=== PATIENT | male | born 1955 | race Caucasian/White ===

== ENCOUNTER 2017-05-13 16:48 | Inpatient (IN) | payer MEDICARE, OTHER ==
[~2017-05-13] VITALS: Ht 167.6 cm; Wt 120.0 kg
[2017-05-13] MEDS ORDERED: SPIR25TA PO (17:23)
[2017-05-13] MEDS ORDERED: OXYC1CAP PO (17:23)
[2017-05-13] MEDS ORDERED: FURO40TA PO (17:23)
[2017-05-13] MEDS ORDERED: VENL50TA PO (17:23)
[2017-05-13] MEDS ORDERED: CLON.5 PO (17:23)
[2017-05-13 18:22] LABS: AUTOMATED NEUTROPHIL # 3.9 TH/MM3 (1.8-7.7); BASOPHIL % 0.4 % (0.0-2.0); HEMATOCRIT 43.7 % (39.0-51.0); HEMOGLOBIN 15.3 GM/DL (13.0-17.0); LYMPH % 10.7 % (9.0-44.0); LYMPHOCYTE # 0.5 TH/MM3 (1.0-4.8); MEAN CELL VOLUME 102.2 FL (80.0-100.0); MEAN CORPUSCULAR HEMOGLOBIN 35.9 PG (27.0-34.0); MEAN CORPUSCULAR HGB CONC 35.1 % (32.0-36.0); MONO % 11.3 % (0.0-8.0); MONOCYTE # 0.6 TH/MM3 (0-0.9); NEUT % 77.6 % (16.0-70.0); PLATELET COUNT 131 TH/MM3 (150-450); RED BLOOD COUNT 4.27 MIL/MM3 (4.50-5.90); RED CELL DISTRIBUTION WIDTH 12.8 % (11.6-17.2)
[2017-05-13 18:24] LABS: BILIRUBIN, URINE NEG (NEG); BLOOD, URINE SMALL (NEG); GLUCOSE,URINE NEG (NEG); HYALINE CAST, URINE 4 /lpf (RARE); KETONE, URINE NEG (NEG); MUCUS URINE FEW /lpf (OCC); NITRITE,URINE NEG (NEG); PH, URINE 7.5 (5.0-8.5); SQUAMOUS EPITHELIAL CELL URINE <1 /hpf (0-5); URINE COLOR LIGHT-YELLOW (YELLW/STRAW); URINE LEUKOCYTE ESTERASE NEG (NEG)
[2017-05-13 18:51] VITALS: BP 120/76; PULSE 72; RESP 16; TEMP 98.4; O2SAT 94
[2017-05-13 18:57] LABS: ALT (GPT) 27 U/L (12-78)
--- NOTE | 2017-05-13 18:57 | PD ---
HPI Chief Complaint: Psychiatric Symptoms Time Seen by Provider: 17:55 Travel History International Travel<30 days: No Contact w/Intl Traveler<30days: No Traveled to known affect area: No History of Present Illness HPI 61-year-old male sent from [facility] under VR1 act. According to VR1 act report "contact was made with Sumit Up in regards to his calling about his behavior today being abnormal. Mrs. Up advised Mr. Up for some apparent dementia as evidenced by suggestions from recent doctor visit [address] [facility] in [place]. Mrs. Up advised that Mr. Up is neglecting to take care of himself as evidenced by him defecating himself, attempting to swallow household ornament items, and is also becoming a danger to others, by means of lashing out and becoming aggressive with Mrs. Up while attempting to walk around the outside of his house in the nude. Mr. Up was unable to answer simple questions about what day it was, who the current present was, etc. and is believed that without proper care of treatment , Mr. Up will cause bodily harm to others/failed to care for his own well- being." The patient is alert, and only oriented to self on physical exam. He is answering questions with all no answers and will not elaborate otherwise. The patient is restless and is continuing to climb in and out of bed and walk around the room. When asked if he is having pain, hallucinations, alcohol use, illegal drug use, suicidal ideation or homicidal ideation he answers "no." Onset unknown. Duration unknown. No known relieving or aggravating factors. Symptoms are moderate to severe in severity. According to a note from his the patient has had altered mental status 3 weeks. He went to the hospital with elevated ammonia levels, was treated and released. Per the the patient is taking Klonopin, oxycodone, spironolactone, furosemide, venlafaxine. She reports questional dementia, incontinence, inability to perform ADLs. Unknown primary care provider. Patient answers "no" when asked if he is allergic to anything, but cannot rely on this. Unknown past medical history. [facility] Past Medical History Medical History: Unable to Obtain Diminished Hearing: No (UNABLE TO OBTAIN) ?: Not Past Surgical History Surgical History: Unable to Obtain Social History Alcohol Use: No (UNABLE TO OBTAIN) Tobacco Use: No (UNABLE TO OBTAIN) Substance Use: No (UNABLE TO OBTAIN) Allergies-Medications (Allergen,Severity, Reaction): Coded Allergies: No Allergy Information Available (Unverified , 05/13/17) PT HAS ALTERED MENTAL STATUS Reported Meds & Prescriptions Reported Meds & Active Scripts Active Reported Effexor (Venlafaxine HCl) 50 Mg Tab 50 Mg PO Q8H Furosemide 40 Mg Tab 40 Mg PO BID Spironolactone 25 Mg Tab 12.5 Mg PO DAILY Oxycodone (Oxycodone HCl) 5 Mg Cap 5 Mg PO Q6H PRN Klonopin (Clonazepam) 0.5 Mg Tab 0.5 Mg PO BID Review of Systems ROS Limitations: Altered Mental Status Physical Exam Narrative GENERAL: Well-nourished, well-developed male patient, in no acute distress SKIN: Warm and dry. HEAD: Atraumatic. Normocephalic. EYES: Pupils equal and round. No scleral icterus. No injection or drainage. ENT: Mucosa pink and moist. Airway patent. NECK: Trachea midline. CARDIOVASCULAR: Regular rate and rhythm. No murmur appreciated.. RESPIRATORY: No accessory muscle use. Breath sounds clear and equal bilaterally. GASTROINTESTINAL: Abdomen soft, non-tender, nondistended. Positive bowel sounds. No hepato-splenomegaly, or palpable masses. No guarding. MUSCULOSKELETAL: No obvious deformities. No clubbing. No cyanosis. No edema. NEUROLOGICAL: Awake and alert. Oriented 1. No obvious cranial nerve deficits. Motor grossly within normal limits. Normal speech. PSYCHIATRIC: Flat affect. Insight and judgment not normal. Mood and affect flat and not normal. Data Data Last Documented VS Vital Signs Date Time Temp Pulse Resp B/P (MAP) Pulse Ox O2 Delivery O2 Flow Rate FiO2 05/13/17 19:21 98.2 76 18 114/79 (91) 96 Room Air Orders Orders Complete Blood Count With Diff (05/13/17 17:57) Comprehensive Metabolic Panel (05/13/17 17:57) Urinalysis - C+S If Indicated (05/13/17 17:57) Psych Screen (05/13/17 17:57) Drug Screen, Random Urine (05/13/17 17:57) Alcohol (Ethanol) (05/13/17 17:57) Salicylates (Aspirin) (05/13/17 17:57) Tylenol (Acetaminophen) (05/13/17 17:57) Ammonia (05/13/17 18:16) Ct Brain W/O Iv Contrast(Rout) (05/13/17 ) Lactulose Liq (Lactulose Liq) (05/13/17 20:30) Admit Order (Ed Use Only) (05/13/17 20:35) Labs Laboratory Tests Test 05/13/17 18:08 05/13/17 18:09 05/13/17 19:13 Urine Color LIGHT-YELLOW Urine Turbidity CLEAR Urine pH 7.5 Urine Specific [place] 1.006 Urine Protein NEG mg/dL Urine Glucose (UA) NEG mg/dL Urine Ketones NEG mg/dL Urine Occult Blood SMALL Urine Nitrite NEG Urine Bilirubin NEG Urine Urobilinogen LESS THAN 2.0 MG/DL Urine Leukocyte Esterase NEG Urine RBC 3 /hpf Urine WBC 1 /hpf Urine Squamous Epithelial Cells <1 /hpf Urine Hyaline Casts 4 /lpf Urine Mucus FEW /lpf Microscopic Urinalysis Comment CULT NOT INDICATED Urine Opiates Screen NEG Urine Barbiturates Screen NEG Urine Amphetamines Screen NEG Urine Benzodiazepines Screen NEG Urine Cocaine Screen NEG Urine Cannabinoids Screen NEG White Blood Count 5.0 TH/MM3 Red Blood Count 4.27 MIL/MM3 Hemoglobin 15.3 GM/DL Hematocrit 43.7 % Mean Corpuscular Volume 102.2 FL Mean Corpuscular Hemoglobin 35.9 PG Mean Corpuscular Hemoglobin Concent 35.1 % Red Cell Distribution Width 12.8 % Platelet Count 131 TH/MM3 Mean Platelet Volume 10.0 FL Neutrophils (%) (Auto) 77.6 % Lymphocytes (%) (Auto) 10.7 % Monocytes (%) (Auto) 11.3 % Eosinophils (%) (Auto) 0.0 % Basophils (%) (Auto) 0.4 % Neutrophils # (Auto) 3.9 TH/MM3 Lymphocytes # (Auto) 0.5 TH/MM3 Monocytes # (Auto) 0.6 TH/MM3 Eosinophils # (Auto) 0.0 TH/MM3 Basophils # (Auto) 0.0 TH/MM3 CBC Comment DIFF FINAL Differential Comment Blood Urea Nitrogen 14 MG/DL Creatinine 1.22 MG/DL Random Glucose 155 MG/DL Total Protein 8.5 GM/DL Albumin 3.7 GM/DL Calcium Level 10.1 MG/DL Alkaline Phosphatase 122 U/L Aspartate Amino Transf (AST/SGOT) 55 U/L Alanine Aminotransferase (ALT/SGPT) 27 U/L Total Bilirubin 1.1 MG/DL Sodium Level 133 MEQ/L Potassium Level 4.3 MEQ/L Chloride Level 96 MEQ/L Carbon Dioxide Level 28.5 MEQ/L Anion Gap 9 MEQ/L Estimat Glomerular Filtration Rate 61 ML/MIN Salicylates Level LESS THAN 1.7 MG/DL Acetaminophen Level LESS THAN 2.0 MCG/ML Ethyl Alcohol Level LESS THAN 3 MG/DL Ammonia 79 MCMOL/L MDM Medical Decision Making Medical Screen Exam Complete: Yes Emergency Medical Condition: Yes Medical Record Reviewed: Yes Differential Diagnosis Dementia, increased ammonia level, altered mental status, psychosis Narrative Course This is a 61-year-old male sent from [facility]. Apparently his brought him there because she could not care for him secondary to altered mental status 3 weeks. Apparently he has had increased ammonia levels and has been seen at another hospital, treated, and discharged in regards to this. Ammonia level ordered. CT head ordered. Patient presents under a Cottrell act. Physical examination and vital signs are essentially unremarkable. Patient has no medical complaints to report. Psych screen has been ordered. If the laboratory results are unremarkable, the patient will be medically cleared for psychiatric evaluation and disposition. 1899: Report given to Sanna Royal at change shift. Labs pending. See her note for final patient disposition. Kimberlyn Cardoza May 13, 2017 18:57
[2017-05-13 19:00] LABS: ALBUMIN 3.7 GM/DL (3.4-5.0); ALKALINE PHOSPHATASE 122 U/L (45-117); AST (GOT) 55 U/L (15-37); BICARBONATE 28.5 MEQ/L (21.0-32.0); BLOOD UREA NITROGEN 14 MG/DL (7-18); CALCIUM 10.1 MG/DL (8.5-10.1); CHLORIDE 96 MEQ/L (98-107); CREATININE 1.22 MG/DL (0.60-1.30); GLOMERULAR FILTRATION RATE 61 ML/MIN (>89); GLUCOSE,RANDOM 155 MG/DL (74-106); SODIUM (NA) 133 MEQ/L (136-145); TOTAL BILIRUBIN ADULT 1.1 MG/DL (0.2-1.0); TOTAL PROTEIN 8.5 GM/DL (6.4-8.2)
[2017-05-13 19:01] LABS: ACETAMINOPHEN LESS THAN 2.0 MCG/ML (10.0-30.0)
[2017-05-13 19:21] VITALS: BP 114/79; PULSE 76; RESP 18; TEMP 98.2; O2SAT 96
--- NOTE | 2017-05-13 19:54 | RADRPT ---
EXAM DATE/TIME: 05/13/2017 19:49 [place] COMPARISON: No previous studies available for comparison. INDICATIONS : Altered mental status.. RADIATION DOSE: 42.46 CTDIvol (mGy) MEDICAL HISTORY : None SURGICAL HISTORY : None. ENCOUNTER: Initial ACUITY: 1 day PAIN SCALE: 0/10 LOCATION: cranial TECHNIQUE: Multiple contiguous axial images were obtained of the head. Using automated exposure control and adj ustment of the mA and/or kV according to patient size, radiation dose was kept as low as reasonably a chievable to obtain optimal diagnostic quality images. DICOM format image data is available electro nically for review and comparison. FINDINGS: CEREBRUM: The ventricles are normal for age. No evidence of midline shift, mass lesion, hemorrhage or acute in farction. No extra-axial fluid collections are seen. POSTERIOR FOSSA: The cerebellum and brainstem are intact. The 4th ventricle is midline. The cerebellopontine angle i s unremarkable. EXTRACRANIAL: The visualized portion of the orbits is intact. SKULL: The calvaria is intact. No evidence of skull fracture. CONCLUSION: Normal examination for a patient of this age. Abel Enamorado MD on May 13, 2017 at 19:52 Board Certified Radiologist. This report was verified electronically.
[2017-05-13] MEDS ORDERED: LACTULOSE SYRUP 20 GM/30 ML CUP PO ONE (20:30)
--- NOTE | 2017-05-13 20:40 | PD ---
Physical Exam Date Seen by Provider: May 13, 2017 Time Seen by Provider: 20:25 Narrative For full history and physical examination please see previous providers note. I assumed care of this patient change of shift. Data Data Last Documented VS Vital Signs Date Time Temp Pulse Resp B/P (MAP) Pulse Ox O2 Delivery O2 Flow Rate FiO2 05/13/17 19:21 98.2 76 18 114/79 (91) 96 Room Air Orders Orders Complete Blood Count With Diff (05/13/17 17:57) Comprehensive Metabolic Panel (05/13/17 17:57) Urinalysis - C+S If Indicated (05/13/17 17:57) Psych Screen (05/13/17 17:57) Drug Screen, Random Urine (05/13/17 17:57) Alcohol (Ethanol) (05/13/17 17:57) Salicylates (Aspirin) (05/13/17 17:57) Tylenol (Acetaminophen) (05/13/17 17:57) Ammonia (05/13/17 18:16) Ct Brain W/O Iv Contrast(Rout) (05/13/17 ) Lactulose Liq (Lactulose Liq) (05/13/17 20:30) Labs Laboratory Tests Test 05/13/17 18:08 05/13/17 18:09 05/13/17 19:13 Urine Color LIGHT-YELLOW Urine Turbidity CLEAR Urine pH 7.5 Urine Specific [place] 1.006 Urine Protein NEG mg/dL Urine Glucose (UA) NEG mg/dL Urine Ketones NEG mg/dL Urine Occult Blood SMALL Urine Nitrite NEG Urine Bilirubin NEG Urine Urobilinogen LESS THAN 2.0 MG/DL Urine Leukocyte Esterase NEG Urine RBC 3 /hpf Urine WBC 1 /hpf Urine Squamous Epithelial Cells <1 /hpf Urine Hyaline Casts 4 /lpf Urine Mucus FEW /lpf Microscopic Urinalysis Comment CULT NOT INDICATED Urine Opiates Screen NEG Urine Barbiturates Screen NEG Urine Amphetamines Screen NEG Urine Benzodiazepines Screen NEG Urine Cocaine Screen NEG Urine Cannabinoids Screen NEG White Blood Count 5.0 TH/MM3 Red Blood Count 4.27 MIL/MM3 Hemoglobin 15.3 GM/DL Hematocrit 43.7 % Mean Corpuscular Volume 102.2 FL Mean Corpuscular Hemoglobin 35.9 PG Mean Corpuscular Hemoglobin Concent 35.1 % Red Cell Distribution Width 12.8 % Platelet Count 131 TH/MM3 Mean Platelet Volume 10.0 FL Neutrophils (%) (Auto) 77.6 % Lymphocytes (%) (Auto) 10.7 % Monocytes (%) (Auto) 11.3 % Eosinophils (%) (Auto) 0.0 % Basophils (%) (Auto) 0.4 % Neutrophils # (Auto) 3.9 TH/MM3 Lymphocytes # (Auto) 0.5 TH/MM3 Monocytes # (Auto) 0.6 TH/MM3 Eosinophils # (Auto) 0.0 TH/MM3 Basophils # (Auto) 0.0 TH/MM3 CBC Comment DIFF FINAL Differential Comment Blood Urea Nitrogen 14 MG/DL Creatinine 1.22 MG/DL Random Glucose 155 MG/DL Total Protein 8.5 GM/DL Albumin 3.7 GM/DL Calcium Level 10.1 MG/DL Alkaline Phosphatase 122 U/L Aspartate Amino Transf (AST/SGOT) 55 U/L Alanine Aminotransferase (ALT/SGPT) 27 U/L Total Bilirubin 1.1 MG/DL Sodium Level 133 MEQ/L Potassium Level 4.3 MEQ/L Chloride Level 96 MEQ/L Carbon Dioxide Level 28.5 MEQ/L Anion Gap 9 MEQ/L Estimat Glomerular Filtration Rate 61 ML/MIN Salicylates Level LESS THAN 1.7 MG/DL Acetaminophen Level LESS THAN 2.0 MCG/ML Ethyl Alcohol Level LESS THAN 3 MG/DL Ammonia 79 MCMOL/L [facility] Medical Record Reviewed: Yes Supervised Visit with ISABEL: No Interpretation(s) Laboratory Tests Test 05/13/17 18:08 05/13/17 18:09 05/13/17 19:13 Urine Color LIGHT-YELLOW Urine Turbidity CLEAR Urine pH 7.5 Urine Specific [place] 1.006 Urine Protein NEG mg/dL Urine Glucose (UA) NEG mg/dL Urine Ketones NEG mg/dL Urine Occult Blood SMALL Urine Nitrite NEG Urine Bilirubin NEG Urine Urobilinogen LESS THAN 2.0 MG/DL Urine Leukocyte Esterase NEG Urine RBC 3 /hpf Urine WBC 1 /hpf Urine Squamous Epithelial Cells <1 /hpf Urine Hyaline Casts 4 /lpf Urine Mucus FEW /lpf Microscopic Urinalysis Comment CULT NOT INDICATED Urine Opiates Screen NEG Urine Barbiturates Screen NEG Urine Amphetamines Screen NEG Urine Benzodiazepines Screen NEG Urine Cocaine Screen NEG Urine Cannabinoids Screen NEG White Blood Count 5.0 TH/MM3 Red Blood Count 4.27 MIL/MM3 Hemoglobin 15.3 GM/DL Hematocrit 43.7 % Mean Corpuscular Volume 102.2 FL Mean Corpuscular Hemoglobin 35.9 PG Mean Corpuscular Hemoglobin Concent 35.1 % Red Cell Distribution Width 12.8 % Platelet Count 131 TH/MM3 Mean Platelet Volume 10.0 FL Neutrophils (%) (Auto) 77.6 % Lymphocytes (%) (Auto) 10.7 % Monocytes (%) (Auto) 11.3 % Eosinophils (%) (Auto) 0.0 % Basophils (%) (Auto) 0.4 % Neutrophils # (Auto) 3.9 TH/MM3 Lymphocytes # (Auto) 0.5 TH/MM3 Monocytes # (Auto) 0.6 TH/MM3 Eosinophils # (Auto) 0.0 TH/MM3 Basophils # (Auto) 0.0 TH/MM3 CBC Comment DIFF FINAL Differential Comment Blood Urea Nitrogen 14 MG/DL Creatinine 1.22 MG/DL Random Glucose 155 MG/DL Total Protein 8.5 GM/DL Albumin 3.7 GM/DL Calcium Level 10.1 MG/DL Alkaline Phosphatase 122 U/L Aspartate Amino Transf (AST/SGOT) 55 U/L Alanine Aminotransferase (ALT/SGPT) 27 U/L Total Bilirubin 1.1 MG/DL Sodium Level 133 MEQ/L Potassium Level 4.3 MEQ/L Chloride Level 96 MEQ/L Carbon Dioxide Level 28.5 MEQ/L Anion Gap 9 MEQ/L Estimat Glomerular Filtration Rate 61 ML/MIN Salicylates Level LESS THAN 1.7 MG/DL Acetaminophen Level LESS THAN 2.0 MCG/ML Ethyl Alcohol Level LESS THAN 3 MG/DL Ammonia 79 MCMOL/L Vital Signs Date Time Temp Pulse Resp B/P (MAP) Pulse Ox O2 Delivery O2 Flow Rate FiO2 05/13/17 19:21 98.2 76 18 114/79 (91) 96 Room Air 05/13/17 18:51 98.4 72 16 120/76 (91) 94 Room Air Narrative Course Patient is a 61-year-old male who was brought into the emergency department under Cottrell act. Please see previous providers note for full H&P. Care of this patient we were awaiting on a CT of the brain as well as an ammonia level. CT of the brain shows no acute abnormality. CBC with no acute abnormalities, urinalysis is not consistent with a urinary tract infection. If negative, acetaminophen, salicylate and alcohol levels are normal. Ammonia level resulted at 79. Lactulose 60 mL's was ordered. Discussed with my attending physician, patient will be admitted for altered mental status and hyperammonemia. Accepted admission. Admit orders placed. Diagnosis Primary Impression: Altered mental status Qualified Codes: R41.82 - Altered mental status, unspecified Additional Impression: Hyperammonemia Admitting Information Admitting Physician Requests: Admit Condition: Stable Sanna Garcia May 13, 2017 20:40
[2017-05-13] MEDS ORDERED: SODIUM CHLORIDE 0.9% FLUSH 10 ML FLUSH IV FLUSH PRN (22:00)
[2017-05-13] MEDS ORDERED: ONDANSETRON HCL 4 MG/2 ML VIAL IVP PRN (22:00)
[2017-05-13] MEDS: HEPARIN SODIUM - SQ 10,000 UNITS/ML VIAL SQ SCH (22:27)
--- NOTE | 2017-05-13 22:51 | HHI.HP ---
HPI Service [facility] Primary Care Physician Unknown Admission Diagnosis ams, hyperammonemia Diagnoses: Travel History International Travel<30 Days: No Contact w/Intl Traveler <30 Da: No Traveled to Known Affected Are: No History of Present Illness 61-year-old male presents to the emergency department under [employer] act. According to the Cottrell act report, contact was made with the patient in regards to his calling about his behavior being abnormal." According to the patient's per documentation, the patient has been defecating on himself, attempting to swallow household ornament items and has become aggressive. Prior to the start of our interview, I witnessed the patient drinking his own urine from his urinal. I asked the patient if he knew where he was and he answered "hospital." I asked the patient has name and he did not answer. He did not participate in any other elements of the physical exam including answering any additional questions. Review of Systems ROS Limitations: Clinical Condition Unable to obtain secondary to patient's clinical condition Past Family Social History Past Medical History Unable to obtain Past Surgical History Unable to obtain Reported Medications Reported Meds & Active Scripts Active Reported Effexor (Venlafaxine HCl) 50 Mg Tab 50 Mg PO Q8H Furosemide 40 Mg Tab 40 Mg PO BID Spironolactone 25 Mg Tab 12.5 Mg PO DAILY Oxycodone (Oxycodone HCl) 5 Mg Cap 5 Mg PO Q6H PRN Klonopin (Clonazepam) 0.5 Mg Tab 0.5 Mg PO BID Allergies: Coded Allergies: No Allergy Information Available (Unverified , 05/13/17) PT HAS ALTERED MENTAL STATUS Family History Unable to obtain Social History Unable to obtain Physical Exam Vital Signs Vital Signs Date Time Temp Pulse Resp B/P (MAP) Pulse Ox O2 Delivery O2 Flow Rate FiO2 05/13/17 19:21 98.2 76 18 114/79 (91) 96 Room Air 05/13/17 18:51 98.4 72 16 120/76 (91) 94 Room Air Physical Exam GENERAL: male pacing around his room SKIN: Focused skin assessment warm and dry HEAD: Atraumatic. Normocephalic. EYES: Extraocular motions intact. No scleral icterus. No injection or drainage. ENT: Nose without bleeding, purulent drainage or septal hematoma. Airway patent. NECK: Trachea midline. CARDIOVASCULAR: Regular rate and rhythm without murmurs, gallops, or rubs. RESPIRATORY: Clear to auscultation. Breath sounds equal bilaterally. No wheezes , rales, or rhonchi. GASTROINTESTINAL: Abdomen soft, non-tender, nondistended. No hepato-splenomegaly , or palpable masses. No guarding. MUSCULOSKELETAL: Extremities without clubbing, cyanosis, or edema. No joint tenderness, effusion, or edema noted. No calf tenderness. NEUROLOGICAL: Disoriented and confused. Cranial nerves II through XII intact. Motor and sensory grossly within normal limits. Laboratory Laboratory Tests Test 05/13/17 18:08 05/13/17 18:09 05/13/17 19:13 Urine Color LIGHT-YELLOW Urine Turbidity CLEAR Urine pH 7.5 Urine Specific [place] 1.006 Urine Protein NEG Urine Glucose (UA) NEG Urine Ketones NEG Urine Occult Blood SMALL Urine Nitrite NEG Urine Bilirubin NEG Urine Urobilinogen LESS THAN 2.0 Urine Leukocyte Esterase NEG Urine RBC 3 Urine WBC 1 Urine Squamous Epithelial Cells <1 Urine Hyaline Casts 4 Urine Mucus FEW Microscopic Urinalysis Comment CULT NOT INDICATED Urine Opiates Screen NEG Urine Barbiturates Screen NEG Urine Amphetamines Screen NEG Urine Benzodiazepines Screen NEG Urine Cocaine Screen NEG Urine Cannabinoids Screen NEG White Blood Count 5.0 Red Blood Count 4.27 Hemoglobin 15.3 Hematocrit 43.7 Mean Corpuscular Volume 102.2 Mean Corpuscular Hemoglobin 35.9 Mean Corpuscular Hemoglobin Concent 35.1 Red Cell Distribution Width 12.8 Platelet Count 131 Mean Platelet Volume 10.0 Neutrophils (%) (Auto) 77.6 Lymphocytes (%) (Auto) 10.7 Monocytes (%) (Auto) 11.3 Eosinophils (%) (Auto) 0.0 Basophils (%) (Auto) 0.4 Neutrophils # (Auto) 3.9 Lymphocytes # (Auto) 0.5 Monocytes # (Auto) 0.6 Eosinophils # (Auto) 0.0 Basophils # (Auto) 0.0 CBC Comment DIFF FINAL Differential Comment Blood Urea Nitrogen 14 Creatinine 1.22 Random Glucose 155 Total Protein 8.5 Albumin 3.7 Calcium Level 10.1 Alkaline Phosphatase 122 Aspartate Amino Transf (AST/SGOT) 55 Alanine Aminotransferase (ALT/SGPT) 27 Total Bilirubin 1.1 Sodium Level 133 Potassium Level 4.3 Chloride Level 96 Carbon Dioxide Level 28.5 Anion Gap 9 Estimat Glomerular Filtration Rate 61 Salicylates Level LESS THAN 1.7 Acetaminophen Level LESS THAN 2.0 Ethyl Alcohol Level LESS THAN 3 Ammonia 79 Result Diagram: 05/13/17180805/13/171808 Caprini VTE Risk Assessment Caprini VTE Risk Assessment: Mod/High Risk (score >= 2) Caprini Risk Assessment Model Point Value = 1 Point Value = 2 Point Value = 3 Point Value = 5 Age 41-60 Minor surgery BMI > 25 kg/m2 Swollen legs Varicose veins or History of unexplained or recurrent spontaneous Oral contraceptives or hormone replacement Sepsis (< 1 month) Serious lung disease, including pneumonia (< 1 month) Abnormal pulmonary function Acute myocardial infarction Congestive heart failure (< 1 month) History of inflammatory bowel disease Medical patient at bed rest Age 61-74 Arthroscopic surgery Major open surgery (> 45 min) Laparoscopic surgery (> 45 min) Malignancy Confined to bed (> 72 hours) Immobilizing plaster cast Central venous access Age >= 75 History of VTE Family history of VTE Factor V Leiden Prothrombin [id number] Lupus anticoagulant Anticardiolipin antibodies Elevated serum homocysteine Heparin-induced thrombocytopenia Other congenital or acquired thrombophilia Stroke (< 1 month) Elective arthroplasty Hip, pelvis, or leg fracture Acute spinal cord injury (< 1 month) Prophylaxis Regimen Total Risk Factor Score Risk Level Prophylaxis Regimen 0-1 Low Early ambulation 2 Moderate Order ONE of the following: *Sequential Compression Device (SCD) *Heparin 5000 units SQ BID 3-4 Higher Order ONE of the following medications: *Heparin 5000 units SQ TID *Enoxaparin/Lovenox 40 mg SQ daily (WT < 150 kg, CrCl > 30 mL/min) *Enoxaparin/Lovenox 30 mg SQ daily (WT < 150 kg, CrCl > 10-29 mL/min) *Enoxaparin/Lovenox 30 mg SQ BID (WT < 150 kg, CrCl > 30 mL/min) AND/OR *Sequential Compression Device (SCD) 5 or more Highest Order ONE of the following medications: *Heparin 5000 units SQ TID (Preferred with Epidurals) *Enoxaparin/Lovenox 40 mg SQ daily (WT < 150 kg, CrCl > 30 mL/min) *Enoxaparin/Lovenox 30 mg SQ daily (WT < 150 kg, CrCl > 10-29 mL/min) *Enoxaparin/Lovenox 30 mg SQ BID (WT < 150 kg, CrCl > 30 mL/min) AND *Sequential Compression Device (SCD) Assessment and Plan Assessment and Plan Assessment/plan: 1. Hyperammonemia/altered mental status Ammonia 79 Likely contributing to altered mental status May be component of substance abuse as well Urine drug screen, alcohol level negative Lactulose Repeat ammonia level in the a.m., consider adding rifaximin 2. Cottrell act Patient with behavioral disturbances, unable to care for himself Psychiatry consulted, appreciate recommendations FEN Regular diet Electrolytes: monitor and replete prn Ambulation Physician Certification 2 Midnight Certification Type: Admission for Inpatient Services Order for Inpatient Services The services are ordered in accordance with Medicare regulations or non- Medicare payer requirements, as applicable. In the case of services not specified as inpatient-only, they are appropriately provided as inpatient services in accordance with the 2-midnight benchmark. Estimated LOS (days): 2 2 days is the estimated time the patient will need to remain in the hospital, assuming treatment plan goals are met and no additional complications. Post-Hospital Plan: Not yet determined Elsa Eller MD May 13, 2017 22:51
[2017-05-14] VITALS (15 sets, daily range): BP systolic 86–163; BP diastolic 51–86; PULSE 57–118; RESP 18–28; TEMP 97.8–101; O2SAT 91–99
[2017-05-14] MEDS ORDERED: LORazepam 1 MG TAB PO PRN (00:45)
[2017-05-14] MEDS ORDERED: LORazepam 2 MG/ML VIAL IV PUSH PRN ×3 (00:45)
[2017-05-14] MEDS ORDERED: LORazepam 2 MG TAB PO PRN (00:45)
[2017-05-14] MEDS ORDERED: FLUMAZENIL 0.5 MG/5 ML VIAL IV PUSH PRN (00:45)
[2017-05-14] MEDS: LORazepam 2 MG/ML VIAL IV PUSH PRN ×7 (01:25→08:48)
[2017-05-14] MEDS: SODIUM CHLOR 0.9% 1000 ML INJ 1,000 ML IV SCH ×3 (01:57→17:53)
--- NOTE | 2017-05-14 05:08 | PD.CONS ---
HPI Service Critical Care Medicine Consult Requested By Primary Care Physician Unknown History of Present Illness 61-year-old male admitted under Cottrell act. According to the Cottrell act report, contact was made with the patient in regards to his calling about his behavior being abnormal." According to the patient's per documentation, the patient has been defecating on himself, attempting to swallow household ornament items and has become aggressive. During my assessment the patient is extremely agitated, not following commands. Review of Systems ROS Unobtainable due to patient's altered mental status Past Family Social History Allergies: Coded Allergies: No Allergy Information Available (Unverified , 05/13/17) PT HAS ALTERED MENTAL STATUS Past Medical History Unobtainable Past Surgical History Unobtainable Reported Medications Reported Meds & Active Scripts Active Reported Effexor (Venlafaxine HCl) 50 Mg Tab 50 Mg PO Q8H Furosemide 40 Mg Tab 40 Mg PO BID Spironolactone 25 Mg Tab 12.5 Mg PO DAILY Oxycodone (Oxycodone HCl) 5 Mg Cap 5 Mg PO Q6H PRN Klonopin (Clonazepam) 0.5 Mg Tab 0.5 Mg PO BID Active Ordered Medications Current Medications Medications (Trade) Dose Ordered Sig/Dawood Route PRN Reason Start Time Stop Time Status Last Admin Dose Admin Sodium Chloride (NS Flush) 2 ml UNSCH PRN IV FLUSH FLUSH AFTER USING IV ACCESS 05/13/17 22:00 Sodium Chloride (NS Flush) 2 ml BID IV FLUSH 05/14/17 09:00 Acetaminophen (Tylenol) 650 mg Q4H PRN PO TEMP > 100.4 05/13/17 22:00 Ondansetron HCl (Zofran Inj) 4 mg Q6H PRN IVP NAUSEA OR VOMITING 05/13/17 22:00 Heparin Sodium (Porcine) (Heparin Inj) 5,000 units Q8H SQ 05/13/17 22:00 05/13/17 22:27 Lactulose (Lactulose Liq) 30 ml QID PO 05/14/17 09:00 Sodium Chloride 1,000 ml @ 100 mls/hr Q10H IV 05/13/17 22:00 05/14/17 01:57 Folic Acid (Folate) 1 mg DAILY PO 05/14/17 09:00 05/19/17 08:59 Thiamine HCl (Vitamin B1) 100 mg DAILY PO 05/14/17 09:00 Multivitamins/ Minerals Therapeutic (Theragran M Tab) 1 tab DAILY PO 05/14/17 09:00 05/19/17 08:59 Flumazenil (Romazicon Inj) 0.2 mg Q1M PRN IV PUSH SEE LABEL COMMENTS 05/14/17 00:45 Lorazepam (Ativan) 1 mg Q4H PRN PO CIWA 8 - 10 05/14/17 00:45 Lorazepam (Ativan Inj) 1 mg Q4H PRN IV PUSH CIWA 8 - 10 05/14/17 00:45 Lorazepam (Ativan) 2 mg Q2H PRN PO CIWA 11-14 05/14/17 00:45 Lorazepam (Ativan Inj) 2 mg Q2H PRN IV PUSH CIWA 11-14 05/14/17 00:45 Lorazepam (Ativan Inj) 2 mg Q1H PRN IV PUSH CIWA 15-20 05/14/17 00:45 Lorazepam (Ativan Inj) 2 mg Q15M PRN IV PUSH CIWA > 20 05/14/17 00:45 05/14/17 04:47 Dexmedetomidine HCl 200 mcg/ Sodium Chloride 52 ml @ 4.68 mls/hr TITRATE PRN IV SEDATION 05/14/17 05:30 Family History Unobtainable Social History Unobtainable Physical Exam Vital Signs Vital Signs Date Time Temp Pulse Resp B/P (MAP) Pulse Ox O2 Delivery O2 Flow Rate FiO2 05/14/17 04:11 98.7 97 20 116/71 (86) 95 05/14/17 02:10 99.0 102 20 133/86 (102) 93 05/14/17 00:45 98.4 99 20 126/78 (94) 95 05/14/17 00:03 97.9 112 20 138/84 (102) 91 05/13/17 19:21 98.2 76 18 114/79 (91) 96 Room Air 05/13/17 18:51 98.4 72 16 120/76 (91) 94 Room Air Physical Exam GENERAL: male, diaphoretic, agitated, in moderate distress SKIN: Focused skin assessment warm and dry HEAD: Atraumatic. Normocephalic. EYES: Extraocular motions intact. No scleral icterus. No injection or drainage. ENT: Nose without bleeding, purulent drainage or septal hematoma. Airway patent. NECK: Trachea midline. CARDIOVASCULAR: Regular rate and rhythm without murmurs, gallops, or rubs. RESPIRATORY: Clear to auscultation. Breath sounds equal bilaterally. No wheezes , rales, or rhonchi. GASTROINTESTINAL: Abdomen soft, non-tender, nondistended. No hepato-splenomegaly , or palpable masses. No guarding. MUSCULOSKELETAL: Extremities without clubbing, cyanosis, or edema. No joint tenderness, effusion, or edema noted. No calf tenderness. NEUROLOGICAL: Disoriented and confused. Cranial nerves II through XII intact. Motor and sensory grossly within normal limits. Laboratory Laboratory Tests Test 05/13/17 18:08 05/13/17 18:09 05/13/17 19:13 Urine Color LIGHT-YELLOW Urine Turbidity CLEAR Urine pH 7.5 Urine Specific [employer] 1.006 Urine Protein NEG Urine Glucose (UA) NEG Urine Ketones NEG Urine Occult Blood SMALL Urine Nitrite NEG Urine Bilirubin NEG Urine Urobilinogen LESS THAN 2.0 Urine Leukocyte Esterase NEG Urine RBC 3 Urine WBC 1 Urine Squamous Epithelial Cells <1 Urine Hyaline Casts 4 Urine Mucus FEW Microscopic Urinalysis Comment CULT NOT INDICATED Urine Opiates Screen NEG Urine Barbiturates Screen NEG Urine Amphetamines Screen NEG Urine Benzodiazepines Screen NEG Urine Cocaine Screen NEG Urine Cannabinoids Screen NEG White Blood Count 5.0 Red Blood Count 4.27 Hemoglobin 15.3 Hematocrit 43.7 Mean Corpuscular Volume 102.2 Mean Corpuscular Hemoglobin 35.9 Mean Corpuscular Hemoglobin Concent 35.1 Red Cell Distribution Width 12.8 Platelet Count 131 Mean Platelet Volume 10.0 Neutrophils (%) (Auto) 77.6 Lymphocytes (%) (Auto) 10.7 Monocytes (%) (Auto) 11.3 Eosinophils (%) (Auto) 0.0 Basophils (%) (Auto) 0.4 Neutrophils # (Auto) 3.9 Lymphocytes # (Auto) 0.5 Monocytes # (Auto) 0.6 Eosinophils # (Auto) 0.0 Basophils # (Auto) 0.0 CBC Comment DIFF FINAL Differential Comment Blood Urea Nitrogen 14 Creatinine 1.22 Random Glucose 155 Total Protein 8.5 Albumin 3.7 Calcium Level 10.1 Alkaline Phosphatase 122 Aspartate Amino Transf (AST/SGOT) 55 Alanine Aminotransferase (ALT/SGPT) 27 Total Bilirubin 1.1 Sodium Level 133 Potassium Level 4.3 Chloride Level 96 Carbon Dioxide Level 28.5 Anion Gap 9 Estimat Glomerular Filtration Rate 61 Salicylates Level LESS THAN 1.7 Acetaminophen Level LESS THAN 2.0 Ethyl Alcohol Level LESS THAN 3 Ammonia 79 Result Diagram: 05/13/17180805/13/171808 Assessment and Plan Assessment and Plan Altered mental status - CT head negative - Drug screen toxicology negative - alcohol withdrawal - Hyperammonemia - CIWA protocol - Thiamine folate multivitamin - Precedex drip - Patient may need to be intubated for an airway protection Elevated ammonia level - Lactulose by mouth - Monitor trend Hyperglycemia - Insulin sliding scale DVT GI prophylaxis - Teds SCDs - Subcutaneous heparin - Shimon Macias MD May 14, 2017 05:08
[2017-05-14] MEDS ORDERED: DEXMEDETOMIDINE INJ 200 MCG in SODIUM CHLORIDE 0.9% INJ 50 ML IV PRN (05:30)
[2017-05-14] MEDS: HEPARIN SODIUM - SQ 10,000 UNITS/ML VIAL SQ SCH ×2 (06:11→12:45)
[2017-05-14] MEDS ORDERED: DEXTROSE 50% IN WATER 50 ML VIAL(D50) IV PUSH PRN (07:00)
[2017-05-14] MEDS ORDERED: GLUCAGON 1 MG/ML VIAL OTHER PRN (07:00)
[2017-05-14] MEDS: DEXMEDETOMIDINE INJ 1,000 MCG in SODIUM CHLOR 0.9% 250 ML INJ 240 ML IV PRN ×2 (07:55→08:58)
[2017-05-14] MEDS: INSULIN ASPART SUPPLEMENTAL SCALE SQ SCH ×4 (08:00→21:00)
[2017-05-14] MEDS: FOLIC ACID 1 MG TAB PO SCH (08:47)
[2017-05-14] MEDS: MULTIVITAMINS/MINERALS THERAPEUTIC TAB PO SCH (08:47)
[2017-05-14] MEDS: THIAMINE HCL 100 MG TAB PO SCH (08:47)
[2017-05-14] MEDS: SODIUM CHLORIDE 0.9% FLUSH 10 ML FLUSH IV FLUSH SCH ×2 (08:47→21:22)
[2017-05-14] MEDS: FAMOTIDINE 20 MG/2 ML VIAL IV PUSH SCH ×2 (08:47→21:22)
[2017-05-14] MEDS: LACTULOSE SYRUP 20 GM/30 ML CUP PO SCH ×4 (08:47→21:21)
--- NOTE | 2017-05-14 10:17 | PD.PSY.CON ---
Provisional Diagnosis Admission Date May 13, 2017 at 20:37 History of Present Illness Service Psychiatry Consult Requested By Critical team Reason for Consult Under Cottrell act Primary Care Physician Unknown Past Family Social History Coded Allergies: No Allergy Information Available (Unverified , 05/13/17) PT HAS ALTERED MENTAL STATUS Reported Medications Venlafaxine (Effexor) 50 Mg Tab, 50 MG PO Q8H, #90 TAB 0 Refills 05/13/17 Furosemide (Furosemide) 40 Mg Tab, 40 MG PO BID, #60 TAB 0 Refills 05/13/17 Spironolactone (Spironolactone) 25 Mg Tab, 12.5 MG PO DAILY, #15 TAB 0 Refills 05/13/17 Oxycodone (Oxycodone) 5 Mg Cap, 5 MG PO Q6H Y for PAIN, CAP 0 Refills 05/13/17 Clonazepam (Klonopin) 0.5 Mg Tab, 0.5 MG PO BID, #60 TAB 0 Refills 05/13/17 Current Medications Medications (Trade) Dose Ordered Sig/Dawood Route Start Time Stop Time Status Last Admin (NS Flush) 2 ml UNSCH PRN IV FLUSH 05/13/17 22:00 (NS Flush) 2 ml BID IV FLUSH 05/14/17 09:00 05/14/17 08:47 (Tylenol) 650 mg Q4H PRN PO 05/13/17 22:00 (Zofran Inj) 4 mg Q6H PRN IVP 05/13/17 22:00 (Heparin Inj) 5,000 units Q8H SQ 05/13/17 22:00 05/14/17 06:11 (Lactulose Liq) 30 ml QID PO 05/14/17 09:00 05/14/17 08:47 Sodium Chloride 1,000 ml @ 100 mls/hr Q10H IV 05/13/17 22:00 05/14/17 08:48 (Folate) 1 mg DAILY PO 05/14/17 09:00 05/19/17 08:59 05/14/17 08:47 (Vitamin B1) 100 mg DAILY PO 05/14/17 09:00 05/14/17 08:47 (Theragran M Tab) 1 tab DAILY PO 05/14/17 09:00 05/19/17 08:59 05/14/17 08:47 (Romazicon Inj) 0.2 mg Q1M PRN IV PUSH 05/14/17 00:45 (Ativan) 1 mg Q4H PRN PO 05/14/17 00:45 (Ativan Inj) 1 mg Q4H PRN IV PUSH 05/14/17 00:45 05/14/17 06:11 (Ativan) 2 mg Q2H PRN PO 05/14/17 00:45 (Ativan Inj) 2 mg Q2H PRN IV PUSH 05/14/17 00:45 (Ativan Inj) 2 mg Q1H PRN IV PUSH 05/14/17 00:45 (Ativan Inj) 2 mg Q15M PRN IV PUSH 05/14/17 00:45 05/14/17 08:48 (D50w (Vial) Inj) 50 ml UNSCH PRN IV PUSH 05/14/17 07:00 (Glucagon Inj) 1 mg UNSCH PRN OTHER 05/14/17 07:00 (NovoLOG SUPPLEMENTAL SCALE) 1 ACHS SLIDING SCALE SQ 05/14/17 08:00 (Pepcid Inj) 20 mg Q12HR IV PUSH 05/14/17 09:00 05/14/17 08:47 Dexmedetomidine HCl 1000 mcg/ Sodium Chloride 250 ml @ 4.5 mls/hr TITRATE PRN IV 05/14/17 07:45 05/14/17 08:58 Physical Exam Vital Signs Vital Signs Date Time Temp Pulse Resp B/P (MAP) Pulse Ox O2 Delivery O2 Flow Rate FiO2 05/14/17 06:00 118 05/14/17 04:11 98.7 20 116/71 (86) 95 05/13/17 19:21 Room Air Lab Results Test 05/13/17 18:08 05/13/17 18:09 05/13/17 19:13 Urine Color LIGHT-YELLOW Urine Turbidity CLEAR Urine pH 7.5 Urine Specific [place] 1.006 Urine Protein NEG mg/dL Urine Glucose (UA) NEG mg/dL Urine Ketones NEG mg/dL Urine Occult Blood SMALL Urine Nitrite NEG Urine Bilirubin NEG Urine Urobilinogen LESS THAN 2.0 MG/DL Urine Leukocyte Esterase NEG Urine RBC 3 /hpf Urine WBC 1 /hpf Urine Squamous Epithelial Cells <1 /hpf Urine Hyaline Casts 4 /lpf Urine Mucus FEW /lpf Microscopic Urinalysis Comment CULT NOT INDICATED Urine Opiates Screen NEG Urine Barbiturates Screen NEG Urine Amphetamines Screen NEG Urine Benzodiazepines Screen NEG Urine Cocaine Screen NEG Urine Cannabinoids Screen NEG White Blood Count 5.0 TH/MM3 Red Blood Count 4.27 MIL/MM3 Hemoglobin 15.3 GM/DL Hematocrit 43.7 % Mean Corpuscular Volume 102.2 FL Mean Corpuscular Hemoglobin 35.9 PG Mean Corpuscular Hemoglobin Concent 35.1 % Red Cell Distribution Width 12.8 % Platelet Count 131 TH/MM3 Mean Platelet Volume 10.0 FL Neutrophils (%) (Auto) 77.6 % Lymphocytes (%) (Auto) 10.7 % Monocytes (%) (Auto) 11.3 % Eosinophils (%) (Auto) 0.0 % Basophils (%) (Auto) 0.4 % Neutrophils # (Auto) 3.9 TH/MM3 Lymphocytes # (Auto) 0.5 TH/MM3 Monocytes # (Auto) 0.6 TH/MM3 Eosinophils # (Auto) 0.0 TH/MM3 Basophils # (Auto) 0.0 TH/MM3 CBC Comment DIFF FINAL Differential Comment Blood Urea Nitrogen 14 MG/DL Creatinine 1.22 MG/DL Random Glucose 155 MG/DL Total Protein 8.5 GM/DL Albumin 3.7 GM/DL Calcium Level 10.1 MG/DL Alkaline Phosphatase 122 U/L Aspartate Amino Transf (AST/SGOT) 55 U/L Alanine Aminotransferase (ALT/SGPT) 27 U/L Total Bilirubin 1.1 MG/DL Sodium Level 133 MEQ/L Potassium Level 4.3 MEQ/L Chloride Level 96 MEQ/L Carbon Dioxide Level 28.5 MEQ/L Anion Gap 9 MEQ/L Estimat Glomerular Filtration Rate 61 ML/MIN Salicylates Level LESS THAN 1.7 MG/DL Acetaminophen Level LESS THAN 2.0 MCG/ML Ethyl Alcohol Level LESS THAN 3 MG/DL Ammonia 79 MCMOL/L Assessment & Plan Problem List: (1) Altered mental status ICD Codes: R41.82 - Altered mental status, unspecified Status: Acute Assessment & Plan: Patient was visited for psychiatric evaluation, but he was too sedated to participate in the psychiatric interview at this moment. I will come in a later time to complete the psychiatric evaluation. Assessment & Plan Estimated LOS: days Problem Qualifiers (1) Altered mental status: Qualified Codes: R41.82 - Altered mental status, unspecified Raphael Nicole MD May 14, 2017 10:17
[2017-05-14 11:46] LABS: AUTOMATED NEUTROPHIL # 3.5 TH/MM3 (1.8-7.7); BASOPHIL % 0.2 % (0.0-2.0); EOSINOPHIL % 0.1 % (0.0-4.0); HEMATOCRIT 40.3 % (39.0-51.0); HEMOGLOBIN 14.2 GM/DL (13.0-17.0); LYMPHOCYTE # 0.4 TH/MM3 (1.0-4.8); MEAN CELL VOLUME 100.8 FL (80.0-100.0); MEAN CORPUSCULAR HEMOGLOBIN 35.5 PG (27.0-34.0); MEAN CORPUSCULAR HGB CONC 35.2 % (32.0-36.0); MEAN PLATELET VOLUME 8.9 FL (7.0-11.0); MONO % 9.9 % (0.0-8.0); MONOCYTE # 0.4 TH/MM3 (0-0.9); NEUT % 79.8 % (16.0-70.0); PLATELET COUNT 72 TH/MM3 (150-450); RED CELL DISTRIBUTION WIDTH 12.9 % (11.6-17.2); WHITE BLOOD COUNT 4.4 TH/MM3 (4.0-11.0)
[2017-05-14 11:47] LABS: INTERNATIONAL NORMALIZED RATIO 1.2 RATIO
[2017-05-14 12:12] LABS: ALBUMIN 3.5 GM/DL (3.4-5.0); ALT (GPT) 18 U/L (12-78); AST (GOT) 28 U/L (15-37); BICARBONATE 31.1 MEQ/L (21.0-32.0); BLOOD UREA NITROGEN 14 MG/DL (7-18); CALCIUM 9.5 MG/DL (8.5-10.1); CHLORIDE 101 MEQ/L (98-107); CREATININE 1.19 MG/DL (0.60-1.30); GLOMERULAR FILTRATION RATE 62 ML/MIN (>89); GLUCOSE,RANDOM 210 MG/DL (74-106); SODIUM (NA) 138 MEQ/L (136-145)
[2017-05-14 12:15] LABS: ALKALINE PHOSPHATASE 98 U/L (45-117); TOTAL BILIRUBIN ADULT 1.7 MG/DL (0.2-1.0); TOTAL PROTEIN 7.4 GM/DL (6.4-8.2)
[2017-05-14] MEDS ORDERED: GADODIAMIDE PF 287 MG/ML 5 ML VIAL (for RAD MRI) IVCONTRAST ONE (13:31)
--- NOTE | 2017-05-14 16:00 | RADRPT ---
EXAM DATE/TIME: 05/14/2017 13:12 [facility] COMPARISON: No previous studies available for comparison. INDICATIONS : Altered mental status. CONTRAST: 23 cc Omniscan (gadodiamide) IV MEDICAL HISTORY : None. SURGICAL HISTORY : Hernia repair. ENCOUNTER: Initial ACUITY: 1 day PAIN SCORE: 0/10 LOCATION: Head. TECHNIQUE: Multiplanar, multisequence MRI of the brain was performed both prior to and following the administrat ion of paramagnetic contrast. FINDINGS: There is filling defect within the dural sinuses, most conspicuously seen in the posterior aspect of the superior sagittal sinus and in the right transverse sinus. The appearance be consistent with sinu s thrombosis. This appears to be incompletely occlusive. There is no evidence of associated parenchym al brain edema. No restricted diffusion to indicate subacute stroke. There is no evidence of intracra nial mass or hemorrhage. The ventricles are symmetric and normal. No abnormal extra-axial fluid accum ulation is identified. There is no abnormal parenchymal brain enhancement. CONCLUSION: Incompletely occlusive dural sinus thrombosis. Sumit Young MD on May 14, 2017 at 15:39 Board Certified Radiologist. This report was verified electronically.
[2017-05-14 18:06] LABS: HEMATOCRIT 38.4 % (39.0-51.0); HEMOGLOBIN 13.4 GM/DL (13.0-17.0); MEAN CELL VOLUME 101.8 FL (80.0-100.0); MEAN CORPUSCULAR HEMOGLOBIN 35.6 PG (27.0-34.0); MEAN CORPUSCULAR HGB CONC 34.9 % (32.0-36.0); MEAN PLATELET VOLUME 9.8 FL (7.0-11.0); PLATELET COUNT 66 TH/MM3 (150-450); RED BLOOD COUNT 3.78 MIL/MM3 (4.50-5.90); WHITE BLOOD COUNT 4.1 TH/MM3 (4.0-11.0)
[2017-05-14 18:09] LABS: INTERNATIONAL NORMALIZED RATIO 1.2 RATIO
[2017-05-14] MEDS: HEPARIN-D5W 25,000 U/250 ML 250 ML IV PRN (18:20)
[2017-05-14] MEDS: chlordiazePOXIDE 25 MG CAP PO SCH (21:22)
[2017-05-14] MEDS ORDERED: CHLORHEXIDINE GLUCONATE 2 % 1 PACK (2 CLOTHS)(extra cloths) TOPICAL PRN (21:45)
[2017-05-15] VITALS (12 sets, daily range): BP systolic 84–149; BP diastolic 50–79; PULSE 60–105; RESP 18–26; TEMP 97.4–101.5; O2SAT 95–100
[2017-05-15] MEDS: SODIUM CHLOR 0.9% 1000 ML INJ 1,000 ML IV SCH ×4 (03:33→23:36)
[2017-05-15] MEDS: chlordiazePOXIDE 25 MG CAP PO SCH ×4 (03:34→19:53)
[2017-05-15] MEDS: CHLORHEXIDINE GLUCONATE 2 % 1 PACK (2 CLOTHS)(taper/protocol) TOPICAL SCH (03:35)
[2017-05-15 05:16] LABS: BASOPHIL % 0.2 % (0.0-2.0); HEMATOCRIT 37.8 % (39.0-51.0); HEMOGLOBIN 13.5 GM/DL (13.0-17.0); LYMPH % 10.7 % (9.0-44.0); LYMPHOCYTE # 0.5 TH/MM3 (1.0-4.8); MEAN CELL VOLUME 101.4 FL (80.0-100.0); MEAN CORPUSCULAR HEMOGLOBIN 36.1 PG (27.0-34.0); MEAN CORPUSCULAR HGB CONC 35.6 % (32.0-36.0); MEAN PLATELET VOLUME 9.5 FL (7.0-11.0); MONOCYTE # 0.6 TH/MM3 (0-0.9); NEUT % 78.1 % (16.0-70.0); PLATELET COUNT 58 TH/MM3 (150-450); RED BLOOD COUNT 3.73 MIL/MM3 (4.50-5.90); RED CELL DISTRIBUTION WIDTH 12.6 % (11.6-17.2); WHITE BLOOD COUNT 5.1 TH/MM3 (4.0-11.0)
[2017-05-15 06:10] LABS: ALBUMIN 3.3 GM/DL (3.4-5.0); ALKALINE PHOSPHATASE 89 U/L (45-117); ALT (GPT) 18 U/L (12-78); AST (GOT) 28 U/L (15-37); BICARBONATE 25.3 MEQ/L (21.0-32.0); BLOOD UREA NITROGEN 12 MG/DL (7-18); CALCIUM 8.5 MG/DL (8.5-10.1); CHLORIDE 105 MEQ/L (98-107); GLOMERULAR FILTRATION RATE 76 ML/MIN (>89); GLUCOSE,RANDOM 148 MG/DL (74-106); PHOSPHORUS 2.4 MG/DL (2.5-4.9); SODIUM (NA) 141 MEQ/L (136-145); TOTAL BILIRUBIN ADULT 1.8 MG/DL (0.2-1.0)
[2017-05-15] MEDS: INSULIN ASPART SUPPLEMENTAL SCALE SQ SCH ×4 (07:20→19:57)
[2017-05-15] MEDS: FAMOTIDINE 20 MG/2 ML VIAL IV PUSH SCH ×2 (07:55→19:52)
[2017-05-15] MEDS: FOLIC ACID 1 MG TAB PO SCH (07:55)
[2017-05-15] MEDS: THIAMINE HCL 100 MG TAB PO SCH (07:55)
[2017-05-15] MEDS: MULTIVITAMINS/MINERALS THERAPEUTIC TAB PO SCH (07:56)
[2017-05-15] MEDS: LACTULOSE SYRUP 20 GM/30 ML CUP PO SCH ×4 (07:56→19:53)
[2017-05-15] MEDS: SODIUM CHLORIDE 0.9% FLUSH 10 ML FLUSH IV FLUSH SCH ×2 (07:56→19:53)
[2017-05-15] MEDS: HEPARIN-D5W 25,000 U/250 ML 250 ML IV PRN (07:58)
[2017-05-15] MEDS ORDERED: LORazepam 2 MG/ML VIAL IV PUSH PRN ×3 (08:15)
[2017-05-15] MEDS ORDERED: ARGATROBAN INJ 250 MG in SODIUM CHLOR 0.9% 250 ML INJ 250 ML IV PRN (08:15)
[2017-05-15] MEDS ORDERED: FLUMAZENIL 0.5 MG/5 ML VIAL IV PUSH PRN (08:15)
[2017-05-15] MEDS ORDERED: LORazepam 1 MG TAB PO PRN (08:15)
[2017-05-15] MEDS ORDERED: LORazepam 2 MG TAB PO PRN (08:15)
[2017-05-15] MEDS ORDERED: MISCELLANEOUS PHARMACY INFORMATION OTHER ONE (08:15)
--- NOTE | 2017-05-15 08:36 | MB ---
cc: DARSHAN RESENDEZ M.D. DATE OF CONSULTATION 05/14/2017 REASON FOR CONSULTATION Venous sinus thrombosis. HISTORY OF PRESENT ILLNESS Mr. Up is a 61-year-old man who presents with alteration in mental status with confusion and agitation thought to be possibly alcohol withdrawal. He had no focal deficits. As part of his evaluation, an MRI of the brain was obtained and this revealed dural sinus thrombosis incompletely occlusive. PAST MEDICAL HISTORY Unknown at this time. MEDICATIONS His current medications are: 1. Lactulose. 2. Folic acid. 3. Thiamine. 4. Famotidine. NEUROLOGIC EXAMINATION VITAL SIGNS: Blood pressure is 93/56, pulse 57, respiratory rate is 16, temperature 98.9 degrees. HIGHER CORTICAL FUNCTION: He is lethargic and difficult to arouse, does not follow commands. CRANIAL NERVES: Pupils are equal and reactive. On motor exam, he has no focal deficits. He moves both upper lower extremities minimally. MRI of the brain. There is evidence of thrombosis in the posterior aspect of the superior sagittal sinus and right transverse sinus consistent with sinus thrombosis and completely occlusive. There is no brain edema. No restricted diffusion. No hemorrhage. LABORATORY DATA The white count 4400, hemoglobin 14.2, hematocrit 40.3%, PT 12 INR 1.2. Sodium is 138, potassium is 4, [id number], CO2 31, BUN is 14, creatinine 1.19, GFR 62, glucose 210, AST 20 ALT 18. Tox screen negative. 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 RECOMMENDATIONS Would recommend starting IV heparin with no bolus, continue to monitor the platelet count, also we will obtain an MR venogram for further confirmation. MD JOANIE Newton/ZORAIDA /5:19 PM /8:14 AM
--- NOTE | 2017-05-15 09:49 | RADRPT ---
EXAM DATE/TIME: 05/15/2017 08:32 [facility] COMPARISON: No previous studies available for comparison. INDICATIONS : Enlarged liver. MEDICAL HISTORY : Unable to obtain. SURGICAL HISTORY : Unable to obtain. ENCOUNTER: Initial ACUITY: 1 day PAIN SCORE: Nonresponsive. LOCATION: Abdomen. MEASUREMENTS: LIVER: 17.2 cm length COMMON DUCT: 7 mm RIGHT KIDNEY: 10.6 x 4.7 x 4.6 cm SPLEEN: 15.1 cm length FINDINGS: LIVER: Normal echotexture without focal lesion or ductal dilatation. Small amount of free fluid identified adjacent to the liver. COMMON DUCT: No intraluminal mass or stone visualized. GALLBLADDER: Mural, nonmobile echogenic foci along the inferior wall may represent a small polyp PANCREAS: The visualized portions are within normal limits. RIGHT KIDNEY: No hydronephrosis, stone or mass. SPLEEN: No focal lesion. CONCLUSION: 1. Liver and spleen are both enlarged. No focal lesions. 2. Very small amount of ascites along the hepatic border. 3. Possible small gallbladder polyp. Alan Alex MD on May 15, 2017 at 9:44 Board Certified Radiologist. This report was verified electronically.
--- NOTE | 2017-05-15 10:24 | MB ---
cc: KESHA OLIVA MD DATE OF CONSULTATION 05/15/2017 DATE OF 1955 TIME OF CONSULTATION 07:55 a.m. REASON FOR CONSULTATION Patient with an incompletely occlusive dural sinus thrombosis. CURRENT TREATMENT The patient is on heparin. CHIEF COMPLAINT Mr. Up is largely nonverbal, he answers "alright and okay" to all questions. HISTORY OF PRESENT ILLNESS Mr. Up a 61-year-old man who was transferred to [facility] from [facility] for psychosis. Apparently this patient was found to be acutely psychotic, his behavior included defecating on himself, attempting to eat household items such as kitchen utensils, becoming aggressive. He was also witnessed to have drank his own urine from a urinal in the [place] emergency department. He is not alert to place or time or situation. Imaging studies of the brain performed on 05/14/2017 at [facility] indicated a filling deficit within the dural sinus most conspicuously in the posterior aspect of the superior sagittal sinus and the right transverse sinus. These findings were reported to the critical care physicians and the patient was initiated on anticoagulation with a heparin infusion. A prothrombotic workup has been ordered, this includes antiphospholipid antibodies, circulating lupus anticoagulant, factor five Leiden mutation, factor VIII activity, protein S activity, protein C activity and homocystine levels. A prothrombin gene mutation has also been ordered. PAST MEDICAL HISTORY Difficult to obtain. The electronic medical records has no charted history. PAST SURGICAL HISTORY No surgical history reported. SOCIAL HISTORY He does have a , I will be in contact with her. ALLERGIES Electronic medical record indicates no known allergies. CURRENT INPATIENT MEDICATIONS 1. Heparin infusion 2. Precedex 3. Normal saline 100 cc/hour 4. Tylenol 650 mg p.o. q.4 h as needed for pain or fever. 5. Librium 50 mg p.o. q.6 h 6. Chlorhexidine for oral care 7. Famotidine 20 mg IV q.12 h 8. Romazicon 0.2 mg IV as needed 9. Folic acid 1 mg p.o. daily 10. Lactulose 30 mL p.o. q.i.d. 11. Lorazepam 1 mg p.o. q.4 h as needed per the CIWA scale at up titrating doses. 12. NovoLog insulin per sliding scale protocol. 13. Multivitamin 14. Zofran 4 mg IV q.6 h as needed next 15. Thiamine 1 mg p.o. daily REVIEW OF SYSTEMS Could not obtain. PHYSICAL EXAMINATION VITAL SIGNS: Temperature 98.7 degrees Fahrenheit, heart rate 93 beats per minute, blood pressure is 89/55, O2 sat is 97% on two liters nasal cannula, respiratory rate 23 breaths per minute. GENERAL PHYSICAL APPEARANCE: Mr. Up is a middle-aged male, he is lying in bed, he appears to be disheveled, he does not open his eyes, but is moving his upper and lower extremities spontaneously, the movements do not seem to be purposeful. HEENT: Head is atraumatic, normocephalic, conjunctivae appear to be somewhat pale. Sclerae are nonicteric. Pupils are reactive to light. Oral exam, dry mucous membranes. Poor dental hygiene. NECK: No cervical lymphadenopathy. RESPIRATORY: Good breath sounds bilaterally, no crepitus, no wheezing or rhonchi. CARDIOVASCULAR: Regular rate and rhythm, S1-S2. No obvious murmurs, rubs or gallops. ABDOMEN: Protuberant, obese, no free fluid noted, no definite evidence of hepatosplenomegaly. EXTREMITIES: Lower extremities have no pretibial edema or calf tenderness. [employer] L[employer]: He seems to be moving all four limbs spontaneously. MUSCULOSKELETAL: Good muscle mass, tone and strength. LABORATORY FINDINGS Lab work dated 05/15/2017: WBC count 5.1, hemoglobin 13.5 gm/dl, hemoglobin 38%, MCV 101, platelet count is 58,000. Mean platelet volume is 9.5, absolute neutrophil count is 4. Chemistries: Sodium 141, potassium 3.6, chloride 105, bicarb 25.3, BUN 12, creatinine 1, EGFR 76, random glucose 148, calcium 8.5, phosphorus 2.4, magnesium 2, total bilirubin 1.8, AST 28, ALT 18, alkaline phosphatase 89, ammonia level is 47, albumin is 2.3, total protein is 7. Homocystine level is pending. PT at admission was 12, INR is 1.2, PTT was 26.6 at admission, with heparinization PTT is elevated at 80.2 seconds. Prothrombotic workup is pending at this time. IMAGING STUDIES MRI of the brain with contrast and without contrast dated 05/14/2017 indicates a filling defect within the dural sinus, most conspicuously seen in the posterior aspect of the superior sagittal sinus and in the right transverse sinus. The appearance can be consistent with sinus thrombosis. This appears to be incompletely occlusive. There is no evidence of associated parenchymal brain edema, no restricted diffusion to indicate subacute stroke. There is no evidence of intracranial mass or hemorrhage. The ventricles are symmetric and normal, no abnormal extra-axial fluid accumulation is identified. Overall, there is no abnormal parenchymal brain effacement for lesions noted. ASSESSMENT Mr. Up is a 61-year-old male who presents to the hospital with psychosis, he was reported to have erratic behavior which include trying to eat household appliances, defecating over himself and being aggressive towards others. In the emergency department, he was witnessed drinking his own urine out of a urinal at bedside. He was admitted to the hospital and underwent imaging studies including an MRI of the brain which revealed an completely occlusive thrombosis involving the dural sinus as well as the right transverse sinus. He has been initiated on heparin. Over the course of the past 48 hours, his platelet count has dropped down from 131 down to 58,000. I do not have previous trends to identify if this is a chronic or an acute issue as far as the thrombocytopenia is concerned. The hematology service has been asked to see him for further workup and management for an underlying prothrombotic state. An extensive and very thorough prothrombotic workup has been ordered the results of which will not be available for at least a week. RECOMMENDATIONS 1. Dural sinus thrombosis: At this point I would recommend discontinuing heparin due to thrombocytopenia. I will transition him to argatroban until HIP is not rule out. I will order an HIP, Ashwini antibody. Additionally, I will obtain a hepatitis panel to rule out hepatitis C. Ultrasound of the liver and spleen will also be ordered to assess for Hepatosplenomegaly. 2. Await prothrombotic work up results. It is not yet certain if his dural sinus thrombosis may be contributing to his psychosis. 3. It may be helpful to obtain neurologic evaluation. MD JUAN MANUEL Brasher/ZORAIDA /8:03 AM /9:57 AM
[2017-05-15] MEDS ORDERED: GADODIAMIDE PF 287 MG/ML 20 ML VIAL (for RAD MRI) IVCONTRAST ONE (10:46)
--- NOTE | 2017-05-15 11:39 | RADRPT ---
EXAM DATE/TIME: 05/15/2017 09:41 COMPARISON: MRI BRAIN W & W/O CONTRAST, May 14, 2017, 13:12. INDICATIONS : Sinus thrombosis. CONTRAST: 20 cc Omniscan (gadodiamide) IV MEDICAL HISTORY : None. SURGICAL HISTORY : Umbilical hernia repair. ENCOUNTER: Initial ACUITY: 1 day PAIN SCORE: 0/10 LOCATION: cranial FINDINGS: The dural sinuses are patent throughout. Specifically, no evidence of superior sagittal sinus or velez sverse sinus thrombosis. There is mild developmental asymmetry of the transverse and sigmoid sinuses which appears benign. The deep cerebral venous structures appear patent. Cortical surface veins are s ymmetric and unremarkable. CONCLUSION: Normal study. Sumit Young MD on May 15, 2017 at 11:32 Board Certified Radiologist. This report was verified electronically.
[2017-05-15] MEDS ORDERED: LORazepam 2 MG/ML VIAL IV PUSH ONE (12:45)
[2017-05-15] MEDS: LORazepam 2 MG/ML VIAL IV PUSH PRN ×2 (13:58→23:36)
--- NOTE | 2017-05-15 14:36 | HHI.CCPN ---
Subjective Remarks/Hospital Course 61-year-old male admitted under Cottrell act. According to the Cottrell act report, contact was made with the patient in regards to his calling about his behavior being abnormal." According to the patient's per documentation, the patient has been defecating on himself, attempting to swallow household ornament items and has become aggressive. During my assessment the patient is extremely agitated, not following commands. 05/15/17: Intermittently severely agitated. Remains on Precedex. With 2 mg of IV Ativan he became oversedated, hypoxemic. Now improving. Spiking a fever 101.5. Pancultured. On argatroban for possible dural venous thrombosis, but MRV negative for any thrombus or occlusion. Patient will possibly need a lumbar puncture but currently on argatroban. Will discuss with Dr. Rai and DC argatroban, transfuse platelet Objective Vital Signs Date Time Temp Pulse Resp B/P (MAP) Pulse Ox O2 Delivery O2 Flow Rate FiO2 05/15/17 12:00 104 05/15/17 12:00 101.5 26 149/72 (97) 95 05/15/17 11:17 Nasal Cannula 2.00 05/15/17 07:00 95 Intake and Output 05/15/17 05/15/17 05/16/17 08:00 16:00 00:00 Intake Total 1993.4 ml 53.3 ml Output Total 500 ml Balance 1493.4 ml 53.3 ml Result Diagram: 05/15/17 0445 05/15/17 0445 Other Results Laboratory Tests Test 05/15/17 10:58 Blood Gas Puncture Site RT RADIAL Blood Gas Patient Temperature 98.6 Blood Gas HCO3 24 mmol/L (22-26) Blood Gas Base Excess -0.3 mmol/L (-2-2) Blood Gas Oxygen Saturation 96 % (90-100) Arterial Blood pH 7.42 (7.380-7.420) Arterial Blood Partial Pressure CO2 38 mmHg (38-42) Arterial Blood Partial Pressure O2 123 mmHg (61-120) Arterial Blood Oxygen Content 17.0 Vol % (12.0-20.0) Arterial Blood Carboxyhemoglobin 1.4 % (0-4) Arterial Blood Methemoglobin 1.2 % (0-2) Blood Gas Hemoglobin 12.4 G/DL (12.0-16.0) Oxygen Delivery Device NRM Blood Gas Liter Flow 12 L/M Blood Gas Inspired Oxygen 100 % Objective Remarks GENERAL: male, diaphoretic, agitated, in moderate distress, on Precedex and CIWA protocol SKIN: Focused skin assessment warm and dry HEAD: Atraumatic. Normocephalic. EYES: Extraocular motions intact. No scleral icterus. No injection or drainage. ENT: Nose without bleeding, purulent drainage or septal hematoma. Airway patent. NECK: Trachea midline. CARDIOVASCULAR: Regular rate and rhythm without murmurs, gallops, or rubs. RESPIRATORY: Clear to auscultation. Breath sounds equal bilaterally. No wheezes , rales, or rhonchi. GASTROINTESTINAL: Abdomen soft, non-tender, nondistended. No hepato-splenomegaly , or palpable masses. No guarding. MUSCULOSKELETAL: Extremities without clubbing, cyanosis, or edema. NEUROLOGICAL: Disoriented and confused. Currently heavily sedated, but protecting airway. Motor grossly within normal limits. A/P Assessment and Plan Altered mental status/delirium Intermittent high fever Rule out meningoencephalitis Probable alcohol withdrawal - CT head negative - Drug screen toxicology negative - Possibly secondary to alcohol withdrawal - MRV negative for any dural sinus thrombosis - Hematology following and started on argatroban which I have DCd now - I am unable to do LP at this time due to patient being Argatroban and thrombocytopenia - Recheck coags after 4 hours of stopping argatroban, transfuse 1 pack units of platelets - Broad-spectrum meningitic coverage with vancomycin, ampicillin and Rocephin and also add acyclovir - LP late evening if coags platelet acceptable - Hyperammonemia, on lactulose - CIWA protocol - Thiamine folate multivitamin - Precedex drip - Patient may need to be intubated for an airway protection, and to facilitate LP Elevated ammonia level - Lactulose by mouth - Monitor trend Hyperglycemia - Insulin sliding scale DVT GI prophylaxis - Teds SCDs - Argatroban discontinued - Pepcid CCT 40 MIN Marcos Arana MD May 15, 2017 14:36
[2017-05-15] MEDS ORDERED: Vancomycin Consult Pharmacy 1 EA OTHER SCH ×2 (14:45→15:00)
--- NOTE | 2017-05-15 14:56 | RADRPT ---
EXAM DATE/TIME: 05/15/2017 14:14 [facility] COMPARISON: No previous studies available for comparison. INDICATIONS : Respiratory disease. MEDICAL HISTORY : None. SURGICAL HISTORY : Umbilical hernia repair ENCOUNTER: Subsequent ACUITY: 1 day PAIN SCORE: Non-responsive. LOCATION: Bilateral chest FINDINGS: Nasogastric tube across the GE junction it tortuous esophagus. Left lung clear. Consolidative perez es right base small right pleural effusion., Compensated cardiomegaly CONCLUSION: Consolidative changes right base as above. Maxwell Marion MD FACR on May 15, 2017 at 14:53 Board Certified Radiologist. This report was verified electronically.
[2017-05-15] MEDS: AMPICILLIN INJ 1,000 MG in SODIUM CHLORIDE 0.9% INJ 100 ML IV SCH ×3 (15:15→23:36)
[2017-05-15] MEDS: DEXMEDETOMIDINE INJ 1,000 MCG in SODIUM CHLOR 0.9% 250 ML INJ 240 ML IV PRN (15:17)
[2017-05-15 15:19] LABS: HEPATITIS A AB IGM NEGATIVE (NEGATIVE); HEPATITIS B CORE AB IGM NEGATIVE (NEGATIVE); HEPATITIS B SURFACE ANTIGEN NEGATIVE (NEGATIVE); HEPATITIS C AB IgG REACTIVE (NEGATIVE)
[2017-05-15] MEDS: cefTRIAXone INJ 2,000 MG in SODIUM CHLORIDE 0.9% INJ 100 ML IV SCH (15:40)
[2017-05-15] MEDS ORDERED: VANCOMYCIN INJ 1,250 MG in SODIUM CHLOR 0.9% 250 ML INJ 250 ML IV ONE (16:00)
[2017-05-15] MEDS: ACYCLOVIR INJ 700 MG in SODIUM CHLORIDE 0.9% INJ 100 ML IV SCH (16:21)
--- NOTE | 2017-05-15 17:41 | HHI.PR ---
Review/Management Diagnosis encephalopathy r/o infectious etiology No evidence for venous sinus thrombosis on MRV Plan agree with d/c anticoagulation I agree with plan to proceed with LP after tx platelet. check CSF also for HSV PCR. Agree with current antibiotic and acyclovir coverage. Diagnosis/Plan: Subjective Subjective Comments No acute events reported Active Medications Current Medications Medications (Trade) Dose Ordered Sig/Dawood Route Start Time Stop Time Status Last Admin (NS Flush) 2 ml UNSCH PRN IV FLUSH 05/13/17 22:00 (NS Flush) 2 ml BID IV FLUSH 05/14/17 09:00 05/15/17 07:56 (Tylenol) 650 mg Q4H PRN PO 05/13/17 22:00 (Zofran Inj) 4 mg Q6H PRN IVP 05/13/17 22:00 (Lactulose Liq) 30 ml QID PO 05/14/17 09:00 05/15/17 12:24 Sodium Chloride 1,000 ml @ 100 mls/hr Q10H IV 05/13/17 22:00 05/15/17 07:02 (Folate) 1 mg DAILY PO 05/14/17 09:00 05/19/17 08:59 05/15/17 07:55 (Vitamin B1) 100 mg DAILY PO 05/14/17 09:00 05/15/17 07:55 (Theragran M Tab) 1 tab DAILY PO 05/14/17 09:00 05/19/17 08:59 05/15/17 07:56 (D50w (Vial) Inj) 50 ml UNSCH PRN IV PUSH 05/14/17 07:00 (Glucagon Inj) 1 mg UNSCH PRN OTHER 05/14/17 07:00 (NovoLOG SUPPLEMENTAL SCALE) 1 ACHS SLIDING SCALE SQ 05/14/17 08:00 (Pepcid Inj) 20 mg Q12HR IV PUSH 05/14/17 09:00 05/15/17 07:55 Dexmedetomidine HCl 1000 mcg/ Sodium Chloride 250 ml @ 4.5 mls/hr TITRATE PRN IV 05/14/17 07:45 05/15/17 15:17 (Librium) 50 mg Taper Q6H PO 05/14/17 21:00 05/22/17 20:59 05/15/17 13:58 Miscellaneous Information Patient in critical care unit? Ass... [id number] .XX 05/14/17 21:45 05/14/17 21:45 (Chlorhexidine 2% Cloth) 3 pack DAILY@04 TOPICAL 05/15/17 04:00 05/19/17 04:01 05/15/17 03:35 (Chlorhexidine 2% Cloth) 3 pack UNSCH PRN TOPICAL 05/14/17 21:45 05/19/17 21:32 (Ativan) 1 mg Q4H PRN PO 05/15/17 08:15 (Ativan Inj) 1 mg Q4H PRN IV PUSH 05/15/17 08:15 05/15/17 13:58 (Ativan) 2 mg Q2H PRN PO 05/15/17 08:15 (Ativan Inj) 2 mg Q2H PRN IV PUSH 05/15/17 08:15 (Ativan Inj) 2 mg Q1H PRN IV PUSH 05/15/17 08:15 05/15/17 08:52 (Ativan Inj) 2 mg Q15M PRN IV PUSH 05/15/17 08:15 (Romazicon Inj) 0.2 mg Q1M PRN IV PUSH 05/15/17 08:15 Ceftriaxone Sodium 2000 mg/ Sodium Chloride 100 ml @ 200 mls/hr Q12H IV 05/15/17 16:00 05/15/17 15:40 Acyclovir Sodium 700 mg/Sodium Chloride 100 ml @ 100 mls/hr Q8H IV 05/15/17 17:00 05/15/17 16:21 Ampicillin Sodium 1000 mg/Sodium Chloride 100 ml @ 400 mls/hr Q4H IV 05/15/17 15:00 05/15/17 15:15 Pharmacy Profile Note ml @ 0 mls/hr UNSCH OTHER 05/15/17 15:00 Vancomycin HCl 1750 mg/Sodium Chloride 517.5 ml @ 250 mls/hr NOW ONCE IV 05/15/17 18:00 05/15/17 20:04 Allergies Allergies Coded Allergies No Allergy Information Available (Unverified05/13/17) Exam I&O / VS 05/15/17 05/15/17 05/16/17 15:00 23:00 07:00 Intake Total 73.8 ml Balance 73.8 ml IV Total 73.8 ml Vital Signs Date Time Temp Pulse Resp B/P (MAP) Pulse Ox O2 Delivery O2 Flow Rate FiO2 05/15/17 12:00 104 05/15/17 12:00 101.5 105 26 149/72 (97) 95 05/15/17 11:17 95 Nasal Cannula 2.00 05/15/17 10:00 79 05/15/17 08:00 97 05/15/17 08:00 98.9 97 25 136/79 (98) 05/15/17 07:00 Nasal Cannula 2.00 95 05/15/17 06:00 93 05/15/17 04:00 98.7 70 23 89/55 (66) 97 05/15/17 04:00 73 05/15/17 02:00 60 05/15/17 00:00 60 05/15/17 00:00 98.9 61 23 84/54 (64) 96 05/14/17 22:00 58 05/14/17 21:30 Nasal Cannula 2.00 96 05/14/17 20:00 Nasal Cannula 4.00 98 05/14/17 20:00 99.0 60 18 86/51 (63) 95 05/14/17 20:00 61 05/14/17 19:35 97 Nasal Cannula 4.00 05/14/17 18:00 60 Exam Comments nonreponsive pupils 2 mm symmetric EOM intact to occulocephalics MOTOR--no spontaneous limb movement, no posturing Objective Radiology Results MR-venogram brain is normal with no sign of venous sinus thrombosis Micro and Labs Laboratory Tests Test 05/14/17 23:55 05/15/17 04:45 05/15/17 09:11 05/15/17 10:58 Activated Partial Thromboplast Time 80.2 58.1 White Blood Count 5.1 Red Blood Count 3.73 Hemoglobin 13.5 Hematocrit 37.8 Mean Corpuscular Volume 101.4 Mean Corpuscular Hemoglobin 36.1 Mean Corpuscular Hemoglobin Concent 35.6 Red Cell Distribution Width 12.6 Platelet Count 58 Mean Platelet Volume 9.5 Neutrophils (%) (Auto) 78.1 Lymphocytes (%) (Auto) 10.7 Monocytes (%) (Auto) 11.0 Eosinophils (%) (Auto) 0.0 Basophils (%) (Auto) 0.2 Neutrophils # (Auto) 4.0 Lymphocytes # (Auto) 0.5 Monocytes # (Auto) 0.6 Eosinophils # (Auto) 0.0 Basophils # (Auto) 0.0 CBC Comment AUTO DIFF Differential Comment AUTO DIFF CONFIRMED Platelet Estimate LOW Platelet Morphology Comment NORMAL Blood Urea Nitrogen 12 Creatinine 1.00 Random Glucose 148 Total Protein 7.0 Albumin 3.3 Calcium Level 8.5 Phosphorus Level 2.4 Magnesium Level 2.0 Alkaline Phosphatase 89 Aspartate Amino Transf (AST/SGOT) 28 Alanine Aminotransferase (ALT/SGPT) 18 Total Bilirubin 1.8 Sodium Level 141 Potassium Level 3.6 Chloride Level 105 Carbon Dioxide Level 25.3 Anion Gap 11 Estimat Glomerular Filtration Rate 76 Ammonia 47 Hepatitis A IgM Antibody NEGATIVE Hepatitis B Surface Antigen NEGATIVE Hepatitis B Core IgM Antibody NEGATIVE Hepatitis C Antibody REACTIVE Blood Gas Puncture Site RT RADIAL Blood Gas Patient Temperature 98.6 Blood Gas HCO3 24 Blood Gas Base Excess -0.3 Blood Gas Oxygen Saturation 96 Arterial Blood pH 7.42 Arterial Blood Partial Pressure CO2 38 Arterial Blood Partial Pressure O2 123 Arterial Blood Oxygen Content 17.0 Arterial Blood Carboxyhemoglobin 1.4 Arterial Blood Methemoglobin 1.2 Blood Gas Hemoglobin 12.4 Oxygen Delivery Device NRM Blood Gas Liter Flow 12 Blood Gas Inspired Oxygen 100 Test 05/15/17 12:13 05/15/17 16:36 Activated Partial Thromboplast Time 40.3 Date/Time Source Procedure Growth Status 05/15/17 16:44 Blood Peripheral Aerobic Blood Culture Pending Received 05/15/17 16:44 Blood Peripheral Anaerobic Blood Culture Pending Received 05/15/17 14:28 Stool Stool Stool Occult Blood (JAMIE) Pending Received 05/15/17 16:30 Urine Catheterized Urine Urine Culture Pending Received Kennedy Phillips MD PhD May 15, 2017 17:41
[2017-05-15] MEDS ORDERED: VANCOMYCIN INJ 1,750 MG in SODIUM CHLORID 0.9% 500 ML INJ 500 ML IV ONE (18:00)
[2017-05-15 19:06] LABS: AUTOMATED NEUTROPHIL # 3.9 TH/MM3 (1.8-7.7); BASOPHIL % 0.3 % (0.0-2.0); HEMATOCRIT 37.7 % (39.0-51.0); HEMOGLOBIN 13.2 GM/DL (13.0-17.0); LYMPH % 10.4 % (9.0-44.0); LYMPHOCYTE # 0.5 TH/MM3 (1.0-4.8); MEAN CELL VOLUME 102.1 FL (80.0-100.0); MEAN CORPUSCULAR HEMOGLOBIN 35.8 PG (27.0-34.0); MONO % 8.1 % (0.0-8.0); MONOCYTE # 0.4 TH/MM3 (0-0.9); NEUT % 81.2 % (16.0-70.0); PLATELET COUNT 56 TH/MM3 (150-450); RED BLOOD COUNT 3.69 MIL/MM3 (4.50-5.90); RED CELL DISTRIBUTION WIDTH 12.6 % (11.6-17.2); WHITE BLOOD COUNT 4.8 TH/MM3 (4.0-11.0)
[2017-05-15 19:15] LABS: INTERNATIONAL NORMALIZED RATIO 1.2 RATIO; PROTHROMBIN TIME - PATIENT 12.6 SEC (9.8-11.6)
--- NOTE | 2017-05-15 21:30 | MG ---
cc: SUREKHA SR M.D. Lab No: [id number] Date: Age: 61 Sex: M Race: REFERRING: Alan. ROOM: 515. With photic stimulation. Precedex on board. Awake study. CT incompletely occlusive dural sinus thrombosis. Ronit Acted per his for behavior that is abnormal with defecating on himself, attempting to swallow a household ornament, aggressive. This is a 61-year-old male with a history of no neurologic issues on Librium currently, folic acid, thiamine, heparin. DESCRIPTION OF THE RECORD: Noted by the appliance repair technician that he is trying to get out of bed but there is overall slowing of 2-3 Hz. A lot of artifact. EKG looks like sinus tachycardia. Precedex is then given towards epoch 41. This seems to calm him down a bit. The background slows to 1-2 Hz. Photic stimulation with minimal driving response. IMPRESSION: Abnormal EEG due to a mild to moderate slowing. Some of the slowing may be due to the Precedex but overall there is an encephalopathic process ongoing. There is no evidence any epileptic activity. Clinical correlation. MD VINICIO Arshad/MARGARITO /7:50 PM /9:15 PM
[2017-05-16] VITALS (18 sets, daily range): BP systolic 86–177; BP diastolic 53–98; PULSE 70–108; RESP 17–22; TEMP 97.7–99.7; O2SAT 80–99
[2017-05-16] MEDS: cefTRIAXone INJ 2,000 MG in SODIUM CHLORIDE 0.9% INJ 100 ML IV SCH (02:49)
[2017-05-16] MEDS: chlordiazePOXIDE 25 MG CAP PO SCH ×2 (02:50→08:37)
[2017-05-16] MEDS: AMPICILLIN INJ 1,000 MG in SODIUM CHLORIDE 0.9% INJ 100 ML IV SCH ×3 (02:50→13:56)
[2017-05-16] MEDS: ACYCLOVIR INJ 700 MG in SODIUM CHLORIDE 0.9% INJ 100 ML IV SCH ×3 (02:50→17:31)
[2017-05-16] MEDS ORDERED: MIDAZOLAM HCL 2 MG/2 ML VIAL IV PUSH ONE ×2 (03:30→03:45)
[2017-05-16] MEDS: CHLORHEXIDINE GLUCONATE 2 % 1 PACK (2 CLOTHS)(taper/protocol) TOPICAL SCH (04:00)
[2017-05-16] MEDS ORDERED: HALOPERIDOL LACTATE 5 MG/ML AMP IV ONE (04:00)
--- NOTE | 2017-05-16 04:28 | PD.PROCEDR ---
Procedure Note Procedure Lumbar puncture A time-out was completed verifying correct patient, procedure, site, positioning , and special equipment if applicable. The patient was placed in the left lateral decubitus position in a semi- position with help from the nursing staff. The area was cleansed and draped in usual sterile fashion. 1% lidocaine was used anesthetize the surrounding skin area. A 20-gauge 3.5-inch spinal needle was placed in the L3-L4 interspace. Dixon/red cloudy cerebral spinal fluid was obtained and the opening pressure was noted to be 16. Four tubes were filled with 4 mL of CSF. These were sent for the usual tests, including 1 tube to be held for further analysis if needed. The closing pressure was noted to be 16. Estimated Blood Loss: 1 mL The patient tolerated the procedure well and there were no complications. Shimon Zee MD May 16, 2017 4:28 am
[2017-05-16 05:16] LABS: TOTAL PROTEIN,CSF 124.6 MG/DL (15.0-45.0)
[2017-05-16 05:58] LABS: AUTOMATED NEUTROPHIL # 4.3 TH/MM3 (1.8-7.7); BASOPHIL % 0.1 % (0.0-2.0); EOSINOPHIL % 0.2 % (0.0-4.0); HEMATOCRIT 33.6 % (39.0-51.0); LYMPH % 6.6 % (9.0-44.0); LYMPHOCYTE # 0.3 TH/MM3 (1.0-4.8); MEAN CELL VOLUME 100.9 FL (80.0-100.0); MEAN CORPUSCULAR HGB CONC 35.6 % (32.0-36.0); MEAN PLATELET VOLUME 9.5 FL (7.0-11.0); MONOCYTE # 0.4 TH/MM3 (0-0.9); NEUT % 85.1 % (16.0-70.0); PLATELET COUNT 62 TH/MM3 (150-450); RED BLOOD COUNT 3.33 MIL/MM3 (4.50-5.90); RED CELL DISTRIBUTION WIDTH 12.8 % (11.6-17.2); WHITE BLOOD COUNT 5.1 TH/MM3 (4.0-11.0)
[2017-05-16] MEDS ORDERED: VANCOMYCIN 1,500 MG/NS 500 ML IV SCH ×2 (06:00)
[2017-05-16 06:24] LABS: CSF EOSINOPHILS 1 %; CSF LYMPHOCYTES 1 %; CSF NEUTROPHILS 98 %
[2017-05-16 06:39] LABS: SUPERNATE COLOR TUBE #1 CLEAR (CLEAR); VOLUME TUBE # 1 1.8 ML
[2017-05-16 06:40] LABS: RBC TUBE #4 45703 /MM3; WBC TUBE #4 48 /MM3 (0-10)
[2017-05-16] MEDS: DEXMEDETOMIDINE INJ 1,000 MCG in SODIUM CHLOR 0.9% 250 ML INJ 240 ML IV PRN (06:59)
[2017-05-16] MEDS: SODIUM CHLORIDE 0.9% FLUSH 10 ML FLUSH IV FLUSH SCH ×2 (08:37→22:57)
[2017-05-16] MEDS: FOLIC ACID 1 MG TAB PO SCH (08:37)
[2017-05-16] MEDS: LACTULOSE SYRUP 20 GM/30 ML CUP PO SCH ×4 (08:37→22:56)
[2017-05-16] MEDS: MULTIVITAMINS/MINERALS THERAPEUTIC TAB PO SCH (08:37)
[2017-05-16] MEDS: THIAMINE HCL 100 MG TAB PO SCH (08:37)
[2017-05-16] MEDS: FAMOTIDINE 20 MG/2 ML VIAL IV PUSH SCH ×2 (09:00→22:56)
--- NOTE | 2017-05-16 10:37 | RADRPT ---
EXAM DATE/TIME: 05/16/2017 09:43 [facility] COMPARISON: MRI BRAIN W & W/O CONTRAST, May 14, 2017, 13:12. MRV BRAIN W/WO CONTRAST, May 15, 2017, 9 :41. CT BRAIN W/O CONTRAST, May 13, 2017, 19:49. INDICATIONS : Altered mental status. RADIATION DOSE: 56.35 CTDIvol (mGy) MEDICAL HISTORY : Non-responsive. SURGICAL HISTORY : Non-responsive. ENCOUNTER: Initial ACUITY: 1 day PAIN SCALE: Non-responsive LOCATION: Bilateral head TECHNIQUE: Multiple contiguous axial images were obtained of the head. Using automated exposure control and adj ustment of the mA and/or kV according to patient size, radiation dose was kept as low as reasonably a chievable to obtain optimal diagnostic quality images. DICOM format image data is available electro nically for review and comparison. FINDINGS: CEREBRUM: The ventricles are normal for age. No evidence of midline shift, mass lesion, hemorrhage or acute in farction. No extra-axial fluid collections are seen. POSTERIOR FOSSA: The cerebellum and brainstem are intact. The 4th ventricle is midline. The cerebellopontine angle i s unremarkable. EXTRACRANIAL: The visualized portion of the orbits is intact. There is a layering air fluid level identified within the left maxillary sinus, ethmoid air cells and left sphenoid sinus. There is a left-sided nasogastr ic tube present. SKULL: The calvaria is intact. No evidence of skull fracture. CONCLUSION: No evidence of intracranial abnormality. Left-sided nasogastric tube associated with air-fluid levels identified in the left maxillary sinus, sphenoid sinus and left and right air cells. Naomi Hong MD on May 16, 2017 at 10:32 Board Certified Radiologist. This report was verified electronically.
[2017-05-16] MEDS ORDERED: RESP: ALBUTEROL 2.5 MG/IPRATROPIUM 0.5 MG NEB (PRN) NEB (11:30)
--- NOTE | 2017-05-16 11:39 | HHI.CCPN ---
Subjective Remarks/Hospital Course 61-year-old male admitted under Cottrell act. According to the Cottrell act report, contact was made with the patient in regards to his calling about his behavior being abnormal." According to the patient's per documentation, the patient has been defecating on himself, attempting to swallow household ornament items and has become aggressive. During my assessment the patient is extremely agitated, not following commands. 05/15/17: Intermittently severely agitated. Remains on Precedex. With 2 mg of IV Ativan he became oversedated, hypoxemic. Now improving. Spiking a fever 101.5. Pancultured. On argatroban for possible dural venous thrombosis, but MRV negative for any thrombus or occlusion. Patient will possibly need a lumbar puncture but currently on argatroban. Will discuss with Dr. Rai and DC argatroban, transfuse platelet 05/16/17: Remains on Precedex sedated. Receiving Librium scheduled and as needed Ativan. Intermittently agitated. Started on vancomycin, ceftriaxone, ampicillin and acyclovir yesterday. Overnight lumbar puncture was done which was bloody tap (could be related to thrombocytopenia and previous argatroban use ). Fever and sepsis most likely related to right lower lobe infiltrate/ pneumonia. Possible patient might have aspirated the risks evidence of volume loss on chest x-ray repeat chest x-ray today pending Objective Vital Signs Date Time Temp Pulse Resp B/P (MAP) Pulse Ox O2 Delivery O2 Flow Rate FiO2 05/16/17 07:16 98 Non-Rebreather 15.00 05/16/17 06:00 98 05/16/17 04:00 97.8 20 139/60 (86) 05/15/17 19:00 100 Intake and Output 05/16/17 05/16/17 05/16/17 07:59 15:59 23:59 Intake Total 1600 ml Output Total 2000 ml Balance -400 ml Result Diagram: 05/16/17 0502 05/15/17 0445 Other Results Microbiology Date/Time Source Procedure Growth Status 05/15/17 14:28 Stool Stool Stool Occult Blood (JAMIE) - Final HEMOCCULT NEGATIVE Complete Objective Remarks GENERAL: male, moderately sedated, on Precedex and CIWA protocol SKIN: Focused skin assessment warm and dry HEAD: Atraumatic. Normocephalic. EYES: No scleral icterus. No injection or drainage. Pupils equal reactive ENT: Nose without bleeding, purulent drainage or septal hematoma. Airway patent. NECK: Trachea midline. No neck stiffness/meningismus CARDIOVASCULAR: Regular rate and rhythm without murmurs, gallops, or rubs. RESPIRATORY: Clear to auscultation. Breath sounds equal bilaterally, except diminished at the right base. No wheezes, rales, or rhonchi. GASTROINTESTINAL: Abdomen soft, non-tender, nondistended. No hepato-splenomegaly , or palpable masses. No guarding. MUSCULOSKELETAL: Extremities without clubbing, cyanosis, or edema. NEUROLOGICAL: Currently heavily sedated, but protecting airway. Motor grossly within normal limits. Moves all extremities spontaneously do not follow commands Urinary Catheter: Yes Assessment to: Continue A/P Assessment and Plan Neuro: Altered mental status/delirium Intermittent high fever, Rule out meningoencephalitis Probable alcohol withdrawal - CT head negative x2 -Lumbar puncture had bloody tab most likely from thrombocytopenia and recent argatroban use (DCD 05/15) - Drug screen toxicology negative - Possibly secondary to alcohol withdrawal - MRV negative for any dural sinus thrombosis - Hematology following - Broad-spectrum meningitic coverage with vancomycin, ampicillin, Rocephin and acyclovir - Consult ID - Hyperammonemia, on lactulose - [facility] protocol - Thiamine folate multivitamin - Precedex drip - Resp: Hypoxemia/respiratory insufficiency Right lower lobe consolidation with volume loss/probable aspiration/pneumonia - Aggressive pulmonary toilet - DuoNeb every 6 hours as needed and scheduled - Broad-spectrum antibiotics for meningitis should cover for pneumonia also. Flagyl added for anaerobes CVS: - Monitor vitals closely - Maintenance IV fluid normal saline at 125 mL/h GI Elevated ammonia level - Lactulose by mouth - Monitor trend - Start tube feeds ID: - See neuro section for ID and ABX Heme: - Thrombocytopenia most likely secondary to alcohol dependence, bone marrow suppression, and splenomegaly Endo: Hyperglycemia - Insulin sliding scale - Hematology following DVT GI prophylaxis - Teds SCDs - No chemical DVT prophylaxis due to thrombocytopenia - Pepcid CCT 40 MIN D/W Dr. De La O, D/W Marcos Kong MD May 16, 2017 11:39
--- NOTE | 2017-05-16 11:44 | PD.ID.CON ---
History of Present Illness Service ID Consult Requested By Reason for Consult Evaluation and management of fever possible meningoencephalitis. Primary Care Physician Unknown Diagnoses: History of Present Illness Most of the history was obtained from review of medical records as patient is still confused and no family could be reached. Mr. Up is a 61-year-old male with past medical history significant for alcoholism and no reported prior history of psychiatric disorders. With this background patient was transferred to [facility] from [facility] for acute psychosis. Apparently the patient was found to be acutely psychotic his behavior included difficulty eating on himself, attempting to eat kitchen utensils, becoming aggressive. He was also witnessed to drink is on urine from a urinal in the [place] emergency department. He was not allergic to place time or person at the time of initial admission to the hospital. Imaging studies of the brain performed on May 24 at [facility] indicated a filling defect within the dural sinus most conspicuous in the posterior aspect superior sagittal sinus and right transverse sinus. Critical care was involved and patient was initiated on anticoagulation as well as heparin infusion. Hematology was consulted due to concern for thrombotic disorder process for which an extensive workup has been ordered at the present time. Patient also had an MRV an MRI of the brain. MRV does not show an acute thrombus at the present time. Patient underwent a lumbar puncture and the studies are indicative of a bloody tap rather than acute infectious process. She was started on empiric regimen for meningoencephalitis including ampicillin, ceftriaxone, vancomycin, acyclovir IV. Infectious disease consulted for evaluation and management of possible meningoencephalitis. Review of Systems ROS Limitations: Altered Mental Status Past Family Social History Allergies: Coded Allergies: No Allergy Information Available (Unverified , 05/13/17) PT HAS ALTERED MENTAL STATUS Past Medical History Alcoholism Past Surgical History Unable to obtain Reported Medications Reported Meds & Active Scripts Active Reported Effexor (Venlafaxine HCl) 50 Mg Tab 50 Mg PO Q8H Furosemide 40 Mg Tab 40 Mg PO BID Spironolactone 25 Mg Tab 12.5 Mg PO DAILY Oxycodone (Oxycodone HCl) 5 Mg Cap 5 Mg PO Q6H PRN Klonopin (Clonazepam) 0.5 Mg Tab 0.5 Mg PO BID Active Ordered Medications Current Medications Medications (Trade) Dose Ordered Sig/Dawood Route Start Time Stop Time Status Last Admin (NS Flush) 2 ml UNSCH PRN IV FLUSH 05/13/17 22:00 05/15/17 23:36 (NS Flush) 2 ml BID IV FLUSH 05/14/17 09:00 05/16/17 08:37 (Tylenol) 650 mg Q4H PRN PO 05/13/17 22:00 (Zofran Inj) 4 mg Q6H PRN IVP 05/13/17 22:00 (Lactulose Liq) 30 ml QID PO 05/14/17 09:00 05/16/17 13:56 Sodium Chloride 1,000 ml @ 100 mls/hr Q10H IV 05/13/17 22:00 05/16/17 13:57 (Folate) 1 mg DAILY PO 05/14/17 09:00 05/19/17 08:59 05/16/17 08:37 (Vitamin B1) 100 mg DAILY PO 05/14/17 09:00 05/16/17 08:37 (Theragran M Tab) 1 tab DAILY PO 05/14/17 09:00 05/19/17 08:59 05/16/17 08:37 (D50w (Vial) Inj) 50 ml UNSCH PRN IV PUSH 05/14/17 07:00 (Glucagon Inj) 1 mg UNSCH PRN OTHER 05/14/17 07:00 (NovoLOG SUPPLEMENTAL SCALE) 1 ACHS SLIDING SCALE SQ 05/14/17 08:00 (Pepcid Inj) 20 mg Q12HR IV PUSH 05/14/17 09:00 05/15/17 19:52 Dexmedetomidine HCl 1000 mcg/ Sodium Chloride 250 ml @ 4.5 mls/hr TITRATE PRN IV 05/14/17 07:45 05/16/17 06:59 Miscellaneous Information Patient in critical care unit? Ass... Q361D .XX 05/14/17 21:45 05/14/17 21:45 (Chlorhexidine 2% Cloth) 3 pack DAILY@04 TOPICAL 05/15/17 04:00 05/19/17 04:01 05/16/17 04:00 (Chlorhexidine 2% Cloth) 3 pack UNSCH PRN TOPICAL 05/14/17 21:45 05/19/17 21:32 (Ativan) 1 mg Q4H PRN PO 05/15/17 08:15 (Ativan Inj) 1 mg Q4H PRN IV PUSH 05/15/17 08:15 05/15/17 23:36 (Ativan) 2 mg Q2H PRN PO 05/15/17 08:15 (Ativan Inj) 2 mg Q2H PRN IV PUSH 05/15/17 08:15 (Ativan Inj) 2 mg Q1H PRN IV PUSH 05/15/17 08:15 05/15/17 08:52 (Ativan Inj) 2 mg Q15M PRN IV PUSH 05/15/17 08:15 05/16/17 02:50 (Romazicon Inj) 0.2 mg Q1M PRN IV PUSH 05/15/17 08:15 Ceftriaxone Sodium 2000 mg/ Sodium Chloride 100 ml @ 200 mls/hr Q12H IV 05/15/17 16:00 05/16/17 02:49 Acyclovir Sodium 700 mg/Sodium Chloride 100 ml @ 100 mls/hr Q8H IV 05/15/17 17:00 05/16/17 08:36 Ampicillin Sodium 1000 mg/Sodium Chloride 100 ml @ 400 mls/hr Q4H IV 05/15/17 15:00 05/16/17 13:56 Pharmacy Profile Note ml @ 0 mls/hr UNSCH OTHER 05/15/17 15:00 Miscellaneous Information SPECIFIC LAB TO BE ARABELLA... ONCE ONCE .XX 05/16/17 17:45 05/16/17 17:46 Vancomycin HCl 1500 mg/Sodium Chloride 515 ml @ 257.5 mls/ hr Q12H IV 05/16/17 06:00 05/16/17 05:57 Metronidazole 100 ml @ 100 mls/hr Q8H IV 05/16/17 12:00 05/16/17 13:56 (Duoneb Neb) 1 ampule Q6HR NEB NEB 05/16/17 12:00 05/16/17 14:41 (Duoneb Neb) 1 ampule Q2HR NEB PRN NEB 05/16/17 11:30 (Librium) 10 mg Taper Q6H PO 05/16/17 15:00 05/22/17 14:59 (Peridex 0.12% Liq) 15 ml BID@08,20 MT 05/16/17 20:00 Fentanyl Citrate 250 ml @ 5 mls/hr TITRATE PRN IV 05/16/17 13:15 05/16/17 13:56 (Peridex 0.12% Liq) 15 ml BID@08,20 MT 05/16/17 20:00 Propofol 100 ml @ 3.54 mls/hr TITRATE PRN IV 05/16/17 14:30 Midazolam HCl 100 ml @ 2 mls/hr TITRATE PRN IV 05/16/17 14:30 Fentanyl Citrate 250 ml @ 5 mls/hr TITRATE PRN IV 05/16/17 14:30 Family History Could not be obtained Social History Not be obtained other than history of alcoholism. Physical Exam Vital Signs Vital Signs Date Time Temp Pulse Resp B/P (MAP) Pulse Ox O2 Delivery O2 Flow Rate FiO2 05/16/17 07:16 98 Non-Rebreather 15.00 05/16/17 06:00 98 05/16/17 04:00 97.8 95 20 139/60 (86) 93 05/16/17 04:00 91 05/16/17 02:00 105 05/16/17 00:00 97.7 97 20 160/80 (106) 95 05/16/17 00:00 100 05/15/17 22:00 99 05/15/17 20:00 86 05/15/17 20:00 97.9 63 20 93/51 05/15/17 20:00 97.4 64 18 93/51 (65) 100 05/15/17 19:00 100 Non-Rebreather 15.00 100 05/15/17 18:00 67 05/15/17 16:00 99.8 67 85/50 (62) 97 05/15/17 12:00 104 05/15/17 12:00 101.5 105 26 149/72 (97) 95 Physical Exam GENERAL: This is a well-nourished, well-developed patient, in no apparent distress. SKIN: No rashes, ecchymoses or lesions. Cool and dry. HEAD: Atraumatic. Normocephalic. No temporal or scalp tenderness. EYES: Pupils equal round and reactive. Extraocular motions intact. No scleral icterus. No injection or drainage. ENT: Nose without bleeding, purulent drainage or septal hematoma. Throat without erythema, tonsillar hypertrophy or exudate. Uvula midline. Airway patent. NECK: Trachea midline. Supple, nontender, no meningeal signs. CARDIOVASCULAR: Heart sounds audible. RESPIRATORY: Clear to auscultation. Breath sounds equal bilaterally. No wheezes , rales, or rhonchi. GASTROINTESTINAL: Abdomen soft, non-tender, nondistended. MUSCULOSKELETAL: Extremities without clubbing, cyanosis, or edema. No joint tenderness, effusion, or edema noted. No calf tenderness. Negative Homans sign bilaterally. NEUROLOGICAL: Arouses on deep painful stimuli. Opens eyes. Does not follow any commands for me. Not oriented. Psych could not be assessed IV line sites with no evidence of infection. Laboratory Laboratory Tests Test 05/15/17 12:13 05/15/17 18:43 05/16/17 04:30 05/16/17 05:02 Activated Partial Thromboplast Time 40.3 28.2 White Blood Count 4.8 5.1 Red Blood Count 3.69 3.33 Hemoglobin 13.2 12.0 Hematocrit 37.7 33.6 Mean Corpuscular Volume 102.1 100.9 Mean Corpuscular Hemoglobin 35.8 36.0 Mean Corpuscular Hemoglobin Concent 35.0 35.6 Red Cell Distribution Width 12.6 12.8 Platelet Count 56 62 Mean Platelet Volume 9.0 9.5 Neutrophils (%) (Auto) 81.2 85.1 Lymphocytes (%) (Auto) 10.4 6.6 Monocytes (%) (Auto) 8.1 8.0 Eosinophils (%) (Auto) 0.0 0.2 Basophils (%) (Auto) 0.3 0.1 Neutrophils # (Auto) 3.9 4.3 Lymphocytes # (Auto) 0.5 0.3 Monocytes # (Auto) 0.4 0.4 Eosinophils # (Auto) 0.0 0.0 Basophils # (Auto) 0.0 0.0 CBC Comment AUTO DIFF AUTO DIFF Differential Comment AUTO DIFF CONFIRMED AUTO DIFF CONFIRMED Platelet Estimate LOW LOW Platelet Morphology Comment NORMAL NORMAL Prothrombin Time 12.6 Prothromb Time International Ratio 1.2 CSF Volume (Tube 1) 1.8 CSF Supernatant Color (tube 1) CLEAR CSF Gross Blood (Tube 1) 2+ CSF Volume (Tube 2) 1.0 CSF Supernatant Color (tube 2) CLEAR CSF Gross Blood (Tube 2) 2+ CSF Volume (Tube 3) 1.0 CSF Supernatant Color (tube 3) CLEAR CSF Gross Blood (Tube 3) 2+ CSF Volume (Tube 4) 0.5 CSF Supernatant Color (tube 4) CLEAR CSF Gross Blood (Tube 4) 2+ CSF WBC (Tube 4) 48 CSF RBC (Tube 4) 45667 CSF Neutrophils 98 CSF Lymphocytes 1 CSF Eosinophils 1 CSF Glucose 90 CSF Lactate Dehydrogenase 29 CSF Lactic Acid 2.7 CSF Total Protein 124.6 Date/Time Source Procedure Growth Status 05/15/17 16:44 Blood Peripheral Aerobic Blood Culture - Preliminary NO GROWTH IN 1 DAY Resulted 05/15/17 16:44 Blood Peripheral Anaerobic Blood Culture - Preliminary NO GROWTH IN 1 DAY Resulted 05/16/17 04:30 Cerebral Spinal Fluid Lumbar Puncture Gram Stain - Final Resulted 05/16/17 04:30 Cerebral Spinal Fluid Lumbar Puncture CSF Culture Pending Resulted 05/15/17 14:28 Stool Stool Stool Occult Blood (JAMIE) - Final HEMOCCULT NEGATIVE Complete 05/15/17 16:30 Urine Catheterized Urine Urine Culture Pending Received Result Diagram: 05/16/17 0502 05/15/17 0445 Imaging Last Impressions Head CT 05/16/17 0730 Signed Impressions: Service Date/Time: Tuesday, May 16, 2017 09:43 - CONCLUSION: No evidence of intracranial abnormality. Left-sided nasogastric tube associated with air-fluid levels identified in the left maxillary sinus, sphenoid sinus and left and right air cells. Naomi Hong MD Chest X-Ray 05/16/17 0000 Signed Impressions: Service Date/Time: Tuesday, May 16, 2017 13:23 - CONCLUSION: Interval intubation. Stable lung exam. Naomi Hong MD Liver Ultrasound 05/15/17 0000 Signed Impressions: Service Date/Time: Monday, May 15, 2017 08:32 - CONCLUSION: 1. Liver and spleen are both enlarged. No focal lesions. 2. Very small amount of ascites along the hepatic border. 3. Possible small gallbladder polyp. Alan Alex MD Head/Brain Mag Res Venography 05/15/17 0000 Signed Impressions: Service Date/Time: Monday, May 15, 2017 09:41 - CONCLUSION: Normal study. Sumit Young MD Brain MRI 05/14/17 0000 Signed Impressions: Service Date/Time: May 13:12 - CONCLUSION: Incompletely occlusive dural sinus thrombosis. 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 Could be acute or chronic in nature. Rule out neurosyphilis, ZACHARY virus associated encephalopathy. Acute encephalopathy: Could also be from alcohol-related withdrawal or dementia Fever and likely aspiration pneumonia related Pneumonia likely aspiration Alcoholism Hepatitis C antibody positive. Recs: Continue Ceftriaxone IV change dose to q24hrs. Continue Flagyl ok to change to oral if tolerated and passes swallow. Continue Acyclovir for now follow HSV 1/2 PCR if negative ok to DC acyclovir. DC Ampicillin IV DC Vanco IV CSF fungal and AFB cultures in view of dural sinus issues. CSF VDRL: r.o neurosyphylis CSF ZACHARY virus. Check HIV antibody screen. d/w RN D.w No family in room. Malu Reveles MD May 16, 2017 11:44
--- NOTE | 2017-05-16 12:11 | RADRPT ---
EXAM DATE/TIME: 05/16/2017 11:36 [facility] COMPARISON: CHEST SINGLE AP, May 15, 2017, 14:14. INDICATIONS : Possible aspiration. MEDICAL HISTORY : None. SURGICAL HISTORY : Umbilical hernia repair ENCOUNTER: Subsequent ACUITY: 1 day PAIN SCORE: Non-responsive. LOCATION: Bilateral chest FINDINGS: There is worsening airspace consolidation involving the right hemithorax with a layering small to mod erate size pleural effusion. The left hemithorax is clear. Heart size is enlarged and there is tortuo sity of the thoracic aorta. CONCLUSION: Worsening right-sided airspace disease with small moderate size pleural effusion. Naomi Hong MD on May 16, 2017 at 12:02 Board Certified Radiologist. This report was verified electronically.
--- NOTE | 2017-05-16 12:27 | HHI.PR ---
Subjective Remarks cross coverage Dr Phillips pt still very confused lethargic Objective Vital Signs Date Time Temp Pulse Resp B/P (MAP) Pulse Ox O2 Delivery O2 Flow Rate FiO2 05/16/17 08:00 95 Partial Non-Rebreather 05/16/17 07:16 98 Non-Rebreather 15.00 05/16/17 06:00 98 05/16/17 04:00 97.8 95 20 139/60 (86) 93 05/16/17 04:00 91 05/16/17 02:00 105 05/16/17 00:00 97.7 97 20 160/80 (106) 95 05/16/17 00:00 100 05/15/17 22:00 99 05/15/17 20:00 86 05/15/17 20:00 97.9 63 20 93/51 05/15/17 20:00 97.4 64 18 93/51 (65) 100 05/15/17 19:00 100 Non-Rebreather 15.00 100 05/15/17 18:00 67 05/15/17 16:00 99.8 67 85/50 (62) 97 I/O 05/15/17 05/15/17 05/15/17 05/16/17 05/16/17 05/16/17 07:00 15:00 23:00 07:00 15:00 23:00 Intake Total 1993.4 ml 73.8 ml 292 ml 2700 ml Output Total 500 ml 1400 ml 2000 ml Balance 1493.4 ml 73.8 ml -1108 ml 700 ml Intake Oral 0 ml IV Total 1993.4 ml 73.8 ml 2400 ml Platelets 242 ml Blood Product IV Normal Saline Flush 50 ml Other 300 ml Output Urine Total 500 ml 1400 ml 2000 ml # Bowel Movements 0 6 1 Result Diagram: 05/16/17 0502 05/15/17 0445 Other Results csf reviewed looks like a hemorrhagic tap but other results are pendig mrv -neg sinus thrombosis eeg slow no sz. Objective Remarks lethargic arousable keeps eyes closed perrla does not follow commands w/d to pain dtrs 1-2+ gait unable to assess at this time Assessment and Plan Assessment and Plan encephalopathy ?viral encephalo-meningitis mrv neg for sinus thrombosis -cont current meds -defer to ID rx . no aed rx at this time consider repeat eeg in 24 hrs in no change. Fulop,Katherine MD May 16, 2017 12:27
[2017-05-16] MEDS: RESP: ALBUTEROL 2.5 MG/IPRATROPIUM 0.5 MG NEB (SCH) NEB ×3 (12:28→19:27)
[2017-05-16] MEDS ORDERED: PROPOFOL 500 MG/50 ML INJ 50 ML ONE (13:02)
[2017-05-16] MEDS ORDERED: PROPOFOL 1000 MG/100 ML INJ 100 ML IV PRN (13:15)
[2017-05-16] MEDS ORDERED: PROPOFOL 1000 MG/100 ML IV PRN (13:30)
[2017-05-16] MEDS: metroNIDAZOLE 500 MG INJ 100 ML IV SCH ×2 (13:56→20:37)
[2017-05-16] MEDS: fentaNYL DRIP 250 ML IV PRN (13:56)
[2017-05-16] MEDS: SODIUM CHLOR 0.9% 1000 ML INJ 1,000 ML IV SCH ×2 (13:57→20:38)
--- NOTE | 2017-05-16 14:00 | RADRPT ---
EXAM DATE/TIME: 05/16/2017 13:23 [facility] COMPARISON: CHEST SINGLE AP, May 16, 2017, 11:36. INDICATIONS : Post intubation MEDICAL HISTORY : None. SURGICAL HISTORY : None. ENCOUNTER: Initial ACUITY: 1 day PAIN SCORE: Non-responsive. LOCATION: Bilateral chest FINDINGS: Patient is status post intubation with the endotracheal tube tip at the level of the clavicles. [place] stric tubing extending beyond the imaged portion of the film. Stable appearance of right-sided airspa ce consolidation and pleural fluid. Left hemithorax remains clear.. CONCLUSION: Interval intubation. Stable lung exam. Naomi Hong MD on May 16, 2017 at 13:57 Board Certified Radiologist. This report was verified electronically.
--- NOTE | 2017-05-16 14:06 | PD.ONC.PN ---
Subjective Subjective Remarks Afebrile Pt seen in 4 pt restraints He is calling for "mom" but calm Objective Data Date Time Temp Pulse Resp B/P (MAP) Pulse Ox O2 Delivery O2 Flow Rate FiO2 05/16/17 13:09 99 100 05/16/17 13:00 100 05/16/17 08:00 95 Partial Non-Rebreather 05/16/17 07:16 98 Non-Rebreather 15.00 05/16/17 06:00 98 05/16/17 04:00 97.8 95 20 139/60 (86) 93 05/16/17 04:00 91 05/16/17 02:00 105 05/16/17 00:00 97.7 97 20 160/80 (106) 95 05/16/17 00:00 100 05/15/17 22:00 99 05/15/17 20:00 86 05/15/17 20:00 97.9 63 20 93/51 05/15/17 20:00 97.4 64 18 93/51 (65) 100 05/15/17 19:00 100 Non-Rebreather 15.00 100 05/15/17 18:00 67 05/15/17 16:00 99.8 67 85/50 (62) 97 05/16/17 05/16/17 05/16/17 07:00 15:00 23:00 Intake Total 2700 ml Output Total 2000 ml Balance 700 ml Result Diagram: 05/16/17 0502 05/15/17 0445 Laboratory Results Laboratory Tests Test 05/15/17 18:43 05/16/17 04:30 05/16/17 05:02 05/16/17 13:20 White Blood Count 4.8 TH/MM3 5.1 TH/MM3 Red Blood Count 3.69 MIL/MM3 3.33 MIL/MM3 Hemoglobin 13.2 GM/DL 12.0 GM/DL Hematocrit 37.7 % 33.6 % Mean Corpuscular Volume 102.1 FL 100.9 FL Mean Corpuscular Hemoglobin 35.8 PG 36.0 PG Mean Corpuscular Hemoglobin Concent 35.0 % 35.6 % Red Cell Distribution Width 12.6 % 12.8 % Platelet Count 56 TH/MM3 62 TH/MM3 Mean Platelet Volume 9.0 FL 9.5 FL Neutrophils (%) (Auto) 81.2 % 85.1 % Lymphocytes (%) (Auto) 10.4 % 6.6 % Monocytes (%) (Auto) 8.1 % 8.0 % Eosinophils (%) (Auto) 0.0 % 0.2 % Basophils (%) (Auto) 0.3 % 0.1 % Neutrophils # (Auto) 3.9 TH/MM3 4.3 TH/MM3 Lymphocytes # (Auto) 0.5 TH/MM3 0.3 TH/MM3 Monocytes # (Auto) 0.4 TH/MM3 0.4 TH/MM3 Eosinophils # (Auto) 0.0 TH/MM3 0.0 TH/MM3 Basophils # (Auto) 0.0 TH/MM3 0.0 TH/MM3 CBC Comment AUTO DIFF AUTO DIFF Differential Comment AUTO DIFF CONFIRMED AUTO DIFF CONFIRMED Platelet Estimate LOW LOW Platelet Morphology Comment NORMAL NORMAL Prothrombin Time 12.6 SEC Prothromb Time International Ratio 1.2 RATIO Activated Partial Thromboplast Time 28.2 SEC CSF Volume (Tube 1) 1.8 ML CSF Supernatant Color (tube 1) CLEAR CSF Gross Blood (Tube 1) 2+ CSF Volume (Tube 2) 1.0 ML CSF Supernatant Color (tube 2) CLEAR CSF Gross Blood (Tube 2) 2+ CSF Volume (Tube 3) 1.0 ML CSF Supernatant Color (tube 3) CLEAR CSF Gross Blood (Tube 3) 2+ CSF Volume (Tube 4) 0.5 ML CSF Supernatant Color (tube 4) CLEAR CSF Gross Blood (Tube 4) 2+ CSF WBC (Tube 4) 48 /MM3 CSF RBC (Tube 4) 51160 /MM3 CSF Neutrophils 98 % CSF Lymphocytes 1 % CSF Eosinophils 1 % CSF Glucose 90 MG/DL CSF Lactate Dehydrogenase 29 U/L CSF Lactic Acid 2.7 MMOL/L CSF Total Protein 124.6 MG/DL Test 05/16/17 13:30 Blood Gas Puncture Site LT BRACHIAL Blood Gas Patient Temperature 98.6 Blood Gas HCO3 21 mmol/L Blood Gas Base Excess -3.3 mmol/L Blood Gas Oxygen Saturation 98 % Arterial Blood pH 7.41 Arterial Blood Partial Pressure CO2 33 mmHg Arterial Blood Partial Pressure O2 360 mmHg Arterial Blood Oxygen Content 20.5 Vol % Arterial Blood Carboxyhemoglobin 1.1 % Arterial Blood Methemoglobin 1.2 % Blood Gas Hemoglobin 14.3 G/DL Oxygen Delivery Device VENTILATOR Blood Gas Liter Flow 60 L/M Blood Gas Ventilator Setting [id number]/VT550/R16/P8 Blood Gas Inspired Oxygen 100 % Culture Results Microbiology Date/Time Source Procedure Growth Status 05/15/17 16:44 Blood Peripheral Aerobic Blood Culture - Preliminary NO GROWTH IN 1 DAY Resulted 05/15/17 16:44 Blood Peripheral Anaerobic Blood Culture - Preliminary NO GROWTH IN 1 DAY Resulted 05/15/17 16:36 Blood Peripheral Aerobic Blood Culture - Preliminary NO GROWTH IN 1 DAY Resulted 05/15/17 16:36 Blood Peripheral Anaerobic Blood Culture - Preliminary NO GROWTH IN 1 DAY Resulted 05/16/17 04:30 Cerebral Spinal Fluid Lumbar Puncture Gram Stain - Final Resulted 05/16/17 04:30 Cerebral Spinal Fluid Lumbar Puncture CSF Culture Pending Resulted 05/15/17 14:28 Stool Stool Stool Occult Blood (JAMIE) - Final HEMOCCULT NEGATIVE Complete 05/15/17 16:30 Urine Catheterized Urine Urine Culture - Preliminary NO GROWTH IN 24 HOURS. Resulted Imaging Studies Last [address] 05/16/17 0730 Signed Impressions: Service Date/Time: Tuesday, May 16, 2017 09:43 - CONCLUSION: No evidence of intracranial abnormality. Left-sided nasogastric tube associated with air-fluid levels identified in the left maxillary sinus, sphenoid sinus and left and right air cells. Naomi Hong MD Chest X-Ray 05/16/17 0000 Signed Impressions: Service Date/Time: Tuesday, May 16, 2017 11:36 - CONCLUSION: Worsening right-sided airspace disease with small moderate size pleural effusion. Naomi Hong MD Administered Medications Medications (Trade) Dose Ordered Sig/Dawood Route PRN Reason Start Time Stop Time Status Last Admin Dose Admin Sodium Chloride (NS Flush) 2 ml UNSCH PRN IV FLUSH FLUSH AFTER USING IV ACCESS 05/13/17 22:00 05/15/17 23:36 Sodium Chloride (NS Flush) 2 ml BID IV FLUSH 05/14/17 09:00 05/16/17 08:37 Lactulose (Lactulose Liq) 30 ml QID PO 05/14/17 09:00 05/16/17 13:56 Sodium Chloride 1,000 ml @ 100 mls/hr Q10H IV 05/13/17 22:00 05/16/17 13:57 Folic Acid (Folate) 1 mg DAILY PO 05/14/17 09:00 05/19/17 08:59 05/16/17 08:37 Thiamine HCl (Vitamin B1) 100 mg DAILY PO 05/14/17 09:00 05/16/17 08:37 Multivitamins/ Minerals Therapeutic (Theragran M Tab) 1 tab DAILY PO 05/14/17 09:00 05/19/17 08:59 05/16/17 08:37 Famotidine (Pepcid Inj) 20 mg Q12HR IV PUSH 05/14/17 09:00 05/15/17 19:52 Dexmedetomidine HCl 1000 mcg/ Sodium Chloride 250 ml @ 4.5 mls/hr TITRATE PRN IV SEDATION 05/14/17 07:45 05/16/17 06:59 Miscellaneous Information Patient in critical care unit? Ass... Q361D .XX 05/14/17 21:45 05/14/17 21:45 Chlorhexidine Gluconate (Chlorhexidine 2% Cloth) 3 pack DAILY@04 TOPICAL 05/15/17 04:00 05/19/17 04:01 05/16/17 04:00 Lorazepam (Ativan Inj) 1 mg Q4H PRN IV PUSH CIWA 8-10 05/15/17 08:15 05/15/17 23:36 Lorazepam (Ativan Inj) 2 mg Q1H PRN IV PUSH CIWA 15-20 05/15/17 08:15 05/15/17 08:52 Lorazepam (Ativan Inj) 2 mg Q15M PRN IV PUSH CIWA > 20 05/15/17 08:15 05/16/17 02:50 Ceftriaxone Sodium 2000 mg/ Sodium Chloride 100 ml @ 200 mls/hr Q12H IV 05/15/17 16:00 05/16/17 02:49 Acyclovir Sodium 700 mg/Sodium Chloride 100 ml @ 100 mls/hr Q8H IV 05/15/17 17:00 05/16/17 08:36 Ampicillin Sodium 1000 mg/Sodium Chloride 100 ml @ 400 mls/hr Q4H IV 05/15/17 15:00 05/16/17 13:56 Vancomycin HCl 1500 mg/Sodium Chloride 515 ml @ 257.5 mls/ hr Q12H IV 05/16/17 06:00 05/16/17 05:57 Metronidazole 100 ml @ 100 mls/hr Q8H IV 05/16/17 12:00 05/16/17 13:56 Albuterol/ Ipratropium (Duoneb Neb) 1 ampule Q6HR NEB NEB 05/16/17 12:00 05/16/17 12:28 Fentanyl Citrate 250 ml @ 5 mls/hr TITRATE PRN IV SEDATION 05/16/17 13:15 05/16/17 13:56 Propofol 100 ml @ 3.54 mls/hr TITRATE PRN IV SEDATION 05/16/17 13:30 05/16/17 13:55 Objective Remarks GENERAL: Older male, resting in bed in no obvious distress. SKIN: Warm and dry. No oozing from lines HEAD: Normocephalic. EYES: No injection or drainage. NECK: Supple, trachea midline. CARDIOVASCULAR: Regular rate and rhythm RESPIRATORY: Scattered rhonchi anteriorly. GASTROINTESTINAL: Abdomen soft, non-tender, nondistended. EXTREMITIES: No cyanosis, or edema. NEUROLOGICAL: Awake. Not following commands. Calling out for "mom" Assessment/Plan Problem List: (1) Thrombocytopenia ICD Codes: D69.6 - Thrombocytopenia, unspecified Plan: -- Likely due to underlying liver disease -- Monitor CBC (2) Dural sinus thrombosis ICD Codes: G08 - Intracranial and intraspinal phlebitis and thrombophlebitis Plan: MRI of the brain showed dural sinus thrombosis however MRV of the brain showed no thrombosis Assessment 61-year-old male with history of liver disease admitted with altered mental status originally thought to have a dural sinus thrombosis; platelets dropped after heparin infusion Plan 1. Monitor CBC 2. Transfuse for any bleeding 3. Await HIT antibody results Attending Statement The exam, history, and the medical decision-making described in the above note were completed with the assistance of the mid-level provider. I reviewed and agree with the findings presented. I attest that I had a [id number] encounter with the patient on the same day, and personally performed and documented my assessment and findings in the medical record. Pt is intubated. Argatroban was d/c yesterday after MRV showing no obvious thrombosis and pt needs LP. Platelet is stable. HIT test pending. Continue to monitor CBC. Nelly Conteh May 16, 2017 14:06 Neftali Rodriguez MD May 16, 2017 14:13
--- NOTE | 2017-05-16 14:19 | PD.PROCEDR ---
Procedure Note Procedure INTUBATION: The patient was put in optimal position for the procedure. Rapid sequence intubation was initiated by me using 20 milligrams of etomidate IV and 5 mg milligrams of Versed IV and 50 mg IV Rocuronium. DL with Mac 4 blade Grade 1 view, single attempt. The patient was intubated with a 8.0 cuffed endotracheal tube. Tube placement was confirmed by visualization of the tube and balloon passing through the cords, capnometry and subsequent chest x-ray. Breath sounds were equal and well aerated bilaterally postintubation. No breath sounds over stomach. Patient tolerated procedure well. Marcos Arana MD May 16, 2017 14:19
[2017-05-16] MEDS ORDERED: MIDAZOLAM 100 MG/100 ML INJ 100 ML IV PRN (14:30)
[2017-05-16] MEDS ORDERED: fentaNYL DRIP 250 ML IV PRN (14:30)
[2017-05-16 14:40] LABS: HEPARIN INDUCED PLATELET AB NEGATIVE (NEGATIVE)
[2017-05-16] MEDS ORDERED: ROCURONIUM INJ 50 MG/5 ML VIAL ONE (15:15)
[2017-05-16] MEDS ORDERED: ROCURONIUM INJ 50 MG/5 ML VIAL IV ONE (15:30)
[2017-05-16] MEDS: INSULIN ASPART SUPPLEMENTAL SCALE SQ SCH ×2 (16:44→21:00)
[2017-05-16] MEDS ORDERED: PHARMACY ORDERED LAB ONE (17:45)
--- NOTE | 2017-05-16 18:01 | PD.PROCEDR ---
Procedure Note Procedure Fiberoptic bronchoscopy with washings and lavage. PREOPERATIVE DIAGNOSIS: Right lower lobe, atelectasis pneumonia POSTOPERATIVE DIAGNOSES: Right lower lobe, atelectasis pneumonia ANESTHESIA: Continuous propofol infusion. IV Rocuronium 50 mg x1 PROCEDURAL PHYSICIAN: Marcos Arana MD DESCRIPTION OF THE PROCEDURE IN DETAIL AND FINDINGS: The patient was already intubated with a size 8 endotracheal tube and the Olympus was used to visualize bronchi. The scope was advanced via the endotracheal tube into the trachea. The trachea and reyna appeared normal. Bronchoscope was then advanced to the right lung. The right upper lobe subsegmental bronchi demonstrated no significant secretions. Right middle lobe segmental bronchi were devoid of any major secretions. Right lower lobe bronchus was obstructed with a mucous plug which was suctioned out. Right lower lobe segmental bronchi had evidence of inflammation and erythema. BAL specimen collected from right lower lobe. The he scope was then advanced towards the left main bronchus. Left main bronchus Left upper lobe segmental bronchi and Left lower lobe segmental bronchi did not have significant secretions. Patient tolerated procedure well. No Significant blood loss Marcos Arana MD May 16, 2017 18:01
[2017-05-16] MEDS: CHLORHEXIDINE 0.12% (ORAL KIT) 15 ML CUP MT SCH ×2 (20:00→20:39)
[2017-05-16] MEDS: PROPOFOL 1000 MG/100 ML INJ 100 ML IV PRN (22:56)
[2017-05-17] VITALS (21 sets, daily range): BP systolic 80–103; BP diastolic 49–55; PULSE 69–89; TEMP 98.6–99.5; O2SAT 96–100
[2017-05-17] MEDS: ACYCLOVIR INJ 700 MG in SODIUM CHLORIDE 0.9% INJ 100 ML IV SCH ×3 (02:25→17:26)
[2017-05-17] MEDS: fentaNYL DRIP 250 ML IV PRN ×2 (04:00→15:20)
[2017-05-17] MEDS: PROPOFOL 1000 MG/100 ML INJ 100 ML IV PRN ×4 (04:00→20:31)
[2017-05-17] MEDS: cefTRIAXone INJ 2,000 MG in SODIUM CHLORIDE 0.9% INJ 100 ML IV SCH (04:00)
[2017-05-17] MEDS: CHLORHEXIDINE GLUCONATE 2 % 1 PACK (2 CLOTHS)(taper/protocol) TOPICAL SCH (04:00)
[2017-05-17] MEDS: RESP: ALBUTEROL 2.5 MG/IPRATROPIUM 0.5 MG NEB (SCH) NEB ×4 (04:09→19:37)
--- NOTE | 2017-05-17 05:31 | RADRPT ---
EXAM DATE/TIME: 05/17/2017 03:40 [facility] COMPARISON: CHEST SINGLE AP, May 16, 2017, 13:23. INDICATIONS : Evaluate for pneumonia- Respiratory failure MEDICAL HISTORY : None. SURGICAL HISTORY : None. ENCOUNTER: Subsequent ACUITY: 2 days PAIN SCORE: Non-responsive. LOCATION: Bilateral chest FINDINGS: A single view of the chest demonstrates endotracheal tube in good position. NG enters stomach. Bilate ral airspace disease, right greater than left with pleural effusions, right greater than left. No pne umothorax. CONCLUSION: 1. Endotracheal tube and nasogastric tube unchanged. Basilar airspace disease and pleural effusion, r ight greater than left not significantly changed. Conor Fuller MD on May 17, 2017 at 5:28 Board Certified Radiologist. This report was verified electronically.
[2017-05-17] MEDS: metroNIDAZOLE 500 MG INJ 100 ML IV SCH ×3 (05:32→20:31)
[2017-05-17] MEDS: SODIUM CHLOR 0.9% 1000 ML INJ 1,000 ML IV SCH ×2 (05:33→13:23)
[2017-05-17 05:38] LABS: AUTOMATED NEUTROPHIL # 3.2 TH/MM3 (1.8-7.7); BASOPHIL % 0.3 % (0.0-2.0); HEMATOCRIT 35.5 % (39.0-51.0); HEMOGLOBIN 12.3 GM/DL (13.0-17.0); LYMPH % 19.5 % (9.0-44.0); LYMPHOCYTE # 0.9 TH/MM3 (1.0-4.8); MEAN CELL VOLUME 102.3 FL (80.0-100.0); MEAN CORPUSCULAR HEMOGLOBIN 35.6 PG (27.0-34.0); MEAN CORPUSCULAR HGB CONC 34.8 % (32.0-36.0); MEAN PLATELET VOLUME 8.8 FL (7.0-11.0); MONO % 12.4 % (0.0-8.0); MONOCYTE # 0.6 TH/MM3 (0-0.9); NEUT % 67.8 % (16.0-70.0); PLATELET COUNT 67 TH/MM3 (150-450); RED BLOOD COUNT 3.47 MIL/MM3 (4.50-5.90); RED CELL DISTRIBUTION WIDTH 12.9 % (11.6-17.2); WHITE BLOOD COUNT 4.8 TH/MM3 (4.0-11.0)
[2017-05-17 06:01] LABS: ALBUMIN 2.7 GM/DL (3.4-5.0); AST (GOT) 21 U/L (15-37); BICARBONATE 25.2 MEQ/L (21.0-32.0); BLOOD UREA NITROGEN 8 MG/DL (7-18); CALCIUM 8.6 MG/DL (8.5-10.1); CHLORIDE 111 MEQ/L (98-107); CREATININE 0.97 MG/DL (0.60-1.30); GLOMERULAR FILTRATION RATE 79 ML/MIN (>89); GLUCOSE,RANDOM 121 MG/DL (74-106); SODIUM (NA) 144 MEQ/L (136-145)
[2017-05-17 06:02] LABS: ALT (GPT) 14 U/L (12-78)
[2017-05-17 06:04] LABS: ALKALINE PHOSPHATASE 75 U/L (45-117); TOTAL BILIRUBIN ADULT 1.1 MG/DL (0.2-1.0); TOTAL PROTEIN 6.2 GM/DL (6.4-8.2)
[2017-05-17 07:27] LABS: OVALOCYTES 1+ (NORMAL)
[2017-05-17] MEDS: CHLORHEXIDINE 0.12% (ORAL KIT) 15 ML CUP MT SCH ×4 (07:48→20:31)
[2017-05-17] MEDS: SODIUM CHLORIDE 0.9% FLUSH 10 ML FLUSH IV FLUSH SCH ×2 (07:49→20:32)
[2017-05-17] MEDS: INSULIN ASPART SUPPLEMENTAL SCALE SQ SCH ×4 (07:49→21:00)
[2017-05-17] MEDS: LACTULOSE SYRUP 20 GM/30 ML CUP PO SCH ×4 (07:55→22:28)
[2017-05-17] MEDS: MULTIVITAMINS/MINERALS THERAPEUTIC TAB PO SCH (07:56)
[2017-05-17] MEDS: THIAMINE HCL 100 MG TAB PO SCH (07:56)
[2017-05-17] MEDS: FAMOTIDINE 20 MG/2 ML VIAL IV PUSH SCH ×2 (07:56→22:29)
[2017-05-17] MEDS: FOLIC ACID 1 MG TAB PO SCH (07:56)
--- NOTE | 2017-05-17 08:25 | RADRPT ---
EXAM DATE/TIME: 05/17/2017 08:11 [facility] COMPARISON: CHEST SINGLE AP, May 17, 2017, 3:40. INDICATIONS : Abnormal chest x-ray, pleural effusion. RADIATION DOSE: 9.59 CTDIvol (mGy) MEDICAL HISTORY : Non-responsive. SURGICAL HISTORY : Non-responsive. ENCOUNTER: Subsequent ACUITY: 1 day PAIN SCALE: Non-responsive LOCATION: Bilateral chest TECHNIQUE: Volumetric scanning of the chest was performed. Using automated exposure control and adjustment of t he mA and/or kV according to patient size, radiation dose was kept as low as reasonably achievable to obtain optimal diagnostic quality images. DICOM format image data is available electronically for r eview and comparison. Follow-up recommendations for detected pulmonary nodules are based at a minimum on nodule size and pa tient risk factors according to Fleischner Society Guidelines. FINDINGS: LUNGS: There is airspace consolidation involving the right lower lobe and right upper lobe with mild volume loss identified within the right hemithorax and shift of the mediastinum to the right. There is depen dent airspace consolidation identified within the left lower lobe and mild airspace consolidation inv olving the lingula. PLEURAE: There is a small right-sided pleural effusion present. This demonstrates a thin rim of enhancement an d is concerning for possible developing empyema. No significant left-sided pleural fluid. MEDIASTINUM: There is an endotracheal tube identified within the midline trachea. The heart size normal. There are lymph nodes identified within the AP window and prevascular space. Prominent pericardial fat pad pre sent. Gastric tubing identified within the fluid-filled esophagus and terminating within the stomach. AXILLAE: Within normal limits. No lymphadenopathy. MUSCULOSKELETAL: Within normal limits for patient age. MISCELLANEOUS: The visualized upper abdominal organs demonstrate no acute abnormality. CONCLUSION: #1. Multifocal airspace consolidation with areas of atelectasis within the right lower lobe resulting in volume loss identified within the right hemithorax and shift of the mediastinum towards the right . There is a small right-sided pleural effusion present which demonstrates a thin rim of enhancement concerning for developing empyema. There is left lower lobe airspace consolidation and consolidation seen within the lingula. No left-sided pleural effusion. The lymph nodes identified within the AP win anjum and prevascular space are likely reactive. 2. There is fluid identified within the esophagus. . Naomi Hong MD on May 17, 2017 at 8:16 Board Certified Radiologist. This report was verified electronically.
--- NOTE | 2017-05-17 11:27 | HHI.IDPN ---
Subjective Subjective Remarks Mr. Up is a 61-year-old male with past medical history significant for alcoholism and no reported prior history of psychiatric disorders. With this background patient was transferred to [facility] from [facility] for acute psychosis. Apparently the patient was found to be acutely psychotic his behavior included difficulty eating on himself, attempting to eat kitchen utensils, becoming aggressive. He was also witnessed to drink is on urine from a urinal in the [place] emergency department. He was not allergic to place time or person at the time of initial admission to the hospital. Imaging studies of the brain performed on May 24 at [facility] indicated a filling defect within the dural sinus most conspicuous in the posterior aspect superior sagittal sinus and right transverse sinus. Critical care was involved and patient was initiated on anticoagulation as well as heparin infusion. Hematology was consulted due to concern for thrombotic disorder process for which an extensive workup has been ordered at the present time. Patient also had an MRV an MRI of the brain. MRV does not show an acute thrombus at the present time. Patient underwent a lumbar puncture and the studies are indicative of a bloody tap rather than acute infectious process. She was started on empiric regimen for meningoencephalitis including ampicillin, ceftriaxone, vancomycin, acyclovir IV. Infectious disease consulted for evaluation and management of possible meningoencephalitis. Overnight events reviewed Reintubated s.p bronch: mucus plugs suctioned. Cultures pending. Not on pressors. UO ok. No rash No diarrhea Antibiotics Ceftriaxone IV Flagyl IV Acyclovir IV Lines Line sites with no e.o infection. Past Medical History Alcoholism Allergies: Coded Allergies: No Allergy Information Available (Unverified , 05/13/17) PT HAS ALTERED MENTAL STATUS Objective . Vital Signs Date Time Temp Pulse Resp B/P (MAP) Pulse Ox O2 Delivery O2 Flow Rate FiO2 05/17/17 10:07 99 35 05/17/17 08:05 99 50 05/17/17 07:23 100 50 05/17/17 07:00 98 Mechanical Ventilator 05/17/17 06:00 72 103/55 (71) 100 05/17/17 06:00 72 05/17/17 04:12 98 50 05/17/17 04:00 98.6 74 88/50 (63) 96 05/17/17 04:00 50 05/17/17 04:00 74 05/17/17 02:00 71 84/51 (62) 99 05/17/17 02:00 71 05/17/17 01:06 98 50 05/17/17 00:00 99.0 79 80/51 (61) 98 05/17/17 00:00 50 05/17/17 00:00 79 05/16/17 22:09 98 50 05/16/17 22:00 89 05/16/17 20:00 99.7 103 120/72 (88) 95 05/16/17 20:00 103 05/16/17 20:00 50 05/16/17 19:27 99 50 05/16/17 19:00 98 Mechanical Ventilator 05/16/17 18:00 108 05/16/17 17:45 99 100 05/16/17 16:58 99 100 05/16/17 16:00 40 05/16/17 16:00 99.2 80 17 86/53 (64) 80 05/16/17 16:00 80 05/16/17 14:00 92 05/16/17 13:09 99 100 05/16/17 13:00 99 Mechanical Ventilator 05/16/17 13:00 100 05/16/17 12:00 98 05/16/17 12:00 99.4 98 19 157/79 (105) 98 . Laboratory Tests Test 05/15/17 18:43 05/16/17 05:02 05/17/17 05:15 White Blood Count 4.8 TH/MM3 5.1 TH/MM3 4.8 TH/MM3 Red Blood Count 3.69 MIL/MM3 3.33 MIL/MM3 3.47 MIL/MM3 Hemoglobin 13.2 GM/DL 12.0 GM/DL 12.3 GM/DL Hematocrit 37.7 % 33.6 % 35.5 % Mean Corpuscular Volume 102.1 FL 100.9 FL 102.3 FL Mean Corpuscular Hemoglobin 35.8 PG 36.0 PG 35.6 PG Mean Corpuscular Hemoglobin Concent 35.0 % 35.6 % 34.8 % Red Cell Distribution Width 12.6 % 12.8 % 12.9 % Platelet Count 56 TH/MM3 62 TH/MM3 67 TH/MM3 Mean Platelet Volume 9.0 FL 9.5 FL 8.8 FL Neutrophils (%) (Auto) 81.2 % 85.1 % 67.8 % Lymphocytes (%) (Auto) 10.4 % 6.6 % 19.5 % Monocytes (%) (Auto) 8.1 % 8.0 % 12.4 % Eosinophils (%) (Auto) 0.0 % 0.2 % 0.0 % Basophils (%) (Auto) 0.3 % 0.1 % 0.3 % Neutrophils # (Auto) 3.9 TH/MM3 4.3 TH/MM3 3.2 TH/MM3 Lymphocytes # (Auto) 0.5 TH/MM3 0.3 TH/MM3 0.9 TH/MM3 Monocytes # (Auto) 0.4 TH/MM3 0.4 TH/MM3 0.6 TH/MM3 Eosinophils # (Auto) 0.0 TH/MM3 0.0 TH/MM3 0.0 TH/MM3 Basophils # (Auto) 0.0 TH/MM3 0.0 TH/MM3 0.0 TH/MM3 CBC Comment AUTO DIFF AUTO DIFF AUTO DIFF Differential Comment AUTO DIFF CONFIRMED AUTO DIFF CONFIRMED AUTO DIFF CONFIRMED Platelet Estimate LOW LOW LOW Platelet Morphology Comment NORMAL NORMAL NORMAL Ovalocytes 1+ Laboratory Tests Test 05/17/17 05:15 Blood Urea Nitrogen 8 MG/DL Creatinine 0.97 MG/DL Random Glucose 121 MG/DL Total Protein 6.2 GM/DL Albumin 2.7 GM/DL Calcium Level 8.6 MG/DL Alkaline Phosphatase 75 U/L Aspartate Amino Transf (AST/SGOT) 21 U/L Alanine Aminotransferase (ALT/SGPT) 14 U/L Total Bilirubin 1.1 MG/DL Sodium Level 144 MEQ/L Potassium Level 3.4 MEQ/L Chloride Level 111 MEQ/L Carbon Dioxide Level 25.2 MEQ/L Anion Gap 8 MEQ/L Estimat Glomerular Filtration Rate 79 ML/MIN Microbiology Date/Time Source Procedure Growth Status 05/15/17 16:44 Blood Peripheral Aerobic Blood Culture - Preliminary NO GROWTH IN 2 DAYS Resulted 05/15/17 16:44 Blood Peripheral Anaerobic Blood Culture - Preliminary NO GROWTH IN 2 DAYS Resulted 05/15/17 16:36 Blood Peripheral Aerobic Blood Culture - Preliminary NO GROWTH IN 2 DAYS Resulted 05/15/17 16:36 Blood Peripheral Anaerobic Blood Culture - Preliminary NO GROWTH IN 2 DAYS Resulted 05/16/17 04:30 Cerebral Spinal Fluid Lumbar Puncture Fungal Smear Pending Received 05/16/17 04:30 Cerebral Spinal Fluid Lumbar Puncture Fungal Culture Pending Received 05/16/17 04:30 Cerebral Spinal Fluid Lumbar Puncture Acid Fast Stain Pending Received 05/16/17 04:30 Cerebral Spinal Fluid Lumbar Puncture Mycobacterial Culture Pending Received 05/16/17 04:30 Cerebral Spinal Fluid Lumbar Puncture Gram Stain - Final Resulted 05/16/17 04:30 Cerebral Spinal Fluid Lumbar Puncture CSF Culture - Preliminary NO GROWTH IN 24 HOURS. Resulted 05/15/17 14:28 Stool Stool Stool Occult Blood (JAMIE) - Final HEMOCCULT NEGATIVE Complete 05/16/17 17:45 Bronchial Washings Right Lower Lobe Fungal Smear - Final NO FUNGAL ELEMENTS SEEN. Resulted 05/16/17 17:45 Bronchial Washings Right Lower Lobe Fungal Culture Pending Resulted 05/16/17 17:45 Bronchial Washings Right Lower Lobe Acid Fast Stain Pending Received 05/16/17 17:45 Bronchial Washings Right Lower Lobe Mycobacterial Culture Pending Received 05/16/17 17:45 Bronchial Washings Right Lower Lobe Gram Stain - Final Resulted 05/16/17 17:45 Bronchial Washings Right Lower Lobe Bronchial Culture Pending Resulted 05/16/17 13:15 Sputum Endotracheal Gram Stain - Final Resulted 05/16/17 13:15 Sputum Endotracheal Sputum Culture Pending Resulted 05/15/17 16:30 Urine Catheterized Urine Urine Culture - Final NO GROWTH IN 48 HOURS. Complete Imaging Last Impressions Chest X-Ray 05/17/17 0600 Signed Impressions: Service Date/Time: Wednesday, May 17, 2017 03:40 - CONCLUSION: 1. Endotracheal tube and nasogastric tube unchanged. Basilar airspace disease and pleural effusion, right greater than left not significantly changed. Conor Fuller MD Chest CT 05/17/17 0000 Signed Impressions: Service Date/Time: Wednesday, May 17, 2017 08:11 - CONCLUSION: #1. Multifocal airspace consolidation with areas of atelectasis within the right lower lobe resulting in volume loss identified within the right hemithorax and shift of the mediastinum towards the right. There is a small right-sided pleural effusion present which demonstrates a thin rim of enhancement concerning for developing empyema. There is left lower lobe airspace consolidation and consolidation seen within the lingula. No left-sided pleural effusion. The lymph nodes identified within the AP window and prevascular space are likely reactive. 2. There is fluid identified within the esophagus. . Naomi Hong MD Head CT 05/16/17 0730 Signed Impressions: Service Date/Time: Tuesday, May 16, 2017 09:43 - CONCLUSION: No evidence of intracranial abnormality. Left-sided nasogastric tube associated with air-fluid levels identified in the left maxillary sinus, sphenoid sinus and left and right air cells. Naomi Hong MD Liver Ultrasound 05/15/17 0000 Signed Impressions: Service Date/Time: Monday, May 15, 2017 08:32 - CONCLUSION: 1. Liver and spleen are both enlarged. No focal lesions. 2. Very small amount of ascites along the hepatic border. 3. Possible small gallbladder polyp. Alan Alex MD Head/Brain Mag Res Venography 05/15/17 0000 Signed Impressions: Service Date/Time: Monday, May 15, 2017 09:41 - CONCLUSION: Normal study. Sumit Young MD Brain MRI 05/14/17 0000 Signed Impressions: Service Date/Time: May 13:12 - CONCLUSION: Incompletely occlusive dural sinus thrombosis. Sumit Young MD Physical Exam GENERAL: This is a well-nourished, well-developed patient, in no apparent distress. SKIN: No rashes, ecchymoses or lesions. Cool and dry. HEAD: Atraumatic. Normocephalic. No temporal or scalp tenderness. EYES: Pupils equal round and reactive. Extraocular motions intact. No scleral icterus. No injection or drainage. ENT: Intubated. NECK: Trachea midline. Supple, nontender, no meningeal signs. CARDIOVASCULAR: Heart sounds audible. RESPIRATORY: Clear to auscultation. Breath sounds equal bilaterally. No wheezes , rales, or rhonchi. GASTROINTESTINAL: Abdomen soft, non-tender, nondistended. MUSCULOSKELETAL: Extremities without clubbing, cyanosis, or edema. No joint tenderness, effusion, or edema noted. No calf tenderness. Negative Homans sign bilaterally. NEUROLOGICAL: Arouses on deep painful stimuli. Opens eyes. Does not follow any commands for me. Not oriented. Psych could not be assessed IV line sites with no evidence of infection. 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 Could be acute or chronic in nature. Rule out neurosyphilis, ZACHARY virus associated encephalopathy. Acute encephalopathy: Could also be from alcohol-related withdrawal or dementia Fever and likely aspiration pneumonia related Pneumonia likely aspiration Alcoholism Hepatitis C antibody positive. Recs: Continue Ceftriaxone IV change dose to q24hrs. Continue Flagyl ok to change to oral if tolerated and passes swallow. Continue Acyclovir for now follow HSV 1/2 PCR if negative ok to DC acyclovir. Follow sputum and bronch cultures. CSF fungal and AFB cultures in view of dural sinus issues. CSF VDRL: r.o neurosyphylis CSF ZACHARY virus. Check HIV antibody screen. d/w RN D.w No family in room. Malu Reveles MD May 17, 2017 11:27
[2017-05-17 13:09] LABS: HEPARIN INDUCED PLATELET AB NEGATIVE (NEGATIVE)
--- NOTE | 2017-05-17 13:40 | HHI.CCPN ---
Subjective Remarks/Hospital Course 61-year-old male admitted under Cottrell act. According to the Cottrell act report, contact was made with the patient in regards to his calling about his behavior being abnormal." According to the patient's per documentation, the patient has been defecating on himself, attempting to swallow household ornament items and has become aggressive. During my assessment the patient is extremely agitated, not following commands. 05/15/17: Intermittently severely agitated. Remains on Precedex. With 2 mg of IV Ativan he became oversedated, hypoxemic. Now improving. Spiking a fever 101.5. Pancultured. On argatroban for possible dural venous thrombosis, but MRV negative for any thrombus or occlusion. Patient will possibly need a lumbar puncture but currently on argatroban. Will discuss with Dr. Rai and KIM argatroban, transfuse platelet 05/16/17: Remains on Precedex sedated. Receiving Librium scheduled and as needed Ativan. Intermittently agitated. Started on vancomycin, ceftriaxone, ampicillin and acyclovir yesterday. Overnight lumbar puncture was done which was bloody tap (could be related to thrombocytopenia and previous argatroban use ). Fever and sepsis most likely related to right lower lobe infiltrate/ pneumonia. Possible patient might have aspirated the risks evidence of volume loss on chest x-ray repeat chest x-ray today pending 05/17/17: Remains intubated sedated with propofol. Chest CT shows extensive right lower lung consolidation with some atelectasis and volume loss. Bronchoscopy performed yesterday BAL negative to date. Continuing antibiotics per ID, HSV still pending Objective Vital Signs Date Time Temp Pulse Resp B/P (MAP) Pulse Ox O2 Delivery O2 Flow Rate FiO2 05/17/17 12:50 96 35 05/17/17 07:00 Mechanical Ventilator 05/17/17 06:00 72 103/55 (71) 05/17/17 04:00 98.6 05/16/17 16:00 17 05/16/17 07:16 15.00 Intake and Output 05/17/17 05/17/17 05/18/17 08:00 16:00 00:00 Intake Total 50 ml Output Total 700 ml Balance -650 ml Result Diagram: 05/17/17 0515 05/17/17 0515 Other Results Microbiology Date/Time Source Procedure Growth Status 05/15/17 14:28 Stool Stool Stool Occult Blood (JAMIE) - Final HEMOCCULT NEGATIVE Complete 05/15/17 16:30 Urine Catheterized Urine Urine Culture - Final NO GROWTH IN 48 HOURS. Complete Objective Remarks GENERAL: male, moderately sedated, on hold for sedation SKIN: Focused skin assessment warm and dry HEAD: Atraumatic. Normocephalic. EYES: No scleral icterus. No injection or drainage. Pupils equal reactive ENT: Nose without bleeding, orotracheally intubated NECK: Trachea midline. No neck stiffness/meningismus CARDIOVASCULAR: Regular rate and rhythm without murmurs, gallops, or rubs. RESPIRATORY: Clear to auscultation. Breath sounds equal bilaterally, except diminished at the right base. No wheezes GASTROINTESTINAL: Abdomen soft, non-tender, nondistended. No hepato-splenomegaly , or palpable masses. No guarding. MUSCULOSKELETAL: Extremities without clubbing, cyanosis, or edema. NEUROLOGICAL: Currently heavily sedated, intubated. Moves all extremities spontaneously do not follow commands A/P Assessment and Plan Neuro: Altered mental status/delirium Intermittent high fever, Rule out meningoencephalitis Probable alcohol withdrawal -Propofol for sedation and vent synchrony - CT head negative x2 - Lumbar puncture had bloody tab most likely from thrombocytopenia and recent argatroban use (DCD 05/15) - Drug screen toxicology negative -Agitation possibly secondary to alcohol withdrawal - MRV negative for any dural sinus thrombosis - Hematology following - Broad-spectrum meningitic coverage with Rocephin, Flagyl and acyclovir - Consult ID - Hyperammonemia, on lactulose - [facility] protocol - Thiamine folate multivitamin - Discontinue scheduled Librium Resp: Acute hypoxemic respiratory failure Right lower lobe consolidation with volume loss/probable aspiration/pneumonia - ACV, ventilator bundle - DuoNeb every 6 hours as needed and scheduled - S/p bronc, BAL cultures negative to date - Continue broad-spectrum antibiotics CVS: - Monitor vitals closely - Maintenance IV fluid normal saline at 125 mL/h GI Elevated ammonia level - Lactulose by mouth - Monitor trend - Tube feeds with Jevity ID: - See neuro section for ID and ABX - Broad-spectrum meningitic coverage with Rocephin, Flagyl and acyclovir Heme: - Thrombocytopenia most likely secondary to alcohol dependence, bone marrow suppression, and splenomegaly Endo: Hyperglycemia - Insulin sliding scale - Hematology following DVT GI prophylaxis - Teds SCDs - No chemical DVT prophylaxis due to thrombocytopenia - Pepcid CCT 35 MIN D/W Dr. De La O, D/W Marcos Kong MD May 17, 2017 13:40
[2017-05-17] MEDS: BENEPROTEIN POWDER 1 PACK G-TUBE SCH (17:27)
[2017-05-17] MEDS ORDERED: ICU - CALL ORDERING PHYSICIAN PRN (19:00)
[2017-05-17] MEDS ORDERED: ICU - MAGNESIUM OXIDE 400 MG TAB PO PRN (19:00)
[2017-05-17] MEDS ORDERED: ICU - SODIUM PHOSPHATE 30 MMOL/NS 250 ML IV PRN ×2 (19:00)
[2017-05-17] MEDS ORDERED: ICU - MAGNESIUM SULFATE 2 GM/NS 100 ML IV PRN ×2 (19:00)
[2017-05-17] MEDS ORDERED: POTASSIUM CHLORIDE 25 MEQ EFFERVESCENT TAB PO PRN (19:00)
[2017-05-17] MEDS ORDERED: ICU - POTASSIUM PHOSPHATE 30 MMOL/NS 250 ML IV PRN ×2 (19:00)
[2017-05-17] MEDS ORDERED: ICU - MAGNESIUM SULFATE 4 GM/NS 100 ML IV PRN ×2 (19:00)
[2017-05-17] MEDS ORDERED: ICU - POTASSIUM PHOSPHATE MONOBASIC 500 MG TAB PO PRN (19:00)
[2017-05-17] MEDS ORDERED: ICU - D/C ICU ELECTROLYTE ORDERS PRN (19:00)
[2017-05-17] MEDS ORDERED: ICU - POTASSIUM CHLORIDE/AQUEOUS SOLN 40 MEQ/100 ML IVPB IV PRN (19:00)
[2017-05-17 21:37] LABS: ALBUMIN 2.7 GM/DL (3.4-5.0); AST (GOT) 21 U/L (15-37); BICARBONATE 24.8 MEQ/L (21.0-32.0); BLOOD UREA NITROGEN 8 MG/DL (7-18); CALCIUM 8.5 MG/DL (8.5-10.1); CHLORIDE 111 MEQ/L (98-107); CREATININE 0.94 MG/DL (0.60-1.30); GLOMERULAR FILTRATION RATE 82 ML/MIN (>89); GLUCOSE,RANDOM 117 MG/DL (74-106); SODIUM (NA) 143 MEQ/L (136-145)
[2017-05-17 21:39] LABS: ALT (GPT) 16 U/L (12-78); PHOSPHORUS 2.3 MG/DL (2.5-4.9)
[2017-05-17 21:40] LABS: ALKALINE PHOSPHATASE 78 U/L (45-117); TOTAL BILIRUBIN ADULT 1.2 MG/DL (0.2-1.0); TOTAL PROTEIN 6.1 GM/DL (6.4-8.2)
[2017-05-18] VITALS (26 sets, daily range): BP systolic 80–191; BP diastolic 50–89; PULSE 67–118; RESP 16–29; TEMP 98.5–101.3; O2SAT 95–100
[2017-05-18] MEDS: ACYCLOVIR INJ 700 MG in SODIUM CHLORIDE 0.9% INJ 100 ML IV SCH ×3 (00:11→16:37)
[2017-05-18] MEDS: fentaNYL DRIP 250 ML IV PRN (01:29)
[2017-05-18] MEDS: SODIUM CHLOR 0.9% 1000 ML INJ 1,000 ML IV SCH (02:25)
[2017-05-18] MEDS: PROPOFOL 1000 MG/100 ML INJ 100 ML IV PRN (03:14)
[2017-05-18] MEDS: cefTRIAXone INJ 2,000 MG in SODIUM CHLORIDE 0.9% INJ 100 ML IV SCH (03:15)
[2017-05-18] MEDS: CHLORHEXIDINE GLUCONATE 2 % 1 PACK (2 CLOTHS)(taper/protocol) TOPICAL SCH (03:15)
[2017-05-18] MEDS: RESP: ALBUTEROL 2.5 MG/IPRATROPIUM 0.5 MG NEB (SCH) NEB ×4 (03:41→20:37)
[2017-05-18 03:51] LABS: HOMOCYSTEINE 16.1 umol/L (<11.4)
[2017-05-18] MEDS: metroNIDAZOLE 500 MG INJ 100 ML IV SCH ×3 (05:08→20:04)
[2017-05-18 06:36] LABS: AUTOMATED NEUTROPHIL # 2.4 TH/MM3 (1.8-7.7); BASOPHIL % 0.2 % (0.0-2.0); HEMATOCRIT 33.8 % (39.0-51.0); HEMOGLOBIN 11.8 GM/DL (13.0-17.0); LYMPH % 11.2 % (9.0-44.0); LYMPHOCYTE # 0.4 TH/MM3 (1.0-4.8); MEAN CELL VOLUME 103.4 FL (80.0-100.0); MEAN CORPUSCULAR HGB CONC 34.8 % (32.0-36.0); MONO % 12.1 % (0.0-8.0); MONOCYTE # 0.4 TH/MM3 (0-0.9); NEUT % 76.5 % (16.0-70.0); PLATELET COUNT 67 TH/MM3 (150-450); RED BLOOD COUNT 3.27 MIL/MM3 (4.50-5.90); RED CELL DISTRIBUTION WIDTH 12.6 % (11.6-17.2); WHITE BLOOD COUNT 3.2 TH/MM3 (4.0-11.0)
[2017-05-18 07:40] LABS: OVALOCYTES 1+ (NORMAL)
--- NOTE | 2017-05-18 07:50 | RADRPT ---
EXAM DATE/TIME: 05/18/2017 07:05 [facility] COMPARISON: CHEST SINGLE AP, May 17, 2017, 3:40. INDICATIONS : Respiratory disease. MEDICAL HISTORY : None. SURGICAL HISTORY : Umbilical hernia repair. ENCOUNTER: Subsequent ACUITY: 4 - 6 days PAIN SCORE: Non-responsive. LOCATION: Bilateral chest FINDINGS: Stable ETT and NGT. Persistent right lower lobe consolidation and small pleural effusion. There is im proved aeration in the left lower lobe. Cardiomediastinal contours are stable. Remainder of exam is u nchanged. CONCLUSION: 1. Stable ETT and NGT. 2. Stable right lower lobe airspace consolidation and associated small pleural effusion. 3. Improved aeration in the left lower lung zone. Stepan López MD on May 18, 2017 at 7:42 Board Certified Radiologist. This report was verified electronically.
[2017-05-18] MEDS: CHLORHEXIDINE 0.12% (ORAL KIT) 15 ML CUP MT SCH ×3 (08:00→20:06)
--- NOTE | 2017-05-18 08:29 | HHI.CCPN ---
Subjective Remarks/Hospital Course 61-year-old male admitted under Cottrell act. According to the Cottrell act report, contact was made with the patient in regards to his calling about his behavior being abnormal." According to the patient's per documentation, the patient has been defecating on himself, attempting to swallow household ornament items and has become aggressive. During my assessment the patient is extremely agitated, not following commands. 05/15/17: Intermittently severely agitated. Remains on Precedex. With 2 mg of IV Ativan he became oversedated, hypoxemic. Now improving. Spiking a fever 101.5. Pancultured. On argatroban for possible dural venous thrombosis, but MRV negative for any thrombus or occlusion. Patient will possibly need a lumbar puncture but currently on argatroban. Will discuss with Dr. Rai and DC argatroban, transfuse platelet 05/16/17: Remains on Precedex sedated. Receiving Librium scheduled and as needed Ativan. Intermittently agitated. Started on vancomycin, ceftriaxone, ampicillin and acyclovir yesterday. Overnight lumbar puncture was done which was bloody tap (could be related to thrombocytopenia and previous argatroban use ). Fever and sepsis most likely related to right lower lobe infiltrate/ pneumonia. Possible patient might have aspirated the risks evidence of volume loss on chest x-ray repeat chest x-ray today pending 05/17/17: Remains intubated sedated with propofol. Chest CT shows extensive right lower lung consolidation with some atelectasis and volume loss. Bronchoscopy performed yesterday BAL negative to date. Continuing antibiotics per ID, HSV still pending 05/18: Chest x-ray stable to slightly improved on my review. Fluid overload noted, one dose of 40 mg IV Lasix ordered. HSV is still pending. Encephalopathy persists Objective Vital Signs Date Time Temp Pulse Resp B/P (MAP) Pulse Ox O2 Delivery O2 Flow Rate FiO2 05/18/17 07:52 100 35 05/18/17 06:00 77 05/18/17 04:01 99.3 113/62 (79) 05/17/17 19:00 Mechanical Ventilator 05/16/17 16:00 17 05/16/17 07:16 15.00 Intake and Output 05/18/17 05/18/17 05/19/17 08:00 16:00 00:00 Intake Total 849 ml Output Total 1150 ml Balance -301 ml Result Diagram: 05/18/17 0540 05/17/172034 Other Results Microbiology Date/Time Source Procedure Growth Status 05/15/17 14:28 Stool Stool Stool Occult Blood (JAMIE) - Final HEMOCCULT NEGATIVE Complete 05/15/17 16:30 Urine Catheterized Urine Urine Culture - Final NO GROWTH IN 48 HOURS. Complete Objective Remarks GENERAL: male, moderately sedated, critically ill encephalopathy SKIN: Focused skin assessment warm and dry HEAD: Atraumatic. Normocephalic. EYES: No scleral icterus. No injection or drainage. Pupils equal reactive ENT: Nose without bleeding, orotracheally intubated NECK: Trachea midline. No neck stiffness/meningismus CARDIOVASCULAR: Regular rate and rhythm without murmurs, gallops, or rubs. RESPIRATORY: Clear to auscultation. Breath sounds equal bilaterally, except diminished at the right base. No wheezes GASTROINTESTINAL: Abdomen soft, non-tender, nondistended. No hepato-splenomegaly , or palpable masses. No guarding. MUSCULOSKELETAL: Extremities without clubbing, cyanosis, or edema. NEUROLOGICAL: Currently heavily sedated, intubated. Moves all extremities spontaneously do not follow commands A/P Assessment and Plan Neuro: Altered mental status/delirium Intermittent high fever, Rule out meningoencephalitis Probable alcohol withdrawal -Propofol for sedation and vent synchrony - CT head negative x2 - Lumbar puncture had bloody tab most likely from thrombocytopenia and recent argatroban use (DCd 05/15) - Drug screen toxicology negative -Agitation possibly secondary to alcohol withdrawal - MRV negative for any dural sinus thrombosis - Hematology, ID following - Broad-spectrum meningitic coverage with Rocephin, Flagyl and acyclovir - HSV pending - Hyperammonemia, on lactulose - CIWA protocol - Thiamine folate multivitamin - Discontinued scheduled Librium Resp: Acute hypoxemic respiratory failure Right lower lobe consolidation with volume loss/probable pneumonia - ACV, ventilator bundle - DuoNeb every 6 hours as needed and scheduled - S/p bronc, BAL cultures negative to date - Continue broad-spectrum antibiotics CVS: Fluid overload - Monitor vitals closely - DC normal saline at 125 mL/h, give IV Lasix 40 mg 1 due to fluid overload GI Elevated ammonia level - Lactulose by mouth - Monitor trend - Tube feeds with Jevity ID: - See neuro section for ID and ABX - Broad-spectrum meningitic coverage with Rocephin, Flagyl and acyclovir - BAL cultures remains negative to date Heme: - Thrombocytopenia most likely secondary to alcohol dependence, bone marrow suppression, and splenomegaly, sepsis Endo: Hyperglycemia - Insulin sliding scale - Hematology following DVT GI prophylaxis - Teds SCDs - No chemical DVT prophylaxis due to thrombocytopenia - Pepcid CCT 35 MIN Remains critically ill but stable with persistent encephalopathy and alcohol withdrawal. Will attempt SBT today Marcos Arana MD May 18, 2017 08:29
[2017-05-18] MEDS ORDERED: FUROSEMIDE 40 MG/4 ML VIAL IV PUSH ONE (08:30)
[2017-05-18] MEDS ORDERED: POTASSIUM CHLORIDE 25 MEQ EFFERVESCENT TAB PO ONE (08:30)
[2017-05-18] MEDS: FOLIC ACID 1 MG TAB PO SCH (08:39)
[2017-05-18] MEDS: MULTIVITAMINS/MINERALS THERAPEUTIC TAB PO SCH (08:39)
[2017-05-18] MEDS: LACTULOSE SYRUP 20 GM/30 ML CUP PO SCH ×4 (08:39→20:05)
[2017-05-18] MEDS: BENEPROTEIN POWDER 1 PACK G-TUBE SCH ×3 (08:39→16:50)
[2017-05-18] MEDS: THIAMINE HCL 100 MG TAB PO SCH (08:39)
[2017-05-18] MEDS: SODIUM CHLORIDE 0.9% FLUSH 10 ML FLUSH IV FLUSH SCH ×2 (08:40→20:05)
[2017-05-18] MEDS: INSULIN ASPART SUPPLEMENTAL SCALE SQ SCH ×4 (08:45→20:05)
[2017-05-18] MEDS: FAMOTIDINE 20 MG/2 ML VIAL IV PUSH SCH ×2 (08:46→20:05)
[2017-05-18] MEDS: DEXMEDETOMIDINE INJ 1,000 MCG in SODIUM CHLOR 0.9% 250 ML INJ 240 ML IV PRN (09:00)
[2017-05-18 09:09] LABS: HEMATOCRIT 37.7 % (39.0-51.0); HEMOGLOBIN 13.2 GM/DL (13.0-17.0); MEAN CELL VOLUME 102.6 FL (80.0-100.0); MEAN CORPUSCULAR HGB CONC 35.1 % (32.0-36.0); MEAN PLATELET VOLUME 8.9 FL (7.0-11.0); PLATELET COUNT 76 TH/MM3 (150-450); RED BLOOD COUNT 3.67 MIL/MM3 (4.50-5.90); RED CELL DISTRIBUTION WIDTH 12.5 % (11.6-17.2); WHITE BLOOD COUNT 3.8 TH/MM3 (4.0-11.0)
[2017-05-18 09:40] LABS: ALBUMIN 2.8 GM/DL (3.4-5.0); AST (GOT) 21 U/L (15-37); BICARBONATE 24.9 MEQ/L (21.0-32.0); BLOOD UREA NITROGEN 7 MG/DL (7-18); CALCIUM 8.6 MG/DL (8.5-10.1); CHLORIDE 112 MEQ/L (98-107); CREATININE 0.98 MG/DL (0.60-1.30); GLOMERULAR FILTRATION RATE 78 ML/MIN (>89); GLUCOSE,RANDOM 143 MG/DL (74-106); SODIUM (NA) 145 MEQ/L (136-145)
[2017-05-18 09:41] LABS: ALT (GPT) 17 U/L (12-78)
[2017-05-18 09:44] LABS: ALKALINE PHOSPHATASE 84 U/L (45-117); PHOSPHORUS 2.9 MG/DL (2.5-4.9); TOTAL BILIRUBIN ADULT 0.9 MG/DL (0.2-1.0); TOTAL PROTEIN 6.4 GM/DL (6.4-8.2)
--- NOTE | 2017-05-18 11:16 | HHI.IDPN ---
Subjective Subjective Remarks Mr. Up is a 61-year-old male with past medical history significant for alcoholism and no reported prior history of psychiatric disorders. With this background patient was transferred to [facility] from [facility] for acute psychosis. Apparently the patient was found to be acutely psychotic his behavior included difficulty eating on himself, attempting to eat kitchen utensils, becoming aggressive. He was also witnessed to drink is on urine from a urinal in the [place] emergency department. He was not allergic to place time or person at the time of initial admission to the hospital. Imaging studies of the brain performed on May 24 at [facility] indicated a filling defect within the dural sinus most conspicuous in the posterior aspect superior sagittal sinus and right transverse sinus. Critical care was involved and patient was initiated on anticoagulation as well as heparin infusion. Hematology was consulted due to concern for thrombotic disorder process for which an extensive workup has been ordered at the present time. Patient also had an MRV an MRI of the brain. MRV does not show an acute thrombus at the present time. Patient underwent a lumbar puncture and the studies are indicative of a bloody tap rather than acute infectious process. She was started on empiric regimen for meningoencephalitis including ampicillin, ceftriaxone, vancomycin, acyclovir IV. Infectious disease consulted for evaluation and management of possible meningoencephalitis. Overnight events reviewed Remains in ICU. Not on pressors. UO ok. No rash No diarrhea Antibiotics Ceftriaxone IV Flagyl IV Acyclovir IV Lines Line sites with no e.o infection. Past Medical History Alcoholism Allergies: Coded Allergies: No Allergy Information Available (Unverified , 05/13/17) PT HAS ALTERED MENTAL STATUS Objective . Vital Signs Date Time Temp Pulse Resp B/P (MAP) Pulse Ox O2 Delivery O2 Flow Rate FiO2 05/18/17 10:04 72 17 80/50 (60) 95 05/18/17 10:00 72 05/18/17 09:30 35 05/18/17 09:26 97 35 05/18/17 09:26 35 05/18/17 09:00 93 17 119/59 (79) 98 05/18/17 08:00 80 05/18/17 08:00 99.2 80 16 102/57 (72) 100 05/18/17 08:00 35 05/18/17 07:52 100 35 05/18/17 07:00 100 Mechanical Ventilator 35 05/18/17 07:00 73 16 92/53 (66) 100 05/18/17 06:00 77 05/18/17 04:01 99.3 93 113/62 (79) 98 05/18/17 04:00 40 05/18/17 03:41 99 35 05/18/17 02:00 80 05/18/17 00:00 50 05/18/17 00:00 99.0 79 97/55 (69) 100 05/18/17 00:00 88 05/17/17 23:45 99 35 05/17/17 22:00 89 05/17/17 20:00 88 05/17/17 20:00 99.5 88 97/51 (66) 96 05/17/17 20:00 50 05/17/17 19:38 99 35 05/17/17 19:00 98 Mechanical Ventilator 05/17/17 18:00 82 05/17/17 17:37 96 35 05/17/17 16:00 78 05/17/17 16:00 78 88/51 (63) 98 05/17/17 16:00 50 05/17/17 14:00 88 05/17/17 12:50 96 35 05/17/17 12:00 50 05/17/17 12:00 75 82/49 (60) 99 05/17/17 12:00 75 05/18/17 05/18/17 05/19/17 15:00 23:00 07:00 Intake Total 1154 ml Balance 1154 ml IV Total 1154 ml . Laboratory Tests Test 05/17/17 05:15 05/18/17 05:40 05/18/17 08:31 White Blood Count 4.8 TH/MM3 3.2 TH/MM3 3.8 TH/MM3 Red Blood Count 3.47 MIL/MM3 3.27 MIL/MM3 3.67 MIL/MM3 Hemoglobin 12.3 GM/DL 11.8 GM/DL 13.2 GM/DL Hematocrit 35.5 % 33.8 % 37.7 % Mean Corpuscular Volume 102.3 FL 103.4 FL 102.6 FL Mean Corpuscular Hemoglobin 35.6 PG 36.0 PG 36.0 PG Mean Corpuscular Hemoglobin Concent 34.8 % 34.8 % 35.1 % Red Cell Distribution Width 12.9 % 12.6 % 12.5 % Platelet Count 67 TH/MM3 67 TH/MM3 76 TH/MM3 Mean Platelet Volume 8.8 FL 9.0 FL 8.9 FL Neutrophils (%) (Auto) 67.8 % 76.5 % Lymphocytes (%) (Auto) 19.5 % 11.2 % Monocytes (%) (Auto) 12.4 % 12.1 % Eosinophils (%) (Auto) 0.0 % 0.0 % Basophils (%) (Auto) 0.3 % 0.2 % Neutrophils # (Auto) 3.2 TH/MM3 2.4 TH/MM3 Lymphocytes # (Auto) 0.9 TH/MM3 0.4 TH/MM3 Monocytes # (Auto) 0.6 TH/MM3 0.4 TH/MM3 Eosinophils # (Auto) 0.0 TH/MM3 0.0 TH/MM3 Basophils # (Auto) 0.0 TH/MM3 0.0 TH/MM3 CBC Comment AUTO DIFF AUTO DIFF Differential Comment AUTO DIFF CONFIRMED AUTO DIFF CONFIRMED Platelet Estimate LOW LOW Platelet Morphology Comment NORMAL NORMAL Ovalocytes 1+ 1+ Laboratory Tests Test 05/17/17 05:15 05/17/17 20:35 05/18/17 08:31 Blood Urea Nitrogen 8 MG/DL 8 MG/DL 7 MG/DL Creatinine 0.97 MG/DL 0.94 MG/DL 0.98 MG/DL Random Glucose 121 MG/DL 117 MG/DL 143 MG/DL Total Protein 6.2 GM/DL 6.1 GM/DL 6.4 GM/DL Albumin 2.7 GM/DL 2.7 GM/DL 2.8 GM/DL Calcium Level 8.6 MG/DL 8.5 MG/DL 8.6 MG/DL Alkaline Phosphatase 75 U/L 78 U/L 84 U/L Aspartate Amino Transf (AST/SGOT) 21 U/L 21 U/L 21 U/L Alanine Aminotransferase (ALT/SGPT) 14 U/L 16 U/L 17 U/L Total Bilirubin 1.1 MG/DL 1.2 MG/DL 0.9 MG/DL Sodium Level 144 MEQ/L 143 MEQ/L 145 MEQ/L Potassium Level 3.4 MEQ/L 3.3 MEQ/L 3.8 MEQ/L Chloride Level 111 MEQ/L 111 MEQ/L 112 MEQ/L Carbon Dioxide Level 25.2 MEQ/L 24.8 MEQ/L 24.9 MEQ/L Anion Gap 8 MEQ/L 7 MEQ/L 8 MEQ/L Estimat Glomerular Filtration Rate 79 ML/MIN 82 ML/MIN 78 ML/MIN Phosphorus Level 2.3 MG/DL 2.9 MG/DL Magnesium Level 2.0 MG/DL Microbiology Date/Time Source Procedure Growth Status 05/15/17 16:44 Blood Peripheral Aerobic Blood Culture - Preliminary NO GROWTH IN 3 DAYS Resulted 05/15/17 16:44 Blood Peripheral Anaerobic Blood Culture - Preliminary NO GROWTH IN 3 DAYS Resulted 05/15/17 16:36 Blood Peripheral Aerobic Blood Culture - Preliminary NO GROWTH IN 3 DAYS Resulted 05/15/17 16:36 Blood Peripheral Anaerobic Blood Culture - Preliminary NO GROWTH IN 3 DAYS Resulted 05/16/17 04:30 Cerebral Spinal Fluid Lumbar Puncture Fungal Smear Pending Received 05/16/17 04:30 Cerebral Spinal Fluid Lumbar Puncture Fungal Culture Pending Received 05/16/17 04:30 Cerebral Spinal Fluid Lumbar Puncture Acid Fast Stain Pending Received 05/16/17 04:30 Cerebral Spinal Fluid Lumbar Puncture Mycobacterial Culture Pending Received 05/16/17 04:30 Cerebral Spinal Fluid Lumbar Puncture Gram Stain - Final Resulted 05/16/17 04:30 Cerebral Spinal Fluid Lumbar Puncture CSF Culture - Preliminary NO GROWTH IN 48 HOURS. Resulted 05/15/17 14:28 Stool Stool Stool Occult Blood (JAMIE) - Final HEMOCCULT NEGATIVE Complete 05/16/17 17:45 Bronchial Washings Right Lower Lobe Fungal Smear - Final NO FUNGAL ELEMENTS SEEN. Resulted 05/16/17 17:45 Bronchial Washings Right Lower Lobe Fungal Culture Pending Resulted 05/16/17 17:45 Bronchial Washings Right Lower Lobe Acid Fast Stain Pending Received 05/16/17 17:45 Bronchial Washings Right Lower Lobe Mycobacterial Culture Pending Received 05/16/17 17:45 Bronchial Washings Right Lower Lobe Gram Stain - Final Resulted 05/16/17 17:45 Bronchial Washings Right Lower Lobe Bronchial Culture - Preliminary No growth. Resulted 05/16/17 13:15 Sputum Endotracheal Gram Stain - Final Resulted 05/16/17 13:15 Sputum Endotracheal Sputum Culture - Preliminary NO GROWTH IN 24 HOURS. Resulted 05/15/17 16:30 Urine Catheterized Urine Urine Culture - Final NO GROWTH IN 48 HOURS. Complete Imaging Last Impressions Chest X-Ray 05/17/17 0600 Signed Impressions: Service Date/Time: Wednesday, May 17, 2017 03:40 - CONCLUSION: 1. Endotracheal tube and nasogastric tube unchanged. Basilar airspace disease and pleural effusion, right greater than left not significantly changed. Conor Fuller MD Chest CT 05/17/17 0000 Signed Impressions: Service Date/Time: Wednesday, May 17, 2017 08:11 - CONCLUSION: #1. Multifocal airspace consolidation with areas of atelectasis within the right lower lobe resulting in volume loss identified within the right hemithorax and shift of the mediastinum towards the right. There is a small right-sided pleural effusion present which demonstrates a thin rim of enhancement concerning for developing empyema. There is left lower lobe airspace consolidation and consolidation seen within the lingula. No left-sided pleural effusion. The lymph nodes identified within the AP window and prevascular space are likely reactive. 2. There is fluid identified within the esophagus. . Naomi Hong MD Head CT 05/16/17 0730 Signed Impressions: Service Date/Time: Tuesday, May 16, 2017 09:43 - CONCLUSION: No evidence of intracranial abnormality. Left-sided nasogastric tube associated with air-fluid levels identified in the left maxillary sinus, sphenoid sinus and left and right air cells. Naomi Hong MD Liver Ultrasound 05/15/17 0000 Signed Impressions: Service Date/Time: Monday, May 15, 2017 08:32 - CONCLUSION: 1. Liver and spleen are both enlarged. No focal lesions. 2. Very small amount of ascites along the hepatic border. 3. Possible small gallbladder polyp. Alan Alex MD Head/Brain Mag Res Venography 05/15/17 0000 Signed Impressions: Service Date/Time: Monday, May 15, 2017 09:41 - CONCLUSION: Normal study. Sumit Young MD Brain MRI 05/14/17 0000 Signed Impressions: Service Date/Time: May 13:12 - CONCLUSION: Incompletely occlusive dural sinus thrombosis. Sumit Young MD Physical Exam GENERAL: This is a well-nourished, well-developed patient, in no apparent distress. SKIN: No rashes, ecchymoses or lesions. Cool and dry. HEAD: Atraumatic. Normocephalic. No temporal or scalp tenderness. EYES: Pupils equal round and reactive. Extraocular motions intact. No scleral icterus. No injection or drainage. ENT: Intubated. NECK: Trachea midline. Supple, nontender, no meningeal signs. CARDIOVASCULAR: Heart sounds audible. RESPIRATORY: Clear to auscultation. Breath sounds equal bilaterally. No wheezes , rales, or rhonchi. GASTROINTESTINAL: Abdomen soft, non-tender, nondistended. MUSCULOSKELETAL: Extremities without clubbing, cyanosis, or edema. No joint tenderness, effusion, or edema noted. No calf tenderness. Negative Homans sign bilaterally. NEUROLOGICAL: Arouses on deep painful stimuli. Opens eyes. Does not follow any commands for me. Not oriented. Psych could not be assessed IV line sites with no evidence of infection. 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 Could be acute or chronic in nature. Rule out neurosyphilis, ZACHARY virus associated encephalopathy. Acute encephalopathy: Could also be from alcohol-related withdrawal or dementia Fever and likely aspiration pneumonia related Pneumonia likely aspiration Alcoholism Hepatitis C antibody positive. Recs: Continue Ceftriaxone IV change dose to q24hrs. Continue Flagyl ok to change to oral if tolerated and passes swallow. Continue Acyclovir for now follow HSV 1/2 PCR if negative ok to DC acyclovir. Follow sputum and bronch cultures. CSF fungal and AFB cultures in view of dural sinus issues. CSF VDRL, CSF ZACHARY virus could not be done as not much CSF per Marya in specials. Check HIV antibody screen. d/w RN No family in room. Malu Reveles MD May 18, 2017 11:16
[2017-05-18 15:52] LABS: FACTOR VIII(8) ACTIVITY 128 (50-180)
[2017-05-18 17:58] LABS: PROTEIN C ACTIVITY 63 % (70 - 150); PROTEIN S ACTIVITY 75 % (65 - 160)
[2017-05-18 23:50] LABS: BETA2-GLYCOPROTEIN IGA <9 SAU (< OR = 20); BETA2-GLYCOPROTEIN IGG <9 SGU (< OR = 20); BETA2-GLYCOPROTEIN IGM <9 SMU (< OR = 20)
[2017-05-19] VITALS (29 sets, daily range): BP systolic 117–195; BP diastolic 56–92; PULSE 113–135; RESP 22–33; TEMP 99.7–101.7; O2SAT 94–100
[2017-05-19] MEDS: CHLORHEXIDINE 0.12% (ORAL KIT) 15 ML CUP MT SCH ×5 (00:14→20:07)
[2017-05-19] MEDS: ACYCLOVIR INJ 700 MG in SODIUM CHLORIDE 0.9% INJ 100 ML IV SCH (00:14)
[2017-05-19] MEDS: RESP: ALBUTEROL 2.5 MG/IPRATROPIUM 0.5 MG NEB (SCH) NEB ×4 (03:26→21:04)
[2017-05-19 03:49] LABS: ACTIVATED PROTEIN C RESISTANCE 1.7 ratio (> OR = 2.1)
[2017-05-19] MEDS: CHLORHEXIDINE GLUCONATE 2 % 1 PACK (2 CLOTHS)(taper/protocol) TOPICAL SCH (04:00)
[2017-05-19] MEDS: metroNIDAZOLE 500 MG INJ 100 ML IV SCH ×3 (04:04→20:07)
[2017-05-19] MEDS: cefTRIAXone INJ 2,000 MG in SODIUM CHLORIDE 0.9% INJ 100 ML IV SCH (05:06)
--- NOTE | 2017-05-19 05:06 | RADRPT ---
EXAM DATE/TIME: 05/19/2017 03:39 [facility] COMPARISON: CHEST SINGLE AP, May 18, 2017, 7:05. INDICATIONS : Short of breath. MEDICAL HISTORY : None. SURGICAL HISTORY : Umbilical hernia repair. ENCOUNTER: Subsequent ACUITY: 1 week PAIN SCORE: 0/10 LOCATION: Bilateral chest FINDINGS: Left lung is clear. Endotracheal tube, enteric tube, right effusion and right basilar consolidation u nchanged. Degenerative changes of the spine are noted. CONCLUSION: No significant change has occurred. Sergio Gomez MD on May 19, 2017 at 5:04 Board Certified Radiologist. This report was verified electronically.
[2017-05-19 07:04] LABS: ALBUMIN 3.2 GM/DL (3.4-5.0); AST (GOT) 44 U/L (15-37); BICARBONATE 24.4 MEQ/L (21.0-32.0); BLOOD UREA NITROGEN 7 MG/DL (7-18); CALCIUM 9.2 MG/DL (8.5-10.1); CHLORIDE 111 MEQ/L (98-107); CREATININE 0.97 MG/DL (0.60-1.30); GLOMERULAR FILTRATION RATE 79 ML/MIN (>89); GLUCOSE,RANDOM 265 MG/DL (74-106); SODIUM (NA) 146 MEQ/L (136-145)
[2017-05-19 07:06] LABS: ALKALINE PHOSPHATASE 105 U/L (45-117); ALT (GPT) 22 U/L (12-78); TOTAL BILIRUBIN ADULT 1.9 MG/DL (0.2-1.0); TOTAL PROTEIN 7.2 GM/DL (6.4-8.2)
--- NOTE | 2017-05-19 07:34 | HHI.CCPN ---
Subjective Remarks/Hospital Course 61-year-old male admitted under Cottrell act. According to the Cottrell act report, contact was made with the patient in regards to his calling about his behavior being abnormal." According to the patient's per documentation, the patient has been defecating on himself, attempting to swallow household ornament items and has become aggressive. During my assessment the patient is extremely agitated, not following commands. 05/15/17: Intermittently severely agitated. Remains on Precedex. With 2 mg of IV Ativan he became oversedated, hypoxemic. Now improving. Spiking a fever 101.5. Pancultured. On argatroban for possible dural venous thrombosis, but MRV negative for any thrombus or occlusion. Patient will possibly need a lumbar puncture but currently on argatroban. Will discuss with Dr. Rai and KIM argatroban, transfuse platelet 05/16/17: Remains on Precedex sedated. Receiving Librium scheduled and as needed Ativan. Intermittently agitated. Started on vancomycin, ceftriaxone, ampicillin and acyclovir yesterday. Overnight lumbar puncture was done which was bloody tap (could be related to thrombocytopenia and previous argatroban use ). Fever and sepsis most likely related to right lower lobe infiltrate/ pneumonia. Possible patient might have aspirated the risks evidence of volume loss on chest x-ray repeat chest x-ray today pending 05/17/17: Remains intubated sedated with propofol. Chest CT shows extensive right lower lung consolidation with some atelectasis and volume loss. Bronchoscopy performed yesterday BAL negative to date. Continuing antibiotics per ID, HSV still pending 05/18: Chest x-ray stable to slightly improved on my review. Fluid overload noted, one dose of 40 mg IV Lasix ordered. HSV is still pending. Encephalopathy persists 05/19: Patient still remains unresponsive off sedation. Tachycardic with heart rate in 130s appears to be sinus. Good response to IV Lasix with approximately 5 L urine output. Start clonidine for hypertension, tachycardia and uncontrolled withdrawal symptoms. HSV pending Objective Vital Signs Date Time Temp Pulse Resp B/P (MAP) Pulse Ox O2 Delivery O2 Flow Rate FiO2 05/19/17 06:00 122 05/19/17 05:01 94 35 05/19/17 04:00 100.3 25 170/86 (114) 05/18/17 19:00 Mechanical Ventilator 15.00 Intake and Output 05/19/17 05/19/17 05/20/17 08:00 16:00 00:00 Intake Total 595 ml Output Total 1251 ml Balance -656 ml Result Diagram: 05/18/17 0831 05/19/17 0440 Other Results Microbiology Date/Time Source Procedure Growth Status 05/16/17 17:45 Bronchial Washings Right Lower Lobe Gram Stain - Final Complete 05/16/17 17:45 Bronchial Washings Right Lower Lobe Bronchial Culture - Final NO GROWTH IN 48 HOURS. Complete 05/16/17 13:15 Sputum Endotracheal Gram Stain - Final Complete 05/16/17 13:15 Sputum Endotracheal Sputum Culture - Final NO GROWTH IN 48 HOURS. Complete Objective Remarks GENERAL: male, off all sedation, critically ill encephalopathy SKIN: Focused skin assessment warm and dry HEAD: Atraumatic. Normocephalic. EYES: No scleral icterus. No injection or drainage. Pupils equal reactive ENT: Nose without bleeding, orotracheally intubated NECK: Trachea midline. No neck stiffness/meningismus CARDIOVASCULAR: Tachycardic rate, sinus rhythm without murmurs, gallops, or rubs. RESPIRATORY: Clear to auscultation. Breath sounds equal bilaterally, except diminished at the right base. No wheezes GASTROINTESTINAL: Abdomen soft, non-tender, nondistended. No guarding. MUSCULOSKELETAL: Extremities without clubbing, cyanosis, or edema. NEUROLOGICAL: Currently off all sedation, intubated. Moves lower extremities spontaneously do not follow commands. Left gaze preference pupils 3 mm sluggish Urinary Catheter: Yes Assessment to: Continue A/P Assessment and Plan Neuro: Altered mental status/delirium Intermittent high fever, Rule out meningoencephalitis Probable alcohol withdrawal - DCd all continuos sedation - CT head negative x2, repeat CT head STAT due to worsening encephalopathy - Start clonidine 0.2 mg every 8 hours to control withdrawal symptoms tachycardia and hypotension - Lumbar puncture had bloody tab most likely from thrombocytopenia and recent argatroban use (DCd 05/15) - Drug screen toxicology negative -Agitation possibly secondary to alcohol withdrawal - MRV negative for any dural sinus thrombosis - Hematology, ID following - Broad-spectrum meningitic coverage with Rocephin, Flagyl and acyclovir. HSV pending - Hyperammonemia, on lactulose - [facility] protocol - Thiamine folate multivitamin Resp: Acute hypoxemic respiratory failure Right lower lobe consolidation with volume loss/probable pneumonia - ACV, ventilator bundle - DuoNeb every 6 hours as needed and scheduled - S/p bronc, BAL cultures negative to date - Continue broad-spectrum antibiotics - Unable to wean to extubate due to severe encephalopathy CVS: Fluid overload - Monitor vitals closely - Repeat IV Lasix 40 mg 1 due to fluid overload - Sinus tachycardia due to withdrawal GI Elevated ammonia level - Lactulose by mouth - Monitor trend - Tube feeds with Jevity - Check Ammonia today ID: - See neuro section for ID and ABX - Broad-spectrum meningitic coverage with Rocephin, Flagyl and acyclovir - BAL cultures remains negative to date, CSF HSV pending - Hep C reactive Heme: - Thrombocytopenia most likely secondary to alcohol dependence, bone marrow suppression, and splenomegaly, sepsis Endo: Hyperglycemia - Insulin sliding scale - Hematology following DVT GI prophylaxis - Teds SCDs - No chemical DVT prophylaxis due to thrombocytopenia - Pepcid CCT 35 MIN Remains critically ill but stable with persistent encephalopathy and alcohol withdrawal. Get stat head CT Marcos Arana MD May 19, 2017 07:34
[2017-05-19 07:44] LABS: HSV 1,PCR Negative (Negative)
[2017-05-19] MEDS ORDERED: POTASSIUM CHLORIDE 25 MEQ EFFERVESCENT TAB PO ONE (07:45)
[2017-05-19 07:53] LABS: ANTI-THROMBIN III ACT 69 (80-120)
[2017-05-19] MEDS: cloNIDine HCL 0.1 MG TAB PO SCH ×2 (08:45→16:43)
[2017-05-19] MEDS: THIAMINE HCL 100 MG TAB PO SCH (08:45)
[2017-05-19] MEDS: LACTULOSE SYRUP 20 GM/30 ML CUP PO SCH ×4 (08:45→20:07)
[2017-05-19] MEDS: FAMOTIDINE 20 MG/2 ML VIAL IV PUSH SCH ×2 (08:45→20:07)
[2017-05-19] MEDS: INSULIN ASPART SUPPLEMENTAL SCALE SQ SCH ×4 (08:46→20:08)
[2017-05-19] MEDS: SODIUM CHLORIDE 0.9% FLUSH 10 ML FLUSH IV FLUSH SCH ×2 (08:46→20:07)
[2017-05-19] MEDS: BENEPROTEIN POWDER 1 PACK G-TUBE SCH ×3 (08:46→16:44)
[2017-05-19] MEDS ORDERED: FUROSEMIDE 40 MG/4 ML VIAL IV PUSH SCH (09:00)
--- NOTE | 2017-05-19 09:04 | RADRPT ---
EXAM DATE/TIME: 05/19/2017 08:09 [facility] COMPARISON: CT BRAIN W/O CONTRAST, May 16, 2017, 9:43. INDICATIONS : Altered mental status RADIATION DOSE: 36.08 CTDIvol (mGy) MEDICAL HISTORY : Non-responsive. SURGICAL HISTORY : Non-responsive. ENCOUNTER: Subsequent ACUITY: 1 week PAIN SCALE: Non-responsive LOCATION: cranial TECHNIQUE: Multiple contiguous axial images were obtained of the head. Using automated exposure control and adj ustment of the mA and/or kV according to patient size, radiation dose was kept as low as reasonably a chievable to obtain optimal diagnostic quality images. DICOM format image data is available electro nically for review and comparison. FINDINGS: CEREBRUM: Mild diffuse dural volume loss. The ventricles are normal for age. No evidence of midline shift, mas s lesion, hemorrhage or acute infarction. No extra-axial fluid collections are seen. POSTERIOR FOSSA: The cerebellum and brainstem are intact. The 4th ventricle is midline. The cerebellopontine angle i s unremarkable. EXTRACRANIAL: The visualized portion of the orbits is intact. Redemonstration of fluid in the left maxillary and sp henoid sinuses. SKULL: The calvaria is intact. No evidence of skull fracture. CONCLUSION: 1. No acute intracranial abnormality or significant interval change. Stepan López MD on May 19, 2017 at 8:59 Board Certified Radiologist. This report was verified electronically.
[2017-05-19 09:46] LABS: CMV DNA QUANT BY RAPID PCR Negative (Negative); CMV PCR SPECIMEN SOURCE csf
[2017-05-19 10:16] LABS: AUTOMATED NEUTROPHIL # 6.8 TH/MM3 (1.8-7.7); BASOPHIL % 0.1 % (0.0-2.0); HEMATOCRIT 40.9 % (39.0-51.0); HEMOGLOBIN 14.5 GM/DL (13.0-17.0); LYMPH % 4.6 % (9.0-44.0); LYMPHOCYTE # 0.4 TH/MM3 (1.0-4.8); MEAN CELL VOLUME 101.4 FL (80.0-100.0); MEAN CORPUSCULAR HEMOGLOBIN 35.8 PG (27.0-34.0); MEAN CORPUSCULAR HGB CONC 35.3 % (32.0-36.0); MEAN PLATELET VOLUME 9.4 FL (7.0-11.0); MONO % 8.5 % (0.0-8.0); MONOCYTE # 0.7 TH/MM3 (0-0.9); NEUT % 86.8 % (16.0-70.0); PLATELET COUNT 88 TH/MM3 (150-450); RED BLOOD COUNT 4.04 MIL/MM3 (4.50-5.90); RED CELL DISTRIBUTION WIDTH 12.6 % (11.6-17.2); WHITE BLOOD COUNT 7.9 TH/MM3 (4.0-11.0)
--- NOTE | 2017-05-19 10:43 | HHI.IDPN ---
Subjective Subjective Remarks Mr. Up is a 61-year-old male with past medical history significant for alcoholism and no reported prior history of psychiatric disorders. With this background patient was transferred to [facility] from [facility] for acute psychosis. Apparently the patient was found to be acutely psychotic his behavior included difficulty eating on himself, attempting to eat kitchen utensils, becoming aggressive. He was also witnessed to drink is on urine from a urinal in the [facility] emergency department. He was not allergic to place time or person at the time of initial admission to the hospital. Imaging studies of the brain performed on May 24 at [facility] indicated a filling defect within the dural sinus most conspicuous in the posterior aspect superior sagittal sinus and right transverse sinus. Critical care was involved and patient was initiated on anticoagulation as well as heparin infusion. Hematology was consulted due to concern for thrombotic disorder process for which an extensive workup has been ordered at the present time. Patient also had an MRV an MRI of the brain. MRV does not show an acute thrombus at the present time. Patient underwent a lumbar puncture and the studies are indicative of a bloody tap rather than acute infectious process. She was started on empiric regimen for meningoencephalitis including ampicillin, ceftriaxone, vancomycin, acyclovir IV. Infectious disease consulted for evaluation and management of possible meningoencephalitis. Overnight events reviewed Remains in ICU. Not on pressors. Difficult to awaken, On sedation vacation. UO ok. No rash No diarrhea Antibiotics Ceftriaxone IV Flagyl IV Acyclovir IV Lines Line sites with no e.o infection. Past Medical History Alcoholism Allergies: Coded Allergies: No Allergy Information Available (Unverified , 05/13/17) PT HAS ALTERED MENTAL STATUS Objective . Vital Signs Date Time Temp Pulse Resp B/P (MAP) Pulse Ox O2 Delivery O2 Flow Rate FiO2 05/19/17 10:15 35 05/19/17 10:15 95 35 05/19/17 10:00 128 05/19/17 10:00 128 23 147/74 (98) 95 05/19/17 09:04 135 31 195/92 (126) 96 05/19/17 09:00 135 31 190/88 (122) 96 05/19/17 08:21 99.9 123 27 175/87 (116) 96 05/19/17 08:00 122 24 97 05/19/17 08:00 122 05/19/17 08:00 35 05/19/17 07:53 98 35 05/19/17 07:50 100 100 05/19/17 07:00 127 27 155/80 (105) 95 05/19/17 06:00 122 05/19/17 05:01 94 35 05/19/17 04:00 35 05/19/17 04:00 100.3 128 25 170/86 (114) 95 05/19/17 04:00 128 05/19/17 03:23 95 35 05/19/17 02:00 126 05/19/17 00:00 100.4 115 24 144/73 (96) 95 05/19/17 00:00 115 05/19/17 00:00 35 05/18/17 22:00 118 05/18/17 20:03 95 35 05/18/17 20:00 35 05/18/17 20:00 101.3 118 24 191/89 (123) 96 05/18/17 20:00 118 05/18/17 19:00 95 Mechanical Ventilator 15.00 35 05/18/17 18:00 110 05/18/17 16:43 99 35 05/18/17 16:01 98.5 103 25 156/80 (105) 96 05/18/17 16:00 103 29 96 05/18/17 16:00 35 05/18/17 16:00 103 05/18/17 15:00 86 22 101/69 (80) 95 05/18/17 14:00 73 17 91/61 (71) 99 05/18/17 14:00 73 05/18/17 13:01 69 18 88/52 (64) 99 05/18/17 13:00 70 17 99 05/18/17 12:00 67 05/18/17 12:00 35 05/18/17 12:00 99.1 67 85/53 (64) 96 05/18/17 11:15 96 35 05/18/17 11:00 74 83/51 (62) 95 . Laboratory Tests Test 05/18/17 05:40 05/18/17 08:31 05/19/17 09:25 White Blood Count 3.2 TH/MM3 3.8 TH/MM3 7.9 TH/MM3 Red Blood Count 3.27 MIL/MM3 3.67 MIL/MM3 4.04 MIL/MM3 Hemoglobin 11.8 GM/DL 13.2 GM/DL 14.5 GM/DL Hematocrit 33.8 % 37.7 % 40.9 % Mean Corpuscular Volume 103.4 FL 102.6 FL 101.4 FL Mean Corpuscular Hemoglobin 36.0 PG 36.0 PG 35.8 PG Mean Corpuscular Hemoglobin Concent 34.8 % 35.1 % 35.3 % Red Cell Distribution Width 12.6 % 12.5 % 12.6 % Platelet Count 67 TH/MM3 76 TH/MM3 88 TH/MM3 Mean Platelet Volume 9.0 FL 8.9 FL 9.4 FL Neutrophils (%) (Auto) 76.5 % 86.8 % Lymphocytes (%) (Auto) 11.2 % 4.6 % Monocytes (%) (Auto) 12.1 % 8.5 % Eosinophils (%) (Auto) 0.0 % 0.0 % Basophils (%) (Auto) 0.2 % 0.1 % Neutrophils # (Auto) 2.4 TH/MM3 6.8 TH/MM3 Lymphocytes # (Auto) 0.4 TH/MM3 0.4 TH/MM3 Monocytes # (Auto) 0.4 TH/MM3 0.7 TH/MM3 Eosinophils # (Auto) 0.0 TH/MM3 0.0 TH/MM3 Basophils # (Auto) 0.0 TH/MM3 0.0 TH/MM3 CBC Comment AUTO DIFF AUTO DIFF Differential Comment AUTO DIFF CONFIRMED Platelet Estimate LOW Platelet Morphology Comment NORMAL Ovalocytes 1+ Laboratory Tests Test 05/17/17 20:35 05/18/17 08:31 05/19/17 04:40 05/19/17 09:25 Blood Urea Nitrogen 8 MG/DL 7 MG/DL 7 MG/DL Creatinine 0.94 MG/DL 0.98 MG/DL 0.97 MG/DL Random Glucose 117 MG/DL 143 MG/DL 265 MG/DL Total Protein 6.1 GM/DL 6.4 GM/DL 7.2 GM/DL Albumin 2.7 GM/DL 2.8 GM/DL 3.2 GM/DL Calcium Level 8.5 MG/DL 8.6 MG/DL 9.2 MG/DL Phosphorus Level 2.3 MG/DL 2.9 MG/DL Alkaline Phosphatase 78 U/L 84 U/L 105 U/L Aspartate Amino Transf (AST/SGOT) 21 U/L 21 U/L 44 U/L Alanine Aminotransferase (ALT/SGPT) 16 U/L 17 U/L 22 U/L Total Bilirubin 1.2 MG/DL 0.9 MG/DL 1.9 MG/DL Sodium Level 143 MEQ/L 145 MEQ/L 146 MEQ/L Potassium Level 3.3 MEQ/L 3.8 MEQ/L 3.0 MEQ/L Chloride Level 111 MEQ/L 112 MEQ/L 111 MEQ/L Carbon Dioxide Level 24.8 MEQ/L 24.9 MEQ/L 24.4 MEQ/L Anion Gap 7 MEQ/L 8 MEQ/L 11 MEQ/L Estimat Glomerular Filtration Rate 82 ML/MIN 78 ML/MIN 79 ML/MIN Magnesium Level 2.0 MG/DL Ammonia 42 MCMOL/L Microbiology Date/Time Source Procedure Growth Status 05/16/17 17:45 Bronchial Washings Right Lower Lobe Fungal Smear - Final NO FUNGAL ELEMENTS SEEN. Resulted 05/16/17 17:45 Bronchial Washings Right Lower Lobe Fungal Culture Pending Resulted 05/16/17 17:45 Bronchial Washings Right Lower Lobe Acid Fast Stain Pending Received 05/16/17 17:45 Bronchial Washings Right Lower Lobe Mycobacterial Culture Pending Received 05/16/17 17:45 Bronchial Washings Right Lower Lobe Gram Stain - Final Complete 05/16/17 17:45 Bronchial Washings Right Lower Lobe Bronchial Culture - Final NO GROWTH IN 48 HOURS. Complete 05/16/17 13:15 Sputum Endotracheal Gram Stain - Final Complete 05/16/17 13:15 Sputum Endotracheal Sputum Culture - Final NO GROWTH IN 48 HOURS. Complete Imaging Last Impressions Chest X-Ray 05/17/17 0600 Signed Impressions: Service Date/Time: Wednesday, May 17, 2017 03:40 - CONCLUSION: 1. Endotracheal tube and nasogastric tube unchanged. Basilar airspace disease and pleural effusion, right greater than left not significantly changed. Conor Fuller MD Chest CT 05/17/17 0000 Signed Impressions: Service Date/Time: Wednesday, May 17, 2017 08:11 - CONCLUSION: #1. Multifocal airspace consolidation with areas of atelectasis within the right lower lobe resulting in volume loss identified within the right hemithorax and shift of the mediastinum towards the right. There is a small right-sided pleural effusion present which demonstrates a thin rim of enhancement concerning for developing empyema. There is left lower lobe airspace consolidation and consolidation seen within the lingula. No left-sided pleural effusion. The lymph nodes identified within the AP window and prevascular space are likely reactive. 2. There is fluid identified within the esophagus. . Naomi Hong MD Head CT 05/16/17 0730 Signed Impressions: Service Date/Time: Tuesday, May 16, 2017 09:43 - CONCLUSION: No evidence of intracranial abnormality. Left-sided nasogastric tube associated with air-fluid levels identified in the left maxillary sinus, sphenoid sinus and left and right air cells. Naomi Hong MD Liver Ultrasound 05/15/17 0000 Signed Impressions: Service Date/Time: Monday, May 15, 2017 08:32 - CONCLUSION: 1. Liver and spleen are both enlarged. No focal lesions. 2. Very small amount of ascites along the hepatic border. 3. Possible small gallbladder polyp. Alan Alex MD Head/Brain Mag Res Venography 05/15/17 0000 Signed Impressions: Service Date/Time: Monday, May 15, 2017 09:41 - CONCLUSION: Normal study. Smuit Young MD Brain MRI 05/14/17 0000 Signed Impressions: Service Date/Time: May 13:12 - CONCLUSION: Incompletely occlusive dural sinus thrombosis. Sumit Young MD Physical Exam GENERAL: This is a well-nourished, well-developed patient, in no apparent distress. SKIN: No rashes, ecchymoses or lesions. Cool and dry. HEAD: Atraumatic. Normocephalic. No temporal or scalp tenderness. EYES: Pupils equal round and reactive. Extraocular motions intact. No scleral icterus. No injection or drainage. ENT: Intubated. NECK: Trachea midline. Supple, nontender, no meningeal signs. CARDIOVASCULAR: Heart sounds audible. RESPIRATORY: Clear to auscultation. Breath sounds equal bilaterally. No wheezes , rales, or rhonchi. GASTROINTESTINAL: Abdomen soft, non-tender, nondistended. MUSCULOSKELETAL: Extremities without clubbing, cyanosis, or edema. No joint tenderness, effusion, or edema noted. No calf tenderness. Negative Homans sign bilaterally. NEUROLOGICAL: Difficult to arouse for me this am. No response to painful stimuli. Psych could not be assessed IV line sites with no evidence of infection. 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 Could be acute or chronic in nature. Rule out neurosyphilis, ZACHARY virus associated encephalopathy. Acute encephalopathy: Could also be from alcohol-related withdrawal or dementia Fever and likely aspiration pneumonia related Pneumonia likely aspiration Alcoholism Hepatitis C antibody positive. Recs: Continue Ceftriaxone IV q24 hrs Continue Flagyl ok to change to oral if tolerated and passes swallow. Doppler LE bilateral: high grade fevers but normal WBC ? new non infectious cause for fever. DC Acyclovir IV Follow sputum and bronch cultures. d/w RN No family in room. Malu Reveles MD May 19, 2017 10:42
[2017-05-19 11:20] LABS: BANDS 12 % (0-6); LYMPHOCYTES 3 % (9-44); MONOCYTES 5 % (0-8); NEUTROPHIL # MANUAL DIFF 7.3 TH/MM3 (1.8-7.7); POLYS (SEG NEUTROPHILS) 80 % (16-70)
[2017-05-19] MEDS: ACETAMINOPHEN 325 MG TAB PO PRN (12:27)
--- NOTE | 2017-05-19 12:39 | RADRPT ---
EXAM DATE/TIME: 05/19/2017 10:54 [facility] COMPARISON: No previous studies available for comparison. INDICATIONS : Thrombosis. MEDICAL HISTORY : ETOH. Altered mental status. SURGICAL HISTORY : None. ENCOUNTER: Initial ACUITY: 1 day PAIN SCORE: Non-responsive LOCATION: Bilateral leg. TECHNIQUE: Venous ultrasound of the left and right leg was performed from the inguinal ligament to the proximal calf. Real-time, color Doppler and spectral tracing, compression and augmentation techniques were us ed. FINDINGS: RIGHT LEG: There is normal compressibility of the deep venous system from the inguinal region to the proximal ca lf. No echogenic clot is seen in the lumen of the common femoral, femoral, popliteal, and posterior tibial veins. There is a normal response of the venous system to proximal and distal augmentation an d respiration. LEFT LEG: There is normal compressibility of the deep venous system from the inguinal region to the proximal ca lf. No echogenic clot is seen in the lumen of the common femoral, femoral, popliteal, and posterior tibial veins. There is a normal response of the venous system to proximal and distal augmentation an d respiration. CONCLUSION: No DVT is identified within either lower extremity. Sumit Turcios MD on May 19, 2017 at 12:31 Board Certified Radiologist. This report was verified electronically.
--- NOTE | 2017-05-19 12:50 | RADRPT ---
EXAM DATE/TIME: 05/19/2017 11:32 [facility] COMPARISON: No previous studies available for comparison. INDICATIONS : Thrombosis. MEDICAL HISTORY : ETOH. Altered mental status. SURGICAL HISTORY : None. ENCOUNTER: Initial ACUITY: 1 day PAIN SCORE: Non-responsive LOCATION: Bilateral arms. FINDINGS: RIGHT UPPER EXTREMITY: There is spontaneous flow documented in the brachial, basilic, cephalic, axillary, and subclavian vei ns. The vessels are compressible and augmentation response is documented. No filling defects are se en. The flow is phasic with respiration. Direction of flow in the jugular vein is caudal. LEFT UPPER EXTREMITY: There are abnormal intraluminal echoes within the left cephalic vein near the antecubital fossa where an IV line is located. There is lack of normal compression of this blood vessel. The thrombus is onl y partially occlusive. Otherwise, there is spontaneous flow documented in the brachial, basilic, axil samuel, and subclavian veins. The vessels are compressible and augmentation response is documented. N o filling defects are seen. The flow is phasic with respiration. Direction of flow in the jugular v ein is caudal. CONCLUSION: 1. There is nonocclusive thrombus within the left cephalic vein at the antecubital fossa where an IV line is located. 2. Remainder of the left upper extremity and the entire right upper extremity are patent without thro mbus. Sumit Turcios MD on May 19, 2017 at 12:41 Board Certified Radiologist. This report was verified electronically.
[2017-05-19 15:58] LABS: CARDIOLIPIN IGG AB <9.4 GPL; CARDIOLIPIN IGM AB 23.6 MPL
[2017-05-20] VITALS (20 sets, daily range): BP systolic 121–145; BP diastolic 69–79; PULSE 106–119; RESP 16–30; TEMP 100.1–102.1; O2SAT 95–100
[2017-05-20] MEDS: cloNIDine HCL 0.1 MG TAB PO SCH ×3 (00:36→17:48)
[2017-05-20] MEDS: metroNIDAZOLE 500 MG INJ 100 ML IV SCH ×3 (03:15→20:20)
[2017-05-20] MEDS: RESP: ALBUTEROL 2.5 MG/IPRATROPIUM 0.5 MG NEB (SCH) NEB ×4 (03:50→20:36)
[2017-05-20] MEDS: cefTRIAXone INJ 2,000 MG in SODIUM CHLORIDE 0.9% INJ 100 ML IV SCH (04:26)
[2017-05-20] MEDS: ACETAMINOPHEN 325 MG TAB PO PRN ×3 (04:36→20:20)
[2017-05-20 07:15] LABS: ALBUMIN 2.9 GM/DL (3.4-5.0); ALKALINE PHOSPHATASE 89 U/L (45-117); ALT (GPT) 26 U/L (12-78); AST (GOT) 66 U/L (15-37); BICARBONATE 28.4 MEQ/L (21.0-32.0); CALCIUM 9.3 MG/DL (8.5-10.1); CHLORIDE 116 MEQ/L (98-107); CREATININE 1.15 MG/DL (0.60-1.30); GLOMERULAR FILTRATION RATE 65 ML/MIN (>89); GLUCOSE,RANDOM 382 MG/DL (74-106); MAGNESIUM 2.3 MG/DL (1.5-2.5); SODIUM (NA) 152 MEQ/L (136-145); TOTAL BILIRUBIN ADULT 1.2 MG/DL (0.2-1.0); TOTAL PROTEIN 6.8 GM/DL (6.4-8.2)
[2017-05-20 07:16] LABS: BLOOD UREA NITROGEN 14 MG/DL (7-18)
[2017-05-20] MEDS: CHLORHEXIDINE 0.12% (ORAL KIT) 15 ML CUP MT SCH ×4 (08:00→20:00)
--- NOTE | 2017-05-20 08:28 | HHI.CCPN ---
Subjective Remarks/Hospital Course 61-year-old male admitted under Cottrell act. According to the Cottrell act report, contact was made with the patient in regards to his calling about his behavior being abnormal." According to the patient's per documentation, the patient has been defecating on himself, attempting to swallow household ornament items and has become aggressive. During my assessment the patient is extremely agitated, not following commands. 05/15/17: Intermittently severely agitated. Remains on Precedex. With 2 mg of IV Ativan he became oversedated, hypoxemic. Now improving. Spiking a fever 101.5. Pancultured. On argatroban for possible dural venous thrombosis, but MRV negative for any thrombus or occlusion. Patient will possibly need a lumbar puncture but currently on argatroban. Will discuss with Dr. Rai and KIM argatroban, transfuse platelet 05/16/17: Remains on Precedex sedated. Receiving Librium scheduled and as needed Ativan. Intermittently agitated. Started on vancomycin, ceftriaxone, ampicillin and acyclovir yesterday. Overnight lumbar puncture was done which was bloody tap (could be related to thrombocytopenia and previous argatroban use ). Fever and sepsis most likely related to right lower lobe infiltrate/ pneumonia. Possible patient might have aspirated the risks evidence of volume loss on chest x-ray repeat chest x-ray today pending 05/17/17: Remains intubated sedated with propofol. Chest CT shows extensive right lower lung consolidation with some atelectasis and volume loss. Bronchoscopy performed yesterday BAL negative to date. Continuing antibiotics per ID, HSV still pending 05/18: Chest x-ray stable to slightly improved on my review. Fluid overload noted, one dose of 40 mg IV Lasix ordered. HSV is still pending. Encephalopathy persists 05/19: Patient still remains unresponsive off sedation. Tachycardic with heart rate in 130s appears to be sinus. Good response to IV Lasix with approximately 5 L urine output. Start clonidine for hypertension, tachycardia and uncontrolled withdrawal symptoms. HSV pending 05/20: Continues to have recurrent fever. Repeat CT chest, abdomen pelvis. Previous CT chest concern about empyema, but fluid was too small to drain. Remains encephalopathy on the vent. Slight improvement in mental status. Partial opening of eyes moving extremities left more than right. HSV negative and acyclovir stopped. Sodium increased to 152 replacement ordered. It remains elevated at 330- 380. Levemir 5 every 12 and increase NovoLog sliding scale to medium. Objective Vital Signs Date Time Temp Pulse Resp B/P (MAP) Pulse Ox O2 Delivery O2 Flow Rate FiO2 05/20/17 07:37 96 35 05/20/17 06:00 114 05/20/17 04:00 101.5 20 138/75 (96) 05/19/17 19:00 Mechanical Ventilator 15.00 Intake and Output 05/20/17 05/20/17 05/21/17 08:00 16:00 00:00 Intake Total 695 ml Output Total 880 ml Balance -185 ml Result Diagram: 05/19/17 0925 05/20/17 0525 Objective Remarks GENERAL: male, off all sedation, critically ill encephalopathic. Febrile SKIN: Focused skin assessment warm and dry HEAD: Atraumatic. Normocephalic. EYES: No scleral icterus. No injection or drainage. Pupils equal reactive ENT: Nose without bleeding, orotracheally intubated NECK: Trachea midline. No neck stiffness/meningismus CARDIOVASCULAR: Tachycardic rate, sinus rhythm without murmurs, gallops, or rubs. RESPIRATORY: Clear to auscultation. Breath sounds equal bilaterally, except diminished at the right base. No wheezes GASTROINTESTINAL: Abdomen soft, non-tender, nondistended. No guarding. MUSCULOSKELETAL: Extremities without clubbing, cyanosis, or edema. NEUROLOGICAL: Currently off all sedation, intubated. Moving all extremities spontaneously left more than right. Partial eye opening to pain A/P Assessment and Plan Neuro: Altered mental status/delirium Intermittent high fever, Rule out meningoencephalitis Probable alcohol withdrawal - Off all continuos sedation. Clonidine 0.1 mg every 8 hours to control withdrawal symptoms tachycardia and hypotension - CT head negative x2, repeat CT head STAT 05/19, again negative - Lumbar puncture had bloody tab most likely from thrombocytopenia and recent argatroban use (DCd 05/15) - Drug screen toxicology negative -Agitation possibly secondary to alcohol withdrawal - MRV negative for any dural sinus thrombosis - Hematology, ID, neurology following - Broad-spectrum meningitic coverage with Rocephin, Flagyl. HSV negative and acyclovir DC'd - Hyperammonemia, on lactulose - Thiamine folate multivitamin Resp: Acute hypoxemic respiratory failure Right lower lobe consolidation with volume loss/probable pneumonia Small right effusion, ?concern for empyema - ACV, ventilator bundle - DuoNeb every 6 hours as needed and scheduled - S/p bronc, BAL cultures negative to date - Continue broad-spectrum antibiotics - Repeat CT chest with contrast. Previous effusion was too small for thoracentesis CVS: Fluid overload - Monitor vitals closely - IV Lasix 20 mg daily - Sinus tachycardia due to withdrawal-good response to clonidine GI Elevated ammonia level - Lactulose by mouth - Monitor trend - Tube feeds with Jevity - Ammonia 42 on 05/19 ID: - Continues to have recurrent fevers no DVT. CT chest abdomen pelvis today again - Effusion previously was too small to tap - See neuro section for ID and ABX - Broad-spectrum meningitic coverage with Rocephin, Flagyl - BAL cultures remains negative to date, CSF HSV negative - Hep C reactive Heme: - Thrombocytopenia most likely secondary to alcohol dependence, bone marrow suppression, and splenomegaly, sepsis Endo: Hyperglycemia - Insulin sliding scale - Hematology following DVT GI prophylaxis - Teds SCDs - No chemical DVT prophylaxis due to thrombocytopenia - Pepcid CCT 35 MIN Remains critically ill but stable with persistent encephalopathy and alcohol withdrawal. Now with recurrent high fever. Repeat CT chest abdomen pelvis Marcos Arana MD May 20, 2017 08:28
[2017-05-20] MEDS ORDERED: FREE WATER G-TUBE SCH (08:30)
[2017-05-20] MEDS ORDERED: DEXTROSE 50% IN WATER 50 ML VIAL(D50) IV PUSH PRN (09:00)
[2017-05-20] MEDS ORDERED: DIATRIZOATE MEGLUM/DIATRIZOATE SOD 9 ML CUP PO ONE (09:00)
[2017-05-20] MEDS ORDERED: GLUCAGON 1 MG/ML VIAL OTHER PRN (09:00)
[2017-05-20 09:06] LABS: AUTOMATED NEUTROPHIL # 6.4 TH/MM3 (1.8-7.7); BASOPHIL % 0.2 % (0.0-2.0); HEMATOCRIT 39.2 % (39.0-51.0); HEMOGLOBIN 13.7 GM/DL (13.0-17.0); LYMPH % 7.7 % (9.0-44.0); LYMPHOCYTE # 0.6 TH/MM3 (1.0-4.8); MEAN CORPUSCULAR HGB CONC 34.9 % (32.0-36.0); MEAN PLATELET VOLUME 8.9 FL (7.0-11.0); MONO % 11.7 % (0.0-8.0); MONOCYTE # 0.9 TH/MM3 (0-0.9); NEUT % 80.4 % (16.0-70.0); PLATELET COUNT 100 TH/MM3 (150-450); RED BLOOD COUNT 3.81 MIL/MM3 (4.50-5.90); RED CELL DISTRIBUTION WIDTH 13.3 % (11.6-17.2); WHITE BLOOD COUNT 7.9 TH/MM3 (4.0-11.0)
[2017-05-20] MEDS: SODIUM CHLORIDE 0.9% FLUSH 10 ML FLUSH IV FLUSH SCH ×2 (09:28→20:20)
[2017-05-20] MEDS: FUROSEMIDE 40 MG/4 ML VIAL IV PUSH SCH (09:28)
[2017-05-20] MEDS: FAMOTIDINE 20 MG/2 ML VIAL IV PUSH SCH ×2 (09:28→20:19)
[2017-05-20] MEDS: BENEPROTEIN POWDER 1 PACK G-TUBE SCH ×3 (09:28→17:49)
[2017-05-20] MEDS: THIAMINE HCL 100 MG TAB PO SCH (09:29)
[2017-05-20] MEDS: LACTULOSE SYRUP 20 GM/30 ML CUP PO SCH ×4 (09:30→20:24)
[2017-05-20] MEDS: INSULIN ASPART SUPPLEMENTAL SCALE SQ SCH ×4 (09:56→20:15)
[2017-05-20] MEDS: INSULIN DETEMIR 100 UNITS/ML VIAL SQ SCH ×2 (09:56→20:24)
--- NOTE | 2017-05-20 10:29 | HHI.IDPN ---
Subjective Subjective Remarks Mr. Up is a 61-year-old male with past medical history significant for alcoholism and no reported prior history of psychiatric disorders. With this background patient was transferred to [facility] from [facility] for acute psychosis. Apparently the patient was found to be acutely psychotic his behavior included difficulty eating on himself, attempting to eat kitchen utensils, becoming aggressive. He was also witnessed to drink is on urine from a urinal in the [place] emergency department. He was not allergic to place time or person at the time of initial admission to the hospital. Imaging studies of the brain performed on May 24 at [facility] indicated a filling defect within the dural sinus most conspicuous in the posterior aspect superior sagittal sinus and right transverse sinus. Critical care was involved and patient was initiated on anticoagulation as well as heparin infusion. Hematology was consulted due to concern for thrombotic disorder process for which an extensive workup has been ordered at the present time. Patient also had an MRV an MRI of the brain. MRV does not show an acute thrombus at the present time. Patient underwent a lumbar puncture and the studies are indicative of a bloody tap rather than acute infectious process. She was started on empiric regimen for meningoencephalitis including ampicillin, ceftriaxone, vancomycin, acyclovir IV. Infectious disease consulted for evaluation and management of possible meningoencephalitis. Overnight events reviewed Remains in ICU. Persistent fevers. Normal WBC. Not on pressors. UO ok. No rash No diarrhea Antibiotics Ceftriaxone IV Flagyl IV Lines Line sites with no e.o infection. Past Medical History Alcoholism Allergies: Coded Allergies: No Allergy Information Available (Unverified , 05/13/17) PT HAS ALTERED MENTAL STATUS Objective . Vital Signs Date Time Temp Pulse Resp B/P (MAP) Pulse Ox O2 Delivery O2 Flow Rate FiO2 05/20/17 07:37 96 35 05/20/17 07:37 35 05/20/17 06:00 114 05/20/17 04:14 97 35 05/20/17 04:00 108 05/20/17 04:00 35 05/20/17 04:00 101.5 108 20 138/75 (96) 98 05/20/17 02:00 111 05/20/17 01:07 95 35 05/20/17 00:00 100.6 116 23 144/79 (100) 95 05/20/17 00:00 116 05/20/17 00:00 35 05/19/17 22:00 113 05/19/17 21:04 95 35 05/19/17 20:00 35 05/19/17 20:00 101.7 116 22 132/62 (85) 95 05/19/17 20:00 116 05/19/17 19:00 96 Mechanical Ventilator 15.00 35 05/19/17 18:00 124 05/19/17 17:00 122 23 141/77 (98) 96 05/19/17 16:57 96 35 05/19/17 16:00 35 05/19/17 16:00 124 05/19/17 16:00 100.2 124 24 144/74 (97) 95 05/19/17 15:00 125 33 155/82 (106) 96 05/19/17 14:45 35 05/19/17 14:45 96 35 05/19/17 14:00 124 28 144/78 (100) 96 05/19/17 14:00 124 05/19/17 13:00 122 26 137/75 (95) 96 05/19/17 12:16 99.7 120 24 117/56 (76) 97 05/19/17 12:00 35 05/19/17 12:00 119 05/19/17 12:00 119 28 97 05/19/17 11:00 124 26 147/71 (96) 96 05/20/17 05/20/17 05/21/17 15:00 23:00 07:00 Intake Total 100 ml Balance 100 ml IV Total 100 ml . Laboratory Tests Test 05/19/17 09:25 05/20/17 08:26 White Blood Count 7.9 TH/MM3 7.9 TH/MM3 Red Blood Count 4.04 MIL/MM3 3.81 MIL/MM3 Hemoglobin 14.5 GM/DL 13.7 GM/DL Hematocrit 40.9 % 39.2 % Mean Corpuscular Volume 101.4 FL 103.0 FL Mean Corpuscular Hemoglobin 35.8 PG 36.0 PG Mean Corpuscular Hemoglobin Concent 35.3 % 34.9 % Red Cell Distribution Width 12.6 % 13.3 % Platelet Count 88 TH/MM3 100 TH/MM3 Mean Platelet Volume 9.4 FL 8.9 FL Neutrophils (%) (Auto) 86.8 % 80.4 % Lymphocytes (%) (Auto) 4.6 % 7.7 % Monocytes (%) (Auto) 8.5 % 11.7 % Eosinophils (%) (Auto) 0.0 % 0.0 % Basophils (%) (Auto) 0.1 % 0.2 % Neutrophils # (Auto) 6.8 TH/MM3 6.4 TH/MM3 Lymphocytes # (Auto) 0.4 TH/MM3 0.6 TH/MM3 Monocytes # (Auto) 0.7 TH/MM3 0.9 TH/MM3 Eosinophils # (Auto) 0.0 TH/MM3 0.0 TH/MM3 Basophils # (Auto) 0.0 TH/MM3 0.0 TH/MM3 CBC Comment AUTO DIFF DIFF FINAL Differential Total Cells Counted 100 Neutrophils % (Manual) 80 % Band Neutrophils % 12 % Lymphocytes % 3 % Monocytes % 5 % Neutrophils # (Manual) 7.3 TH/MM3 Differential Comment FINAL DIFF MANUAL Platelet Estimate LOW Platelet Morphology Comment NORMAL Laboratory Tests Test 05/19/17 04:40 05/19/17 09:25 05/20/17 05:25 Blood Urea Nitrogen 7 MG/DL 14 MG/DL Creatinine 0.97 MG/DL 1.15 MG/DL Random Glucose 265 MG/DL 382 MG/DL Total Protein 7.2 GM/DL 6.8 GM/DL Albumin 3.2 GM/DL 2.9 GM/DL Calcium Level 9.2 MG/DL 9.3 MG/DL Alkaline Phosphatase 105 U/L 89 U/L Aspartate Amino Transf (AST/SGOT) 44 U/L 66 U/L Alanine Aminotransferase (ALT/SGPT) 22 U/L 26 U/L Total Bilirubin 1.9 MG/DL 1.2 MG/DL Sodium Level 146 MEQ/L 152 MEQ/L Potassium Level 3.0 MEQ/L 3.5 MEQ/L Chloride Level 111 MEQ/L 116 MEQ/L Carbon Dioxide Level 24.4 MEQ/L 28.4 MEQ/L Anion Gap 11 MEQ/L 8 MEQ/L Estimat Glomerular Filtration Rate 79 ML/MIN 65 ML/MIN Ammonia 42 MCMOL/L Magnesium Level 2.3 MG/DL Imaging Last Impressions Chest X-Ray 05/17/17 0600 Signed Impressions: Service Date/Time: Wednesday, May 17, 2017 03:40 - CONCLUSION: 1. Endotracheal tube and nasogastric tube unchanged. Basilar airspace disease and pleural effusion, right greater than left not significantly changed. Conor Fuller MD Chest CT 05/17/17 0000 Signed Impressions: Service Date/Time: Wednesday, May 17, 2017 08:11 - CONCLUSION: #1. Multifocal airspace consolidation with areas of atelectasis within the right lower lobe resulting in volume loss identified within the right hemithorax and shift of the mediastinum towards the right. There is a small right-sided pleural effusion present which demonstrates a thin rim of enhancement concerning for developing empyema. There is left lower lobe airspace consolidation and consolidation seen within the lingula. No left-sided pleural effusion. The lymph nodes identified within the AP window and prevascular space are likely reactive. 2. There is fluid identified within the esophagus. . Naomi Hong MD Head CT 05/16/17 0730 Signed Impressions: Service Date/Time: Tuesday, May 16, 2017 09:43 - CONCLUSION: No evidence of intracranial abnormality. Left-sided nasogastric tube associated with air-fluid levels identified in the left maxillary sinus, sphenoid sinus and left and right air cells. Naomi Hong MD Liver Ultrasound 05/15/17 0000 Signed Impressions: Service Date/Time: Monday, May 15, 2017 08:32 - CONCLUSION: 1. Liver and spleen are both enlarged. No focal lesions. 2. Very small amount of ascites along the hepatic border. 3. Possible small gallbladder polyp. Alan Alex MD Head/Brain Mag Res Venography 05/15/17 0000 Signed Impressions: Service Date/Time: Monday, May 15, 2017 09:41 - CONCLUSION: Normal study. Sumit Young MD Brain MRI 05/14/17 0000 Signed Impressions: Service Date/Time: May 13:12 - CONCLUSION: Incompletely occlusive dural sinus thrombosis. Sumit Young MD Physical Exam GENERAL: This is a well-nourished, well-developed patient, in no apparent distress. SKIN: No rashes, ecchymoses or lesions. Cool and dry. HEAD: Atraumatic. Normocephalic. No temporal or scalp tenderness. EYES: Pupils equal round and reactive. Extraocular motions intact. No scleral icterus. No injection or drainage. ENT: Intubated. NECK: Trachea midline. Supple, nontender, no meningeal signs. CARDIOVASCULAR: Heart sounds audible. RESPIRATORY: Clear to auscultation. Breath sounds equal bilaterally. No wheezes , rales, or rhonchi. GASTROINTESTINAL: Abdomen soft, non-tender, nondistended. MUSCULOSKELETAL: Extremities without clubbing, cyanosis, or edema. No joint tenderness, effusion, or edema noted. No calf tenderness. Negative Homans sign bilaterally. NEUROLOGICAL: Difficult to arouse for me this am. No response to painful stimuli. Psych could not be assessed IV line sites with no evidence of infection. 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 Could be acute or chronic in nature. Rule out neurosyphilis, ZACHARY virus associated encephalopathy. Acute encephalopathy: Could also be from alcohol-related withdrawal or dementia Fever and likely aspiration pneumonia related Pneumonia likely aspiration Alcoholism Hepatitis C antibody positive. Recs: Continue Ceftriaxone IV q24 hrs Continue Flagyl ok to change to oral if tolerated and passes swallow. CT chest/A/P to look for e/o empyema. Follow cultures. Follow clinically. d/w Malu Brooks MD May 20, 2017 10:29
[2017-05-20] MEDS ORDERED: IOHEXOL 350 MG/ML 10 ML VIAL (for RAD DIAG) IVCONTRAST ONE (11:09)
--- NOTE | 2017-05-20 11:43 | RADRPT ---
EXAM DATE/TIME: 05/20/2017 10:58 [facility] COMPARISON: No previous studies available for comparison. INDICATIONS : Right effusion, evaluate for empyema. IV CONTRAST: 85 cc Omnipaque 350 (iohexol) IV ; Cumulative dose for multiple exams. RADIATION DOSE: 19.35 CTDIvol (mGy) ; Combined studies - Thorax/Abdomen/Pelvis MEDICAL HISTORY : Non-responsive. SURGICAL HISTORY : Non-responsive. ENCOUNTER: Initial ACUITY: 1 day PAIN SCALE: Non-responsive LOCATION: chest TECHNIQUE: Volumetric scanning of the chest was performed. Using automated exposure control and adjustment of t he mA and/or kV according to patient size, radiation dose was kept as low as reasonably achievable to obtain optimal diagnostic quality images. DICOM format image data is available electronically for review and comparison. Follow-up recommendations for detected pulmonary nodules are based at a minimum on nodule size and pa tient risk factors according to Fleischner Society Guidelines. FINDINGS: LUNGS: Minimal consolidative changes right lower lobe with air bronchograms and trace pleural effusion. Min imal pleural enhancement is present. There is no loculation. Left lung recently clear MEDIASTINUM: Prominent thyroid the subpleural component on the right. Moderate nonspecific be some adenopathy wor se in the right paratracheal region. No pericardial effusion. The heart and great vessels demonstra te no acute abnormality. There is no mediastinal or hilar lymphadenopathy. AXILLAE: Within normal limits. No lymphadenopathy. SKELETAL: Within normal limits for patient age. MISCELLANEOUS: The visualized upper abdominal organs demonstrate no acute abnormality. Please see the CT scan abdom en and pelvis. CONCLUSION: Consolidative changes right lower lobe and trace pleural effusion. Fluid does not appear loculated h owever there is minimal enhancing rind of pleura about the lung suggesting this lung is trapped. Maxwell Marion MD FACR on May 20, 2017 at 11:38 Board Certified Radiologist. This report was verified electronically.
--- NOTE | 2017-05-20 11:52 | RADRPT ---
EXAM DATE/TIME: 05/20/2017 10:58 [facility] COMPARISON: No previous studies available for comparison. INDICATIONS : Recurrent fever; evaluate for source of infection. IV CONTRAST: 85 cc Omnipaque 350 (iohexol) IV ; Cumulative dose for multiple exams. ORAL CONTRAST: No oral contrast ingested. RADIATION DOSE: 19.35 CTDIvol (mGy) ; Combined studies - Thorax/Abdomen/Pelvis MEDICAL HISTORY : Non-responsive. SURGICAL HISTORY : Non-responsive. ENCOUNTER: Subsequent ACUITY: 2 days PAIN SCALE: Non-responsive LOCATION: upper quadrant TECHNIQUE: Volumetric scanning of the abdomen and pelvis was performed. Using automated exposure control and ad justment of the mA and/or kV according to patient size, radiation dose was kept as low as reasonably achievable to obtain optimal diagnostic quality images. DICOM format image data is available electro nically for review and comparison. FINDINGS: LOWER LUNGS: Consolidative changes are present in the right lower lobe with trace pleural effusion. LIVER: Liver is small and nodular. Portal vein is patent. Spleen is mildly prominent. Gallbladder is prom inent with 2 small gallstones. PANCREAS: Within normal limits. KIDNEYS: Normal in size and shape. There is no mass, stone or hydronephrosis. ADRENAL GLANDS: Within normal limits. VASCULAR: There is no aortic aneurysm. BOWEL/MESENTERY: There is marked bowel wall thickening in the proximal small bowel worse in the jejunum. This can be seen with an inflammatory process mesenteric vessels appear patent. This can be seen with hemorrhage , lymphoma and other infectious etiologies. Patient has radiopaque foreign body right lower quadrant that has the appearance of the ring. ABDOMINAL WALL: Within normal limits. RETROPERITONEUM: There is no lymphadenopathy. BLADDER: No wall thickening or mass. REPRODUCTIVE: Within normal limits. INGUINAL: Previous hernia surgery is noted. MUSCULOSKELETAL: Within normal limits for patient age. CONCLUSION: 1. No opaque foreign body right lower quadrant that is ring 2. Consolidative changes right lower lobe with air bronchograms. Trace pleural effusion. 3. Enhancing pleura on the right probably trapped lung 4. Marked bowel wall enhancement in the proximal jejunum the differential as above 5. Gallstones prominent gallbladder otherwise appears benign. Maxwell Marion MD FACR on May 20, 2017 at 11:40 Board Certified Radiologist. This report was verified electronically.
[2017-05-20] MEDS: FREE WATER OG-TUBE SCH ×2 (12:00→17:49)
--- NOTE | 2017-05-20 15:07 | PD.CONS ---
HPI History of Present Illness This is a 61 year old male with hx DM, depression, anxiety who was brought as fragoso act after noticed bizarre behavior and change in mental status. Per report he was trying to eat household items, drank his own urine in front of the ER provider, and was defecating on himself. She denies any prior diagnosis of dementia but notes that sometimes he seemed to forget things. He has since been intubated and is on vent. Has been having fevers and no clear source infection found. GI has been consulted for foreign body, poss ring in cecum. He had been having difficulty swallowing for the last year, intermittently appearing to choke while eating. CT showed ring RLQ, prob trapped lung, bowel wall enhancement jejunum, gallstones. reports [place] 6 [place] [facility] and was normal. She does not know if he has and an EGD. she says he drinks consistently and at times heavily. Hx obtained from . (Eliane Davenport) PFSH Past Medical History per : depression anxiety insomnia DM Past Surgical History Unable to obtain (Eliane Davenport) Coded Allergies: No Allergy Information Available (Unverified , 05/13/17) PT HAS ALTERED MENTAL STATUS Family History Unable to obtain Social History per consistent etoh consumption, at times heavy former smoker quit 2 y ago no illicit drug use (Eliane Davenport) Review of Systems noncontributory (Eliane Davenport) GI Exam Vitals I&O Vital Signs Date Time Temp Pulse Resp B/P (MAP) Pulse Ox O2 Delivery O2 Flow Rate FiO2 05/20/17 12:00 35 05/20/17 12:00 102.1 118 30 144/75 (98) 96 05/20/17 11:38 97 35 05/20/17 11:00 100 100 05/20/17 08:00 35 05/20/17 08:00 100.2 118 19 145/72 (96) 96 05/20/17 07:37 96 35 05/20/17 07:37 35 05/20/17 06:00 114 05/20/17 04:14 97 35 05/20/17 04:00 108 05/20/17 04:00 35 05/20/17 04:00 101.5 108 20 138/75 (96) 98 05/20/17 02:00 111 05/20/17 01:07 95 35 05/20/17 00:00 100.6 116 23 144/79 (100) 95 05/20/17 00:00 116 05/20/17 00:00 35 05/19/17 22:00 113 05/19/17 21:04 95 35 05/19/17 20:00 35 05/19/17 20:00 101.7 116 22 132/62 (85) 95 05/19/17 20:00 116 05/19/17 19:00 96 Mechanical Ventilator 15.00 35 05/19/17 18:00 124 05/19/17 17:00 122 23 141/77 (98) 96 05/19/17 16:57 96 35 05/19/17 16:00 35 05/19/17 16:00 124 05/19/17 16:00 100.2 124 24 144/74 (97) 95 05/19/17 15:00 125 33 155/82 (106) 96 05/19/17 14:45 35 05/19/17 14:45 96 35 I/O 05/19/17 05/19/17 05/19/17 05/20/17 05/20/17 05/20/17 07:00 15:00 23:00 07:00 15:00 23:00 Intake Total 795 ml 100 ml 810 ml 595 ml 100 ml Output Total 1251 ml 3525 ml 880 ml Balance -456 ml 100 ml -2715 ml -285 ml 100 ml IV Total 300 ml 100 ml 100 ml 100 ml 100 ml Tube Feeding 495 ml 510 ml 495 ml Other 200 ml Output Urine Total 1250 ml 3525 ml 850 ml Stool Total 1 ml Gastric Drainage Total 30 ml # Bowel Movements 1 1 2 Imaging Last Impressions Chest CT 05/20/17 0000 Signed Impressions: Service Date/Time: Saturday, May 20, 2017 10:58 - CONCLUSION: Consolidative changes right lower lobe and trace pleural effusion. Fluid does not appear loculated however there is minimal enhancing rind of pleura about the lung suggesting this lung is trapped. Maxwell Marion MD FACR Abdomen/Pelvis CT 05/20/17 0000 Signed Impressions: Service Date/Time: Saturday, May 20, 2017 10:58 - CONCLUSION: 1. No opaque foreign body right lower quadrant that is ring 2. Consolidative changes right lower lobe with air bronchograms. Trace pleural effusion. 3. Enhancing pleura on the right probably trapped lung 4. Marked bowel wall enhancement in the proximal jejunum the differential as above 5. Gallstones prominent gallbladder otherwise appears benign. Maxwell Marion MD FACR Chest X-Ray 05/19/17 0600 Signed Impressions: Service Date/Time: Friday, May 19, 2017 03:39 - CONCLUSION: No significant change has occurred. Sergio Gomez MD Upper Extremity Ultrasound 05/19/17 0000 Signed Impressions: Service Date/Time: Friday, May 19, 2017 11:32 - CONCLUSION: 1. There is nonocclusive thrombus within the left cephalic vein at the antecubital fossa where an IV line is located. 2. Remainder of the left upper extremity and the entire right upper extremity are patent without thrombus. Sumit Turcios MD Lower Extremity Ultrasound 05/19/17 0000 Signed Impressions: Service Date/Time: Friday, May 19, 2017 10:54 - CONCLUSION: No DVT is identified within either lower extremity. Sumit Turcios MD Head CT 05/19/17 0000 Signed Impressions: Service Date/Time: Friday, May 19, 2017 08:09 - CONCLUSION: 1. No acute intracranial abnormality or significant interval change. Stepan López MD Liver Ultrasound 05/15/17 0000 Signed Impressions: Service Date/Time: Monday, May 15, 2017 08:32 - CONCLUSION: 1. Liver and spleen are both enlarged. No focal lesions. 2. Very small amount of ascites along the hepatic border. 3. Possible small gallbladder polyp. Alan Alex MD Head/Brain Mag Res Venography 05/15/17 0000 Signed Impressions: Service Date/Time: Monday, May 15, 2017 09:41 - CONCLUSION: Normal study. Sumit Young MD Brain MRI 05/14/17 0000 Signed Impressions: Service Date/Time: May 13:12 - CONCLUSION: Incompletely occlusive dural sinus thrombosis. Sumit Young MD Laboratory Test 05/20/17 05:25 05/20/17 08:26 Blood Urea Nitrogen 14 MG/DL Creatinine 1.15 MG/DL Random Glucose 382 MG/DL Total Protein 6.8 GM/DL Albumin 2.9 GM/DL Calcium Level 9.3 MG/DL Magnesium Level 2.3 MG/DL Alkaline Phosphatase 89 U/L Aspartate Amino Transf (AST/SGOT) 66 U/L Alanine Aminotransferase (ALT/SGPT) 26 U/L Total Bilirubin 1.2 MG/DL Sodium Level 152 MEQ/L Potassium Level 3.5 MEQ/L Chloride Level 116 MEQ/L Carbon Dioxide Level 28.4 MEQ/L Anion Gap 8 MEQ/L Estimat Glomerular Filtration Rate 65 ML/MIN White Blood Count 7.9 TH/MM3 Red Blood Count 3.81 MIL/MM3 Hemoglobin 13.7 GM/DL Hematocrit 39.2 % Mean Corpuscular Volume 103.0 FL Mean Corpuscular Hemoglobin 36.0 PG Mean Corpuscular Hemoglobin Concent 34.9 % Red Cell Distribution Width 13.3 % Platelet Count 100 TH/MM3 Mean Platelet Volume 8.9 FL Neutrophils (%) (Auto) 80.4 % Lymphocytes (%) (Auto) 7.7 % Monocytes (%) (Auto) 11.7 % Eosinophils (%) (Auto) 0.0 % Basophils (%) (Auto) 0.2 % Neutrophils # (Auto) 6.4 TH/MM3 Lymphocytes # (Auto) 0.6 TH/MM3 Monocytes # (Auto) 0.9 TH/MM3 Eosinophils # (Auto) 0.0 TH/MM3 Basophils # (Auto) 0.0 TH/MM3 CBC Comment DIFF FINAL Differential Comment Date/Time Source Procedure Growth Status 05/15/17 16:44 Blood Peripheral Aerobic Blood Culture - Final NO GROWTH IN 5 DAYS Complete 05/15/17 16:44 Blood Peripheral Anaerobic Blood Culture - Final NO GROWTH IN 5 DAYS Complete 05/16/17 04:30 Cerebral Spinal Fluid Lumbar Puncture Fungal Smear - Final NO FUNGAL ELEMENTS SEEN. Resulted 05/16/17 04:30 Cerebral Spinal Fluid Lumbar Puncture Fungal Culture Pending Resulted 05/15/17 14:28 Stool Stool Stool Occult Blood (JAMIE) - Final HEMOCCULT NEGATIVE Complete 05/16/17 17:45 Bronchial Washings Right Lower Lobe Fungal Smear - Final NO FUNGAL ELEMENTS SEEN. Resulted 05/16/17 17:45 Bronchial Washings Right Lower Lobe Fungal Culture Pending Resulted 05/15/17 16:30 Urine Catheterized Urine Urine Culture - Final NO GROWTH IN 48 HOURS. Complete Physical Examination HEENT: PERRL; normocephalic; atraumatic; no jaundice. intubated CHEST: CTA CARDIAC: RRR ABDOMEN: Soft, obese, no hepatosplenomegaly; bowel sounds are present in all four quadrants. EXTREMITIES: No clubbing, cyanosis, or edema. SKIN: Normal; no rash; no jaundice. COMMUNITY DEVELOPMENT MANAGER: sedated on vent (Eliane Davenport) Assessment and Plan Plan ASSESSMENT - abnormal imaging - poss foreign body RLQ, thickened duodenum and jejunum. pt was trying to eat household objects prior to admission. CT showed ring RLQ, prob trapped lung, bowel wall enhancement jejunum, gallstones. last colonoscopy 6 m ago and normal. - dysphagia - choking symptoms when eating for last year. - thrombocytopenia - hme/onc following - AMS, fevers, prob PNA ?aspiration - per CCM. ID following PLAN - EGD and colonoscopy tomorrow - obtain consent - NPO after midnight - GoLYtely - ok to use fecal collection bag when having liquid stool - monitor labs - further recs as case unfolds pt seen by myself and Dr Valdez and this note is written on his behalf (Eliane Davenport) Physician Comments Patient seen and examined Agree with above Continue current supportive care Monitor labs Plan for an EGD and a colonoscopy tomorrow (Nitish Valdez MD) Eliane Davenport May 20, 2017 15:07 Nitish Valdez MD May 20, 2017 20:34
[2017-05-20 15:51] LABS: DRVVT 1:1 MIX ND (CORRECTED); DRVVT CONFIRM ND (NEGATIVE); HEXAGONAL PHASE CONFIRM ND (NEGATIVE)
[2017-05-20] MEDS ORDERED: PEG (High)/E-LYTE SOLN 4000 ML BTL PO ONE (18:30)
[2017-05-20 23:53] LABS: PHOSPHATIDYLSERINE AB IGA LESS THAN 20.0 U/mL (< 20.0); PHOSPHATIDYLSERINE AB IGG LESS THAN 10.0 U/mL (< 11.0); PHOSPHATIDYLSERINE AB IGM LESS THAN 25.0 U/mL (< 25.0)
[2017-05-21] VITALS (18 sets, daily range): BP systolic 106–134; BP diastolic 61–93; PULSE 88–112; RESP 16–32; TEMP 99.8–100.6; O2SAT 95–99
[2017-05-21] MEDS: cloNIDine HCL 0.1 MG TAB PO SCH ×3 (00:12→16:17)
[2017-05-21] MEDS: INSULIN ASPART SUPPLEMENTAL SCALE SQ SCH ×6 (00:14→20:15)
[2017-05-21] MEDS: RESP: ALBUTEROL 2.5 MG/IPRATROPIUM 0.5 MG NEB (SCH) NEB ×2 (04:07→20:24)
[2017-05-21 04:16] LABS: AUTOMATED NEUTROPHIL # 4.6 TH/MM3 (1.8-7.7); BASOPHIL % 0.1 % (0.0-2.0); HEMATOCRIT 37.7 % (39.0-51.0); HEMOGLOBIN 12.9 GM/DL (13.0-17.0); LYMPH % 12.3 % (9.0-44.0); LYMPHOCYTE # 0.7 TH/MM3 (1.0-4.8); MEAN CELL VOLUME 103.4 FL (80.0-100.0); MEAN CORPUSCULAR HEMOGLOBIN 35.5 PG (27.0-34.0); MEAN CORPUSCULAR HGB CONC 34.3 % (32.0-36.0); MEAN PLATELET VOLUME 8.9 FL (7.0-11.0); MONO % 12.1 % (0.0-8.0); MONOCYTE # 0.7 TH/MM3 (0-0.9); NEUT % 75.5 % (16.0-70.0); PLATELET COUNT 86 TH/MM3 (150-450); RED BLOOD COUNT 3.64 MIL/MM3 (4.50-5.90); RED CELL DISTRIBUTION WIDTH 13.2 % (11.6-17.2); WHITE BLOOD COUNT 6.1 TH/MM3 (4.0-11.0)
[2017-05-21 04:52] LABS: ALBUMIN 2.7 GM/DL (3.4-5.0); ALKALINE PHOSPHATASE 68 U/L (45-117); ALT (GPT) 23 U/L (12-78); AST (GOT) 44 U/L (15-37); BLOOD UREA NITROGEN 20 MG/DL (7-18); CALCIUM 8.9 MG/DL (8.5-10.1); CHLORIDE 116 MEQ/L (98-107); CREATININE 1.04 MG/DL (0.60-1.30); GLOMERULAR FILTRATION RATE 73 ML/MIN (>89); GLUCOSE,RANDOM 199 MG/DL (74-106); SODIUM (NA) 154 MEQ/L (136-145); TOTAL BILIRUBIN ADULT 1.8 MG/DL (0.2-1.0); TOTAL PROTEIN 6.4 GM/DL (6.4-8.2)
[2017-05-21] MEDS: cefTRIAXone INJ 2,000 MG in SODIUM CHLORIDE 0.9% INJ 100 ML IV SCH (05:01)
[2017-05-21] MEDS: metroNIDAZOLE 500 MG INJ 100 ML IV SCH ×3 (05:01→21:56)
--- NOTE | 2017-05-21 05:01 | RADRPT ---
EXAM DATE/TIME: 05/21/2017 03:40 [facility] COMPARISON: CHEST SINGLE AP, May 19, 2017, 3:39. INDICATIONS : Shortness of breath, possible pulmonary disease. MEDICAL HISTORY : None. SURGICAL HISTORY : None. ENCOUNTER: Subsequent ACUITY: 4 - 6 days PAIN SCORE: Non-responsive. LOCATION: Bilateral chest FINDINGS: No significant interval change in appearance of the chest with moderate right effusion and basilar at electasis/consolidation, endotracheal tube, cardiomegaly and enteric tube noted. CONCLUSION: No significant change has occurred. Sergio Gomez MD on May 21, 2017 at 5:00 Board Certified Radiologist. This report was verified electronically.
[2017-05-21] MEDS: FREE WATER OG-TUBE SCH ×4 (05:02→17:23)
[2017-05-21 07:08] LABS: BANDS 3 % (0-6); LYMPHOCYTES 11 % (9-44); METAMYELOCYTES 1 % (0-1); MONOCYTES 8 % (0-8); NEUTROPHIL # MANUAL DIFF 4.9 TH/MM3 (1.8-7.7); POLYS (SEG NEUTROPHILS) 77 % (16-70)
[2017-05-21] MEDS: CHLORHEXIDINE 0.12% (ORAL KIT) 15 ML CUP MT SCH ×4 (08:48→21:56)
[2017-05-21] MEDS: THIAMINE HCL 100 MG TAB PO SCH (08:48)
[2017-05-21] MEDS: LACTULOSE SYRUP 20 GM/30 ML CUP PO SCH ×4 (08:49→21:54)
[2017-05-21] MEDS: BENEPROTEIN POWDER 1 PACK G-TUBE SCH ×3 (08:49→17:23)
[2017-05-21] MEDS: SODIUM CHLORIDE 0.9% FLUSH 10 ML FLUSH IV FLUSH SCH ×2 (08:49→21:55)
[2017-05-21] MEDS: FAMOTIDINE 20 MG/2 ML VIAL IV PUSH SCH ×2 (08:49→21:58)
[2017-05-21] MEDS: FUROSEMIDE 40 MG/4 ML VIAL IV PUSH SCH (08:49)
[2017-05-21] MEDS: INSULIN DETEMIR 100 UNITS/ML VIAL SQ SCH ×2 (08:57→21:55)
--- NOTE | 2017-05-21 09:21 | HHI.CCPN ---
Subjective Remarks/Hospital Course 61-year-old male admitted under Cottrell act. According to the Cottrell act report, contact was made with the patient in regards to his calling about his behavior being abnormal." According to the patient's per documentation, the patient has been defecating on himself, attempting to swallow household ornament items and has become aggressive. During my assessment the patient is extremely agitated, not following commands. 05/15/17: Intermittently severely agitated. Remains on Precedex. With 2 mg of IV Ativan he became oversedated, hypoxemic. Now improving. Spiking a fever 101.5. Pancultured. On argatroban for possible dural venous thrombosis, but MRV negative for any thrombus or occlusion. Patient will possibly need a lumbar puncture but currently on argatroban. Will discuss with Dr. Rai and KIM argatroban, transfuse platelet 05/16/17: Remains on Precedex sedated. Receiving Librium scheduled and as needed Ativan. Intermittently agitated. Started on vancomycin, ceftriaxone, ampicillin and acyclovir yesterday. Overnight lumbar puncture was done which was bloody tap (could be related to thrombocytopenia and previous argatroban use ). Fever and sepsis most likely related to right lower lobe infiltrate/ pneumonia. Possible patient might have aspirated the risks evidence of volume loss on chest x-ray repeat chest x-ray today pending 05/17/17: Remains intubated sedated with propofol. Chest CT shows extensive right lower lung consolidation with some atelectasis and volume loss. Bronchoscopy performed yesterday BAL negative to date. Continuing antibiotics per ID, HSV still pending 05/18: Chest x-ray stable to slightly improved on my review. Fluid overload noted, one dose of 40 mg IV Lasix ordered. HSV is still pending. Encephalopathy persists 05/19: Patient still remains unresponsive off sedation. Tachycardic with heart rate in 130s appears to be sinus. Good response to IV Lasix with approximately 5 L urine output. Start clonidine for hypertension, tachycardia and uncontrolled withdrawal symptoms. HSV pending 05/20: Continues to have recurrent fever. Repeat CT chest, abdomen pelvis. Previous CT chest concern about empyema, but fluid was too small to drain. Remains encephalopathy on the vent. Slight improvement in mental status. Partial opening of eyes moving extremities left more than right. HSV negative and acyclovir stopped. Sodium increased to 152 replacement ordered. It remains elevated at 330- 380. Levemir 5 every 12 and increase NovoLog sliding scale to medium. 05/21: Patient remains intubated off all sedation. CT chest abdomen pelvis showed right-sided trapped lung, also ring in the cecum and significant jejunal thickening. EGD colonoscopy planned for today. Slightly tachypneic on attempted CPAP. Tmax 101.3. Blood sugar control improved. Na 154 today, start 1/ 4NS for free water replacement. Neuro exam is slightly improved patient starting to follow commands on upper extremities. Objective Vital Signs Date Time Temp Pulse Resp B/P (MAP) Pulse Ox O2 Delivery O2 Flow Rate FiO2 05/21/17 08:20 96 35 05/21/17 06:00 103 05/21/17 04:00 100.3 16 112/61 (78) 05/20/17 19:00 Mechanical Ventilator 05/19/17 19:00 15.00 Intake and Output 05/21/17 05/21/17 05/22/17 08:00 16:00 00:00 Intake Total 1199 ml Output Total 1300 ml Balance -101 ml Result Diagram: 05/21/17 0355 05/21/17 0355 Objective Remarks GENERAL: male, off all sedation, critically ill. Febrile SKIN: Focused skin assessment warm and dry HEAD: Atraumatic. Normocephalic. EYES: No scleral icterus. No injection or drainage. Pupils equal reactive ENT: Nose without bleeding, orotracheally intubated NECK: Trachea midline. No neck stiffness/meningismus CARDIOVASCULAR: Sinus rhythm without murmurs, gallops, or rubs. RESPIRATORY: Breath sounds equal bilaterally, except diminished at the right base. No wheezes GASTROINTESTINAL: Abdomen soft, non-tender, nondistended. No guarding. MUSCULOSKELETAL: Extremities without clubbing, cyanosis, or edema. NEUROLOGICAL: Currently off all sedation, intubated. Moving all extremities spontaneously. Partial eye opening. Following commands bilateral UE. A/P Assessment and Plan Neuro: Altered mental status/delirium Alcohol withdrawal syndrome - Off all continuos sedation. Clonidine 0.1 mg every 8 hours to control withdrawal symptoms tachycardia and hypotension - Neuro exam slightly improved today - CT head negative x3 negative - Lumbar puncture had bloody tab most likely from thrombocytopenia and recent argatroban use (DCd 05/15) - MRV negative for any dural sinus thrombosis - Drug screen toxicology negative -Agitation most likely secondary to alcohol withdrawal - Hematology, ID, neurology following - Broad-spectrum meningitic coverage with Rocephin, Flagyl. 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 Mental status will not permit extubation at this time CVS: Fluid overload - Monitor vitals closely - IV Lasix 20 mg daily - Sinus tachycardia due to withdrawal-good response to clonidine GI Elevated ammonia level Foreign body in Cecum, most likely a ring Jejunal thickening - Lactulose by mouth, trend ammonia - EGD/Colonoscopy with possible jejunal biopsy today, attempt ring removal - Patient was swallowing objects prior to admission - Tube feeds with Jevity on hold - Ammonia 42 on 05/19 ID: - Continues to have recurrent fevers. CT abdomen pelvis shows cecal foreign body and jejunal thickening - Await EGD/ colonoscopy with biopsy - Broad-spectrum meningitic coverage with Rocephin, Flagyl - BAL cultures remains negative to date, CSF HSV negative - Hep C reactive Heme: - Thrombocytopenia most likely secondary to alcohol dependence, bone marrow suppression, and splenomegaly, sepsis Endo: Hyperglycemia - Insulin sliding scale - Hematology following DVT GI prophylaxis - Teds SCDs - No chemical DVT prophylaxis due to thrombocytopenia - Pepcid CCT 35 MIN Remains critically ill but stable with persistent encephalopathy and alcohol withdrawal. Neuro exam is improving but has recurrent high fever. CT chest abdomen pelvis shows a ring in the cecum and jejunal thickening, getting panendoscopy today Marcos Arana MD May 21, 2017 09:21
[2017-05-21] MEDS ORDERED: PROPOFOL 200 MG/20 ML AMP IV ONE (12:00)
[2017-05-21] MEDS ORDERED: PHENYLEPH/NS 1000 MCG/10 ML SYR IV ONE (12:00)
[2017-05-21] MEDS: SODIUM CHLORIDE 23.4% INJ 38.5 MEQ in WATER STERILE FOR INJ 1,000 ML IV SCH (12:18)
--- NOTE | 2017-05-21 12:54 | HHI.IDPN ---
Subjective Subjective Remarks Mr. Up is a 61-year-old male with past medical history significant for alcoholism and no reported prior history of psychiatric disorders. With this background patient was transferred to [facility] from [facility] for acute psychosis. Apparently the patient was found to be acutely psychotic his behavior included difficulty eating on himself, attempting to eat kitchen utensils, becoming aggressive. He was also witnessed to drink is on urine from a urinal in the [place] emergency department. He was not allergic to place time or person at the time of initial admission to the hospital. Imaging studies of the brain performed on May 24 at [facility] indicated a filling defect within the dural sinus most conspicuous in the posterior aspect superior sagittal sinus and right transverse sinus. Critical care was involved and patient was initiated on anticoagulation as well as heparin infusion. Hematology was consulted due to concern for thrombotic disorder process for which an extensive workup has been ordered at the present time. Patient also had an MRV an MRI of the brain. MRV does not show an acute thrombus at the present time. Patient underwent a lumbar puncture and the studies are indicative of a bloody tap rather than acute infectious process. She was started on empiric regimen for meningoencephalitis including ampicillin, ceftriaxone, vancomycin, acyclovir IV. Infectious disease consulted for evaluation and management of possible meningoencephalitis. Overnight events reviewed Remains in ICU. Persistent fevers. Normal WBC. Not on pressors. UO ok. No rash No diarrhea Antibiotics Ceftriaxone IV Flagyl IV Lines Line sites with no e.o infection. Past Medical History Alcoholism Allergies: Coded Allergies: No Allergy Information Available (Unverified , 05/13/17) PT HAS ALTERED MENTAL STATUS Objective . Vital Signs Date Time Temp Pulse Resp B/P (MAP) Pulse Ox O2 Delivery O2 Flow Rate FiO2 05/21/17 12:02 97 35 05/21/17 10:00 102 05/21/17 08:20 96 35 05/21/17 08:20 35 05/21/17 08:00 100.4 88 16 134/93 (107) 96 05/21/17 08:00 35 05/21/17 08:00 88 05/21/17 07:40 96 35 05/21/17 07:00 96 Mechanical Ventilator 35 05/21/17 06:00 103 05/21/17 04:53 96 35 05/21/17 04:00 100.3 90 16 112/61 (78) 95 05/21/17 04:00 90 05/21/17 04:00 35 05/21/17 02:03 96 35 05/21/17 02:00 92 05/21/17 00:00 35 05/21/17 00:00 99.8 112 17 128/74 (92) 96 05/21/17 00:00 112 05/20/17 23:26 96 35 05/20/17 22:00 106 05/20/17 20:14 96 35 05/20/17 20:00 101.3 115 18 121/69 (86) 96 05/20/17 20:00 35 05/20/17 20:00 115 05/20/17 19:00 96 Mechanical Ventilator 35 05/20/17 18:00 109 05/20/17 16:00 35 05/20/17 16:00 110 05/20/17 16:00 100.1 110 16 137/76 (96) 95 05/20/17 15:32 96 35 05/20/17 14:00 118 . Laboratory Tests Test 05/20/17 08:26 05/21/17 03:55 White Blood Count 7.9 TH/MM3 6.1 TH/MM3 Red Blood Count 3.81 MIL/MM3 3.64 MIL/MM3 Hemoglobin 13.7 GM/DL 12.9 GM/DL Hematocrit 39.2 % 37.7 % Mean Corpuscular Volume 103.0 FL 103.4 FL Mean Corpuscular Hemoglobin 36.0 PG 35.5 PG Mean Corpuscular Hemoglobin Concent 34.9 % 34.3 % Red Cell Distribution Width 13.3 % 13.2 % Platelet Count 100 TH/MM3 86 TH/MM3 Mean Platelet Volume 8.9 FL 8.9 FL Neutrophils (%) (Auto) 80.4 % 75.5 % Lymphocytes (%) (Auto) 7.7 % 12.3 % Monocytes (%) (Auto) 11.7 % 12.1 % Eosinophils (%) (Auto) 0.0 % 0.0 % Basophils (%) (Auto) 0.2 % 0.1 % Neutrophils # (Auto) 6.4 TH/MM3 4.6 TH/MM3 Lymphocytes # (Auto) 0.6 TH/MM3 0.7 TH/MM3 Monocytes # (Auto) 0.9 TH/MM3 0.7 TH/MM3 Eosinophils # (Auto) 0.0 TH/MM3 0.0 TH/MM3 Basophils # (Auto) 0.0 TH/MM3 0.0 TH/MM3 CBC Comment DIFF FINAL AUTO DIFF Differential Comment FINAL DIFF MANUAL Differential Total Cells Counted 100 Neutrophils % (Manual) 77 % Band Neutrophils % 3 % Lymphocytes % 11 % Monocytes % 8 % Neutrophils # (Manual) 4.9 TH/MM3 Metamyelocytes 1 % Platelet Estimate LOW Platelet Morphology Comment NORMAL Laboratory Tests Test 05/20/17 05:25 05/21/17 03:55 05/21/17 10:52 Blood Urea Nitrogen 14 MG/DL 20 MG/DL Creatinine 1.15 MG/DL 1.04 MG/DL Random Glucose 382 MG/DL 199 MG/DL Total Protein 6.8 GM/DL 6.4 GM/DL Albumin 2.9 GM/DL 2.7 GM/DL Calcium Level 9.3 MG/DL 8.9 MG/DL Magnesium Level 2.3 MG/DL Alkaline Phosphatase 89 U/L 68 U/L Aspartate Amino Transf (AST/SGOT) 66 U/L 44 U/L Alanine Aminotransferase (ALT/SGPT) 26 U/L 23 U/L Total Bilirubin 1.2 MG/DL 1.8 MG/DL Sodium Level 152 MEQ/L 154 MEQ/L Potassium Level 3.5 MEQ/L 3.5 MEQ/L Chloride Level 116 MEQ/L 116 MEQ/L Carbon Dioxide Level 28.4 MEQ/L 30.0 MEQ/L Anion Gap 8 MEQ/L 8 MEQ/L Estimat Glomerular Filtration Rate 65 ML/MIN 73 ML/MIN Ammonia 35 MCMOL/L Imaging Last Impressions Chest X-Ray 05/17/17 0600 Signed Impressions: Service Date/Time: Wednesday, May 17, 2017 03:40 - CONCLUSION: 1. Endotracheal tube and nasogastric tube unchanged. Basilar airspace disease and pleural effusion, right greater than left not significantly changed. Conor Fuller MD Chest CT 05/17/17 0000 Signed Impressions: Service Date/Time: Wednesday, May 17, 2017 08:11 - CONCLUSION: #1. Multifocal airspace consolidation with areas of atelectasis within the right lower lobe resulting in volume loss identified within the right hemithorax and shift of the mediastinum towards the right. There is a small right-sided pleural effusion present which demonstrates a thin rim of enhancement concerning for developing empyema. There is left lower lobe airspace consolidation and consolidation seen within the lingula. No left-sided pleural effusion. The lymph nodes identified within the AP window and prevascular space are likely reactive. 2. There is fluid identified within the esophagus. . Naomi Hong MD Head CT 05/16/17 0730 Signed Impressions: Service Date/Time: Tuesday, May 16, 2017 09:43 - CONCLUSION: No evidence of intracranial abnormality. Left-sided nasogastric tube associated with air-fluid levels identified in the left maxillary sinus, sphenoid sinus and left and right air cells. Naomi Hong MD Liver Ultrasound 05/15/17 0000 Signed Impressions: Service Date/Time: Monday, May 15, 2017 08:32 - CONCLUSION: 1. Liver and spleen are both enlarged. No focal lesions. 2. Very small amount of ascites along the hepatic border. 3. Possible small gallbladder polyp. Alan Alex MD Head/Brain Mag Res Venography 05/15/17 0000 Signed Impressions: Service Date/Time: Monday, May 15, 2017 09:41 - CONCLUSION: Normal study. Sumit Young MD Brain MRI 05/14/17 0000 Signed Impressions: Service Date/Time: May 13:12 - CONCLUSION: Incompletely occlusive dural sinus thrombosis. Sumit Young MD Physical Exam GENERAL: This is a well-nourished, well-developed patient, in no apparent distress. SKIN: No rashes, ecchymoses or lesions. Cool and dry. HEAD: Atraumatic. Normocephalic. No temporal or scalp tenderness. EYES: Pupils equal round and reactive. Extraocular motions intact. No scleral icterus. No injection or drainage. ENT: Intubated. NECK: Trachea midline. Supple, nontender, no meningeal signs. CARDIOVASCULAR: Heart sounds audible. RESPIRATORY: Clear to auscultation. Breath sounds equal bilaterally. No wheezes , rales, or rhonchi. GASTROINTESTINAL: Abdomen soft, non-tender, nondistended. MUSCULOSKELETAL: Extremities without clubbing, cyanosis, or edema. No joint tenderness, effusion, or edema noted. No calf tenderness. Negative Homans sign bilaterally. NEUROLOGICAL: Difficult to arouse for me this am. No response to painful stimuli. Psych could not be assessed IV line sites with no evidence of infection. 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 Could be acute or chronic in nature. Rule out neurosyphilis, ZACHARY virus associated encephalopathy. Acute encephalopathy: Could also be from alcohol-related withdrawal or dementia Fever and likely aspiration pneumonia related Pneumonia likely aspiration Alcoholism Hepatitis C antibody positive. Recs: Continue Ceftriaxone IV q24 hrs Continue Flagyl ok to change to oral if tolerated and passes swallow. CT chest/A/P with ring found in caecum. Plan for EGD and Colonoscopy. Follow cultures. Follow clinically. d/w RN dw Malu Duarte MD May 21, 2017 12:54
--- NOTE | 2017-05-21 13:33 | PD.PROCEDR ---
GI Procedure PROCEDURE PERFORMED EGD with biopsy followed by colonoscopy with foreign body retrieval INDICATION FOR PROCEDURE Abnormal findings on CT suggestive of swelling in the duodenum and the jejunum and a foreign body in the cecum PROCEDURE: The procedure, risks and benefits were discussed with Mr. Up and informed consent was obtained. Anesthesia sedated him with Diprivan. He was placed in the left lateral decubitus position. EGD: The Pentax videoscope was introduced through the oropharynx and advanced to the second portion of the duodenum under direct visualization. Retroflexion was performed in the stomach. FINDINGS: The esophagus this was unremarkable within normal limits The stomach there was a small hiatal hernia there was also diffuse erythema in a patchy and punctate fashion this was biopsied there were no ulcerations or erosions no blood or bleeding The duodenum this appeared to be unremarkable and within normal limits Colonoscopy: The Pentax videoscope was introduced through the rectum and advanced to cecum where the ileocecal valve and appendiceal orifice were identified. Retroflexion was performed in the rectum. Colonic prep was fair FINDINGS: Colonic withdrawal time greater than 6 minutes as the scope was slowly withdrawn clonic mucosa was carefully inspected this was noted to be unremarkable with normal limits all the way through so as retroflexion in rectal examination the foreign body which was a ring was noted in the ascending colon this was retrieved using the Leach net ESTIMATED BLOOD LOSS: None SPECIMENS REMOVED: Gastric biopsies COMPLICATIONS: None IMPRESSION: Small hiatal hernia Gastritis Foreign body in the colon PLAN: Await biopsies Resume feeding Continue with current supportive care Nitish Valdez MD May 21, 2017 13:33
[2017-05-22] VITALS (19 sets, daily range): BP systolic 103–143; BP diastolic 56–79; PULSE 72–96; RESP 14–24; TEMP 98–99.6; O2SAT 97–100
[2017-05-22] MEDS: INSULIN ASPART SUPPLEMENTAL SCALE SQ SCH ×6 (00:15→20:15)
[2017-05-22] MEDS: cloNIDine HCL 0.1 MG TAB PO SCH ×3 (00:16→18:58)
--- NOTE | 2017-05-22 02:10 | RADRPT ---
EXAM DATE/TIME: 05/22/2017 01:44 [place] COMPARISON: CHEST SINGLE AP, May 21, 2017, 3:40. INDICATIONS : Evaluate for pneumonia MEDICAL HISTORY : None. SURGICAL HISTORY : None. ENCOUNTER: Subsequent ACUITY: 1 week PAIN SCORE: Non-responsive. LOCATION: Bilateral chest FINDINGS: ET tube, and NG tube have not changed. right pleural effusion has not changed and there is also dense consolidation right lower lobe not changed. Perivascular pulmonary edema is also suspected. CONCLUSION: No visual change. KSonya Avalos MD on May 22, 2017 at 2:07 Board Certified Radiologist. This report was verified electronically.
[2017-05-22] MEDS: metroNIDAZOLE 500 MG INJ 100 ML IV SCH ×3 (03:16→20:58)
[2017-05-22] MEDS: cefTRIAXone INJ 2,000 MG in SODIUM CHLORIDE 0.9% INJ 100 ML IV SCH (03:17)
[2017-05-22] MEDS: RESP: ALBUTEROL 2.5 MG/IPRATROPIUM 0.5 MG NEB (SCH) NEB ×4 (04:07→20:31)
[2017-05-22] MEDS: SODIUM CHLORIDE 23.4% INJ 38.5 MEQ in WATER STERILE FOR INJ 1,000 ML IV SCH (04:15)
[2017-05-22] MEDS: FREE WATER OG-TUBE SCH ×4 (06:00→18:00)
[2017-05-22 07:11] LABS: AUTOMATED NEUTROPHIL # 3.6 TH/MM3 (1.8-7.7); BASOPHIL % 0.2 % (0.0-2.0); EOSINOPHIL % 0.2 % (0.0-4.0); HEMOGLOBIN 12.7 GM/DL (13.0-17.0); LYMPH % 14.8 % (9.0-44.0); LYMPHOCYTE # 0.7 TH/MM3 (1.0-4.8); MEAN CELL VOLUME 104.4 FL (80.0-100.0); MEAN CORPUSCULAR HEMOGLOBIN 35.8 PG (27.0-34.0); MEAN CORPUSCULAR HGB CONC 34.3 % (32.0-36.0); MEAN PLATELET VOLUME 9.8 FL (7.0-11.0); MONO % 8.5 % (0.0-8.0); MONOCYTE # 0.4 TH/MM3 (0-0.9); NEUT % 76.3 % (16.0-70.0); PLATELET COUNT 76 TH/MM3 (150-450); RED BLOOD COUNT 3.55 MIL/MM3 (4.50-5.90); RED CELL DISTRIBUTION WIDTH 13.2 % (11.6-17.2); WHITE BLOOD COUNT 4.7 TH/MM3 (4.0-11.0)
[2017-05-22 07:36] LABS: ALBUMIN 2.7 GM/DL (3.4-5.0); ALKALINE PHOSPHATASE 82 U/L (45-117); ALT (GPT) 25 U/L (12-78); AST (GOT) 56 U/L (15-37); BICARBONATE 29.8 MEQ/L (21.0-32.0); BLOOD UREA NITROGEN 23 MG/DL (7-18); CALCIUM 8.9 MG/DL (8.5-10.1); CHLORIDE 114 MEQ/L (98-107); CREATININE 0.96 MG/DL (0.60-1.30); GLOMERULAR FILTRATION RATE 80 ML/MIN (>89); GLUCOSE,RANDOM 165 MG/DL (74-106); MAGNESIUM 2.3 MG/DL (1.5-2.5); SODIUM (NA) 152 MEQ/L (136-145); TOTAL BILIRUBIN ADULT 1.5 MG/DL (0.2-1.0); TOTAL PROTEIN 6.5 GM/DL (6.4-8.2)
[2017-05-22] MEDS: CHLORHEXIDINE 0.12% (ORAL KIT) 15 ML CUP MT SCH ×4 (08:00→20:58)
[2017-05-22] MEDS: ICU - POTASSIUM CHLORIDE/AQUEOUS SOLN 20 MEQ/100 ML IVPB IV PRN ×5 (08:33→19:03)
[2017-05-22] MEDS: LACTULOSE SYRUP 20 GM/30 ML CUP PO SCH ×4 (08:35→20:59)
[2017-05-22] MEDS: THIAMINE HCL 100 MG TAB PO SCH (08:35)
[2017-05-22] MEDS: FAMOTIDINE 20 MG/2 ML VIAL IV PUSH SCH ×2 (08:54→20:59)
[2017-05-22] MEDS: FUROSEMIDE 40 MG/4 ML VIAL IV PUSH SCH (08:55)
[2017-05-22] MEDS: BENEPROTEIN POWDER 1 PACK G-TUBE SCH ×3 (08:55→18:00)
[2017-05-22] MEDS: SODIUM CHLORIDE 0.9% FLUSH 10 ML FLUSH IV FLUSH SCH ×2 (08:55→20:59)
[2017-05-22] MEDS: INSULIN DETEMIR 100 UNITS/ML VIAL SQ SCH ×2 (08:56→21:00)
--- NOTE | 2017-05-22 09:18 | HHI.CCPN ---
Subjective Remarks/Hospital Course 61-year-old male admitted under Cottrell act. According to the Cottrell act report, contact was made with the patient in regards to his calling about his behavior being abnormal." According to the patient's per documentation, the patient has been defecating on himself, attempting to swallow household ornament items and has become aggressive. During my assessment the patient is extremely agitated, not following commands. 05/15/17: Intermittently severely agitated. Remains on Precedex. With 2 mg of IV Ativan he became oversedated, hypoxemic. Now improving. Spiking a fever 101.5. Pancultured. On argatroban for possible dural venous thrombosis, but MRV negative for any thrombus or occlusion. Patient will possibly need a lumbar puncture but currently on argatroban. Will discuss with Dr. Rai and KIM argatroban, transfuse platelet 05/16/17: Remains on Precedex sedated. Receiving Librium scheduled and as needed Ativan. Intermittently agitated. Started on vancomycin, ceftriaxone, ampicillin and acyclovir yesterday. Overnight lumbar puncture was done which was bloody tap (could be related to thrombocytopenia and previous argatroban use ). Fever and sepsis most likely related to right lower lobe infiltrate/ pneumonia. Possible patient might have aspirated the risks evidence of volume loss on chest x-ray repeat chest x-ray today pending 05/17/17: Remains intubated sedated with propofol. Chest CT shows extensive right lower lung consolidation with some atelectasis and volume loss. Bronchoscopy performed yesterday BAL negative to date. Continuing antibiotics per ID, HSV still pending 05/18: Chest x-ray stable to slightly improved on my review. Fluid overload noted, one dose of 40 mg IV Lasix ordered. HSV is still pending. Encephalopathy persists 05/19: Patient still remains unresponsive off sedation. Tachycardic with heart rate in 130s appears to be sinus. Good response to IV Lasix with approximately 5 L urine output. Start clonidine for hypertension, tachycardia and uncontrolled withdrawal symptoms. HSV pending 05/20: Continues to have recurrent fever. Repeat CT chest, abdomen pelvis. Previous CT chest concern about empyema, but fluid was too small to drain. Remains encephalopathy on the vent. Slight improvement in mental status. Partial opening of eyes moving extremities left more than right. HSV negative and acyclovir stopped. Sodium increased to 152 replacement ordered. It remains elevated at 330- 380. Levemir 5 every 12 and increase NovoLog sliding scale to medium. 05/21: Patient remains intubated off all sedation. CT chest abdomen pelvis showed right-sided trapped lung, also ring in the cecum and significant jejunal thickening. EGD colonoscopy planned for today. Slightly tachypneic on attempted CPAP. Tmax 101.3. Blood sugar control improved. Na 154 today, start 1/ 4NS for free water replacement. Neuro exam is slightly improved patient starting to follow commands on upper extremities. 05/22: Neuro exam is slightly improved today patient is somnolent but wakes and follows commands weakly. Had a colonoscopy yesterday foreign body/ring was removed. Fever is trending down now. On EGD Stomach: diffuse erythema in a patchy and punctate fashion this was biopsied there were no ulcerations or erosions. Biopsies taken. most CSF studies essentially negative Objective Vital Signs Date Time Temp Pulse Resp B/P (MAP) Pulse Ox O2 Delivery O2 Flow Rate FiO2 05/22/17 08:27 98 35 05/22/17 06:00 96 05/22/17 04:00 98.7 18 143/79 (100) 05/21/17 19:00 Mechanical Ventilator 05/19/17 19:00 15.00 Intake and Output 05/22/17 05/22/17 05/23/17 08:00 16:00 00:00 Intake Total 1120 ml Output Total 550 ml Balance 570 ml Result Diagram: 05/22/1752105/22/17 0522 Objective Remarks GENERAL: male, off all sedation, critically ill. Fever trending down SKIN: Focused skin assessment warm and dry HEAD: Atraumatic. Normocephalic. EYES: No scleral icterus. No injection or drainage. Pupils equal reactive ENT: Nose without bleeding, orotracheally intubated NECK: Trachea midline. No neck stiffness/meningismus CARDIOVASCULAR: Sinus rhythm without murmurs, gallops, or rubs. RESPIRATORY: Breath sounds equal bilaterally, except diminished at the right base. No wheezes GASTROINTESTINAL: Abdomen soft, non-tender, nondistended. No guarding. MUSCULOSKELETAL: Extremities without clubbing, cyanosis, or edema. NEUROLOGICAL: Currently off all sedation, intubated. Moving all extremities spontaneously. Partial eye opening. Following commands x4 A/P Assessment and Plan Neuro: Altered mental status/delirium Metabolic encephalopathy Alcohol withdrawal syndrome - Off all continuos sedation. Clonidine 0.1 mg every 8 hours to control withdrawal symptoms tachycardia and hypotension - Neuro exam improved today, though lethargic - CT head negative x3 negative - Lumbar puncture had bloody tab most likely from thrombocytopenia and recent argatroban use (DCd 05/15). CSF studies negative for infectious etiologies - MRV negative for any dural sinus thrombosis - Drug screen toxicology negative -Agitation most likely secondary to alcohol withdrawal - Hematology, ID, neurology following - Broad-spectrum meningitic coverage with Rocephin, Flagyl. 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 Possible extubation today CVS: Fluid overload - Monitor vitals closely - IV Lasix 20 mg daily - Free water replacement with quarter normal saline - Sinus tachycardia due to withdrawal-good response to clonidine GI Elevated ammonia level Foreign body/Ring in Cecum Jejunal thickening on CT - Lactulose by mouth, trend ammonia - EGD/Colonoscopy with ring removed by Dr. Valdez. Also f/u on gastric biopsies - Patient was swallowing objects prior to admission - Tube feeds with Jevity on hold - Ammonia 42 on 05/19 ID: - Continues to have recurrent fevers. Now fever trensing down with cecal foreign body/ring removal - Inflammatory fever now improving. Cultures CSF studies negative - s/p EGD/ colonoscopy with biopsy - Broad-spectrum meningitic coverage with Rocephin, Flagyl - BAL cultures remains negative to date, CSF HSV negative - Hep C reactive Heme: - Thrombocytopenia most likely secondary to alcohol dependence, bone marrow suppression, and splenomegaly, sepsis Endo: Hyperglycemia - Insulin sliding scale - Hematology following DVT GI prophylaxis - Teds SCDs - No chemical DVT prophylaxis due to thrombocytopenia - Pepcid Level 3 Remains critically ill but stable with encephalopathy improving. fever trending down after foreign body removal from cecum Marcos Arana MD May 22, 2017 09:18
[2017-05-22] MEDS ORDERED: KETOROLAC TROMETHAMINE 30 MG/ML (IVP) VIAL IV PUSH ONE (13:30)
--- NOTE | 2017-05-22 14:03 | HHI.IDPN ---
Subjective Subjective Remarks Mr. Up is a 61-year-old male with past medical history significant for alcoholism and no reported prior history of psychiatric disorders. With this background patient was transferred to [facility] from [facility] for acute psychosis. Apparently the patient was found to be acutely psychotic his behavior included difficulty eating on himself, attempting to eat kitchen utensils, becoming aggressive. He was also witnessed to drink is on urine from a urinal in the [place] emergency department. He was not allergic to place time or person at the time of initial admission to the hospital. Imaging studies of the brain performed on May 24 at [facility] indicated a filling defect within the dural sinus most conspicuous in the posterior aspect superior sagittal sinus and right transverse sinus. Critical care was involved and patient was initiated on anticoagulation as well as heparin infusion. Hematology was consulted due to concern for thrombotic disorder process for which an extensive workup has been ordered at the present time. Patient also had an MRV an MRI of the brain. MRV does not show an acute thrombus at the present time. Patient underwent a lumbar puncture and the studies are indicative of a bloody tap rather than acute infectious process. She was started on empiric regimen for meningoencephalitis including ampicillin, ceftriaxone, vancomycin, acyclovir IV. Infectious disease consulted for evaluation and management of possible meningoencephalitis. Overnight events reviewed Remains in ICU. Persistent fevers. Normal WBC. Not on pressors. UO ok. No rash No diarrhea Antibiotics Ceftriaxone IV Flagyl IV Lines Line sites with no e.o infection. Past Medical History Alcoholism Allergies: Coded Allergies: No Allergy Information Available (Unverified , 05/13/17) PT HAS ALTERED MENTAL STATUS Objective . Vital Signs Date Time Temp Pulse Resp B/P (MAP) Pulse Ox O2 Delivery O2 Flow Rate FiO2 05/22/17 11:14 98 Nasal Cannula 4.00 05/22/17 11:13 98 Nasal Cannula 4 05/22/17 09:13 35 05/22/17 08:27 98 35 05/22/17 07:59 98 35 05/22/17 07:59 35 05/22/17 07:00 97 Mechanical Ventilator 35 05/22/17 06:00 96 05/22/17 04:07 100 35 05/22/17 04:00 98.7 93 18 143/79 (100) 100 05/22/17 04:00 35 05/22/17 04:00 93 05/22/17 02:00 85 05/22/17 01:08 97 35 05/22/17 00:00 35 05/22/17 00:00 99.6 91 16 143/68 (93) 97 05/22/17 00:00 91 05/21/17 22:00 92 05/21/17 20:24 98 35 05/21/17 20:00 100.2 93 18 129/64 (85) 97 05/21/17 20:00 35 05/21/17 20:00 93 05/21/17 19:00 96 Mechanical Ventilator 35 05/21/17 18:00 91 05/21/17 16:00 35 05/21/17 16:00 99 35 05/21/17 16:00 89 05/21/17 16:00 100.6 89 28 115/64 (81) 96 . Laboratory Tests Test 05/21/17 03:55 05/22/17 05:22 White Blood Count 6.1 TH/MM3 4.7 TH/MM3 Red Blood Count 3.64 MIL/MM3 3.55 MIL/MM3 Hemoglobin 12.9 GM/DL 12.7 GM/DL Hematocrit 37.7 % 37.0 % Mean Corpuscular Volume 103.4 FL 104.4 FL Mean Corpuscular Hemoglobin 35.5 PG 35.8 PG Mean Corpuscular Hemoglobin Concent 34.3 % 34.3 % Red Cell Distribution Width 13.2 % 13.2 % Platelet Count 86 TH/MM3 76 TH/MM3 Mean Platelet Volume 8.9 FL 9.8 FL Neutrophils (%) (Auto) 75.5 % 76.3 % Lymphocytes (%) (Auto) 12.3 % 14.8 % Monocytes (%) (Auto) 12.1 % 8.5 % Eosinophils (%) (Auto) 0.0 % 0.2 % Basophils (%) (Auto) 0.1 % 0.2 % Neutrophils # (Auto) 4.6 TH/MM3 3.6 TH/MM3 Lymphocytes # (Auto) 0.7 TH/MM3 0.7 TH/MM3 Monocytes # (Auto) 0.7 TH/MM3 0.4 TH/MM3 Eosinophils # (Auto) 0.0 TH/MM3 0.0 TH/MM3 Basophils # (Auto) 0.0 TH/MM3 0.0 TH/MM3 CBC Comment AUTO DIFF AUTO DIFF Differential Total Cells Counted 100 Neutrophils % (Manual) 77 % Band Neutrophils % 3 % Lymphocytes % 11 % Monocytes % 8 % Neutrophils # (Manual) 4.9 TH/MM3 Metamyelocytes 1 % Differential Comment FINAL DIFF MANUAL AUTO DIFF CONFIRMED Platelet Estimate LOW LOW Platelet Morphology Comment NORMAL NORMAL Laboratory Tests Test 05/21/17 03:55 05/21/17 10:52 05/22/17 05:22 Blood Urea Nitrogen 20 MG/DL 23 MG/DL Creatinine 1.04 MG/DL 0.96 MG/DL Random Glucose 199 MG/DL 165 MG/DL Total Protein 6.4 GM/DL 6.5 GM/DL Albumin 2.7 GM/DL 2.7 GM/DL Calcium Level 8.9 MG/DL 8.9 MG/DL Alkaline Phosphatase 68 U/L 82 U/L Aspartate Amino Transf (AST/SGOT) 44 U/L 56 U/L Alanine Aminotransferase (ALT/SGPT) 23 U/L 25 U/L Total Bilirubin 1.8 MG/DL 1.5 MG/DL Sodium Level 154 MEQ/L 152 MEQ/L Potassium Level 3.5 MEQ/L 2.9 MEQ/L Chloride Level 116 MEQ/L 114 MEQ/L Carbon Dioxide Level 30.0 MEQ/L 29.8 MEQ/L Anion Gap 8 MEQ/L 8 MEQ/L Estimat Glomerular Filtration Rate 73 ML/MIN 80 ML/MIN Ammonia 35 MCMOL/L Magnesium Level 2.3 MG/DL Imaging Last Impressions Chest X-Ray 05/17/17 0600 Signed Impressions: Service Date/Time: Wednesday, May 17, 2017 03:40 - CONCLUSION: 1. Endotracheal tube and nasogastric tube unchanged. Basilar airspace disease and pleural effusion, right greater than left not significantly changed. Conor Fuller MD Chest CT 05/17/17 0000 Signed Impressions: Service Date/Time: Wednesday, May 17, 2017 08:11 - CONCLUSION: #1. Multifocal airspace consolidation with areas of atelectasis within the right lower lobe resulting in volume loss identified within the right hemithorax and shift of the mediastinum towards the right. There is a small right-sided pleural effusion present which demonstrates a thin rim of enhancement concerning for developing empyema. There is left lower lobe airspace consolidation and consolidation seen within the lingula. No left-sided pleural effusion. The lymph nodes identified within the AP window and prevascular space are likely reactive. 2. There is fluid identified within the esophagus. . Naomi Hong MD Head CT 05/16/17 0730 Signed Impressions: Service Date/Time: Tuesday, May 16, 2017 09:43 - CONCLUSION: No evidence of intracranial abnormality. Left-sided nasogastric tube associated with air-fluid levels identified in the left maxillary sinus, sphenoid sinus and left and right air cells. Naomi Hong MD Liver Ultrasound 05/15/17 0000 Signed Impressions: Service Date/Time: Monday, May 15, 2017 08:32 - CONCLUSION: 1. Liver and spleen are both enlarged. No focal lesions. 2. Very small amount of ascites along the hepatic border. 3. Possible small gallbladder polyp. Alan Alex MD Head/Brain Mag Res Venography 05/15/17 0000 Signed Impressions: Service Date/Time: Monday, May 15, 2017 09:41 - CONCLUSION: Normal study. Sumit Young MD Brain MRI 05/14/17 0000 Signed Impressions: Service Date/Time: May 13:12 - CONCLUSION: Incompletely occlusive dural sinus thrombosis. Sumit Young MD Physical Exam GENERAL: This is a well-nourished, well-developed patient, in no apparent distress. SKIN: No rashes, ecchymoses or lesions. Cool and dry. HEAD: Atraumatic. Normocephalic. No temporal or scalp tenderness. EYES: Pupils equal round and reactive. Extraocular motions intact. No scleral icterus. No injection or drainage. ENT: NAD NECK: Trachea midline. Supple, nontender, no meningeal signs. CARDIOVASCULAR: Heart sounds audible. RESPIRATORY: Clear to auscultation. Breath sounds equal bilaterally. No wheezes , rales, or rhonchi. GASTROINTESTINAL: Abdomen soft, non-tender, nondistended. MUSCULOSKELETAL: Extremities without clubbing, cyanosis, or edema. No joint tenderness, effusion, or edema noted. No calf tenderness. Negative Homans sign bilaterally. NEUROLOGICAL: Opens eyes with painful stimuli. Moves extremities. Psych could not be assessed IV line sites with no evidence of infection. Assessment & Plan Remarks Acute encephalopathy: Could also be from alcohol-related withdrawal or dementia Aspiration pneumonia related Pneumonia likely aspiration Alcoholism Hepatitis C antibody positive. Recs: Continue Ceftriaxone IV q24 hrs Continue Flagyl ok to change to oral if tolerated and passes swallow. s/p removal of FB by Colonoscopy. This helped defervesce the fevers. Encephalopathy likely Alcohol related. Would benefit from psych eval close to discharge. Follow cultures. Follow clinically. d/w JANNETH Vance covering for me this weekend and available prn. Malu Reveles MD May 22, 2017 14:03
--- NOTE | 2017-05-22 15:54 | HHI.GIFU ---
Subjective Remarks Resting in the bed talking quietly to some of his family No complaints of abdominal pain No nausea no vomiting Low-grade fever 99.6 in the past 24 hours (Nadja Umaña) Objective Vitals I&O Vital Signs Date Time Temp Pulse Resp B/P (MAP) Pulse Ox O2 Delivery O2 Flow Rate FiO2 05/22/17 11:14 98 Nasal Cannula 4.00 05/22/17 11:13 98 Nasal Cannula 4 05/22/17 09:13 35 05/22/17 08:27 98 35 05/22/17 07:59 98 35 05/22/17 07:59 35 05/22/17 07:00 97 Mechanical Ventilator 35 05/22/17 06:00 96 05/22/17 04:07 100 35 05/22/17 04:00 98.7 93 18 143/79 (100) 100 05/22/17 04:00 35 05/22/17 04:00 93 05/22/17 02:00 85 05/22/17 01:08 97 35 05/22/17 00:00 35 05/22/17 00:00 99.6 91 16 143/68 (93) 97 05/22/17 00:00 91 05/21/17 22:00 92 05/21/17 20:24 98 35 05/21/17 20:00 100.2 93 18 129/64 (85) 97 05/21/17 20:00 35 05/21/17 20:00 93 05/21/17 19:00 96 Mechanical Ventilator 35 05/21/17 18:00 91 05/21/17 16:00 35 05/21/17 16:00 99 35 05/21/17 16:00 89 05/21/17 16:00 100.6 89 28 115/64 (81) 96 I/O 05/21/17 05/21/17 05/21/17 05/22/17 05/22/17 05/22/17 07:00 15:00 23:00 07:00 15:00 23:00 Intake Total 1199 ml 200 ml 100 ml 1120 ml Output Total 1300 ml 1900 ml 550 ml Balance -101 ml 200 ml -1800 ml 570 ml Intake Oral 0 ml IV Total 200 ml 100 ml 200 ml Tube Feeding 320 ml Other 999 ml 200 ml 600 ml Output Urine Total 600 ml 1800 ml 550 ml Stool Total 700 ml 100 ml # Bowel Movements 1 1 Laboratory Laboratory Tests Test 05/22/17 05:22 05/22/17 10:30 White Blood Count 4.7 Red Blood Count 3.55 Hemoglobin 12.7 Hematocrit 37.0 Mean Corpuscular Volume 104.4 Mean Corpuscular Hemoglobin 35.8 Mean Corpuscular Hemoglobin Concent 34.3 Red Cell Distribution Width 13.2 Platelet Count 76 Mean Platelet Volume 9.8 Neutrophils (%) (Auto) 76.3 Lymphocytes (%) (Auto) 14.8 Monocytes (%) (Auto) 8.5 Eosinophils (%) (Auto) 0.2 Basophils (%) (Auto) 0.2 Neutrophils # (Auto) 3.6 Lymphocytes # (Auto) 0.7 Monocytes # (Auto) 0.4 Eosinophils # (Auto) 0.0 Basophils # (Auto) 0.0 CBC Comment AUTO DIFF Differential Comment AUTO DIFF CONFIRMED Platelet Estimate LOW Platelet Morphology Comment NORMAL Blood Urea Nitrogen 23 Creatinine 0.96 Random Glucose 165 Total Protein 6.5 Albumin 2.7 Calcium Level 8.9 Magnesium Level 2.3 Alkaline Phosphatase 82 Aspartate Amino Transf (AST/SGOT) 56 Alanine Aminotransferase (ALT/SGPT) 25 Total Bilirubin 1.5 Sodium Level 152 Potassium Level 2.9 Chloride Level 114 Carbon Dioxide Level 29.8 Anion Gap 8 Estimat Glomerular Filtration Rate 80 Blood Gas Puncture Site RT RADIAL Blood Gas Patient Temperature 98.6 Blood Gas HCO3 30 Blood Gas Base Excess 6.6 Blood Gas Oxygen Saturation 96 Arterial Blood pH 7.47 Arterial Blood Partial Pressure CO2 42 Arterial Blood Partial Pressure O2 110 Arterial Blood Oxygen Content 17.8 Arterial Blood Carboxyhemoglobin 1.2 Arterial Blood Methemoglobin 1.2 Blood Gas Hemoglobin 13.2 Oxygen Delivery Device VENTILATOR Blood Gas Ventilator Setting CPAP 5/+5 Blood Gas Inspired Oxygen 35 Date/Time Source Procedure Growth Status 05/15/17 16:44 Blood Peripheral Aerobic Blood Culture - Final NO GROWTH IN 5 DAYS Complete 05/15/17 16:44 Blood Peripheral Anaerobic Blood Culture - Final NO GROWTH IN 5 DAYS Complete 05/16/17 04:30 Cerebral Spinal Fluid Lumbar Puncture Fungal Smear - Final NO FUNGAL ELEMENTS SEEN. Resulted 05/16/17 04:30 Cerebral Spinal Fluid Lumbar Puncture Fungal Culture Pending Resulted 05/15/17 14:28 Stool Stool Stool Occult Blood (JAMIE) - Final HEMOCCULT NEGATIVE Complete 05/16/17 17:45 Bronchial Washings Right Lower Lobe Fungal Smear - Final NO FUNGAL ELEMENTS SEEN. Resulted 05/16/17 17:45 Bronchial Washings Right Lower Lobe Fungal Culture Pending Resulted 05/15/17 16:30 Urine Catheterized Urine Urine Culture - Final NO GROWTH IN 48 HOURS. Complete Imaging Last Impressions Chest X-Ray 05/22/17 0600 Signed Impressions: Service Date/Time: Monday, May 22, 2017 01:44 - CONCLUSION: No visual change. Héctor Avalos MD Chest CT 05/20/17 0000 Signed Impressions: Service Date/Time: Saturday, May 20, 2017 10:58 - CONCLUSION: Consolidative changes right lower lobe and trace pleural effusion. Fluid does not appear loculated however there is minimal enhancing rind of pleura about the lung suggesting this lung is trapped. Maxwell Marion MD FACR Abdomen/Pelvis CT 05/20/17 0000 Signed Impressions: Service Date/Time: Saturday, May 20, 2017 10:58 - CONCLUSION: 1. No opaque foreign body right lower quadrant that is ring 2. Consolidative changes right lower lobe with air bronchograms. Trace pleural effusion. 3. Enhancing pleura on the right probably trapped lung 4. Marked bowel wall enhancement in the proximal jejunum the differential as above 5. Gallstones prominent gallbladder otherwise appears benign. Maxwell Marion MD FACR Upper Extremity Ultrasound 05/19/17 0000 Signed Impressions: Service Date/Time: Friday, May 19, 2017 11:32 - CONCLUSION: 1. There is nonocclusive thrombus within the left cephalic vein at the antecubital fossa where an IV line is located. 2. Remainder of the left upper extremity and the entire right upper extremity are patent without thrombus. Sumit Turcios MD Lower Extremity Ultrasound 05/19/17 0000 Signed Impressions: Service Date/Time: Friday, May 19, 2017 10:54 - CONCLUSION: No DVT is identified within either lower extremity. Sumit Turcios MD Head CT 05/19/17 0000 Signed Impressions: Service Date/Time: Friday, May 19, 2017 08:09 - CONCLUSION: 1. No acute intracranial abnormality or significant interval change. Stepan López MD Liver Ultrasound 05/15/17 0000 Signed Impressions: Service Date/Time: Monday, May 15, 2017 08:32 - CONCLUSION: 1. Liver and spleen are both enlarged. No focal lesions. 2. Very small amount of ascites along the hepatic border. 3. Possible small gallbladder polyp. Alan Alex MD Head/Brain Mag Res Venography 05/15/17 0000 Signed Impressions: Service Date/Time: Monday, May 15, 2017 09:41 - CONCLUSION: Normal study. Sumit Young MD Brain MRI 05/14/17 0000 Signed Impressions: Service Date/Time: May 13:12 - CONCLUSION: Incompletely occlusive dural sinus thrombosis. Sumit Young MD Physical Exam HEENT: Pupils round and reactive to light; normocephalic; atraumatic; no jaundice. Pale NECK: Neck is thick, supple, no JVD, no lymphadenopathy. CHEST: Chest mild diminished sounds at his bases CARDIAC: Regular rate and rhythm, soft systolic murmur at the left lower sternal border ABDOMEN: Soft, mild bloating noted, nontender; no hepatosplenomegaly; bowel sounds are present in all four quadrants. EXTREMITIES: No clubbing, cyanosis, or edema. SKIN: Normal; pale, no rash; no jaundice., Obese [employer] ACCOUNTANT: No focal deficits; alert and oriented times three., Affect quiet (Nadja Umaña) Assessment and Plan Plan History/Patient was Cottrell act to the hospital, altered mental status according to history, and swallowing things according to . Initially was intubated now extubated. History of alcohol, elevated ammonia level on admission now on lactulose. Liver ultrasound on 05/15/17 shows spleen and liver both enlarged, no focal lesions, minimal amount of ascites along the hepatic border, possible small gallbladder polyp. Abdominal pelvis CT on 05/20/17 shows no opaque foreign body that is ring, marked bowel wall enhancement in the proximal jejunum gallstones prominent, gallbladder otherwise benign EGD/colonoscopy performed on 05/21/17 Results show Small hiatal hernia, Gastritis, Foreign body in the colon, biopsies pending Dysphasia, resolved, patient is drinking water without any distress. 05/22/17 Current labs show hemoglobin stable at 12.7 no active bleeding Potassium 2.9 today. Being monitored per critical care team Bilirubin 1.5 AST 56, ALT 25 Ammonia level decreased to 35 on 05/21/17 Transaminitis, with mild elevated AST, other labs are trending down Plan Diet, clear liquids, may increase as patient tolerates Recheck ammonia level and CMP in a.m. Monitor for any acute bleeding On at her labs with special attention to hemoglobin, LFTs Supportive care Would benefit from outpatient follow-up with GI. (Nadja Umaña) Physician Comments Patient seen and examined Agree with above Continue with current supportive care Monitor labs Not much to add from a GI standpoint we will sign off (Nitish Valdez MD) Nadja Umaña May 22, 2017 15:54 Nitish Valdez MD May 22, 2017 18:55
[2017-05-23] VITALS (13 sets, daily range): BP systolic 97–111; BP diastolic 52–77; PULSE 75–94; RESP 16–28; TEMP 98.5–98.9; O2SAT 93–100
[2017-05-23] MEDS: INSULIN ASPART SUPPLEMENTAL SCALE SQ SCH ×6 (00:15→20:15)
[2017-05-23] MEDS: cloNIDine HCL 0.1 MG TAB PO SCH ×4 (01:36→23:46)
[2017-05-23] MEDS: SODIUM CHLORIDE 23.4% INJ 38.5 MEQ in WATER STERILE FOR INJ 1,000 ML IV SCH ×2 (03:09→11:45)
[2017-05-23] MEDS: metroNIDAZOLE 500 MG INJ 100 ML IV SCH ×3 (03:15→21:55)
[2017-05-23] MEDS: cefTRIAXone INJ 2,000 MG in SODIUM CHLORIDE 0.9% INJ 100 ML IV SCH (03:15)
[2017-05-23] MEDS: RESP: ALBUTEROL 2.5 MG/IPRATROPIUM 0.5 MG NEB (SCH) NEB ×4 (04:08→21:27)
--- NOTE | 2017-05-23 04:36 | RADRPT ---
EXAM DATE/TIME: 05/23/2017 03:19 [place] COMPARISON: CHEST SINGLE AP, May 22, 2017, 1:44. INDICATIONS : Shortness of breath, possible pulmonary disease. MEDICAL HISTORY : None. SURGICAL HISTORY : None. ENCOUNTER: Subsequent ACUITY: 1 week PAIN SCORE: Non-responsive. LOCATION: Bilateral chest FINDINGS: Slight right pleural effusion and right lung base consolidation has not changed. ET tube and NG tube have been removed. The rest of the examination has not significantly changed. CONCLUSION: Right lung base consolidation and pleural effusion have not changed. Héctor Avalos MD on May 23, 2017 at 4:33 Board Certified Radiologist. This report was verified electronically.
[2017-05-23] MEDS: FREE WATER OG-TUBE SCH ×5 (05:28→23:46)
[2017-05-23 07:06] LABS: AUTOMATED NEUTROPHIL # 2.3 TH/MM3 (1.8-7.7); BASOPHIL % 0.4 % (0.0-2.0); HEMATOCRIT 35.2 % (39.0-51.0); HEMOGLOBIN 12.1 GM/DL (13.0-17.0); LYMPH % 16.1 % (9.0-44.0); LYMPHOCYTE # 0.5 TH/MM3 (1.0-4.8); MEAN CELL VOLUME 103.6 FL (80.0-100.0); MEAN CORPUSCULAR HEMOGLOBIN 35.7 PG (27.0-34.0); MEAN CORPUSCULAR HGB CONC 34.5 % (32.0-36.0); MEAN PLATELET VOLUME 10.1 FL (7.0-11.0); MONO % 7.7 % (0.0-8.0); MONOCYTE # 0.2 TH/MM3 (0-0.9); NEUT % 75.8 % (16.0-70.0); PLATELET COUNT 57 TH/MM3 (150-450); RED CELL DISTRIBUTION WIDTH 13.2 % (11.6-17.2); WHITE BLOOD COUNT 3.1 TH/MM3 (4.0-11.0)
[2017-05-23 07:31] LABS: ALBUMIN 2.6 GM/DL (3.4-5.0); AST (GOT) 59 U/L (15-37); BICARBONATE 31.5 MEQ/L (21.0-32.0); BLOOD UREA NITROGEN 23 MG/DL (7-18); CALCIUM 8.8 MG/DL (8.5-10.1); CHLORIDE 112 MEQ/L (98-107); CREATININE 0.97 MG/DL (0.60-1.30); GLOMERULAR FILTRATION RATE 79 ML/MIN (>89); GLUCOSE,RANDOM 154 MG/DL (74-106); SODIUM (NA) 149 MEQ/L (136-145)
[2017-05-23 07:34] LABS: ALKALINE PHOSPHATASE 78 U/L (45-117); ALT (GPT) 33 U/L (12-78); PHOSPHORUS 3.5 MG/DL (2.5-4.9); TOTAL BILIRUBIN ADULT 1.4 MG/DL (0.2-1.0); TOTAL PROTEIN 6.1 GM/DL (6.4-8.2)
[2017-05-23] MEDS: CHLORHEXIDINE 0.12% (ORAL KIT) 15 ML CUP MT SCH ×4 (08:00→20:00)
[2017-05-23] MEDS: INSULIN DETEMIR 100 UNITS/ML VIAL SQ SCH ×2 (09:00→21:57)
[2017-05-23] MEDS: FUROSEMIDE 40 MG/4 ML VIAL IV PUSH SCH (10:38)
[2017-05-23] MEDS: THIAMINE HCL 100 MG TAB PO SCH (10:38)
[2017-05-23] MEDS: SODIUM CHLORIDE 0.9% FLUSH 10 ML FLUSH IV FLUSH SCH ×2 (10:39→21:00)
[2017-05-23] MEDS: LACTULOSE SYRUP 20 GM/30 ML CUP PO SCH ×4 (10:39→21:45)
[2017-05-23] MEDS: FAMOTIDINE 20 MG/2 ML VIAL IV PUSH SCH ×2 (10:39→22:04)
[2017-05-23] MEDS: ICU - POTASSIUM CHLORIDE/AQUEOUS SOLN 20 MEQ/100 ML IVPB IV PRN ×3 (12:20→17:21)
--- NOTE | 2017-05-23 13:08 | HHI.CCPN ---
Subjective Remarks/Hospital Course 61-year-old male admitted under Cottrell act. According to the Cottrell act report, contact was made with the patient in regards to his calling about his behavior being abnormal." According to the patient's per documentation, the patient has been defecating on himself, attempting to swallow household ornament items and has become aggressive. During my assessment the patient is extremely agitated, not following commands. 05/15/17: Intermittently severely agitated. Remains on Precedex. With 2 mg of IV Ativan he became oversedated, hypoxemic. Now improving. Spiking a fever 101.5. Pancultured. On argatroban for possible dural venous thrombosis, but MRV negative for any thrombus or occlusion. Patient will possibly need a lumbar puncture but currently on argatroban. Will discuss with Dr. Rai and KIM argatroban, transfuse platelet 05/16/17: Remains on Precedex sedated. Receiving Librium scheduled and as needed Ativan. Intermittently agitated. Started on vancomycin, ceftriaxone, ampicillin and acyclovir yesterday. Overnight lumbar puncture was done which was bloody tap (could be related to thrombocytopenia and previous argatroban use ). Fever and sepsis most likely related to right lower lobe infiltrate/ pneumonia. Possible patient might have aspirated the risks evidence of volume loss on chest x-ray repeat chest x-ray today pending 05/17/17: Remains intubated sedated with propofol. Chest CT shows extensive right lower lung consolidation with some atelectasis and volume loss. Bronchoscopy performed yesterday BAL negative to date. Continuing antibiotics per ID, HSV still pending 05/18: Chest x-ray stable to slightly improved on my review. Fluid overload noted, one dose of 40 mg IV Lasix ordered. HSV is still pending. Encephalopathy persists 05/19: Patient still remains unresponsive off sedation. Tachycardic with heart rate in 130s appears to be sinus. Good response to IV Lasix with approximately 5 L urine output. Start clonidine for hypertension, tachycardia and uncontrolled withdrawal symptoms. HSV pending 05/20: Continues to have recurrent fever. Repeat CT chest, abdomen pelvis. Previous CT chest concern about empyema, but fluid was too small to drain. Remains encephalopathy on the vent. Slight improvement in mental status. Partial opening of eyes moving extremities left more than right. HSV negative and acyclovir stopped. Sodium increased to 152 replacement ordered. It remains elevated at 330- 380. Levemir 5 every 12 and increase NovoLog sliding scale to medium. 05/21: Patient remains intubated off all sedation. CT chest abdomen pelvis showed right-sided trapped lung, also ring in the cecum and significant jejunal thickening. EGD colonoscopy planned for today. Slightly tachypneic on attempted CPAP. Tmax 101.3. Blood sugar control improved. Na 154 today, start 1/ 4NS for free water replacement. Neuro exam is slightly improved patient starting to follow commands on upper extremities. 05/22: Neuro exam is slightly improved today patient is somnolent but wakes and follows commands weakly. Had a colonoscopy yesterday foreign body/ring was removed. Fever is trending down now. On EGD Stomach: diffuse erythema in a patchy and punctate fashion this was biopsied there were no ulcerations or erosions. Biopsies taken. most CSF studies essentially negative 03/22: Patient awake following commands intermittently. Patient extubated yesterday doing well, O2 saturation 9798 percent on room air. Formal swallow evaluation pending. Objective Vital Signs Date Time Temp Pulse Resp B/P (MAP) Pulse Ox O2 Delivery O2 Flow Rate FiO2 05/23/17 10:00 83 05/23/17 08:49 98 Nasal Cannula 2.00 05/23/17 07:00 98 05/23/17 04:00 98.6 18 97/52 (67) Intake and Output 05/23/17 05/23/17 05/24/17 08:00 16:00 00:00 Intake Total 800 ml Output Total 950 ml Balance -150 ml Result Diagram: 05/23/17 0640 05/23/17 0640 Imaging Last Impressions Chest X-Ray 05/23/17 0600 Signed Impressions: Service Date/Time: Tuesday, May 23, 2017 03:19 - CONCLUSION: Right lung base consolidation and pleural effusion have not changed. Héctor Avalos MD Chest CT 05/20/17 0000 Signed Impressions: Service Date/Time: Saturday, May 20, 2017 10:58 - CONCLUSION: Consolidative changes right lower lobe and trace pleural effusion. Fluid does not appear loculated however there is minimal enhancing rind of pleura about the lung suggesting this lung is trapped. Maxwell Marion MD FACR Abdomen/Pelvis CT 05/20/17 0000 Signed Impressions: Service Date/Time: Saturday, May 20, 2017 10:58 - CONCLUSION: 1. No opaque foreign body right lower quadrant that is ring 2. Consolidative changes right lower lobe with air bronchograms. Trace pleural effusion. 3. Enhancing pleura on the right probably trapped lung 4. Marked bowel wall enhancement in the proximal jejunum the differential as above 5. Gallstones prominent gallbladder otherwise appears benign. Maxwell Marion MD FACR Upper Extremity Ultrasound 05/19/17 0000 Signed Impressions: Service Date/Time: Friday, May 19, 2017 11:32 - CONCLUSION: 1. There is nonocclusive thrombus within the left cephalic vein at the antecubital fossa where an IV line is located. 2. Remainder of the left upper extremity and the entire right upper extremity are patent without thrombus. Sumit Turcios MD Lower Extremity Ultrasound 05/19/17 0000 Signed Impressions: Service Date/Time: Friday, May 19, 2017 10:54 - CONCLUSION: No DVT is identified within either lower extremity. Sumit Turcios MD Head CT 05/19/17 0000 Signed Impressions: Service Date/Time: Friday, May 19, 2017 08:09 - CONCLUSION: 1. No acute intracranial abnormality or significant interval change. Stepan López MD Liver Ultrasound 05/15/17 0000 Signed Impressions: Service Date/Time: Monday, May 15, 2017 08:32 - CONCLUSION: 1. Liver and spleen are both enlarged. No focal lesions. 2. Very small amount of ascites along the hepatic border. 3. Possible small gallbladder polyp. Alan Alex MD Head/Brain Mag Res Venography 05/15/17 0000 Signed Impressions: Service Date/Time: Monday, May 15, 2017 09:41 - CONCLUSION: Normal study. Sumit Young MD Brain MRI 05/14/17 0000 Signed Impressions: Service Date/Time: May 13:12 - CONCLUSION: Incompletely occlusive dural sinus thrombosis. Sumit Young MD Objective Remarks GENERAL: male, awake alert intermittently confused, following commands SKIN: Focused skin assessment warm and dry HEAD: Atraumatic. Normocephalic. EYES: No scleral icterus. No injection or drainage. Pupils equal reactive ENT: Nose without bleeding, orotracheally intubated NECK: Trachea midline. No neck stiffness/meningismus CARDIOVASCULAR: Sinus rhythm without murmurs, gallops, or rubs. RESPIRATORY: Breath sounds equal bilaterally, except diminished at the right base. No wheezes GASTROINTESTINAL: Abdomen soft, non-tender, nondistended. No guarding. MUSCULOSKELETAL: Extremities without clubbing, cyanosis, or edema. NEUROLOGICAL: GCS 14 . Moving all extremities spontaneously. Following commands x4 A/P Assessment and Plan Neuro: Altered mental status/delirium Metabolic encephalopathy Alcohol withdrawal syndrome - Off all continuos sedation. Clonidine 0.1 mg every 8 hours to control withdrawal symptoms tachycardia and hypotension - Neuro exam improved today, though lethargic - CT head negative x3 negative - Lumbar puncture had bloody tab most likely from thrombocytopenia and recent argatroban use (DCd 05/15). CSF studies negative for infectious etiologies - MRV negative for any dural sinus thrombosis - Drug screen toxicology negative -Agitation most likely secondary to alcohol withdrawal - Hematology, ID, neurology following - Broad-spectrum meningitic coverage with Rocephin, Flagyl. 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 Continue aggressive pulmonary toilet CVS: Fluid overload - Monitor vitals closely - IV Lasix 20 mg daily - Free water replacement with quarter normal saline - Sinus tachycardia due to withdrawal-good response to clonidine GI Elevated ammonia level Foreign body/Ring in Cecum Jejunal thickening on CT - Lactulose by mouth, trend ammonia - EGD/Colonoscopy with ring removed by Dr. Valdez. Also f/u on gastric biopsies - Patient was swallowing objects prior to admission - Formal swallow pending by speech [id number] recommendations - Ammonia 42 on 05/19 ID: - fever trending down with cecal foreign body/ring removal - Inflammatory fever now improving. Cultures CSF studies negative - s/p EGD/ colonoscopy with biopsy - Broad-spectrum meningitic coverage with Rocephin, Flagyl - BAL cultures remains negative to date, CSF HSV negative - Hep C reactive Heme: - Thrombocytopenia most likely secondary to alcohol dependence, bone marrow suppression, and splenomegaly, sepsis Endo: Hyperglycemia - Insulin sliding scale - Hematology following DVT GI prophylaxis - Teds SCDs - No chemical DVT prophylaxis due to thrombocytopenia - Pepcid Level 2 follow-up . Fever trending down after foreign body removal from cecum. [facility] floor when bed becomes available Physician Sherri Salas MD May 23, 2017 13:08
[2017-05-24] VITALS (9 sets, daily range): BP systolic 104–134; BP diastolic 56–79; PULSE 74–87; RESP 20–24; TEMP 97.3–98.1; O2SAT 95–97
[2017-05-24] MEDS: INSULIN ASPART SUPPLEMENTAL SCALE SQ SCH ×6 (00:15→22:48)
[2017-05-24] MEDS: RESP: ALBUTEROL 2.5 MG/IPRATROPIUM 0.5 MG NEB (SCH) NEB ×2 (02:43→09:59)
[2017-05-24] MEDS: cefTRIAXone INJ 2,000 MG in SODIUM CHLORIDE 0.9% INJ 100 ML IV SCH (03:48)
[2017-05-24] MEDS: metroNIDAZOLE 500 MG INJ 100 ML IV SCH ×3 (04:46→22:49)
[2017-05-24] MEDS: FREE WATER OG-TUBE SCH ×4 (04:48→22:50)
[2017-05-24] MEDS: SODIUM CHLORIDE 23.4% INJ 38.5 MEQ in WATER STERILE FOR INJ 1,000 ML IV SCH ×2 (05:15→22:46)
[2017-05-24] MEDS: CHLORHEXIDINE 0.12% (ORAL KIT) 15 ML CUP MT SCH ×4 (08:00→20:00)
[2017-05-24] MEDS: FAMOTIDINE 20 MG/2 ML VIAL IV PUSH SCH ×2 (09:00→22:45)
[2017-05-24] MEDS: SODIUM CHLORIDE 0.9% FLUSH 10 ML FLUSH IV FLUSH SCH ×2 (09:00→22:45)
[2017-05-24] MEDS: FUROSEMIDE 40 MG/4 ML VIAL IV PUSH SCH (09:00)
--- NOTE | 2017-05-24 09:12 | HHI.PR ---
Subjective Remarks The patient is in bed agitated on/off. He denies chest pain or shortness of breath. She is satting well on 2 L by nasal cannula at this time. No fever or chills. With urinary retention, free cath by 4 times per nurse not able to straight cath patient. Patient also reports suprapubic pain. Started on Flomax. Will consult neurology. Objective Vitals Vital Signs Date Time Temp Pulse Resp B/P (MAP) Pulse Ox O2 Delivery O2 Flow Rate FiO2 05/24/17 07:40 97.3 74 22 104/64 (77) 97 05/24/17 04:39 97.8 77 24 113/56 (75) 95 05/24/17 01:08 98.1 87 20 134/79 (97) 95 05/23/17 21:33 94 Nasal Cannula 2.00 05/23/17 21:08 98.6 83 24 104/64 (77) 94 05/23/17 19:00 3 Nasal Cannula 95 05/23/17 19:00 96 Nasal Cannula 3.00 05/23/17 18:00 84 05/23/17 16:00 98.7 89 28 107/61 (76) 94 05/23/17 16:00 89 05/23/17 14:00 94 05/23/17 12:00 98.5 86 23 108/77 (87) 93 05/23/17 12:00 86 05/23/17 10:00 83 I/O 05/23/17 05/23/17 05/23/17 05/24/17 05/24/17 05/24/17 07:00 15:00 23:00 07:00 15:00 23:00 Intake Total 800 ml 825 ml 100 ml Output Total 950 ml 1600 ml 350 ml Balance -150 ml -775 ml -250 ml Intake Oral 600 ml 725 ml IV Total 200 ml 100 ml 100 ml Output Urine Total 950 ml 1600 ml 350 ml Bladder Scan Volume Amount 296 ml # Bowel Movements 4 2 1 Result Diagram: 05/23/17 0640 05/23/17 0640 Imaging Last Impressions Chest X-Ray 05/23/17 0600 Signed Impressions: Service Date/Time: Tuesday, May 23, 2017 03:19 - CONCLUSION: Right lung base consolidation and pleural effusion have not changed. KSonya Avalos MD Chest CT 05/20/17 0000 Signed Impressions: Service Date/Time: Saturday, May 20, 2017 10:58 - CONCLUSION: Consolidative changes right lower lobe and trace pleural effusion. Fluid does not appear loculated however there is minimal enhancing rind of pleura about the lung suggesting this lung is trapped. Maxwell Marion MD FACR Abdomen/Pelvis CT 05/20/17 0000 Signed Impressions: Service Date/Time: Saturday, May 20, 2017 10:58 - CONCLUSION: 1. No opaque foreign body right lower quadrant that is ring 2. Consolidative changes right lower lobe with air bronchograms. Trace pleural effusion. 3. Enhancing pleura on the right probably trapped lung 4. Marked bowel wall enhancement in the proximal jejunum the differential as above 5. Gallstones prominent gallbladder otherwise appears benign. Maxwell Marion MD FACR Upper Extremity Ultrasound 05/19/17 0000 Signed Impressions: Service Date/Time: Friday, May 19, 2017 11:32 - CONCLUSION: 1. There is nonocclusive thrombus within the left cephalic vein at the antecubital fossa where an IV line is located. 2. Remainder of the left upper extremity and the entire right upper extremity are patent without thrombus. Sumit Turcios MD Lower Extremity Ultrasound 05/19/17 0000 Signed Impressions: Service Date/Time: Friday, May 19, 2017 10:54 - CONCLUSION: No DVT is identified within either lower extremity. Sumit Turcios MD Head CT 05/19/17 0000 Signed Impressions: Service Date/Time: Friday, May 19, 2017 08:09 - CONCLUSION: 1. No acute intracranial abnormality or significant interval change. Stepan López MD Liver Ultrasound 05/15/17 0000 Signed Impressions: Service Date/Time: Monday, May 15, 2017 08:32 - CONCLUSION: 1. Liver and spleen are both enlarged. No focal lesions. 2. Very small amount of ascites along the hepatic border. 3. Possible small gallbladder polyp. Alan Alex MD Head/Brain Mag Res Venography 05/15/17 0000 Signed Impressions: Service Date/Time: Monday, May 15, 2017 09:41 - CONCLUSION: Normal study. Sumit Young MD Brain MRI 05/14/17 0000 Signed Impressions: Service Date/Time: May 13:12 - CONCLUSION: Incompletely occlusive dural sinus thrombosis. Sumit Young MD Objective Remarks GENERAL: male, awake alert intermittently confused, following commands SKIN: Focused skin assessment warm and dry HEAD: Atraumatic. Normocephalic. EYES: No scleral icterus. No injection or drainage. Pupils equal reactive ENT: Nose without bleeding, orotracheally intubated NECK: Trachea midline. No neck stiffness/meningismus CARDIOVASCULAR: Sinus rhythm without murmurs, gallops, or rubs. RESPIRATORY: Breath sounds equal bilaterally, except diminished at the right base. No wheezes GASTROINTESTINAL: Abdomen soft, non-tender, nondistended. No guarding. MUSCULOSKELETAL: Extremities without clubbing, cyanosis, or edema. NEUROLOGICAL: Moving all extremities spontaneously. Following commands x4 A/P Assessment and Plan Neuro: Altered mental status/delirium Metabolic encephalopathy Alcohol withdrawal syndrome - Off all continuos sedation. Clonidine 0.1 mg every 8 hours to control withdrawal symptoms tachycardia and hypotension - Neuro exam improved today, though lethargic - CT head negative x3 negative - Lumbar puncture had bloody tab most likely from thrombocytopenia and recent argatroban use (DCd 05/15). CSF studies negative for infectious etiologies - MRV negative for any dural sinus thrombosis - Drug screen toxicology negative -Agitation most likely secondary to alcohol withdrawal - Hematology, ID, neurology following - Broad-spectrum meningitic coverage with Rocephin, Flagyl. 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 Continue aggressive pulmonary toilet CVS: Fluid overload - Monitor vitals closely - IV Lasix 20 mg daily - Free water replacement with quarter normal saline - Sinus tachycardia due to withdrawal-good response to clonidine GI Elevated ammonia level Foreign body/Ring in Cecum Jejunal thickening on CT - Lactulose by mouth, trend ammonia - EGD/Colonoscopy with ring removed by Dr. Valdez. Also f/u on gastric biopsies - Patient was swallowing objects prior to admission - Formal swallow pending by speech [id number] recommendations - Ammonia 42 on 05/19 ID: - fever trending down with cecal foreign body/ring removal - Inflammatory fever now improving. Cultures CSF studies negative - s/p EGD/ colonoscopy with biopsy - Broad-spectrum meningitic coverage with Rocephin, Flagyl - BAL cultures remains negative to date, CSF HSV negative - Hep C reactive Heme: - Thrombocytopenia most likely secondary to alcohol dependence, bone marrow suppression, and splenomegaly, sepsis Endo: Hyperglycemia - Insulin sliding scale - Hematology following DVT GI prophylaxis - Teds SCDs - No chemical DVT prophylaxis due to thrombocytopenia - Pepcid Fever trending down after foreign body removal from cecum. With urinary retention. Multiple attempts to do straight cath. Consult urology for further evaluation Trixie Soto MD May 24, 2017 09:12
[2017-05-24] MEDS: cloNIDine HCL 0.1 MG TAB PO SCH ×3 (09:37→18:33)
[2017-05-24] MEDS: THIAMINE HCL 100 MG TAB PO SCH (09:37)
[2017-05-24] MEDS: LACTULOSE SYRUP 20 GM/30 ML CUP PO SCH ×4 (09:37→22:45)
[2017-05-24] MEDS: INSULIN DETEMIR 100 UNITS/ML VIAL SQ SCH ×2 (09:38→22:47)
[2017-05-24] MEDS ORDERED: TAMSULOSIN HCL 0.4 MG CAP PO ONE (13:15)
[2017-05-24] MEDS ORDERED: POTASSIUM CHLORIDE 20 MEQ CONTROLLED RELEASE TAB PO ONE (14:45)
[2017-05-24] MEDS: MAGNESIUM OXIDE 400 MG TAB PO SCH (18:31)
[2017-05-25] VITALS (9 sets, daily range): BP systolic 93–109; BP diastolic 51–68; PULSE 82–101; RESP 17–20; TEMP 97–98.1; O2SAT 95–97
[2017-05-25] MEDS: INSULIN ASPART SUPPLEMENTAL SCALE SQ SCH ×6 (00:15→20:15)
[2017-05-25] MEDS: metroNIDAZOLE 500 MG INJ 100 ML IV SCH ×2 (04:35→13:04)
[2017-05-25] MEDS: cefTRIAXone INJ 2,000 MG in SODIUM CHLORIDE 0.9% INJ 100 ML IV SCH (04:36)
[2017-05-25] MEDS: FREE WATER OG-TUBE SCH ×3 (05:55→17:49)
[2017-05-25] MEDS: CHLORHEXIDINE 0.12% (ORAL KIT) 15 ML CUP MT SCH ×4 (08:00→20:00)
[2017-05-25] MEDS: POTASSIUM CHLORIDE 20 MEQ CONTROLLED RELEASE TAB PO SCH (09:08)
[2017-05-25] MEDS: cloNIDine HCL 0.1 MG TAB PO SCH ×3 (09:08→15:41)
[2017-05-25] MEDS: FAMOTIDINE 20 MG/2 ML VIAL IV PUSH SCH ×2 (09:08→21:48)
[2017-05-25] MEDS: MAGNESIUM OXIDE 400 MG TAB PO SCH (09:08)
[2017-05-25] MEDS: THIAMINE HCL 100 MG TAB PO SCH (09:08)
[2017-05-25] MEDS: TAMSULOSIN HCL 0.4 MG CAP PO SCH (09:08)
[2017-05-25] MEDS: LACTULOSE SYRUP 20 GM/30 ML CUP PO SCH ×4 (09:09→21:48)
[2017-05-25] MEDS: QUEtiapine FUMARATE 25 MG TAB PO SCH ×2 (09:09→13:04)
[2017-05-25] MEDS: FUROSEMIDE 40 MG/4 ML VIAL IV PUSH SCH (09:09)
[2017-05-25] MEDS: SODIUM CHLORIDE 0.9% FLUSH 10 ML FLUSH IV FLUSH SCH ×2 (09:09→21:47)
[2017-05-25] MEDS: INSULIN DETEMIR 100 UNITS/ML VIAL SQ SCH ×2 (09:10→21:47)
--- NOTE | 2017-05-25 09:59 | PD.CONS ---
HPI Service Urology Consult Requested By Dr. Soto Reason for Consult Difficult catheterization Primary Care Physician Unknown Diagnosis: History of Present Illness 61 year-old gentleman with hyperammonemia and admitted under the Cottrell act for altered mental status. During his present hospitalization the patient has been catheterized to facilitate bladder drainage. The catheterizations have become more difficult to perform a urology consult was placed. At the time of consultation the patient was voiding spontaneously and his bladder was not distended on physical exam. The patient screamed at me that his bladder was fine and wanted to be left alone. Unable to obtain any additional history from this patient. Review of Systems ROS Limitations: Altered Mental Status Except as stated in HPI: all other systems reviewed are Neg Past Family Social History Past Medical History Refer to EMR Past Surgical History Refer to EMR Reported Medications Refer to EMR Allergies: Coded Allergies: No Allergy Information Available (Unverified , 05/13/17) PT HAS ALTERED MENTAL STATUS Active Ordered Medications Refer to EMR Family History Refer to EMR Social History Refer to EMR Physical Exam Vital Signs Date Time Temp Pulse Resp B/P (MAP) Pulse Ox O2 Delivery O2 Flow Rate FiO2 05/25/17 08:00 97.9 82 17 105/55 (72) 96 05/25/17 05:31 97.2 94 19 109/62 (78) 97 05/25/17 01:10 98.1 101 18 93/51 (65) 95 05/25/17 01:00 97 05/25/17 00:56 84 05/24/17 21:34 95 Nasal Cannula 2.00 05/24/17 20:44 98.0 84 22 119/69 (86) 95 05/24/17 17:35 97 Nasal Cannula 2.00 05/24/17 15:33 97.5 76 22 110/62 (78) 97 05/24/17 11:55 97.9 85 22 117/61 (79) 97 Physical Exam GENERAL: Appears stated age GASTROINTESTINAL: Abdomen soft, non-tender, nondistended. No hepato-splenomegaly , or palpable masses. No guarding. GENITOURINARY: Bladder not distended MUSCULOSKELETAL: Extremities without clubbing, cyanosis, or edema. NEUROLOGICAL: Altered mental status. Lab results reviewed: Yes Date/Time Source Procedure Growth Status 05/15/17 16:44 Blood Peripheral Aerobic Blood Culture - Final NO GROWTH IN 5 DAYS Complete 05/15/17 16:44 Blood Peripheral Anaerobic Blood Culture - Final NO GROWTH IN 5 DAYS Complete 05/16/17 04:30 Cerebral Spinal Fluid Lumbar Puncture Fungal Smear - Final NO FUNGAL ELEMENTS SEEN. Resulted 05/16/17 04:30 Cerebral Spinal Fluid Lumbar Puncture Fungal Culture - Preliminary NO GROWTH IN 1 WEEK Resulted 05/15/17 14:28 Stool Stool Stool Occult Blood (JAMIE) - Final HEMOCCULT NEGATIVE Complete 05/16/17 17:45 Bronchial Washings Right Lower Lobe Fungal Smear - Final NO FUNGAL ELEMENTS SEEN. Resulted 05/16/17 17:45 Bronchial Washings Right Lower Lobe Fungal Culture - Preliminary NO GROWTH IN 1 WEEK Resulted 05/15/17 16:30 Urine Catheterized Urine Urine Culture - Final NO GROWTH IN 48 HOURS. Complete Result Diagram: 05/23/17 0640 05/23/17 0640 Imaging Last Impressions Chest X-Ray 05/23/17 0600 Signed Impressions: Service Date/Time: Tuesday, May 23, 2017 03:19 - CONCLUSION: Right lung base consolidation and pleural effusion have not changed. Héctor Avalos MD Chest CT 05/20/17 0000 Signed Impressions: Service Date/Time: Saturday, May 20, 2017 10:58 - CONCLUSION: Consolidative changes right lower lobe and trace pleural effusion. Fluid does not appear loculated however there is minimal enhancing rind of pleura about the lung suggesting this lung is trapped. Maxwell Marion MD FACR Abdomen/Pelvis CT 05/20/17 0000 Signed Impressions: Service Date/Time: Saturday, May 20, 2017 10:58 - CONCLUSION: 1. No opaque foreign body right lower quadrant that is ring 2. Consolidative changes right lower lobe with air bronchograms. Trace pleural effusion. 3. Enhancing pleura on the right probably trapped lung 4. Marked bowel wall enhancement in the proximal jejunum the differential as above 5. Gallstones prominent gallbladder otherwise appears benign. Maxwell Marion MD FACR Upper Extremity Ultrasound 05/19/17 0000 Signed Impressions: Service Date/Time: Friday, May 19, 2017 11:32 - CONCLUSION: 1. There is nonocclusive thrombus within the left cephalic vein at the antecubital fossa where an IV line is located. 2. Remainder of the left upper extremity and the entire right upper extremity are patent without thrombus. Sumit Turcios MD Lower Extremity Ultrasound 05/19/17 0000 Signed Impressions: Service Date/Time: Friday, May 19, 2017 10:54 - CONCLUSION: No DVT is identified within either lower extremity. Sumit Turcios MD Head CT 05/19/17 0000 Signed Impressions: Service Date/Time: Friday, May 19, 2017 08:09 - CONCLUSION: 1. No acute intracranial abnormality or significant interval change. Stepan López MD Liver Ultrasound 05/15/17 0000 Signed Impressions: Service Date/Time: Monday, May 15, 2017 08:32 - CONCLUSION: 1. Liver and spleen are both enlarged. No focal lesions. 2. Very small amount of ascites along the hepatic border. 3. Possible small gallbladder polyp. Alan Alex MD Head/Brain Mag Res Venography 05/15/17 0000 Signed Impressions: Service Date/Time: Monday, May 15, 2017 09:41 - CONCLUSION: Normal study. Sumit Young MD Brain MRI 05/14/17 0000 Signed Impressions: Service Date/Time: May 13:12 - CONCLUSION: Incompletely occlusive dural sinus thrombosis. Sumit Young MD Assessment and Plan Assessment and Plan Urologic impression: 1. Voiding spontaneously 2. Bladder not distended Recommendation: 1. conservative management 2. Will be available as needed Clinton Vasquez MD May 25, 2017 09:59
[2017-05-25 10:52] LABS: ALBUMIN 2.9 GM/DL (3.4-5.0); AST (GOT) 58 U/L (15-37); BICARBONATE 25.7 MEQ/L (21.0-32.0); CALCIUM 8.9 MG/DL (8.5-10.1); CHLORIDE 110 MEQ/L (98-107); CREATININE 0.79 MG/DL (0.60-1.30); GLOMERULAR FILTRATION RATE 100 ML/MIN (>89); GLUCOSE,RANDOM 142 MG/DL (74-106); MAGNESIUM 1.9 MG/DL (1.5-2.5); SODIUM (NA) 143 MEQ/L (136-145)
[2017-05-25 11:02] LABS: ALKALINE PHOSPHATASE 102 U/L (45-117); ALT (GPT) 36 U/L (12-78); BLOOD UREA NITROGEN 10 MG/DL (7-18); TOTAL BILIRUBIN ADULT 1.5 MG/DL (0.2-1.0); TOTAL PROTEIN 6.6 GM/DL (6.4-8.2)
--- NOTE | 2017-05-25 12:58 | HHI.PR ---
Subjective Remarks He appears sleepy. Has no pain at this time. Francisco seen. Clear urine coming out. Patient with agitation on and off. No nausea or vomiting no diarrhea or constipation. Objective Vitals Vital Signs Date Time Temp Pulse Resp B/P (MAP) Pulse Ox O2 Delivery O2 Flow Rate FiO2 05/25/17 12:00 97.2 98 18 103/68 (80) 97 05/25/17 11:49 96 Nasal Cannula 2.00 05/25/17 08:00 97.9 82 17 105/55 (72) 96 05/25/17 05:31 97.2 94 19 109/62 (78) 97 05/25/17 01:10 98.1 101 18 93/51 (65) 95 05/25/17 01:00 97 05/25/17 00:56 84 05/24/17 21:34 95 Nasal Cannula 2.00 05/24/17 20:44 98.0 84 22 119/69 (86) 95 05/24/17 17:35 97 Nasal Cannula 2.00 05/24/17 15:33 97.5 76 22 110/62 (78) 97 I/O 05/24/17 05/24/17 05/24/17 05/25/17 05/25/17 05/25/17 07:00 15:00 23:00 07:00 15:00 23:00 Intake Total 100 ml 100 ml Output Total 350 ml 750 ml Balance -250 ml 100 ml -750 ml IV Total 100 ml 100 ml Output Urine Total 350 ml 750 ml Bladder Scan Volume Amount 296 ml # Voids 1 # Bowel Movements 1 4 3 Result Diagram: 05/23/17 0640 05/25/17 0825 Imaging Last Impressions Chest X-Ray 05/23/17 0600 Signed Impressions: Service Date/Time: Tuesday, May 23, 2017 03:19 - CONCLUSION: Right lung base consolidation and pleural effusion have not changed. Héctor Avalos MD Chest CT 05/20/17 0000 Signed Impressions: Service Date/Time: Saturday, May 20, 2017 10:58 - CONCLUSION: Consolidative changes right lower lobe and trace pleural effusion. Fluid does not appear loculated however there is minimal enhancing rind of pleura about the lung suggesting this lung is trapped. Maxwell Marion MD FACR Abdomen/Pelvis CT 05/20/17 0000 Signed Impressions: Service Date/Time: Saturday, May 20, 2017 10:58 - CONCLUSION: 1. No opaque foreign body right lower quadrant that is ring 2. Consolidative changes right lower lobe with air bronchograms. Trace pleural effusion. 3. Enhancing pleura on the right probably trapped lung 4. Marked bowel wall enhancement in the proximal jejunum the differential as above 5. Gallstones prominent gallbladder otherwise appears benign. Maxwell Marion MD FACR Upper Extremity Ultrasound 05/19/17 0000 Signed Impressions: Service Date/Time: Friday, May 19, 2017 11:32 - CONCLUSION: 1. There is nonocclusive thrombus within the left cephalic vein at the antecubital fossa where an IV line is located. 2. Remainder of the left upper extremity and the entire right upper extremity are patent without thrombus. Sumit Turcios MD Lower Extremity Ultrasound 05/19/17 0000 Signed Impressions: Service Date/Time: Friday, May 19, 2017 10:54 - CONCLUSION: No DVT is identified within either lower extremity. Sumit Turcios MD Head CT 05/19/17 0000 Signed Impressions: Service Date/Time: Friday, May 19, 2017 08:09 - CONCLUSION: 1. No acute intracranial abnormality or significant interval change. Stepan López MD Liver Ultrasound 05/15/17 0000 Signed Impressions: Service Date/Time: Monday, May 15, 2017 08:32 - CONCLUSION: 1. Liver and spleen are both enlarged. No focal lesions. 2. Very small amount of ascites along the hepatic border. 3. Possible small gallbladder polyp. Alan Alex MD Head/Brain Mag Res Venography 05/15/17 0000 Signed Impressions: Service Date/Time: Monday, May 15, 2017 09:41 - CONCLUSION: Normal study. Sumit Young MD Brain MRI 05/14/17 0000 Signed Impressions: Service Date/Time: May 13:12 - CONCLUSION: Incompletely occlusive dural sinus thrombosis. Sumit Young MD Objective Remarks GENERAL: male, awake alert intermittently confused, following commands SKIN: Focused skin assessment warm and dry HEAD: Atraumatic. Normocephalic. EYES: No scleral icterus. No injection or drainage. Pupils equal reactive ENT: Nose without bleeding, orotracheally intubated NECK: Trachea midline. No neck stiffness/meningismus CARDIOVASCULAR: Sinus rhythm without murmurs, gallops, or rubs. RESPIRATORY: Breath sounds equal bilaterally, except diminished at the right base. No wheezes GASTROINTESTINAL: Abdomen soft, non-tender, nondistended. No guarding. MUSCULOSKELETAL: Extremities without clubbing, cyanosis, or edema. NEUROLOGICAL: Moving all extremities spontaneously. Following commands x4 A/P Assessment and Plan Neuro: Altered mental status/delirium Metabolic encephalopathy Alcohol withdrawal syndrome - Off all continuos sedation. Clonidine 0.1 mg every 8 hours to control withdrawal symptoms tachycardia and hypotension - Neuro exam improved today, though lethargic - CT head negative x3 negative - Lumbar puncture had bloody tab most likely from thrombocytopenia and recent argatroban use (DCd 05/15). CSF studies negative for infectious etiologies - MRV negative for any dural sinus thrombosis - Drug screen toxicology negative -Agitation most likely secondary to alcohol withdrawal - Hematology, ID, neurology following - Broad-spectrum meningitic coverage with Rocephin, Flagyl. HSV negative and acyclovir DC'd - Hyperammonemia, on lactulose - Thiamine folate multivitamin - - Patient was swallowing objects prior to admission- PSYCH evaluation once mentation improves, prior to discharge Resp: Acute hypoxemic respiratory failure Probable pneumonia Right lower lung is trapped, most likely chronically - ACV, ventilator bundle - DuoNeb every 6 hours as needed and scheduled - S/p bron, BAL cultures negative to date - Continue broad-spectrum antibiotics - Sedated 05/22. Continue aggressive pulmonary toilet CVS: Fluid overload - Monitor vitals closely - IV Lasix 20 mg daily - Free water replacement with quarter normal saline - Sinus tachycardia due to withdrawal-good response to clonidine GI Elevated ammonia level Foreign body/Ring in Cecum Jejunal thickening on CT - Lactulose by mouth, trend ammonia - EGD/Colonoscopy with ring removed by Dr. Valdez. Also f/u on gastric biopsies - Patient was swallowing objects prior to admission - Formal swallow pending by speech [id number] recommendations - Ammonia 42 on 05/19 ID: - fever trending down with cecal foreign body/ring removal - Inflammatory fever now improving. Cultures CSF studies negative - s/p EGD/ colonoscopy with biopsy - Broad-spectrum meningitic coverage with Rocephin, Flagyl - BAL cultures remains negative to date, CSF HSV negative - Hep C reactive Heme: - Thrombocytopenia most likely secondary to alcohol dependence, bone marrow suppression, and splenomegaly, sepsis Endo: Hyperglycemia - Insulin sliding scale - Hematology following DVT GI prophylaxis - Teds SCDs - No chemical DVT prophylaxis due to thrombocytopenia - Pepcid Fever trending down after foreign body removal from cecum. With urinary retention. Multiple attempts to do straight cath. Consult urology for further evaluation, francisco is placed in. Started flomax, will do voiding trials. Trixie Soto MD May 25, 2017 12:58
[2017-05-25] MEDS: SODIUM CHLORIDE 23.4% INJ 38.5 MEQ in WATER STERILE FOR INJ 1,000 ML IV SCH (13:03)
--- NOTE | 2017-05-25 13:10 | HHI.IDPN ---
Subjective Subjective Remarks Mr. Up is a 61-year-old male with past medical history significant for alcoholism and no reported prior history of psychiatric disorders. With this background patient was transferred to [facility] from [facility] for acute psychosis. Apparently the patient was found to be acutely psychotic his behavior included difficulty eating on himself, attempting to eat kitchen utensils, becoming aggressive. He was also witnessed to drink is on urine from a urinal in the [place] emergency department. He was not allergic to place time or person at the time of initial admission to the hospital. Imaging studies of the brain performed on May 24 at [facility] indicated a filling defect within the dural sinus most conspicuous in the posterior aspect superior sagittal sinus and right transverse sinus. Critical care was involved and patient was initiated on anticoagulation as well as heparin infusion. Hematology was consulted due to concern for thrombotic disorder process for which an extensive workup has been ordered at the present time. Patient also had an MRV an MRI of the brain. MRV does not show an acute thrombus at the present time. Patient underwent a lumbar puncture and the studies are indicative of a bloody tap rather than acute infectious process. She was started on empiric regimen for meningoencephalitis including ampicillin, ceftriaxone, vancomycin, acyclovir IV. Infectious disease consulted for evaluation and management of possible meningoencephalitis. Overnight events reviewed Drowsy but arousable. Leal in place. Flomax started. Urology consulted by prim team. No rash No diarrhea Antibiotics Ceftriaxone IV Flagyl IV Lines Line sites with no e.o infection. Past Medical History Alcoholism Allergies: Coded Allergies: No Allergy Information Available (Unverified , 05/13/17) PT HAS ALTERED MENTAL STATUS Objective . Vital Signs Date Time Temp Pulse Resp B/P (MAP) Pulse Ox O2 Delivery O2 Flow Rate FiO2 05/25/17 12:00 97.2 98 18 103/68 (80) 97 05/25/17 11:49 96 Nasal Cannula 2.00 05/25/17 08:00 97.9 82 17 105/55 (72) 96 05/25/17 05:31 97.2 94 19 109/62 (78) 97 05/25/17 01:10 98.1 101 18 93/51 (65) 95 05/25/17 01:00 97 05/25/17 00:56 84 05/24/17 21:34 95 Nasal Cannula 2.00 05/24/17 20:44 98.0 84 22 119/69 (86) 95 05/24/17 17:35 97 Nasal Cannula 2.00 05/24/17 15:33 97.5 76 22 110/62 (78) 97 . Laboratory Tests Test 05/25/17 12:45 Laboratory Tests Test 05/25/17 08:25 Blood Urea Nitrogen 10 MG/DL Creatinine 0.79 MG/DL Random Glucose 142 MG/DL Total Protein 6.6 GM/DL Albumin 2.9 GM/DL Calcium Level 8.9 MG/DL Magnesium Level 1.9 MG/DL Alkaline Phosphatase 102 U/L Aspartate Amino Transf (AST/SGOT) 58 U/L Alanine Aminotransferase (ALT/SGPT) 36 U/L Total Bilirubin 1.5 MG/DL Sodium Level 143 MEQ/L Potassium Level 3.4 MEQ/L Chloride Level 110 MEQ/L Carbon Dioxide Level 25.7 MEQ/L Anion Gap 7 MEQ/L Estimat Glomerular Filtration Rate 100 ML/MIN Imaging Last Impressions Chest X-Ray 05/17/17 0600 Signed Impressions: Service Date/Time: Wednesday, May 17, 2017 03:40 - CONCLUSION: 1. Endotracheal tube and nasogastric tube unchanged. Basilar airspace disease and pleural effusion, right greater than left not significantly changed. Conor Fuller MD Chest CT 05/17/17 0000 Signed Impressions: Service Date/Time: Wednesday, May 17, 2017 08:11 - CONCLUSION: #1. Multifocal airspace consolidation with areas of atelectasis within the right lower lobe resulting in volume loss identified within the right hemithorax and shift of the mediastinum towards the right. There is a small right-sided pleural effusion present which demonstrates a thin rim of enhancement concerning for developing empyema. There is left lower lobe airspace consolidation and consolidation seen within the lingula. No left-sided pleural effusion. The lymph nodes identified within the AP window and prevascular space are likely reactive. 2. There is fluid identified within the esophagus. . Naomi Hong MD Head CT 05/16/17 0730 Signed Impressions: Service Date/Time: Tuesday, May 16, 2017 09:43 - CONCLUSION: No evidence of intracranial abnormality. Left-sided nasogastric tube associated with air-fluid levels identified in the left maxillary sinus, sphenoid sinus and left and right air cells. Naomi Hong MD Liver Ultrasound 05/15/17 0000 Signed Impressions: Service Date/Time: Monday, May 15, 2017 08:32 - CONCLUSION: 1. Liver and spleen are both enlarged. No focal lesions. 2. Very small amount of ascites along the hepatic border. 3. Possible small gallbladder polyp. Alan Alex MD Head/Brain Mag Res Venography 05/15/17 0000 Signed Impressions: Service Date/Time: Monday, May 15, 2017 09:41 - CONCLUSION: Normal study. Sumit Young MD Brain MRI 05/14/17 0000 Signed Impressions: Service Date/Time: May 13:12 - CONCLUSION: Incompletely occlusive dural sinus thrombosis. Sumit Young MD Physical Exam GENERAL: This is a well-nourished, well-developed patient, in no apparent distress. SKIN: No rashes, ecchymoses or lesions. Cool and dry. HEAD: Atraumatic. Normocephalic. No temporal or scalp tenderness. EYES: Pupils equal round and reactive. Extraocular motions intact. No scleral icterus. No injection or drainage. ENT: NAD NECK: Trachea midline. Supple, nontender, no meningeal signs. CARDIOVASCULAR: Heart sounds audible. RESPIRATORY: Clear to auscultation. Breath sounds equal bilaterally. No wheezes , rales, or rhonchi. GASTROINTESTINAL: Abdomen soft, non-tender, nondistended. MUSCULOSKELETAL: Extremities without clubbing, cyanosis, or edema. No joint tenderness, effusion, or edema noted. No calf tenderness. Negative Homans sign bilaterally. NEUROLOGICAL: Opens eyes with painful stimuli. Moves extremities. Psych could not be assessed IV line sites with no evidence of infection. Assessment & Plan Remarks Acute encephalopathy: Could also be from alcohol-related withdrawal or dementia Aspiration pneumonia related Pneumonia likely aspiration Alcoholism Hepatitis C antibody positive. Recs: DC Ceftriaxone DC Flagyl Start oral augmentin (stop date: 05/31/2017) meghann Capone recommend psych eval ? need for inpatient psych. reportedly scared of him after recent behavior at home. Follow clinically. Will sign off please call back if any change in clinical condition or questions. Malu Reveles MD May 25, 2017 13:10
[2017-05-25] MEDS: AMOXICILLIN/CLAVULANATE K 875 MG TAB PO SCH ×2 (13:15→21:47)
[2017-05-25 13:16] LABS: AUTOMATED NEUTROPHIL # 3.9 TH/MM3 (1.8-7.7); BASOPHIL % 0.1 % (0.0-2.0); HEMOGLOBIN 12.5 GM/DL (13.0-17.0); LYMPH % 11.5 % (9.0-44.0); LYMPHOCYTE # 0.6 TH/MM3 (1.0-4.8); MEAN CELL VOLUME 103.8 FL (80.0-100.0); MEAN CORPUSCULAR HEMOGLOBIN 35.1 PG (27.0-34.0); MEAN CORPUSCULAR HGB CONC 33.8 % (32.0-36.0); MEAN PLATELET VOLUME 10.2 FL (7.0-11.0); MONO % 6.3 % (0.0-8.0); MONOCYTE # 0.3 TH/MM3 (0-0.9); NEUT % 82.1 % (16.0-70.0); PLATELET COUNT 65 TH/MM3 (150-450); RED BLOOD COUNT 3.57 MIL/MM3 (4.50-5.90); RED CELL DISTRIBUTION WIDTH 13.2 % (11.6-17.2); WHITE BLOOD COUNT 4.8 TH/MM3 (4.0-11.0)
[2017-05-25 13:56] LABS: OVALOCYTES 1+ (NORMAL)
[2017-05-25 23:50] LABS: HCV RNA PCR IU/ML LESS THAN 15 IU/mL (Not Detected)
[2017-05-26] VITALS (12 sets, daily range): BP systolic 90–118; BP diastolic 50–82; PULSE 80–96; RESP 16–21; TEMP 97.1–98.5; O2SAT 92–97
[2017-05-26] MEDS: INSULIN ASPART SUPPLEMENTAL SCALE SQ SCH ×6 (01:42→21:05)
[2017-05-26] MEDS: FREE WATER OG-TUBE SCH ×4 (05:09→11:38)
[2017-05-26] MEDS: SODIUM CHLORIDE 23.4% INJ 38.5 MEQ in WATER STERILE FOR INJ 1,000 ML IV SCH ×3 (07:05→23:55)
[2017-05-26 07:39] LABS: HEMATOCRIT 37.1 % (39.0-51.0); HEMOGLOBIN 12.6 GM/DL (13.0-17.0); MEAN CELL VOLUME 104.9 FL (80.0-100.0); MEAN CORPUSCULAR HEMOGLOBIN 35.6 PG (27.0-34.0); MEAN CORPUSCULAR HGB CONC 33.9 % (32.0-36.0); MEAN PLATELET VOLUME 10.2 FL (7.0-11.0); PLATELET COUNT 70 TH/MM3 (150-450); RED BLOOD COUNT 3.53 MIL/MM3 (4.50-5.90); RED CELL DISTRIBUTION WIDTH 13.6 % (11.6-17.2); WHITE BLOOD COUNT 4.1 TH/MM3 (4.0-11.0)
[2017-05-26] MEDS: CHLORHEXIDINE 0.12% (ORAL KIT) 15 ML CUP MT SCH ×2 (07:45→08:00)
[2017-05-26] MEDS: AMOXICILLIN/CLAVULANATE K 875 MG TAB PO SCH ×2 (08:10→21:04)
[2017-05-26] MEDS: INSULIN DETEMIR 100 UNITS/ML VIAL SQ SCH ×2 (08:10→21:05)
[2017-05-26] MEDS: POTASSIUM CHLORIDE 20 MEQ CONTROLLED RELEASE TAB PO SCH (08:10)
[2017-05-26] MEDS: MAGNESIUM OXIDE 400 MG TAB PO SCH (08:11)
[2017-05-26] MEDS: FAMOTIDINE 20 MG/2 ML VIAL IV PUSH SCH ×2 (08:11→21:04)
[2017-05-26] MEDS: QUEtiapine FUMARATE 25 MG TAB PO SCH ×2 (08:11→12:16)
[2017-05-26] MEDS: THIAMINE HCL 100 MG TAB PO SCH (08:11)
[2017-05-26] MEDS: TAMSULOSIN HCL 0.4 MG CAP PO SCH (08:11)
[2017-05-26] MEDS: SODIUM CHLORIDE 0.9% FLUSH 10 ML FLUSH IV FLUSH SCH ×2 (08:11→21:00)
[2017-05-26] MEDS: FUROSEMIDE 40 MG/4 ML VIAL IV PUSH SCH (08:11)
[2017-05-26] MEDS: cloNIDine HCL 0.1 MG TAB PO SCH ×3 (08:11→15:31)
[2017-05-26] MEDS: LACTULOSE SYRUP 20 GM/30 ML CUP PO SCH ×4 (08:12→21:04)
--- NOTE | 2017-05-26 11:36 | HHI.PR ---
Subjective Remarks Patient is in bed, agitated on and off, still on restraints. Francisco is in, clear urine. Denies fever chills. Has no pain at this time. He is sleepy. Objective Vitals Vital Signs Date Time Temp Pulse Resp B/P (MAP) Pulse Ox O2 Delivery O2 Flow Rate FiO2 05/26/17 09:57 86 05/26/17 08:17 97 Nasal Cannula 2.00 05/26/17 08:00 97.4 81 16 110/61 (77) 97 05/26/17 04:00 98.0 80 20 115/70 (85) 95 05/26/17 02:20 95 Nasal Cannula 2.00 05/26/17 00:00 98.0 81 18 115/82 (93) 95 05/25/17 20:00 97.0 84 18 95/53 (67) 97 05/25/17 16:07 98.1 86 20 106/59 (75) 97 05/25/17 12:06 84 05/25/17 12:00 97.2 98 18 103/68 (80) 97 05/25/17 11:49 96 Nasal Cannula 2.00 I/O 05/25/17 05/25/17 05/25/17 05/26/17 05/26/17 05/26/17 06:59 14:59 22:59 06:59 14:59 22:59 Intake Total 240 ml 960 ml Output Total 750 ml 1000 ml 900 ml 900 ml Balance -750 ml -1000 ml -660 ml 60 ml Intake Oral 240 ml 240 ml IV Total 720 ml Output Urine Total 750 ml 1000 ml 900 ml 900 ml # Voids 1 # Bowel Movements 3 1 Result Diagram: 05/26/17 0709 05/25/17 0825 Imaging Last Impressions Chest X-Ray 05/23/17 0600 Signed Impressions: Service Date/Time: Tuesday, May 23, 2017 03:19 - CONCLUSION: Right lung base consolidation and pleural effusion have not changed. Héctor Avalos MD Chest CT 05/20/17 0000 Signed Impressions: Service Date/Time: Saturday, May 20, 2017 10:58 - CONCLUSION: Consolidative changes right lower lobe and trace pleural effusion. Fluid does not appear loculated however there is minimal enhancing rind of pleura about the lung suggesting this lung is trapped. Maxwell Marion MD FACR Abdomen/Pelvis CT 05/20/17 0000 Signed Impressions: Service Date/Time: Saturday, May 20, 2017 10:58 - CONCLUSION: 1. No opaque foreign body right lower quadrant that is ring 2. Consolidative changes right lower lobe with air bronchograms. Trace pleural effusion. 3. Enhancing pleura on the right probably trapped lung 4. Marked bowel wall enhancement in the proximal jejunum the differential as above 5. Gallstones prominent gallbladder otherwise appears benign. Maxwell Marion MD FACR Upper Extremity Ultrasound 05/19/17 0000 Signed Impressions: Service Date/Time: Friday, May 19, 2017 11:32 - CONCLUSION: 1. There is nonocclusive thrombus within the left cephalic vein at the antecubital fossa where an IV line is located. 2. Remainder of the left upper extremity and the entire right upper extremity are patent without thrombus. Sumit Turcios MD Lower Extremity Ultrasound 05/19/17 0000 Signed Impressions: Service Date/Time: Friday, May 19, 2017 10:54 - CONCLUSION: No DVT is identified within either lower extremity. Sumit Turcios MD Head CT 05/19/17 0000 Signed Impressions: Service Date/Time: Friday, May 19, 2017 08:09 - CONCLUSION: 1. No acute intracranial abnormality or significant interval change. Stepan López MD Liver Ultrasound 05/15/17 0000 Signed Impressions: Service Date/Time: Monday, May 15, 2017 08:32 - CONCLUSION: 1. Liver and spleen are both enlarged. No focal lesions. 2. Very small amount of ascites along the hepatic border. 3. Possible small gallbladder polyp. Alan Alex MD Head/Brain Mag Res Venography 05/15/17 0000 Signed Impressions: Service Date/Time: Monday, May 15, 2017 09:41 - CONCLUSION: Normal study. Sumit Young MD Brain MRI 05/14/17 0000 Signed Impressions: Service Date/Time: May 13:12 - CONCLUSION: Incompletely occlusive dural sinus thrombosis. Sumit Young MD Objective Remarks GENERAL: male, awake alert intermittently confused, following commands SKIN: Focused skin assessment warm and dry HEAD: Atraumatic. Normocephalic. EYES: No scleral icterus. No injection or drainage. Pupils equal reactive ENT: Nose without bleeding, orotracheally intubated NECK: Trachea midline. No neck stiffness/meningismus CARDIOVASCULAR: Sinus rhythm without murmurs, gallops, or rubs. RESPIRATORY: Breath sounds equal bilaterally, except diminished at the right base. No wheezes GASTROINTESTINAL: Abdomen soft, non-tender, nondistended. No guarding. MUSCULOSKELETAL: Extremities without clubbing, cyanosis, or edema. NEUROLOGICAL: Moving all extremities spontaneously. Following commands x4 A/P Assessment and Plan Neuro: Altered mental status/delirium Metabolic encephalopathy Alcohol withdrawal syndrome - Off all continuos sedation. Clonidine 0.1 mg every 8 hours to control withdrawal symptoms tachycardia and hypotension - Neuro exam improved today, though lethargic - CT head negative x3 negative - Lumbar puncture had bloody tab most likely from thrombocytopenia and recent argatroban use (DCd 05/15). CSF studies negative for infectious etiologies - MRV negative for any dural sinus thrombosis - Drug screen toxicology negative -Agitation most likely secondary to alcohol withdrawal - Hematology, ID, neurology following - Broad-spectrum meningitic coverage with Rocephin, Flagyl. 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 Continue aggressive pulmonary toilet CVS: Fluid overload - Monitor vitals closely - IV Lasix 20 mg daily - Free water replacement with quarter normal saline - Sinus tachycardia due to withdrawal-good response to clonidine GI Elevated ammonia level Foreign body/Ring in Cecum Jejunal thickening on CT - Lactulose by mouth, trend ammonia - EGD/Colonoscopy with ring removed by Dr. Valdez. Also f/u on gastric biopsies - Patient was swallowing objects prior to admission - Formal swallow pending by speech [id number] recommendations - Ammonia 42 on 05/19 ID: - fever trending down with cecal foreign body/ring removal - Inflammatory fever now improving. Cultures CSF studies negative - s/p EGD/ colonoscopy with biopsy - Broad-spectrum meningitic coverage with Rocephin, Flagyl - BAL cultures remains negative to date, CSF HSV negative - Hep C reactive Heme: - Thrombocytopenia most likely secondary to alcohol dependence, bone marrow suppression, and splenomegaly, sepsis Endo: Hyperglycemia - Insulin sliding scale - Hematology following DVT GI prophylaxis - Teds SCDs - No chemical DVT prophylaxis due to thrombocytopenia - Pepcid Fever trending down after foreign body removal from cecum. With urinary retention. Multiple attempts to do straight cath. Consult urology for further evaluation, francisco is placed in. Started flomax, will do voiding trials. Trixie Soto MD May 26, 2017 11:35
--- NOTE | 2017-05-26 13:41 | PD.PSY.CON ---
Provisional Diagnosis Admission Date May 13, 2017 at 20:37 [place] I. Delirium due to another underlying medical condition, alcohol use disorder [place] II. Deferred History of Present Illness Service Psychiatry Consult Requested By Medical team Reason for Consult Patient is on the Cottrell act Primary Care Physician Primary care physician Unknown HPI The patient is a 61 years old man, domiciled his in [place], no kids, unemployed, without any previous significant history, no previous psychotic hospitalizations, alcohol use disorder, hospitalized due to alcohol withdrawal, altered mental status, hepatic encephalopathy. To to psychiatry because the patient was initially Cottrell acted, According to Cottrell act report "contact was made with Sumit Up in regards to his calling about his behavior today being abnormal. Mrs. Up advised Mr. Up for some apparent dementia as evidenced by suggestions from recent doctor visit 2 weeks ago at [facility] in [place]. Mrs. Up advised that Mr. Up is neglecting to take care of himself as evidenced by him defecating himself, attempting to swallow household ornament items, and is also becoming a danger to others, by means of lashing out and becoming aggressive with Mrs. Up while attempting to walk around the outside of his house in the nude. Mr. Up was unable to answer simple questions about what day it was, who the current present was, etc. and is believed that without proper care of treatment , Mr. Up will cause bodily harm to others/failed to care for his own well- being." I attempted to evaluate this patient several times in the ICU, but he was too sedated, at some point even intubated. Today a psychiatric evaluation the patient is poorly cooperative, he is very distant, kind of oppositional resistant. Patient is oriented in person, oriented in place, he knows that he isn't [place], but disoriented in time. He says that we are in 2009. When I asked him what is the reason he is in the hospital, he says that "he is because I was trying to get my to a wedding in another hospital"the patient reports that he is , he lives in [place], he has prominent fluctuation of consciousness, attention deficit, he has been agitated, at this moment he is on restraints. But, he denies suicidal ideation, homicidal ideation, visual and auditory hallucinations. Review of Systems Constitutional: DENIES: Diaphoretic episodes, Fatigue, Fever, Weight gain, Weight loss, Chills, Dizziness, Change in appetite, Night Sweats Endocrine: DENIES: Heat/cold intolerance, Polydipsia, Polyuria, Polyphagia Eyes: DENIES: Blurred vision, Diplopia, Eye inflammation, Eye pain, Vision loss , Photosensitivity, Double Vision Ears, nose, mouth, throat: DENIES: Tinnitus, Hearing loss, Vertigo, Nasal discharge, Oral lesions, Throat pain, Hoarseness, Ear Pain, Running Nose, Epistaxis, Sinus Pain, Toothache, Odynophagia Respiratory: DENIES: Apneas, Cough, Snoring, Wheezing, Hemoptysis, Sputum production, Shortness of breath Cardiovascular: DENIES: Chest pain, Palpitations, Syncope, Dyspnea on Exertion , PND, Lower Extremity Edema, Orthopnea, Claudication Gastrointestinal: DENIES: Abdominal pain, Black stools, Bloody stools, Constipation, Diarrhea, Nausea, Vomiting, Difficulty Swallowing, Anorexia Genitourinary: DENIES: Sexual dysfunction, Urinary frequency, Urinary incontinence, Urgency, Hematuria, Dysuria, Nocturia, Penile Discharge, Testicular Pain, Testicular Swelling Musculoskeletal: DENIES: Joint pain, Muscle aches, Stiffness, Joint Swelling, Back pain, Neck pain Integumentary: DENIES: Abnormal pigmentation, Nail changes, Pruritus, Rash Hematologic/lymphatic: DENIES: Bruising, Lymphadenopathy Immunologic/allergic: DENIES: Eczema, Urticaria Neurologic: DENIES: Abnormal gait, Headache, Localized weakness, Paresthesias, Seizures, Speech Problems, Tremor, Poor Balance Psychiatric: COMPLAINS OF: Confusion, Suicidal Ideation, Delusions, DENIES: Anxiety, Mood changes, Depression, Hallucinations, Agitation, Homicidal Ideation Past Family Social History Coded Allergies: No Allergy Information Available (Unverified , 05/13/17) PT HAS ALTERED MENTAL STATUS Reported Medications Venlafaxine (Effexor) 50 Mg Tab, 50 MG PO Q8H, #90 TAB 0 Refills 05/13/17 Furosemide (Furosemide) 40 Mg Tab, 40 MG PO BID, #60 TAB 0 Refills 05/13/17 Spironolactone (Spironolactone) 25 Mg Tab, 12.5 MG PO DAILY, #15 TAB 0 Refills 05/13/17 Oxycodone (Oxycodone) 5 Mg Cap, 5 MG PO Q6H Y for PAIN, CAP 0 Refills 05/13/17 Clonazepam (Klonopin) 0.5 Mg Tab, 0.5 MG PO BID, #60 TAB 0 Refills 05/13/17 Current Medications Medications (Trade) Dose Ordered Sig/Dawood Route Start Time Stop Time Status Last Admin (NS Flush) 2 ml UNSCH PRN IV FLUSH 05/13/17 22:00 05/15/17 23:36 (NS Flush) 2 ml BID IV FLUSH 05/14/17 09:00 05/26/17 08:11 (Tylenol) 650 mg Q4H PRN PO 05/13/17 22:00 05/20/17 20:20 (Zofran Inj) 4 mg Q6H PRN IVP 05/13/17 22:00 (Lactulose Liq) 30 ml QID PO 05/14/17 09:00 05/26/17 12:16 (Vitamin B1) 100 mg DAILY PO 05/14/17 09:00 05/26/17 08:11 (Pepcid Inj) 20 mg Q12HR IV PUSH 05/14/17 09:00 05/26/17 08:11 Miscellaneous Information Patient in critical care unit? Ass... [id number] .XX 05/14/17 21:45 05/14/17 21:45 (Romazicon Inj) 0.2 mg Q1M PRN IV PUSH 05/15/17 08:15 (Duoneb Neb) 1 ampule Q2HR NEB PRN NEB 05/16/17 11:30 (Peridex 0.12% Liq) 15 ml BID@08,20 MT 05/16/17 20:00 05/24/17 08:00 (Peridex 0.12% Liq) 15 ml BID@08,20 MT 05/16/17 20:00 05/21/17 08:48 (Catapres) 0.1 mg Q8H PO 05/19/17 08:00 05/26/17 08:11 (Free Water) VOLUME OF WATER: ( 300 ) ML Q6HR OG-TUBE 05/20/17 12:00 05/23/17 12:00 (Levemir Inj) 5 units Q12HR SQ 05/20/17 09:00 05/26/17 08:10 (NovoLOG SUPPLEMENTAL SCALE) 1 Q4H SQ 05/20/17 08:15 05/26/17 12:15 (Lasix Inj) 20 mg DAILY IV PUSH 05/20/17 09:00 05/26/17 08:11 (D50w (Vial) Inj) 50 ml UNSCH PRN IV PUSH 05/20/17 09:00 (Glucagon Inj) 1 mg UNSCH PRN OTHER 05/20/17 09:00 Sodium Chloride 38.5 meq/Sterile Water 1,009.625 ml @ 60 mls/hr [id number] IV 05/21/17 09:15 05/26/17 08:09 (Flomax) 0.4 mg DAILY PO 05/25/17 09:00 05/26/17 08:11 (SEROquel) 25 mg BID@09,12 PO 05/25/17 09:00 05/26/17 12:16 (KCl) 20 meq DAILY PO 05/25/17 09:00 05/26/17 08:10 (Mag-Ox) 400 mg DAILY PO 05/24/17 14:45 05/26/17 08:11 (Augmentin) 875 mg Q12HR PO 05/25/17 13:15 05/26/17 08:10 Family Psych History No family psychiatric history Social History Patient was born in [place], he lives in [place] with his , no kids, he is unemployed, supported by disability, his highest level of education is 12th grade Patient's Strengths (min. 2) Verbal communication Physical Exam Patient is restrained, with marked psychomotor agitation Vital Signs Vital Signs Date Time Temp Pulse Resp B/P (MAP) Pulse Ox O2 Delivery O2 Flow Rate FiO2 05/26/17 12:00 97.5 82 16 101/62 (75) 95 05/26/17 08:17 Nasal Cannula 2.00 05/23/17 19:00 95 I/O 05/26/17 05/26/17 05/27/17 08:00 16:00 00:00 Intake Total 960 ml Output Total 900 ml Balance 60 ml Lab Results Test 05/26/17 07:09 White Blood Count 4.1 TH/MM3 Red Blood Count 3.53 MIL/MM3 Hemoglobin 12.6 GM/DL Hematocrit 37.1 % Mean Corpuscular Volume 104.9 FL Mean Corpuscular Hemoglobin 35.6 PG Mean Corpuscular Hemoglobin Concent 33.9 % Red Cell Distribution Width 13.6 % Platelet Count 70 TH/MM3 Mean Platelet Volume 10.2 FL Date/Time Source Procedure Growth Status 05/15/17 16:44 Blood Peripheral Aerobic Blood Culture - Final NO GROWTH IN 5 DAYS Complete 05/15/17 16:44 Blood Peripheral Anaerobic Blood Culture - Final NO GROWTH IN 5 DAYS Complete 05/16/17 04:30 Cerebral Spinal Fluid Lumbar Puncture Fungal Smear - Final NO FUNGAL ELEMENTS SEEN. Resulted 05/16/17 04:30 Cerebral Spinal Fluid Lumbar Puncture Fungal Culture - Preliminary NO GROWTH IN 1 WEEK Resulted 05/15/17 14:28 Stool Stool Stool Occult Blood (JAMIE) - Final HEMOCCULT NEGATIVE Complete 05/16/17 17:45 Bronchial Washings Right Lower Lobe Fungal Smear - Final NO FUNGAL ELEMENTS SEEN. Resulted 05/16/17 17:45 Bronchial Washings Right Lower Lobe Fungal Culture - Preliminary NO GROWTH IN 1 WEEK Resulted 05/15/17 16:30 Urine Catheterized Urine Urine Culture - Final NO GROWTH IN 48 HOURS. Complete Mental Status Examination Appearance: Disheveled Consciousness: Obtunded, Clouded Orientation: Person, Place Speech: Hesitant Language: Adequate Fund of Knowledge: Inadequate Attention and Concentration: Inadequate Memory: Impaired Mood: Angry, Irritable Affect: Irritable Thought Process & Associations: Loose associations, Disorganized Thought Content: Bizarre thinking Hallucination Type: None Delusion Type: Bizarre Suicidal Ideation: No Suicidal Plan: No Suicidal Intention: No Homicidal Ideation: No Homicidal Plan: No Homicidal Intention: No Insight: Poor Judgment: Poor Assessment & Plan Problem List: (1) Altered mental status ICD Codes: R41.82 - Altered mental status, unspecified Status: Acute Assessment & Plan: On psychiatric evaluation today the patient presents kind of disorganized, disoriented, just oriented in person and place, but unable to is the reason of his hospitalization, he denies drug use, denies alcohol use, doesn't seem to be in contact with the reality, with attention deficit, fluctuation of consciousness that suggests a delirious state most probably related with hepatic encephalopathy and alcohol withdrawal. Primary psychiatric source of delirium is unclear, but an underlying dementia is also possible. I am going to increase the Seroquel to 50 mg twice a day to address agitation and delirium. Haldol 2 mg every 8 hours IM when necessary aggressive behavior and agitation. I am ordering an EKG QTC baseline. QTC is higher than 460 ms, please hold psychotropics. Frequent sensory stimulation, reorientation , familiar faces around the bed, appropriate light in the room are also very helpful in this case. If symptoms of delirium persist beyond medical clearance , the patient might benefit of psychiatric admission for stabilization and safety. I will lifted the Cottrell act in place. Assessment & Plan Estimated LOS: days Problem Qualifiers (1) Altered mental status: Qualified Codes: R41.82 - Altered mental status, unspecified Raphael Nicole MD May 26, 2017 13:41
[2017-05-27] VITALS (7 sets, daily range): BP systolic 101–118; BP diastolic 55–61; PULSE 78–92; RESP 18; TEMP 97.3–98.9; O2SAT 92–96
[2017-05-27] MEDS: INSULIN ASPART SUPPLEMENTAL SCALE SQ SCH ×6 (00:15→20:59)
[2017-05-27] MEDS: cloNIDine HCL 0.1 MG TAB PO SCH ×4 (01:04→23:58)
[2017-05-27] MEDS: SODIUM CHLORIDE 23.4% INJ 38.5 MEQ in WATER STERILE FOR INJ 1,000 ML IV SCH (03:06)
[2017-05-27] MEDS: FREE WATER OG-TUBE SCH ×6 (04:38→23:59)
[2017-05-27] MEDS: LACTULOSE SYRUP 20 GM/30 ML CUP PO SCH ×4 (09:01→20:57)
[2017-05-27] MEDS: AMOXICILLIN/CLAVULANATE K 875 MG TAB PO SCH ×2 (09:02→20:57)
[2017-05-27] MEDS: MAGNESIUM OXIDE 400 MG TAB PO SCH (09:02)
[2017-05-27] MEDS: FAMOTIDINE 20 MG/2 ML VIAL IV PUSH SCH ×2 (09:02→20:58)
[2017-05-27] MEDS: FUROSEMIDE 40 MG/4 ML VIAL IV PUSH SCH (09:02)
[2017-05-27] MEDS: THIAMINE HCL 100 MG TAB PO SCH (09:02)
[2017-05-27] MEDS: QUEtiapine FUMARATE 25 MG TAB PO SCH ×2 (09:02→12:52)
[2017-05-27] MEDS: TAMSULOSIN HCL 0.4 MG CAP PO SCH (09:02)
[2017-05-27] MEDS: SODIUM CHLORIDE 0.9% FLUSH 10 ML FLUSH IV FLUSH SCH ×2 (09:03→20:58)
[2017-05-27] MEDS: POTASSIUM CHLORIDE 20 MEQ CONTROLLED RELEASE TAB PO SCH (09:03)
[2017-05-27] MEDS: INSULIN DETEMIR 100 UNITS/ML VIAL SQ SCH ×2 (09:03→20:59)
--- NOTE | 2017-05-27 14:24 | HHI.PR ---
Subjective Remarks Since he is better today. Less pain. Is more awake and alert. No shortness of breath or chest pain. No suprapubic pain. No fever or chills. Less agitated Objective Vitals Vital Signs Date Time Temp Pulse Resp B/P (MAP) Pulse Ox O2 Delivery O2 Flow Rate FiO2 05/27/17 12:00 98.9 84 18 104/61 (75) 94 05/27/17 10:38 94 Room Air 05/27/17 10:19 78 05/27/17 08:00 98.9 82 18 102/59 (73) 94 05/27/17 04:00 98.1 83 18 101/57 (72) 94 05/27/17 00:00 98.1 92 18 118/58 (78) 92 05/26/17 21:00 85 05/26/17 20:00 98.1 92 18 118/58 (78) 92 05/26/17 16:00 97.2 83 18 93/72 (79) 95 05/26/17 14:45 98.5 87 18 93/57 (69) 95 05/26/17 14:30 97.1 90 18 94/50 (65) 94 I/O 05/26/17 05/26/17 05/26/17 05/27/17 05/27/17 05/27/17 07:00 15:00 23:00 07:00 15:00 23:00 Intake Total 960 ml 720 ml Output Total 900 ml 1850 ml 1200 ml Balance 60 ml -1130 ml -1200 ml Intake Oral 240 ml 720 ml IV Total 720 ml Output Urine Total 900 ml 1850 ml 1200 ml # Bowel Movements 2 1 Result Diagram: 05/26/17 0709 05/25/17 0825 Imaging Last Impressions Chest X-Ray 05/23/17 0600 Signed Impressions: Service Date/Time: Tuesday, May 23, 2017 03:19 - CONCLUSION: Right lung base consolidation and pleural effusion have not changed. Héctor Avalos MD Chest CT 05/20/17 0000 Signed Impressions: Service Date/Time: Saturday, May 20, 2017 10:58 - CONCLUSION: Consolidative changes right lower lobe and trace pleural effusion. Fluid does not appear loculated however there is minimal enhancing rind of pleura about the lung suggesting this lung is trapped. Maxwell Marion MD FACR Abdomen/Pelvis CT 05/20/17 0000 Signed Impressions: Service Date/Time: Saturday, May 20, 2017 10:58 - CONCLUSION: 1. No opaque foreign body right lower quadrant that is ring 2. Consolidative changes right lower lobe with air bronchograms. Trace pleural effusion. 3. Enhancing pleura on the right probably trapped lung 4. Marked bowel wall enhancement in the proximal jejunum the differential as above 5. Gallstones prominent gallbladder otherwise appears benign. Maxwell Marion MD FACR Upper Extremity Ultrasound 05/19/17 0000 Signed Impressions: Service Date/Time: Friday, May 19, 2017 11:32 - CONCLUSION: 1. There is nonocclusive thrombus within the left cephalic vein at the antecubital fossa where an IV line is located. 2. Remainder of the left upper extremity and the entire right upper extremity are patent without thrombus. Sumit Turcios MD Lower Extremity Ultrasound 05/19/17 0000 Signed Impressions: Service Date/Time: Friday, May 19, 2017 10:54 - CONCLUSION: No DVT is identified within either lower extremity. Sumit Turcios MD Head CT 05/19/17 0000 Signed Impressions: Service Date/Time: Friday, May 19, 2017 08:09 - CONCLUSION: 1. No acute intracranial abnormality or significant interval change. Stepan López MD Liver Ultrasound 05/15/17 0000 Signed Impressions: Service Date/Time: Monday, May 15, 2017 08:32 - CONCLUSION: 1. Liver and spleen are both enlarged. No focal lesions. 2. Very small amount of ascites along the hepatic border. 3. Possible small gallbladder polyp. Alan Alex MD Head/Brain Mag Res Venography 05/15/17 0000 Signed Impressions: Service Date/Time: Monday, May 15, 2017 09:41 - CONCLUSION: Normal study. Sumit Young MD Brain MRI 05/14/17 0000 Signed Impressions: Service Date/Time: May 13:12 - CONCLUSION: Incompletely occlusive dural sinus thrombosis. Sumit Young MD Objective Remarks GENERAL: male, awake alert intermittently confused, following commands SKIN: Focused skin assessment warm and dry HEAD: Atraumatic. Normocephalic. EYES: No scleral icterus. No injection or drainage. Pupils equal reactive ENT: Nose without bleeding, orotracheally intubated NECK: Trachea midline. No neck stiffness/meningismus CARDIOVASCULAR: Sinus rhythm without murmurs, gallops, or rubs. RESPIRATORY: Breath sounds equal bilaterally, except diminished at the right base. No wheezes GASTROINTESTINAL: Abdomen soft, non-tender, nondistended. No guarding. MUSCULOSKELETAL: Extremities without clubbing, cyanosis, or edema. NEUROLOGICAL: Moving all extremities spontaneously. Following commands x4 A/P Assessment and Plan Neuro: Altered mental status/delirium Metabolic encephalopathy Alcohol withdrawal syndrome - Off all continuos sedation. Clonidine 0.1 mg every 8 hours to control withdrawal symptoms tachycardia and hypotension - Neuro exam improved today, though lethargic - CT head negative x3 negative - Lumbar puncture had bloody tab most likely from thrombocytopenia and recent argatroban use (DCd 05/15). CSF studies negative for infectious etiologies - MRV negative for any dural sinus thrombosis - Drug screen toxicology negative -Agitation most likely secondary to alcohol withdrawal - Hematology, ID, neurology following - Broad-spectrum meningitic coverage with Rocephin, Flagyl. HSV negative and acyclovir DC'd - Hyperammonemia, on lactulose - Thiamine folate multivitamin - Patient was swallowing objects prior to admission- PSYCH evaluation once mentation improves, prior to discharge. Reconsult psych. 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 Continue aggressive pulmonary toilet CVS: Fluid overload - Monitor vitals closely - IV Lasix 20 mg daily - Free water replacement with quarter normal saline - Sinus tachycardia due to withdrawal-good response to clonidine GI Elevated ammonia level Foreign body/Ring in Cecum Jejunal thickening on CT - Lactulose by mouth, trend ammonia - EGD/Colonoscopy with ring removed by Dr. Valdez. Also f/u on gastric biopsies - Patient was swallowing objects prior to admission - Formal swallow pending by speech [id number] recommendations -Follow ammonia level ID: - fever trending down with cecal foreign body/ring removal - Inflammatory fever now improving. Cultures CSF studies negative - s/p EGD/ colonoscopy with biopsy - Broad-spectrum meningitic coverage with Rocephin, Flagyl - BAL cultures remains negative to date, CSF HSV negative - Hep C reactive Heme: - Thrombocytopenia most likely secondary to alcohol dependence, bone marrow suppression, and splenomegaly, sepsis Endo: Hyperglycemia - Insulin sliding scale - Hematology following DVT GI prophylaxis - Teds SCDs - No chemical DVT prophylaxis due to thrombocytopenia - Pepcid Fever trending down after foreign body removal from cecum. Afebrile With urinary retention. Multiple attempts to do straight cath. Consult urology for further evaluation, francisco is placed in. Started flomax, will do voiding trials. Trixie Soto MD May 27, 2017 14:24
[2017-05-27] MEDS ORDERED: POTASSIUM BICARBONATE 25 MEQ EFFERVESCENT TAB PO ONE (15:00)
--- NOTE | 2017-05-27 15:48 | EKG ---
Date Performed: 05/26/2017 Time Performed: 13:58:06 PTAGE: 61 years EKG: Sinus rhythm WITH SHORT HI INTERVAL NONSPECIFIC T-WAVE ABNORMALITY BORDERLINE ECG NO PREVIOUS TRACING DOCTOR: Aditya Duncan Interpretating Date/Time 05/27/2017 15:47:52
[2017-05-28] VITALS (9 sets, daily range): BP systolic 82–116; BP diastolic 52–62; PULSE 79–98; RESP 16–20; TEMP 97.5–98.2; O2SAT 93–98
[2017-05-28] MEDS: INSULIN ASPART SUPPLEMENTAL SCALE SQ SCH ×6 (00:15→20:31)
[2017-05-28] MEDS: SODIUM CHLORIDE 23.4% INJ 38.5 MEQ in WATER STERILE FOR INJ 1,000 ML IV SCH (01:54)
[2017-05-28] MEDS: ACETAMINOPHEN 325 MG TAB PO PRN (02:13)
[2017-05-28 05:32] LABS: AUTOMATED NEUTROPHIL # 2.3 TH/MM3 (1.8-7.7); BASOPHIL % 0.2 % (0.0-2.0); HEMOGLOBIN 12.2 GM/DL (13.0-17.0); LYMPH % 17.8 % (9.0-44.0); LYMPHOCYTE # 0.6 TH/MM3 (1.0-4.8); MEAN CELL VOLUME 104.7 FL (80.0-100.0); MEAN CORPUSCULAR HEMOGLOBIN 36.5 PG (27.0-34.0); MEAN CORPUSCULAR HGB CONC 34.9 % (32.0-36.0); MEAN PLATELET VOLUME 10.2 FL (7.0-11.0); MONO % 9.2 % (0.0-8.0); MONOCYTE # 0.3 TH/MM3 (0-0.9); NEUT % 72.8 % (16.0-70.0); PLATELET COUNT 74 TH/MM3 (150-450); RED BLOOD COUNT 3.34 MIL/MM3 (4.50-5.90); RED CELL DISTRIBUTION WIDTH 13.9 % (11.6-17.2); WHITE BLOOD COUNT 3.2 TH/MM3 (4.0-11.0)
[2017-05-28 05:48] LABS: CALCIUM 8.3 MG/DL (8.5-10.1); CREATININE 0.74 MG/DL (0.60-1.30); MAGNESIUM 1.7 MG/DL (1.5-2.5)
[2017-05-28] MEDS: THIAMINE HCL 100 MG TAB PO SCH (07:52)
[2017-05-28] MEDS: QUEtiapine FUMARATE 25 MG TAB PO SCH ×2 (07:52→12:16)
[2017-05-28] MEDS: AMOXICILLIN/CLAVULANATE K 875 MG TAB PO SCH ×2 (07:52→20:31)
[2017-05-28] MEDS: LACTULOSE SYRUP 20 GM/30 ML CUP PO SCH ×4 (07:52→20:31)
[2017-05-28] MEDS: FUROSEMIDE 40 MG/4 ML VIAL IV PUSH SCH (07:53)
[2017-05-28] MEDS: MAGNESIUM OXIDE 400 MG TAB PO SCH (07:53)
[2017-05-28] MEDS: cloNIDine HCL 0.1 MG TAB PO SCH ×2 (07:53→16:08)
[2017-05-28] MEDS: FAMOTIDINE 20 MG/2 ML VIAL IV PUSH SCH ×2 (07:53→20:31)
[2017-05-28] MEDS: POTASSIUM CHLORIDE 20 MEQ CONTROLLED RELEASE TAB PO SCH (07:54)
[2017-05-28] MEDS: SODIUM CHLORIDE 0.9% FLUSH 10 ML FLUSH IV FLUSH SCH ×2 (07:54→20:31)
[2017-05-28] MEDS: TAMSULOSIN HCL 0.4 MG CAP PO SCH (07:54)
[2017-05-28] MEDS: INSULIN DETEMIR 100 UNITS/ML VIAL SQ SCH ×2 (07:54→20:31)
[2017-05-28] MEDS: FREE WATER OG-TUBE SCH ×3 (11:24→23:59)
[2017-05-28] MEDS ORDERED: SODIUM CHLOR 0.9% 1000 ML INJ 1,000 ML IV ONE (14:00)
--- NOTE | 2017-05-28 14:46 | HHI.PR ---
Subjective Remarks Seen earlier today. More alert and oriented today. Complains of back pain, nausea or vomiting. Has diarrhea from lactulose. Has decreased appetite and not eating much. No fever or chills. Remove Francisco today. Objective Vitals Vital Signs Date Time Temp Pulse Resp B/P (MAP) Pulse Ox O2 Delivery O2 Flow Rate FiO2 05/28/17 12:00 97.5 91 18 82/52 (62) 93 05/28/17 09:32 90 05/28/17 08:42 97.9 86 18 107/58 (74) 93 05/28/17 08:04 Room Air 05/28/17 04:00 97.9 81 18 95/54 (68) 95 05/28/17 00:00 98.0 89 16 105/60 (75) 94 05/28/17 00:00 98.1 79 18 99/62 (74) 97 05/27/17 20:45 Room Air 05/27/17 20:00 82 05/27/17 20:00 98.3 83 18 101/60 (74) 96 05/27/17 15:34 97.3 85 18 116/55 (75) 95 I/O 05/27/17 05/27/17 05/27/17 05/28/17 05/28/17 05/28/17 06:59 14:59 22:59 06:59 14:59 22:59 Intake Total 240 ml 240 ml 1000 ml Output Total 3850 ml 2625 ml Balance -3610 ml 240 ml 1000 ml -2625 ml Intake Oral 240 ml 240 ml IV Total 1000 ml Output Urine Total 3850 ml 2625 ml # Bowel Movements 2 2 Result Diagram: 05/28/17 0503 05/28/17 0503 Imaging Last Impressions Chest X-Ray 05/23/17 0600 Signed Impressions: Service Date/Time: Tuesday, May 23, 2017 03:19 - CONCLUSION: Right lung base consolidation and pleural effusion have not changed. Héctor Avalos MD Chest CT 05/20/17 0000 Signed Impressions: Service Date/Time: Saturday, May 20, 2017 10:58 - CONCLUSION: Consolidative changes right lower lobe and trace pleural effusion. Fluid does not appear loculated however there is minimal enhancing rind of pleura about the lung suggesting this lung is trapped. Maxewll Marion MD FACR Abdomen/Pelvis CT 05/20/17 0000 Signed Impressions: Service Date/Time: Saturday, May 20, 2017 10:58 - CONCLUSION: 1. No opaque foreign body right lower quadrant that is ring 2. Consolidative changes right lower lobe with air bronchograms. Trace pleural effusion. 3. Enhancing pleura on the right probably trapped lung 4. Marked bowel wall enhancement in the proximal jejunum the differential as above 5. Gallstones prominent gallbladder otherwise appears benign. Maxwell Marion MD FACR Upper Extremity Ultrasound 05/19/17 0000 Signed Impressions: Service Date/Time: Friday, May 19, 2017 11:32 - CONCLUSION: 1. There is nonocclusive thrombus within the left cephalic vein at the antecubital fossa where an IV line is located. 2. Remainder of the left upper extremity and the entire right upper extremity are patent without thrombus. Sumit Turcios MD Lower Extremity Ultrasound 05/19/17 0000 Signed Impressions: Service Date/Time: Friday, May 19, 2017 10:54 - CONCLUSION: No DVT is identified within either lower extremity. Sumit Turcios MD Head CT 05/19/17 0000 Signed Impressions: Service Date/Time: Friday, May 19, 2017 08:09 - CONCLUSION: 1. No acute intracranial abnormality or significant interval change. Stepan López MD Liver Ultrasound 05/15/17 0000 Signed Impressions: Service Date/Time: Monday, May 15, 2017 08:32 - CONCLUSION: 1. Liver and spleen are both enlarged. No focal lesions. 2. Very small amount of ascites along the hepatic border. 3. Possible small gallbladder polyp. Alan Alex MD Head/Brain Mag Res Venography 05/15/17 0000 Signed Impressions: Service Date/Time: Monday, May 15, 2017 09:41 - CONCLUSION: Normal study. Sumit Young MD Brain MRI 05/14/17 0000 Signed Impressions: Service Date/Time: May 13:12 - CONCLUSION: Incompletely occlusive dural sinus thrombosis. Sumit Young MD Objective Remarks GENERAL: male, awake alert intermittently confused, following commands SKIN: Focused skin assessment warm and dry HEAD: Atraumatic. Normocephalic. EYES: No scleral icterus. No injection or drainage. Pupils equal reactive ENT: Nose without bleeding, orotracheally intubated NECK: Trachea midline. No neck stiffness/meningismus CARDIOVASCULAR: Sinus rhythm without murmurs, gallops, or rubs. RESPIRATORY: Breath sounds equal bilaterally, except diminished at the right base. No wheezes GASTROINTESTINAL: Abdomen soft, non-tender, nondistended. No guarding. MUSCULOSKELETAL: Extremities without clubbing, cyanosis, or edema. NEUROLOGICAL: Moving all extremities spontaneously. Following commands x4 A/P Assessment and Plan Neuro: Altered mental status/delirium, improving Metabolic encephalopathy, improving Alcohol withdrawal syndrome - Off all continuos sedation. Clonidine 0.1 mg every 8 hours to control withdrawal symptoms tachycardia and hypotension - Neuro exam improved today, though lethargic - CT head negative x3 negative - Lumbar puncture had bloody tab most likely from thrombocytopenia and recent argatroban use (DCd 05/15). CSF studies negative for infectious etiologies - MRV negative for any dural sinus thrombosis - Drug screen toxicology negative -Agitation most likely secondary to alcohol withdrawal - Hematology, ID, neurology following - Broad-spectrum meningitic coverage with Rocephin, Flagyl. HSV negative and acyclovir DC'd - Hyperammonemia, on lactulose - Thiamine folate multivitamin - Patient was swallowing objects prior to admission- PSYCH evaluation once mentation improves, prior to discharge. Reconsult psych. 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 Continue aggressive pulmonary toilet CVS: Fluid overload - Monitor vitals closely - IV Lasix 20 mg daily - Free water replacement with quarter normal saline - Sinus tachycardia due to withdrawal-good response to clonidine GI Elevated ammonia level Foreign body/Ring in Cecum Jejunal thickening on CT - Lactulose by mouth, trend ammonia - EGD/Colonoscopy with ring removed by Dr. Valdez. Also f/u on gastric biopsies - Patient was swallowing objects prior to admission - Formal swallow pending by speech [id number] recommendations -Follow ammonia level ID: - fever trending down with cecal foreign body/ring removal - Inflammatory fever now improving. Cultures CSF studies negative - s/p EGD/ colonoscopy with biopsy - Broad-spectrum meningitic coverage with Rocephin, Flagyl - BAL cultures remains negative to date, CSF HSV negative - Hep C reactive Heme: - Thrombocytopenia most likely secondary to alcohol dependence, bone marrow suppression, and splenomegaly, sepsis Endo: Hyperglycemia - Insulin sliding scale - Hematology following Hypotension BP 82/52. Administer 1 L bolus normal saline. Monitor blood pressure. DVT GI prophylaxis - Teds SCDs - No chemical DVT prophylaxis due to thrombocytopenia - Pepcid Fever trending down after foreign body removal from cecum. Afebrile With urinary retention. Multiple attempts to do straight cath. Consult urology for further evaluation, francisco is placed in. Started flomax, will do voiding trials. Remove Francisco today. Needs clearance from psychiatry for discharge. Plan to DC either inpatient psychiatry or going to snf facility. Trixie Stoo MD May 28, 2017 14:46
[2017-05-28] MEDS: ACETAMINOPHEN/HYDROcodone 325 MG/5 MG TAB PO PRN (17:34)
[2017-05-29] VITALS: BP 123/60; PULSE 99; RESP 20; TEMP 97.9; O2SAT 96
[2017-05-29] MEDS: ACETAMINOPHEN/HYDROcodone 325 MG/5 MG TAB PO PRN ×2 (00:04→05:58)
[2017-05-29] MEDS: INSULIN ASPART SUPPLEMENTAL SCALE SQ SCH ×5 (00:04→16:15)
[2017-05-29] MEDS: cloNIDine HCL 0.1 MG TAB PO SCH ×3 (00:05→15:42)
[2017-05-29] MEDS: SODIUM CHLORIDE 23.4% INJ 38.5 MEQ in WATER STERILE FOR INJ 1,000 ML IV SCH (02:25)
[2017-05-29 05:11] VITALS: BP 115/60; PULSE 87; RESP 20; TEMP 97.7; O2SAT 96
[2017-05-29] MEDS: FREE WATER OG-TUBE SCH ×2 (05:18→12:00)
[2017-05-29 07:26] LABS: HEMATOCRIT 35.5 % (39.0-51.0); HEMOGLOBIN 12.2 GM/DL (13.0-17.0); MEAN CELL VOLUME 104.6 FL (80.0-100.0); MEAN CORPUSCULAR HGB CONC 34.4 % (32.0-36.0); MEAN PLATELET VOLUME 10.7 FL (7.0-11.0); PLATELET COUNT 78 TH/MM3 (150-450); RED CELL DISTRIBUTION WIDTH 14.1 % (11.6-17.2); WHITE BLOOD COUNT 3.1 TH/MM3 (4.0-11.0)
[2017-05-29 08:00] VITALS: BP 103/61; PULSE 102; RESP 19; TEMP 98.1; O2SAT 95
[2017-05-29] MEDS: INSULIN DETEMIR 100 UNITS/ML VIAL SQ SCH (09:00)
[2017-05-29] MEDS: QUEtiapine FUMARATE 25 MG TAB PO SCH ×2 (10:43→15:42)
[2017-05-29] MEDS: THIAMINE HCL 100 MG TAB PO SCH (10:43)
[2017-05-29] MEDS: MAGNESIUM OXIDE 400 MG TAB PO SCH (10:45)
[2017-05-29] MEDS: AMOXICILLIN/CLAVULANATE K 875 MG TAB PO SCH (10:45)
[2017-05-29] MEDS: POTASSIUM CHLORIDE 20 MEQ CONTROLLED RELEASE TAB PO SCH (10:45)
[2017-05-29] MEDS: TAMSULOSIN HCL 0.4 MG CAP PO SCH (10:45)
[2017-05-29] MEDS: FAMOTIDINE 20 MG/2 ML VIAL IV PUSH SCH (10:46)
[2017-05-29] MEDS: FUROSEMIDE 40 MG/4 ML VIAL IV PUSH SCH (10:49)
[2017-05-29] MEDS: SODIUM CHLORIDE 0.9% FLUSH 10 ML FLUSH IV FLUSH SCH (10:54)
[2017-05-29] MEDS: LACTULOSE SYRUP 20 GM/30 ML CUP PO SCH ×2 (10:55→15:43)
--- NOTE | 2017-05-29 14:15 | HHI.PYPN ---
Subjective Remarks The patient was seen today for psychiatric reevaluation. Patient was on calm, cooperative and pleasant. Denies mood symptoms, motivated to be discharged back home and continue his medical care as an outpatient. He denies suicidal and homicidal ideation, he denies visual and auditory hallucinations. He is oriented 3, no attention deficit, no fluctuation of consciousness at this moment. Mental Status Examination Appearance: Appropriate, Disheveled Consciousness: Alert, Obtunded, Clouded Orientation: x4, Person, Place Motor Activity: Normal gait Speech: Unremarkable Language: Adequate Fund of Knowledge: Inadequate Attention and Concentration: Inadequate Memory: Unremarkable Mood: Appropriate, Good Affect: Appropriate Thought Process & Associations: Intact Thought Content: Appropriate Hallucination Type: None Delusion Type: None Suicidal Ideation: No Suicidal Plan: No Suicidal Intention: No Homicidal Ideation: No Homicidal Plan: No Homicidal Intention: No Insight: Adequate Judgment: Adequate Results Labs Test 05/29/17 05:34 White Blood Count 3.1 TH/MM3 Red Blood Count 3.40 MIL/MM3 Hemoglobin 12.2 GM/DL Hematocrit 35.5 % Mean Corpuscular Volume 104.6 FL Mean Corpuscular Hemoglobin 36.0 PG Mean Corpuscular Hemoglobin Concent 34.4 % Red Cell Distribution Width 14.1 % Platelet Count 78 TH/MM3 Mean Platelet Volume 10.7 FL Date/Time Source Procedure Growth Status 05/15/17 16:44 Blood Peripheral Aerobic Blood Culture - Final NO GROWTH IN 5 DAYS Complete 05/15/17 16:44 Blood Peripheral Anaerobic Blood Culture - Final NO GROWTH IN 5 DAYS Complete 05/16/17 04:30 Cerebral Spinal Fluid Lumbar Puncture Fungal Smear - Final NO FUNGAL ELEMENTS SEEN. Resulted 05/16/17 04:30 Cerebral Spinal Fluid Lumbar Puncture Fungal Culture - Preliminary NO GROWTH IN 1 WEEK Resulted 05/15/17 14:28 Stool Stool Stool Occult Blood (JAMIE) - Final HEMOCCULT NEGATIVE Complete 05/16/17 17:45 Bronchial Washings Right Lower Lobe Fungal Smear - Final NO FUNGAL ELEMENTS SEEN. Resulted 05/16/17 17:45 Bronchial Washings Right Lower Lobe Fungal Culture - Preliminary NO GROWTH IN 1 WEEK Resulted 05/15/17 16:30 Urine Catheterized Urine Urine Culture - Final NO GROWTH IN 48 HOURS. Complete Vitals/IOs Vital Signs Date Time Temp Pulse Resp B/P (MAP) Pulse Ox O2 Delivery O2 Flow Rate FiO2 05/29/17 08:00 98.1 102 19 103/61 (75) 95 Manual Cuff/Auscultation 05/28/17 08:04 Room Air 05/26/17 08:17 2.00 Assessment & Plan Problem List: (1) Altered mental status ICD Codes: R41.82 - Altered mental status, unspecified Status: Acute Assessment & Plan Estimated LOS: days Justification for Cont. Inpt. The patient does not meet criteria for involuntary psychiatric admission at this moment. Cottrell act will be lifted. He can be prescribed with Effexor 50 mg for depression, and he can continue the Seroquel 25 mg twice a day until is reassessed by PCP. Problem Qualifiers (1) Altered mental status: Qualified Codes: R41.82 - Altered mental status, unspecified Raphael Nicole MD May 29, 2017 14:14
--- NOTE | 2017-05-29 14:59 | HHI.PR ---
Subjective Remarks Feels much better. at bedside. says her is back at his baseline mentation. Patient denies cp, sob, n/v/d/c. No fever ro chills. Foles was removed and is able to urinate without any problems. Eating well. Objective Vitals Vital Signs Date Time Temp Pulse Resp B/P (MAP) Pulse Ox O2 Delivery O2 Flow Rate FiO2 05/29/17 08:00 98.1 102 19 103/61 (75) 95 Manual Cuff/Auscultation 05/29/17 05:11 97.7 87 20 115/60 (78) 96 05/29/17 00:00 97.9 99 20 123/60 (81) 96 05/28/17 23:45 98 05/28/17 20:47 98.2 87 20 104/56 (72) 98 05/28/17 20:00 86 05/28/17 16:08 98.1 88 18 116/62 (80) 94 I/O 05/28/17 05/28/17 05/28/17 05/29/17 05/29/17 05/29/17 07:00 15:00 23:00 07:00 15:00 23:00 Intake Total 1000 ml 360 ml Output Total 2625 ml Balance 1000 ml -2265 ml Intake Oral 360 ml IV Total 1000 ml Output Urine Total 2625 ml # Voids 1 # Bowel Movements 2 2 Result Diagram: 05/29/17 0534 05/28/17 0503 Imaging Last Impressions Chest X-Ray 05/23/17 0600 Signed Impressions: Service Date/Time: Tuesday, May 23, 2017 03:19 - CONCLUSION: Right lung base consolidation and pleural effusion have not changed. Héctor Avalos MD Chest CT 05/20/17 0000 Signed Impressions: Service Date/Time: Saturday, May 20, 2017 10:58 - CONCLUSION: Consolidative changes right lower lobe and trace pleural effusion. Fluid does not appear loculated however there is minimal enhancing rind of pleura about the lung suggesting this lung is trapped. Maxwell Marion MD FACR Abdomen/Pelvis CT 05/20/17 0000 Signed Impressions: Service Date/Time: Saturday, May 20, 2017 10:58 - CONCLUSION: 1. No opaque foreign body right lower quadrant that is ring 2. Consolidative changes right lower lobe with air bronchograms. Trace pleural effusion. 3. Enhancing pleura on the right probably trapped lung 4. Marked bowel wall enhancement in the proximal jejunum the differential as above 5. Gallstones prominent gallbladder otherwise appears benign. Maxwell Marion MD FACR Upper Extremity Ultrasound 05/19/17 0000 Signed Impressions: Service Date/Time: Friday, May 19, 2017 11:32 - CONCLUSION: 1. There is nonocclusive thrombus within the left cephalic vein at the antecubital fossa where an IV line is located. 2. Remainder of the left upper extremity and the entire right upper extremity are patent without thrombus. Sumit Turcios MD Lower Extremity Ultrasound 05/19/17 0000 Signed Impressions: Service Date/Time: Friday, May 19, 2017 10:54 - CONCLUSION: No DVT is identified within either lower extremity. Sumit Turcios MD Head CT 05/19/17 0000 Signed Impressions: Service Date/Time: Friday, May 19, 2017 08:09 - CONCLUSION: 1. No acute intracranial abnormality or significant interval change. Stepan López MD Liver Ultrasound 05/15/17 0000 Signed Impressions: Service Date/Time: Monday, May 15, 2017 08:32 - CONCLUSION: 1. Liver and spleen are both enlarged. No focal lesions. 2. Very small amount of ascites along the hepatic border. 3. Possible small gallbladder polyp. Alan Alex MD Head/Brain Mag Res Venography 05/15/17 0000 Signed Impressions: Service Date/Time: Monday, May 15, 2017 09:41 - CONCLUSION: Normal study. Sumit Young MD Brain MRI 05/14/17 0000 Signed Impressions: Service Date/Time: May 13:12 - CONCLUSION: Incompletely occlusive dural sinus thrombosis. Sumit Young MD Objective Remarks GENERAL: male, awake, alert, following commands, pleasant, appears in nad. SKIN: Focused skin assessment warm and dry HEAD: Atraumatic. Normocephalic. EYES: No scleral icterus. No injection or drainage. Pupils equal reactive ENT: Nose without bleeding, orotracheally intubated NECK: Trachea midline. No neck stiffness/meningismus CARDIOVASCULAR: Sinus rhythm without murmurs, gallops, or rubs. RESPIRATORY: Breath sounds equal bilaterally, except diminished at the right base. No wheezes GASTROINTESTINAL: Abdomen soft, non-tender, nondistended. No guarding. MUSCULOSKELETAL: Extremities without clubbing, cyanosis, or edema. NEUROLOGICAL: Awake and alert. Oriented x3. Moving all extremities spontaneously. Following commands x4 A/P Assessment and Plan Neuro: Altered mental status/delirium, improved and back at his baseline. Metabolic encephalopathy, resolved Alcohol withdrawal syndrome, improved significantly - Off all continuos sedation. Clonidine 0.1 mg every 8 hours to control withdrawal symptoms tachycardia and hypotension - Neuro exam improved and back to baseline - CT head negative x3 negative - Lumbar puncture had bloody tab most likely from thrombocytopenia and recent argatroban use (DCd 05/15). CSF studies negative for infectious etiologies - MRV negative for any dural sinus thrombosis - Drug screen toxicology negative -Agitation most likely secondary to alcohol withdrawal - Hematology, ID, neurology following - Broad-spectrum meningitic coverage with Rocephin, Flagyl. HSV negative and acyclovir DC'd - Hyperammonemia, on lactulose - Thiamine folate multivitamin - Patient was swallowing objects prior to admission- PSYCH evaluation prior to discharge. 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 Valdez. Also f/u on gastric biopsies - Patient was swallowing objects prior to admission - Formal swallow pending by speech [id number] recommendations ID: - fever trending down with cecal foreign body/ring removal - Inflammatory fever now improving. Cultures CSF studies negative - s/p EGD/ colonoscopy with biopsy - Broad-spectrum meningitic coverage with Rocephin, Flagyl - BAL cultures remains negative to date, CSF HSV negative - Hep C reactive, to f./u as OP Heme: - Thrombocytopenia most likely secondary to alcohol dependence, bone marrow suppression, and splenomegaly, sepsis Endo: Hyperglycemia - Insulin sliding scale - Hematology following Hypotension BP 82/52. Administer 1 L bolus normal saline. Monitor blood pressure. DVT GI prophylaxis - Teds SCDs - No chemical DVT prophylaxis due to thrombocytopenia - Pepcid Fever trending down after foreign body removal from cecum. Afebrile With urinary retention. Multiple attempts to do straight cath. Consult urology for further evaluation, francisco is placed in. Started flomax, will do voiding trials. Removed Francisco able to urinate Improved significantly, at his baseline mentation. Discharged to rehab in stable condition to follow up as OP with PCP and consultants Trixie Soto MD May 29, 2017 14:59
--- NOTE | 2017-05-29 14:59 | HHI.DS ---
Discharge Summary Admission Date May 13, 2017 at 20:37 Discharge Date: May 29, 2017 Admitting Diagnosis ams, hyperammonemia (1) Encephalopathy ICD Code: G93.40 - Encephalopathy, unspecified (2) Thrombocytopenia ICD Code: D69.6 - Thrombocytopenia, unspecified (3) Dural sinus thrombosis ICD Code: G08 - Intracranial and intraspinal phlebitis and thrombophlebitis (4) Alcohol withdrawal ICD Code: F10.239 - Alcohol dependence with withdrawal, unspecified (5) Acute respiratory failure ICD Code: J96.00 - Acute respiratory failure, unspecified whether with hypoxia or hypercapnia Procedures - EGD/Colonoscopy with foreign object ( -- ring) removed by Dr. Valdez. Brief History - From Admission 61-year-old male presents to the emergency department under Cottrell act. According to the Cottrell act report, contact was made with the patient in regards to his calling about his behavior being abnormal." According to the patient's per documentation, the patient has been defecating on himself, attempting to swallow household ornament items and has become aggressive. Prior to the start of our interview, I witnessed the patient drinking his own urine from his urinal. I asked the patient if he knew where he was and he answered "hospital." I asked the patient has name and he did not answer. He did not participate in any other elements of the physical exam including answering any additional questions. CBC/BMP: 05/29/17 0534 05/28/17 0503 Significant Findings Laboratory Tests Test 05/28/17 05:03 05/29/17 05:34 White Blood Count 3.2 TH/MM3 (4.0-11.0) 3.1 TH/MM3 (4.0-11.0) Red Blood Count 3.34 MIL/MM3 (4.50-5.90) 3.40 MIL/MM3 (4.50-5.90) Hemoglobin 12.2 GM/DL (13.0-17.0) 12.2 GM/DL (13.0-17.0) Hematocrit 35.0 % (39.0-51.0) 35.5 % (39.0-51.0) Mean Corpuscular Volume 104.7 FL (80.0-100.0) 104.6 FL (80.0-100.0) Mean Corpuscular Hemoglobin 36.5 PG (27.0-34.0) 36.0 PG (27.0-34.0) Platelet Count 74 TH/MM3 (150-450) 78 TH/MM3 (150-450) Neutrophils (%) (Auto) 72.8 % (16.0-70.0) Monocytes (%) (Auto) 9.2 % (0.0-8.0) Lymphocytes # (Auto) 0.6 TH/MM3 (1.0-4.8) Platelet Estimate LOW (NORMAL) Random Glucose 137 MG/DL (74-106) Calcium Level 8.3 MG/DL (8.5-10.1) Imaging Last Impressions Chest X-Ray 05/23/17 0600 Signed Impressions: Service Date/Time: Tuesday, May 23, 2017 03:19 - CONCLUSION: Right lung base consolidation and pleural effusion have not changed. Héctor Avalos MD Chest CT 05/20/17 0000 Signed Impressions: Service Date/Time: Saturday, May 20, 2017 10:58 - CONCLUSION: Consolidative changes right lower lobe and trace pleural effusion. Fluid does not appear loculated however there is minimal enhancing rind of pleura about the lung suggesting this lung is trapped. Maxwell Marion MD FACR Abdomen/Pelvis CT 05/20/17 0000 Signed Impressions: Service Date/Time: Saturday, May 20, 2017 10:58 - CONCLUSION: 1. No opaque foreign body right lower quadrant that is ring 2. Consolidative changes right lower lobe with air bronchograms. Trace pleural effusion. 3. Enhancing pleura on the right probably trapped lung 4. Marked bowel wall enhancement in the proximal jejunum the differential as above 5. Gallstones prominent gallbladder otherwise appears benign. Maxwell Marion MD FACR Upper Extremity Ultrasound 05/19/17 0000 Signed Impressions: Service Date/Time: Friday, May 19, 2017 11:32 - CONCLUSION: 1. There is nonocclusive thrombus within the left cephalic vein at the antecubital fossa where an IV line is located. 2. Remainder of the left upper extremity and the entire right upper extremity are patent without thrombus. Sumit Turcios MD Lower Extremity Ultrasound 05/19/17 0000 Signed Impressions: Service Date/Time: Friday, May 19, 2017 10:54 - CONCLUSION: No DVT is identified within either lower extremity. Sumit Turcios MD Head CT 05/19/17 0000 Signed Impressions: Service Date/Time: Friday, May 19, 2017 08:09 - CONCLUSION: 1. No acute intracranial abnormality or significant interval change. Stepan López MD Liver Ultrasound 05/15/17 0000 Signed Impressions: Service Date/Time: Monday, May 15, 2017 08:32 - CONCLUSION: 1. Liver and spleen are both enlarged. No focal lesions. 2. Very small amount of ascites along the hepatic border. 3. Possible small gallbladder polyp. Alan Alex MD Head/Brain Mag Res Venography 05/15/17 0000 Signed Impressions: Service Date/Time: Monday, May 15, 2017 09:41 - CONCLUSION: Normal study. Sumit Young MD Brain MRI 05/14/17 0000 Signed Impressions: Service Date/Time: May 13:12 - CONCLUSION: Incompletely occlusive dural sinus thrombosis. Sumit Young MD PE at Discharge GENERAL: male, awake alert intermittently confused, following commands SKIN: Focused skin assessment warm and dry HEAD: Atraumatic. Normocephalic. EYES: No scleral icterus. No injection or drainage. Pupils equal reactive ENT: Nose without bleeding, orotracheally intubated NECK: Trachea midline. No neck stiffness/meningismus CARDIOVASCULAR: Sinus rhythm without murmurs, gallops, or rubs. RESPIRATORY: Breath sounds equal bilaterally, except diminished at the right base. No wheezes GASTROINTESTINAL: Abdomen soft, non-tender, nondistended. No guarding. MUSCULOSKELETAL: Extremities without clubbing, cyanosis, or edema. NEUROLOGICAL: Moving all extremities spontaneously. Following commands x4 Pt update on day of discharge Imprpved significantly , at baseline mentation. Urinating without any problems. afebrile. Hospital Course Altered mental status/delirium, improved and back at his baseline. Metabolic encephalopathy, resolved Alcohol withdrawal syndrome, improved significantly - Off all continuos sedation. Clonidine 0.1 mg every 8 hours to control withdrawal symptoms tachycardia and hypotension - Neuro exam improved and back to baseline - CT head negative x3 negative - Lumbar puncture had bloody tab most likely from thrombocytopenia and recent argatroban use (DCd 05/15). CSF studies negative for infectious etiologies - MRV negative for any dural sinus thrombosis - Drug screen toxicology negative -Agitation most likely secondary to alcohol withdrawal - Hematology, ID, neurology following - Broad-spectrum meningitic coverage with Rocephin, Flagyl. HSV negative and acyclovir DC'd - Hyperammonemia, on lactulose - Thiamine folate multivitamin - Patient was swallowing objects prior to admission- PSYCH evaluation prior to discharge. 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 Valdez. Also f/u on gastric biopsies - Patient was swallowing objects prior to admission - Formal swallow pending by speech [id number] recommendations ID: - fever trending down with cecal foreign body/ring removal - Inflammatory fever now improving. Cultures CSF studies negative - s/p EGD/ colonoscopy with biopsy - Broad-spectrum meningitic coverage with Rocephin, Flagyl - BAL cultures remains negative to date, CSF HSV negative - Hep C reactive, to f./u as OP Heme: - Thrombocytopenia most likely secondary to alcohol dependence, bone marrow suppression, and splenomegaly, sepsis Endo: Hyperglycemia - Insulin sliding scale - Hematology following Hypotension BP 82/52. Administer 1 L bolus normal saline. Monitor blood pressure. DVT GI prophylaxis - Teds SCDs - No chemical DVT prophylaxis due to thrombocytopenia - Pepcid Fever trending down after foreign body removal from cecum. Afebrile With urinary retention. Multiple attempts to do straight cath. Consult urology for further evaluation, francisco is placed in. Started flomax, will do voiding trials. Removed Francisco able to urinate Improved significantly, at his baseline mentation. Discharged to rehab in stable condition to follow up as OP with PCP and consultants Pt Condition on Discharge: Stable Discharge Time: > 30 minutes Discharge Instructions DIET: Follow Instructions for: Heart Healthy Diet Speech Therapy-Diet Recommends: Mechanical Soft Activities you can perform: Regular-No Restrictions Follow up Referrals: PCP Follow-up - 2-3 Days New Medications: Insulin Detemir Inj (Levemir Inj) 1,000 unit/ 10 ML Vial 5 UNITS SQ Q12HR for diabetes, #60 INJECTION Do not mix with any other Insulin. Quetiapine (Seroquel) 25 Mg Tab 50 MG PO BID@09,12 for anxiety , #60 TAB Tamsulosin (Flomax) 0.4 Mg Cap 0.4 MG PO DAILY for urinary retension, #30 CAP Thiamine HCl (Gnp Vitamin B-1) 100 Mg Tab 100 MG PO DAILY for Nutritional Supplement, #30 TAB [Lactulose Liq] () 30 ML SYRP 30 ML PO QID for lower ammonia , #90 TAB Continued Medications: Clonazepam (Klonopin) 0.5 Mg Tab 0.5 MG PO BID for anxiety, #60 TAB 0 Refills (This prescription has been renewed ) Furosemide (Furosemide) 40 Mg Tab 40 MG PO BID, #60 TAB 0 Refills Oxycodone (Oxycodone) 5 Mg Cap 5 MG PO Q6H PRN for PAIN, #20 CAP 0 Refills (This prescription has been renewed) Spironolactone (Spironolactone) 25 Mg Tab 12.5 MG PO DAILY, #15 TAB 0 Refills Venlafaxine (Effexor) 50 Mg Tab 50 MG PO Q8H, #90 TAB 0 Refills Trixie Soto MD May 29, 2017 14:59
[2017-05-29 16:00] VITALS: BP 104/61; PULSE 115; RESP 18; TEMP 97.4; O2SAT 96
[2017-05-29] MEDS ORDERED: Lactulose Liq PO (16:39)
[2017-05-29] MEDS ORDERED: OXYC1CAP PO (16:39)
[2017-05-29] MEDS ORDERED: LEVEMIR SQ (16:39)
[2017-05-29] MEDS ORDERED: SERO25TA PO (16:39)
[2017-05-29] MEDS ORDERED: CLON.5 PO (16:39)
[2017-05-29] MEDS ORDERED: THIA100 PO (16:39)
[2017-05-29] MEDS ORDERED: TAMS5CAP PO (16:39)
== END 2017-05-29 16:44 | DRG 987 ==
LOC: NEPD 16:48 → NEDA 20:37 → NEPFCDU 22:37 → HIME 05-14 03:50 → N05A 05-23 19:36
PROVIDERS: ADMIT Hospitalist; ATTEND Hospitalist
PROC: 30233R1 Transfusion of Nonautologous Platelets into Peripheral Vein, Percutaneous Approach (ICD-10-PCS; 2017-05-15)
PROC: 0B9F8ZX Drainage of Right Lower Lung Lobe, Via Natural or Artificial Opening Endoscopic, Diagnostic (ICD-10-PCS; principal; 2017-05-16)
PROC: 5A1955Z Respiratory Ventilation, Greater than 96 Consecutive Hours (ICD-10-PCS; 2017-05-16)
PROC: 009U3ZX Drainage of Spinal Canal, Percutaneous Approach, Diagnostic (ICD-10-PCS; 2017-05-16)
PROC: 0BH17EZ Insertion of Endotracheal Airway into Trachea, Via Natural or Artificial Opening (ICD-10-PCS; 2017-05-16)
PROC: 0BC68ZZ Extirpation of Matter from Right Lower Lobe Bronchus, Via Natural or Artificial Opening Endoscopic (ICD-10-PCS; 2017-05-16)
PROC: 0DB68ZX Excision of Stomach, Via Natural or Artificial Opening Endoscopic, Diagnostic (ICD-10-PCS; 2017-05-21)
PROC: 0DCK8ZZ Extirpation of Matter from Ascending Colon, Via Natural or Artificial Opening Endoscopic (ICD-10-PCS; 2017-05-21)
DX: G93.41 Metabolic encephalopathy (principal); J96.01 Acute respiratory failure with hypoxia; J69.0 Pneumonitis due to inhalation of food and vomit; D69.59 Other secondary thrombocytopenia; I95.9 Hypotension, unspecified; T18.4XXA Foreign body in colon, initial encounter; E87.70 Fluid overload, unspecified; F10.239 Alcohol dependence with withdrawal, unspecified; K29.70 Gastritis, unspecified, without bleeding; K44.9 Diaphragmatic hernia without obstruction or gangrene; R33.9 Retention of urine, unspecified; R73.9 Hyperglycemia, unspecified; Z87.891 Personal history of nicotine dependence
CPT/HCPCS: 31500; 31624; 36430; 36600; 62270; 70450; 70546; 70553; 71045; 71250; 71260; 74177; 76705; 76937; 80048; 80053; 80074; 80307; 81001; 81240; 81241; 81291; 82140; 82272; 82805; 82945; 82948; 83090; 83605; 83615; 83735; 84100; 84132; 84157; 85007; 85025; 85027; 85240; 85300; 85303; 85306; 85307; 85610; 85613; 85730; 86022; 86038; 86146; 86147; 86148; 86403; 86592; 86618; 86703; 86850; 86900; 86901; 87015; 87040; 87070; 87086; 87102; 87116; 87205; 87206; 87497; 87498; 87522; 87529; 87641; 87799; 87902; 88305; 88312; 89051; 93005; 93970; 94002; 94003; 94150; 94640; 94664; 95819; A9579; J0133; J0290; J0696; J0883; J1630; J1644; J1815; J1885; J1940; J2060; J2250; J2370; J3010; J3370; J3480; J7030; J7040; J7050; P9035; Q9963; Q9967